=== PATIENT | male | born 1955 | race Caucasian/White ===

== ENCOUNTER 2020-07-04 05:57 | Outpatient (REF) | payer MEDICARE, OTHER, SELFPAY ==
[2020-07-04 08:30] LABS: Alanine Aminotransferase 28 U/L (0-40); Albumin Level 4.1 g/dL (3.5-5.0); Alkaline Phosphatase 60 U/L (39-117); Anion Gap 12 (12-20); Aspartate Amino Transferase 24 U/L (5-37); Bilirubin Total 0.6 mg/dL (0.0-1.0); Blood Urea Nitrogen 33 mg/dL (9-16); Calcium 8.8 mg/dL (8.4-10.2); Carbon Dioxide 28 mmol/L (22-29); Chloride 104 mmol/L (96-108); Estimated Glomerular Filt Rate 43; Glucose Fasting 128 mg/dL (60-99); Potassium 4.6 mmol/l (3.3-5.1); Sodium 139 mmol/L (135-145); Total Protein 6.6 g/dL (6.5-8.0)
[2020-07-09 00:27] LABS: Islet Cell Antibody Screen NEGATIVE (NEGATIVE)
[2020-07-09 16:42] LABS: Glutamic acid decarboxylase Ab <5 IU/mL (<5)
== END 2020-07-04 05:58 | disposition home or self-care (01) ==
LOC: HO.LAB 05:57
PROVIDERS: PCP Internal Medicine; Visit Provider Internal Medicine Endocrinology, Diabetes & Metabolism
DX: E11.9 Type 2 diabetes mellitus without complications (principal)
CPT/HCPCS: 80053; 84681; 86255; 86341

== ENCOUNTER → 2020-07-26 13:30 | Outpatient (BNVA) | payer MEDICARE, OTHER, SELFPAY | PROVIDERS: PCP Internal Medicine; Visit Provider Internal Medicine Endocrinology, Diabetes & Metabolism | DX: E11.42 Type 2 diabetes mellitus with diabetic polyneuropathy (principal); Z79.4 Long term (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; I15.2 Hypertension secondary to endocrine disorders; E78.00 Pure hypercholesterolemia, unspecified; E53.8 Deficiency of other specified B group vitamins; E66.3 Overweight | CPT/HCPCS: 82947; 99212 ==

== ENCOUNTER 2020-08-29 15:22 | Outpatient (REF) | payer MEDICARE, OTHER, SELFPAY ==
[2020-08-29 15:57] LABS: Basophils Percent Auto 0.3 % (0-2); Eosinophils Absolute Auto 0.1 X10*3/uL (0.0-0.4); Eosinophils Percent Auto 1.3 % (0-4); Hematocrit 38.9 % (42-52); Hemoglobin 12.7 g/dl (14.0-18.0); Imm Gran Abs Auto 0.01 X10*3/uL (0.00-0.03); Imm Gran Pct Auto 0.1 % (0.0-0.4); Lymphocytes Absolute Auto 1.2 X10*3/uL (1.2-4.9); Lymphocytes Percent Auto 17.4 % (20-40); MANUAL DIFF FLAG NO; Mean Corpuscular HGB Conc 32.6 g/dl (31.0-36.0); Mean Corpuscular Hemoglobin 30.9 pg (27.0-33.0); Mean Corpuscular Volume 94.6 fL (80-98); Mean Platelet Volume 11.6 fL (9.4-12.4); Monocytes Absolute Auto 0.6 X10*3/uL (0.1-1.2); Monocytes Percent Auto 8.7 % (2-11); Neutrophils Absolute Auto 5.1 X10*3/uL (2.0-8.3); Neutrophils Percent Auto 72.2 % (45-73); Platelet Count 179 X10*3/uL (160-400); Red Blood Count 4.11 X10*6/uL (4.60-5.80); Red Cell Distribution Width 13.3 % (11.0-16.0); White Blood Count 7.1 X10*3/uL (4.8-10.8)
[2020-08-29 16:16] LABS: Glucose Urine UA NEG (NEG); Leukocyte Esterase Urine NEG (NEG); Nitrite Urine NEG (NEG); PH 5.5 (5.0-8.0); Urine Blood NEG (NEG); Urine Ketones NEG (NEG); Urine Protein NEG (NEG-TRACE)
[2020-08-29 16:31] LABS: Albumin Level 4.3 g/dL (3.5-5.0); Anion Gap 11 (12-20); Blood Urea Nitrogen 43 mg/dL (9-16); Calcium 8.9 mg/dL (8.4-10.2); Carbon Dioxide 29 mmol/L (22-29); Chloride 101 mmol/L (96-108); Estimated Glomerular Filt Rate 32; Magnesium 2.3 mg/dL (1.6-2.6); Potassium 5.1 mmol/l (3.3-5.1); Sodium 136 mmol/L (135-145)
[2020-08-29 16:39] LABS: Appearance Urine CLEAR; Color Urine YELLOW
[2020-08-29 16:51] LABS: Creatinine Urine 77.33 mg/dL; Microalbumin Urine < 5.0 mg/L; Total Protein Urine Random < 7 mg/dL (<12)
[2020-08-29 16:52] LABS: Vitamin D 25-OH Total 65.7 ng/mL (>30)
[2020-08-29 20:47] LABS: Renal w Reflex Lab Use Only Order verified
[2020-08-30 18:47] LABS: Calcium (PTHI) 9.3 mg/dL (8.6-10.3); PTHI 52 pg/mL (14-64)
== END 2020-08-29 15:23 | disposition home or self-care (01) ==
LOC: HO.LAB 15:22
PROVIDERS: PCP Internal Medicine; Visit Provider Internal Medicine Nephrology
DX: E53.8 Deficiency of other specified B group vitamins (principal); I12.9 Hypertensive chronic kidney disease with stage 1 through stage 4 chronic kidney disease, or unspecified chronic kidney disease; N18.30 Chronic kidney disease, stage 3 unspecified; E66.3 Overweight
CPT/HCPCS: 36415; 80051; 81003; 82040; 82043; 82306; 82310; 82565; 83735; 83970; 84156; 84520; 85025

== ENCOUNTER 2020-09-24 15:33 | Outpatient (REF) | payer MEDICARE, OTHER, SELFPAY ==
[2020-09-24 16:18] LABS: Anion Gap 14 (12-20); Blood Urea Nitrogen 39 mg/dL (9-16); Calcium 9.1 mg/dL (8.4-10.2); Carbon Dioxide 27 mmol/L (22-29); Chloride 103 mmol/L (96-108); Estimated Glomerular Filt Rate 36; Phosphorus 4.6 mg/dL (2.7-4.5); Potassium 4.2 mmol/L (3.3-5.1); Sodium 140 mmol/L (135-145)
== END 2020-09-24 15:34 | disposition home or self-care (01) ==
LOC: HO.LAB 15:33
PROVIDERS: PCP Internal Medicine; Visit Provider Internal Medicine Nephrology
DX: E11.21 Type 2 diabetes mellitus with diabetic nephropathy (principal); I12.9 Hypertensive chronic kidney disease with stage 1 through stage 4 chronic kidney disease, or unspecified chronic kidney disease; N18.30 Chronic kidney disease, stage 3 unspecified
CPT/HCPCS: 36415; 80051; 82310; 82565; 84100; 84520

== ENCOUNTER → 2020-11-04 13:55 | Outpatient (BNVA) | payer MEDICARE, OTHER, SELFPAY | PROVIDERS: PCP Internal Medicine; Visit Provider Internal Medicine Endocrinology, Diabetes & Metabolism | DX: E11.42 Type 2 diabetes mellitus with diabetic polyneuropathy (principal); Z79.4 Long term (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; I15.2 Hypertension secondary to endocrine disorders; E78.00 Pure hypercholesterolemia, unspecified; E53.8 Deficiency of other specified B group vitamins; E66.3 Overweight | CPT/HCPCS: 82947; 99212 ==

== ENCOUNTER 2020-11-26 08:28 | Outpatient (REF) | payer MEDICARE, OTHER, SELFPAY ==
[2020-11-26 11:27] LABS: Hematocrit 42.5 % (42-52); Hemoglobin 13.9 g/dl (14.0-18.0); Mean Corpuscular HGB Conc 32.7 g/dl (31.0-36.0); Mean Corpuscular Hemoglobin 30.8 pg (27.0-33.0); Mean Corpuscular Volume 94.2 fL (80-98); Mean Platelet Volume 12.1 fL (9.4-12.4); Platelet Count 178 X10*3/uL (160-400); Red Blood Count 4.51 X10*6/uL (4.60-5.80); White Blood Count 6.2 X10*3/uL (4.8-10.8)
[2020-11-26 11:31] LABS: Estimated Average Glucose 131 mg/dL; Hemoglobin A1c % 6.2 %
[2020-11-26 11:47] LABS: Alanine Aminotransferase 31 U/L (0-40); Albumin Level 4.2 g/dL (3.5-5.0); Alkaline Phosphatase 64 U/L (39-117); Anion Gap 14 (12-20); Aspartate Amino Transferase 23 U/L (5-37); Bilirubin Total 0.9 mg/dL (0.0-1.0); Blood Urea Nitrogen 39 mg/dL (9-16); Calcium 8.7 mg/dL (8.4-10.2); Carbon Dioxide 27 mmol/L (22-29); Chloride 104 mmol/L (96-108); Cholesterol 129 mg/dL; Estimated Glomerular Filt Rate 38; Glucose Fasting 98 mg/dL (60-99); HDL Cholesterol 42 mg/dL; LDL Cholesterol Calculated 58 mg/dl; Potassium 4.7 mmol/L (3.3-5.1); Sodium 140 mmol/L (135-145); Total Protein 6.9 g/dL (6.5-8.0); Triglycerides 149 mg/dL
[2020-11-26 12:08] LABS: Creatinine Urine 137.71 mg/dL; Microalbumin Urine < 5.0 mg/L
== END 2020-11-26 08:29 | disposition home or self-care (01) ==
LOC: HO.HMGCLDS 08:28
PROVIDERS: PCP Internal Medicine; Visit Provider Internal Medicine
DX: E11.22 Type 2 diabetes mellitus with diabetic chronic kidney disease (principal); I12.9 Hypertensive chronic kidney disease with stage 1 through stage 4 chronic kidney disease, or unspecified chronic kidney disease; N18.30 Chronic kidney disease, stage 3 unspecified; E78.00 Pure hypercholesterolemia, unspecified
CPT/HCPCS: 36415; 80053; 80061; 82043; 83036; 85027

== ENCOUNTER 2020-12-19 15:39 | Outpatient (REF) | payer SELFPAY | END 2020-12-19 15:40 | disposition home or self-care (01) | LOC: HO.HAP 15:39 | PROVIDERS: Visit Provider Internal Medicine | DX: Z46.1 Encounter for fitting and adjustment of hearing aid (principal); H90.3 Sensorineural hearing loss, bilateral | CPT/HCPCS: V5014; V5299 ==

== ENCOUNTER 2021-01-22 12:20 | Outpatient (REF) | payer MEDICARE, OTHER, SELFPAY ==
[2021-01-22 14:00] LABS: Glucose Urine UA NEG (NEG); Leukocyte Esterase Urine NEG (NEG); Nitrite Urine NEG (NEG); Specific Gravity - Urine 1.015 (1.005-1.025); Urine Blood NEG (NEG); Urine Ketones NEG (NEG); Urine Protein NEG (NEG-TRACE)
[2021-01-22 14:01] LABS: Appearance Urine CLEAR; Color Urine YELLOW
[2021-01-22 14:02] LABS: MANUAL DIFF FLAG NO
[2021-01-22 14:08] LABS: Basophils Percent Auto 0.4 % (0-2); Eosinophils Absolute Auto 0.2 X10*3/uL (0.0-0.4); Eosinophils Percent Auto 2.6 % (0-4); Hematocrit 39.2 % (42-52); Hemoglobin 12.9 g/dl (14.0-18.0); Imm Gran Abs Auto 0.03 X10*3/uL (0.00-0.03); Imm Gran Pct Auto 0.4 % (0.0-0.4); Lymphocytes Absolute Auto 1.4 X10*3/uL (1.2-4.9); Lymphocytes Percent Auto 18.5 % (20-40); Mean Corpuscular HGB Conc 32.9 g/dl (31.0-36.0); Mean Corpuscular Hemoglobin 30.9 pg (27.0-33.0); Mean Platelet Volume 11.6 fL (9.4-12.4); Monocytes Absolute Auto 0.5 X10*3/uL (0.1-1.2); Monocytes Percent Auto 6.8 % (2-11); Neutrophils Absolute Auto 5.2 X10*3/uL (2.0-8.3); Neutrophils Percent Auto 71.3 % (45-73); Platelet Count 166 X10*3/uL (160-400); Red Blood Count 4.17 X10*6/uL (4.60-5.80); Red Cell Distribution Width 13.7 % (11.0-16.0); White Blood Count 7.4 X10*3/uL (4.8-10.8)
[2021-01-22 14:15] LABS: Mucus Urine TRACE /LPF; RBC Urine 0 /HPF (0); Squamous Epithelial Cell Urine TRACE /LPF; WBC Urine 0-2 /HPF (0-4)
[2021-01-22 14:38] LABS: Albumin Level 4.2 g/dL (3.5-5.0); Anion Gap 14 (12-20); Blood Urea Nitrogen 38 mg/dL (9-16); Calcium 9.1 mg/dL (8.4-10.2); Carbon Dioxide 25 mmol/L (22-29); Chloride 102 mmol/L (96-108); Estimated Glomerular Filt Rate 38; Magnesium 2.2 mg/dL (1.6-2.6); Phosphorus 3.8 mg/dL (2.7-4.5); Potassium 4.3 mmol/L (3.3-5.1); Sodium 137 mmol/L (135-145)
[2021-01-22 14:49] LABS: Microalbumin Urine < 5.0 mg/L; Total Protein Urine Random < 7 mg/dL (<12)
[2021-01-22 14:59] LABS: Renal w Reflex Lab Use Only Order verified
[2021-01-23 08:05] LABS: Creatinine Urine 63.86 mg/dL
[2021-01-23 13:27] LABS: Calcium (PTHI) 9.3 mg/dL (8.6-10.3); PTHI 58 pg/mL (14-64)
== END 2021-01-22 12:21 | disposition home or self-care (01) ==
LOC: HO.HMGCLDS 12:20
PROVIDERS: PCP Internal Medicine; Visit Provider Internal Medicine Nephrology
DX: I12.9 Hypertensive chronic kidney disease with stage 1 through stage 4 chronic kidney disease, or unspecified chronic kidney disease (principal); E11.22 Type 2 diabetes mellitus with diabetic chronic kidney disease; N18.30 Chronic kidney disease, stage 3 unspecified
CPT/HCPCS: 36415; 80051; 81001; 82040; 82043; 82306; 82310; 82565; 83735; 83970; 84100; 84156; 84520; 85025

== ENCOUNTER → 2021-02-10 10:25 | Outpatient (BNVA) | payer MEDICARE, OTHER, SELFPAY | PROVIDERS: PCP Internal Medicine; Visit Provider Internal Medicine Endocrinology, Diabetes & Metabolism | DX: E11.42 Type 2 diabetes mellitus with diabetic polyneuropathy (principal); I15.2 Hypertension secondary to endocrine disorders; E78.00 Pure hypercholesterolemia, unspecified; E53.8 Deficiency of other specified B group vitamins; E66.3 Overweight; Z79.4 Long term (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 | CPT/HCPCS: 82947; 99212 ==

== ENCOUNTER 2021-04-10 07:28 | Outpatient (REF) | payer MEDICARE, OTHER, SELFPAY ==
[2021-04-10 11:18] LABS: MANUAL DIFF FLAG NO
[2021-04-10 11:26] LABS: Basophils Percent Auto 0.6 % (0-2); Eosinophils Absolute Auto 0.2 X10*3/uL (0.0-0.4); Eosinophils Percent Auto 2.6 % (0-4); Hematocrit 38.5 % (42-52); Hemoglobin 12.4 g/dl (14.0-18.0); Imm Gran Abs Auto 0.02 X10*3/uL (0.00-0.03); Imm Gran Pct Auto 0.3 % (0.0-0.4); Mean Corpuscular HGB Conc 32.2 g/dl (31.0-36.0); Mean Corpuscular Hemoglobin 30.1 pg (27.0-33.0); Mean Corpuscular Volume 93.4 fL (80-98); Mean Platelet Volume 12.2 fL (9.4-12.4); Monocytes Absolute Auto 0.6 X10*3/uL (0.1-1.2); Monocytes Percent Auto 9.2 % (2-11); Neutrophils Absolute Auto 4.6 X10*3/uL (2.0-8.3); Neutrophils Percent Auto 71.3 % (45-73); Platelet Count 164 X10*3/uL (160-400); Red Blood Count 4.12 X10*6/uL (4.60-5.80); Red Cell Distribution Width 13.7 % (11.0-16.0); White Blood Count 6.4 X10*3/uL (4.8-10.8)
[2021-04-10 12:15] LABS: Folate 9.9 ng/mL (> or = 4.0); Vitamin B12 487 pg/mL (200-900)
[2021-04-10 12:17] LABS: Alanine Aminotransferase 26 U/L (0-40); Albumin Level 4.1 g/dL (3.5-5.0); Alkaline Phosphatase 61 U/L (39-117); Anion Gap 14 (12-20); Aspartate Amino Transferase 20 U/L (5-37); Bilirubin Total 0.5 mg/dL (0.0-1.0); Blood Urea Nitrogen 39 mg/dL (9-16); Calcium 9.1 mg/dL (8.4-10.2); Carbon Dioxide 25 mmol/L (22-29); Chloride 107 mmol/L (96-108); Estimated Glomerular Filt Rate 38; Glucose Fasting 82 mg/dL (60-99); Iron 50 mcg/dL (45-160); Percent Iron Saturation 20 % (15-50); Potassium 4.2 mmol/L (3.3-5.1); Sodium 142 mmol/L (135-145); Total Iron Binding Capacity 253 mcg/dL (228-428); Total Protein 6.6 g/dL (6.5-8.0); Unsaturated Iron Binding 203 ug/dL
== END 2021-04-10 07:29 | disposition home or self-care (01) ==
LOC: HO.HMGCLDS 07:28
PROVIDERS: PCP Internal Medicine; Visit Provider Internal Medicine
DX: E11.42 Type 2 diabetes mellitus with diabetic polyneuropathy (principal); E53.8 Deficiency of other specified B group vitamins; E78.00 Pure hypercholesterolemia, unspecified; N18.30 Chronic kidney disease, stage 3 unspecified
CPT/HCPCS: 36415; 80053; 82607; 82746; 83540; 85025

== ENCOUNTER → 2021-04-21 07:58 | Outpatient (BNVA) | payer MEDICARE, OTHER, SELFPAY | PROVIDERS: PCP Internal Medicine; Visit Provider Nurse Practitioner Gerontology | DX: E11.65 Type 2 diabetes mellitus with hyperglycemia (principal); E11.22 Type 2 diabetes mellitus with diabetic chronic kidney disease; E11.42 Type 2 diabetes mellitus with diabetic polyneuropathy; E11.610 Type 2 diabetes mellitus with diabetic neuropathic arthropathy; I12.9 Hypertensive chronic kidney disease with stage 1 through stage 4 chronic kidney disease, or unspecified chronic kidney disease; N18.30 Chronic kidney disease, stage 3 unspecified; E78.5 Hyperlipidemia, unspecified; E53.8 Deficiency of other specified B group vitamins; E66.3 Overweight; Z68.28 Body mass index [BMI] 28.0-28.9, adult; Z88.8 Allergy status to other drugs, medicaments and biological substances; Z79.4 Long term (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; Z96.41 Presence of insulin pump (external) (internal); Z79.899 Other long term (current) drug therapy; Z46.81 Encounter for fitting and adjustment of insulin pump | CPT/HCPCS: 82947; 99212 ==

== ENCOUNTER 2021-07-22 16:08 | Outpatient (REF) | payer MEDICARE, OTHER, SELFPAY ==
[2021-07-22 16:29] LABS: MANUAL DIFF FLAG NO
[2021-07-22 17:45] LABS: Basophils Percent Auto 0.4 % (0-2); Eosinophils Absolute Auto 0.2 X10*3/uL (0.0-0.4); Eosinophils Percent Auto 3.4 % (0-4); Hemoglobin 12.1 g/dl (14.0-18.0); Imm Gran Abs Auto 0.02 X10*3/uL (0.00-0.03); Imm Gran Pct Auto 0.3 % (0.0-0.4); Lymphocytes Absolute Auto 1.3 X10*3/uL (1.2-4.9); Lymphocytes Percent Auto 19.3 % (20-40); Mean Corpuscular HGB Conc 31.8 g/dl (31.0-36.0); Mean Corpuscular Hemoglobin 30.2 pg (27.0-33.0); Mean Corpuscular Volume 94.8 fL (80.0-98.0); Mean Platelet Volume 11.8 fL (9.4-12.4); Monocytes Absolute Auto 0.6 X10*3/uL (0.1-1.2); Monocytes Percent Auto 8.7 % (2-11); Neutrophils Absolute Auto 4.6 x10*3/uL (2.0-8.3); Neutrophils Percent Auto 67.9 % (45-73); Platelet Count 163 X10*3/uL (160-400); Red Blood Count 4.01 X10*6/uL (4.60-5.80); Red Cell Distribution Width 14.3 % (11.0-16.0); White Blood Count 6.8 X10*3/uL (4.8-10.8)
[2021-07-22 17:48] LABS: Appearance Urine CLEAR; Color Urine STRAW; Glucose Urine UA NEG (NEG); Leukocyte Esterase Urine NEG (NEG); Nitrite Urine NEG (NEG); Specific Gravity - Urine 1.015 (1.005-1.025); Urine Blood NEG (NEG); Urine Ketones NEG (NEG); Urine Protein NEG (NEG-TRACE)
[2021-07-22 18:07] LABS: Anion Gap 13 (12-20); Blood Urea Nitrogen 34 mg/dL (9-16); Calcium 9.5 mg/dL (8.4-10.2); Carbon Dioxide 25 mmol/L (22-29); Chloride 104 mmol/L (96-108); Estimated Glomerular Filt Rate 43; Phosphorus 4.2 mg/dL (2.7-4.5); Potassium 4.3 mmol/L (3.3-5.1); Sodium 138 mmol/L (135-145)
[2021-07-22 18:13] LABS: Creatinine Urine 39.79 mg/dL; Microalbumin Urine < 5.0 mg/L; Total Protein Urine Random < 7 mg/dL (<12)
[2021-07-22 18:31] LABS: Vitamin D 25-OH Total 51.1 ng/mL (>30)
== END 2021-07-22 16:09 | disposition home or self-care (01) ==
LOC: HO.LAB 16:08
PROVIDERS: PCP Internal Medicine; Visit Provider Internal Medicine Nephrology
DX: N18.31 Chronic kidney disease, stage 3a (principal)
CPT/HCPCS: 36415; 80051; 81003; 82040; 82043; 82306; 82310; 82565; 83735; 84100; 84156; 84520; 85025; 87086

== ENCOUNTER → 2021-08-01 10:33 | Outpatient (BNVA) | payer MEDICARE, OTHER, SELFPAY | PROVIDERS: PCP Internal Medicine; Visit Provider Nurse Practitioner Gerontology | DX: E11.42 Type 2 diabetes mellitus with diabetic polyneuropathy (principal); E78.00 Pure hypercholesterolemia, unspecified; E53.8 Deficiency of other specified B group vitamins; I15.2 Hypertension secondary to endocrine disorders; Z79.4 Long term (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; Z96.41 Presence of insulin pump (external) (internal) | CPT/HCPCS: 82947; 83036; 99212 ==

== ENCOUNTER → 2021-08-19 09:21 | Outpatient (BNVA) | payer MEDICARE, OTHER, SELFPAY | PROVIDERS: PCP Internal Medicine; Visit Provider Registered Nurse Diabetes Educator ==

== ENCOUNTER 2021-10-30 09:06 | Outpatient (REF) | payer MEDICARE, OTHER, SELFPAY ==
[2021-10-30 11:51] LABS: Hematocrit 43.2 % (42.0-52.0); Hemoglobin 13.9 g/dl (14.0-18.0); Mean Corpuscular HGB Conc 32.2 g/dl (31.0-36.0); Mean Corpuscular Hemoglobin 30.9 pg (27.0-33.0); Platelet Count 157 X10*3/uL (160-400); Red Cell Distribution Width 14.2 % (11.0-16.0); White Blood Count 5.6 X10*3/uL (4.8-10.8)
[2021-10-30 12:00] LABS: Estimated Average Glucose 123 mg/dL; Hemoglobin A1c % 5.9 %
[2021-10-30 12:04] LABS: Magnesium 2.2 mg/dL (1.6-2.6); Phosphorus 3.3 mg/dL (2.7-4.5); Total Protein 6.7 g/dL (6.5-8.0)
[2021-10-30 12:07] LABS: Appearance Urine CLEAR; Color Urine YELLOW; Glucose Urine UA >=1000 MG/DL (NEG); Leukocyte Esterase Urine NEG (NEG); Nitrite Urine NEG (NEG); PH 5.5 (5.0-8.0); Urine Blood NEG (NEG); Urine Ketones NEG (NEG); Urine Protein NEG (NEG-TRACE)
[2021-10-30 12:14] LABS: Alanine Aminotransferase 27 U/L (0-40); Albumin Level 3.9 g/dL (3.5-5.0); Alkaline Phosphatase 64 U/L (39-117); Anion Gap 15 (12-20); Aspartate Amino Transferase 23 U/L (5-37); Bilirubin Total 0.7 mg/dL (0.0-1.0); Blood Urea Nitrogen 40 mg/dL (9-16); Calcium 8.9 mg/dL (8.4-10.2); Carbon Dioxide 22 mmol/L (22-29); Chloride 104 mmol/L (96-108); Cholesterol 149 mg/dL; Estimated Glomerular Filt Rate 37; Glucose Fasting 131 mg/dL (60-99); HDL Cholesterol 51 mg/dL; LDL Cholesterol Calculated 73 mg/dl; Potassium 4.8 mmol/L (3.3-5.1); Sodium 136 mmol/L (135-145); Total Protein 6.6 g/dL (6.5-8.0); Triglycerides 125 mg/dL
[2021-10-30 12:23] LABS: Creatinine Urine 100.67 mg/dL; Microalbumin Urine < 5.0 mg/L
[2021-10-30 12:25] LABS: Prostate Specific Antigen Scr 0.81 ng/mL (<0.05-4.0); Vitamin D 25-OH Total 40.9 ng/mL (>30)
[2021-10-30 12:25] LABS: Creatinine Urine 102.26 mg/dL; Protein/Creatinine Ratio, Ur 0.09 (<0.2); Total Protein Urine Random 9 mg/dL (<12)
[2021-10-30 12:27] LABS: RBC Urine 0-2 /HPF (0); WBC Urine 0-2 /HPF (0-4)
[2021-10-30 12:28] LABS: Squamous Epithelial Cell Urine TRACE /LPF
[2021-10-30 13:02] LABS: Folate 6.7 ng/mL (> or = 4.0); Vitamin B12 416 pg/mL (200-900)
[2021-10-31 18:21] LABS: Calcium (PTHI) 8.9 mg/dL (8.6-10.3); PTHI 74 pg/mL (14-64)
== END 2021-10-30 09:07 | disposition home or self-care (01) ==
LOC: HO.HMGCLDS 09:06
PROVIDERS: Absent Provider Internal Medicine Nephrology; PCP Internal Medicine; Visit Provider Internal Medicine
DX: E11.42 Type 2 diabetes mellitus with diabetic polyneuropathy (principal); E11.21 Type 2 diabetes mellitus with diabetic nephropathy; N18.32 Chronic kidney disease, stage 3b; E78.00 Pure hypercholesterolemia, unspecified; E53.8 Deficiency of other specified B group vitamins; Z12.5 Encounter for screening for malignant neoplasm of prostate
CPT/HCPCS: 36415; 80053; 80061; 81001; 82043; 82306; 82607; 82746; 83036; 83735; 83970; 84100; 84153; 84155; 84156; 85027; 87086

== ENCOUNTER → 2021-11-04 07:23 | Outpatient (BNVA) | payer MEDICARE, OTHER, SELFPAY | PROVIDERS: PCP Internal Medicine; Visit Provider Nurse Practitioner Gerontology | DX: E11.42 Type 2 diabetes mellitus with diabetic polyneuropathy (principal); E53.8 Deficiency of other specified B group vitamins; E66.3 Overweight; E78.00 Pure hypercholesterolemia, unspecified; I15.2 Hypertension secondary to endocrine disorders; Z96.41 Presence of insulin pump (external) (internal); Z79.4 Long term (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 | CPT/HCPCS: 82947; 99212 ==

== ENCOUNTER 2021-11-17 13:14 | Outpatient (REF) | payer MEDICARE, OTHER, SELFPAY ==
[2021-11-17 14:16] LABS: Anion Gap 12 (12-20); Blood Urea Nitrogen 31 mg/dL (9-16); Calcium 9.2 mg/dL (8.4-10.2); Carbon Dioxide 26 mmol/L (22-29); Chloride 106 mmol/L (96-108); Estimated Glomerular Filt Rate 41; Glucose Random 115 mg/dL (60-115); Potassium 4.4 mmol/L (3.3-5.1); Sodium 140 mmol/L (135-145)
== END 2021-11-17 13:15 | disposition home or self-care (01) ==
LOC: HO.HMGCLDS 13:14
PROVIDERS: Visit Provider Internal Medicine
DX: E11.9 Type 2 diabetes mellitus without complications (principal); I15.2 Hypertension secondary to endocrine disorders; N18.30 Chronic kidney disease, stage 3 unspecified
CPT/HCPCS: 36415; 80048

== ENCOUNTER → 2021-11-18 07:52 | Outpatient (BNVA) | payer MEDICARE, OTHER, SELFPAY | PROVIDERS: PCP Internal Medicine; Visit Provider Registered Nurse Diabetes Educator | DX: E11.42 Type 2 diabetes mellitus with diabetic polyneuropathy (principal); Z79.4 Long term (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; Z96.41 Presence of insulin pump (external) (internal) | CPT/HCPCS: 99211 ==

== ENCOUNTER 2021-12-22 13:50 | Outpatient (REF) | payer MEDICARE, OTHER, SELFPAY ==
--- NOTE | 2021-12-22 16:16 | MHC.AU.AHA ---
Adult Audiological Evaluation Date of Visit: 12/22/21 Reason for Appointment: Audiological re-evaluation due to concern for decreased hearing. Mr. Herrera has a known bilateral sensorineural hearing loss and uses hearing aids binaurally. He notes that he has been trouble understanding his sons who he feels mumble and his grandkids. He notes that he retired in July 2021 and has been wearing the hearing aids more consistently now. He notes that since he has retired, his blood pressure has gone down and his blood pressure medication dosage has been reduced. He denies any other changes to his medical history. Previous Hearing Test [place] [facility] [place] Normal through 500 Hz sloping to a moderately-severe sensorineural hearing loss bilaterally. Medical History: Medical History: Anemia, B-complex deficiency, B12 deficiency, CKD (chronic kidney disease) stage III, Diabetes type 2 controlled, Diabetic polyneuropathy associated with type 2 diabetes mellitus, HTN (hypertension), Hypercholesterolemia, Peripheral neuropathy Allergies: Niacin, statins, atorvastatin Medication List: amlodipine, ascorbic acid, aspirin, calcium carbonate-vitamin D3, cholecalciferol (vitamin D3), dapagliflozin (Farxiga), ezetimibe, ferrous sulfate (FeroSul), fluticasone propionate, furosemide, glucosamine HCl, hydralazine, irbesartan, metformin, montelukast, nebivolol, Novolog U-100, rosuvastatin, spironolactone Hearing Instrument History- Right Ear: Oriental Medicine Practitioner: RotaryView Model: [employer] Q70-312 Serial Number: [id number] Battery Size: 312 Repair Warranty: Dispensed By: [employer] service Date of Fitting: ~2014 Hearing Instrument History- Left Ear: Oriental Medicine Practitioner: RotaryView Model: [employer] Q70-312 Serial Number: [id number] Battery Size: 312 Warranty: Dispensed By: [employer] service Date of Fitting: Otoscopy: Right Ear: Unremarkable Left Ear: Unremarkable Tympanometry: Tympanometry performed due to: To assess integrity of the middle ear system Right Ear: Hypercompliant Middle Ear System (Type Ad) Left Ear: Hypercompliant Middle Ear System (Type Ad) Hearing Evaluation: Transducer(s) Used: Insert Earphones, Bone Conduction Method: Conventional Audiometry Stimuli Used: Pure Tones Right Ear: Description of Hearing: Normal hearing at 250 Hz, sloping to a mild to moderate sensorineural hearing loss from 500-8000 Hz. Left Ear: Description of Hearing: Normal hearing at 250 Hz, sloping to a mild to moderate sensorineural hearing loss from 500-8000 Hz. Speech Recognition Threshold (SRT): Method Used: Monitored Live Voice Stimuli Used: Spondee Words Right Ear: 35 dBHL Left Ear: 35 dBHL Word Discrimination: Method: Recorded Lists Word Lists Used: NU-6 Right Ear: 92% at 75 dBHL Left Ear: 100% at 75 dBHL Comparison: Compared to most recent evaluation: Hearing has decreased by 10-20 dBHL from 250-3000 Hz bilaterally. Recommendations: Audiological re-evaluation in one year. Based on the age of his current hearing aids and the new technologies available, updated amplification is recommended. Mr. Herrera is interested in purchasing a new pair of Phonak Audeo P90-13T hearing aids. Order was placed today and hearing aid fitting will be scheduled when materials arrive. Diagnosis: Primary Diagnosis: H90.3 Bilateral Sensorineural Hearing Loss Services Performed: Comprehensive Audiological Evaluation (CPT 25080) Tympanometry (CPT 39556) Signature: Provider: Elijah Da Silva, MANDY-A
--- NOTE | 2021-12-24 13:37 | MHC.AU.MED ---
Medical Clearance for Hearing Instrumentation Date: 12/24/21 Patient Name: Mihai Herrera Date of : 1955 Referring Provider: Maria Isabel Munoz MD We have seen your patient on 12/24/21 and have determined that they are a candidate for amplification (See accompanying report). Specifically, they would benefit from: Hearing aid use in both ears There is a statute that addresses Medical Evaluation Requirements prior to fitting a patient with a hearing aid. According to [place] statute 265 CMR:6.03(1), (a) General. Except as provided in 265 CMR 6.03(1)(b), a shearing shed worker shall not sell a hearing aid unless the prospective user has presented to the shearing shed worker a written statement signed by a licensed physician that states that the patient's hearing loss has been medically evaluated and the patient may be considered a candidate for a hearing aid. The medical evaluation must have taken place within the preceding six months. Please note: Due to the [place] Statute referenced above, we cannot accept a signature other than that of a licensed physician. ENVIRONMENTAL PLANNER and PA signatures cannot be accepted. I am in agreement with the above recommendation. There is no medical contraindication for hearing instrumentation. Physician Signature Date Physician Name (Printed)
== END 2021-12-22 13:51 | disposition home or self-care (01) ==
LOC: HO.SH 13:50
PROVIDERS: Visit Provider Internal Medicine
DX: Z01.118 Encounter for examination of ears and hearing with other abnormal findings (principal); H90.3 Sensorineural hearing loss, bilateral
CPT/HCPCS: 92557; 92567

== ENCOUNTER 2021-12-22 15:06 | Outpatient (REF) | payer SELFPAY ==
--- NOTE | 2021-12-22 16:33 | MHC.AU.HAS ---
Hearing Aid Evaluation Date of Visit: 12/22/21 Historical Information: Description of Hearing: Mild to moderate sensorineural hearing loss bilaterally. Current personal amplification information, if applicable: Phonak Infusionsofteo Q70-312 Summary: Mr. Herrera is interested in pursuing new hearing aids, which are recommended due to the age of his current devices and updates in technology. Discussed hearing aid styles and technologies. He is interested in remaining with JULIO C style hearing aids with open domes. He is interested in Bluetooth connectivity. He would like to go with Nasseoium technology devices. Hearing Aid Prescription: Based on the individual?s shared listening needs, communication environments, dexterity, desire for connectivity, and personal preferences, the following prescription for amplification has been made: Right ear: Vice President Media Relations: Phonak Model: Audeo P90-13T Battery Size: 13 Color: P5 Geospatial Scientist: Size 1 M Type of Dome: Medium open Left ear: Left ear prescription to be same as Right Hearing Aid above: Vice President Media Relations: Phonak Model: Audeo P90-13T Battery Size: 312 Color: P5 Geospatial Scientist: Size 1 M Type of Dome: Medium open Plan of Care: Medical Clearance to be requested from PCP/ENT. Hearing Instrument Fitting to be scheduled when materials arrive. Hearing aids ordered. He paid the $350 down payment today. He notes that he has some hearing aid coverage from [facility] and will want an itemized receipt. Maintenance and adjustments were performed on his current hearing aids. Primary Diagnosis: H90.3 Bilateral Sensorineural Hearing Loss Signature: Provider: Elijah Da Silva, CCC-A
== END 2021-12-22 15:07 | disposition home or self-care (01) ==
LOC: HO.HAP 15:06
PROVIDERS: Visit Provider Internal Medicine
DX: Z46.1 Encounter for fitting and adjustment of hearing aid (principal); H90.3 Sensorineural hearing loss, bilateral
CPT/HCPCS: 92591

== ENCOUNTER 2022-01-08 13:49 | Outpatient (REF) | payer SELFPAY | END 2022-01-08 13:50 | disposition home or self-care (01) | LOC: HO.HAP 13:49 | PROVIDERS: Visit Provider Internal Medicine | DX: Z46.1 Encounter for fitting and adjustment of hearing aid (principal); H90.3 Sensorineural hearing loss, bilateral | CPT/HCPCS: V5261 ==

== ENCOUNTER 2022-01-22 13:48 | Outpatient (REF) | payer SELFPAY | END 2022-01-22 13:49 | disposition home or self-care (01) | LOC: HO.HAP 13:48 | PROVIDERS: Visit Provider Internal Medicine | DX: Z13.89 Encounter for screening for other disorder (principal) ==

== ENCOUNTER → 2022-03-25 14:27 | Outpatient (BNVA) | payer MEDICARE, OTHER, SELFPAY | PROVIDERS: PCP Internal Medicine; Visit Provider Internal Medicine Endocrinology, Diabetes & Metabolism | DX: E11.9 Type 2 diabetes mellitus without complications (principal); Z79.4 Long term (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 | CPT/HCPCS: 82947; 99212 ==

== ENCOUNTER 2022-06-05 07:54 | Outpatient (REF) | payer MEDICARE, OTHER, SELFPAY ==
[2022-06-05 11:38] LABS: Hematocrit 45.5 % (42.0-52.0); Mean Corpuscular Hemoglobin 30.9 pg (27.0-33.0); Mean Corpuscular Volume 93.8 fL (80.0-98.0); Mean Platelet Volume 11.6 fL (9.4-12.4); Platelet Count 179 X10*3/uL (160-400); Red Blood Count 4.85 X10*6/uL (4.60-5.80); Red Cell Distribution Width 15.8 % (11.0-16.0); White Blood Count 5.1 X10*3/uL (4.8-10.8)
[2022-06-05 11:50] LABS: Estimated Average Glucose 123 mg/dL; Hemoglobin A1c % 5.9 %
[2022-06-05 12:06] LABS: Alanine Aminotransferase 25 U/L (0-40); Albumin Level 3.9 g/dL (3.5-5.0); Alkaline Phosphatase 79 U/L (39-117); Anion Gap 13 (12-20); Aspartate Amino Transferase 23 U/L (5-37); Bilirubin Total 0.6 mg/dL (0.0-1.0); Blood Urea Nitrogen 21 mg/dL (9-16); Calcium 8.7 mg/dL (8.4-10.2); Carbon Dioxide 26 mmol/L (22-29); Chloride 107 mmol/L (96-108); Cholesterol 142 mg/dL; Estimated Glomerular Filt Rate 49; Glucose Fasting 80 mg/dL (60-99); HDL Cholesterol 52 mg/dL; Iron 71 mcg/dL (45-160); LDL Cholesterol Calculated 67 mg/dl; Percent Iron Saturation 29 % (15-50); Potassium 4.1 mmol/L (3.3-5.1); Sodium 142 mmol/L (135-145); Total Iron Binding Capacity 246 mcg/dL (228-428); Total Protein 6.5 g/dL (6.5-8.0); Triglycerides 116 mg/dL; Unsaturated Iron Binding 175 ug/dL
[2022-06-05 12:22] LABS: Creatinine Urine 148.57 mg/dL
== END 2022-06-05 07:55 | disposition home or self-care (01) ==
LOC: HO.HMGCLDS 07:54
PROVIDERS: PCP Internal Medicine; Visit Provider Internal Medicine
DX: E11.42 Type 2 diabetes mellitus with diabetic polyneuropathy (principal); I15.2 Hypertension secondary to endocrine disorders; N18.30 Chronic kidney disease, stage 3 unspecified
CPT/HCPCS: 36415; 80053; 80061; 82043; 83036; 83540; 85027

== ENCOUNTER 2022-07-15 08:30 | Outpatient (REF) | payer MEDICARE, OTHER, SELFPAY ==
--- NOTE | 2022-07-15 09:46 | MHC.AU.HFU ---
Hearing Instrument Follow-Up- Binaural Date of Visit: 07/15/22 Right Ear: Phonak Karinaeo P90-13T SN: [id number] Color: Champagne Repair Warranty: 03/25/2025 Loss and Damage Warranty: 03/25/2025 Battery Size: 13 Slurry Tank Operator: 1M Type of Mold: Small open dome Type of Wax Guard: Cerushield Dispensed By: [facility] Date of Fittin01/08/2022 Left Ear: Phonak Karinaeo P90-13T SN: [id number] Color: Champagne Repair Warranty: 03/25/2025 Loss and Damage Warranty: 03/25/2025 Battery Size: 13 Slurry Tank Operator: 1M Type of Mold: Small open dome Type of Wax Guard: Cerushield Dispensed By: [facility] Date of Fittin01/08/2022 Follow-Up Summary: Mihai returned for routine hearing aid maintenance. He reported overall he is doing well with the hearing aids and not experiencing any issues at this time. Cleaning the hearing aids. Vacuumed the microphones and replaced the domes and wax guards. The right battery door had a significant amount of rust - cleaned thoroughly. A listening check demonstrated that the hearing aids are in good working order. Mihai reported the rust is likely from sweat. Recommendations: Hearing instrument maintenance in 6 months, or sooner if needed. Please contact our clinic with any questions or concerns. Consider use of dehumidifier for moisture concerns. Diagnosis Code(s): Primary Diagnosis: H90.3 Bilateral Sensorineural Hearing Loss Signature: Provider: Liat Vincent, [facility]
== END 2022-07-15 08:31 | disposition home or self-care (01) ==
LOC: HO.HAP 08:30
PROVIDERS: Visit Provider Internal Medicine
DX: Z13.89 Encounter for screening for other disorder (principal)

== ENCOUNTER 2022-07-15 12:41 | Outpatient (REF) | payer MEDICARE, OTHER, SELFPAY ==
[2022-07-15 14:40] LABS: Glucose 2 Hour PP 217 mg/dL (60-115)
== END 2022-07-15 12:42 | disposition home or self-care (01) ==
LOC: HO.HMGCLDS 12:41
PROVIDERS: PCP Internal Medicine; Visit Provider Internal Medicine Endocrinology, Diabetes & Metabolism
DX: E11.9 Type 2 diabetes mellitus without complications (principal)
CPT/HCPCS: 36415; 82951; 84681

== ENCOUNTER → 2022-07-23 10:47 | Outpatient (BNVA) | payer MEDICARE, OTHER, SELFPAY | PROVIDERS: PCP Internal Medicine; Visit Provider Internal Medicine Endocrinology, Diabetes & Metabolism | DX: E11.9 Type 2 diabetes mellitus without complications (principal); Z79.84 Long term (current) use of oral hypoglycemic drugs; Z96.41 Presence of insulin pump (external) (internal) | CPT/HCPCS: 82947; 99212 ==

== ENCOUNTER → 2022-10-22 08:54 | Outpatient (BNVA) | payer MEDICARE, OTHER, SELFPAY | PROVIDERS: PCP Internal Medicine; Visit Provider Internal Medicine Endocrinology, Diabetes & Metabolism | DX: E11.9 Type 2 diabetes mellitus without complications (principal); Z79.4 Long term (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; Z79.84 Long term (current) use of oral hypoglycemic drugs; Z96.41 Presence of insulin pump (external) (internal) | CPT/HCPCS: 82947; 83036; 99212 ==

== ENCOUNTER 2022-12-03 07:31 | Outpatient (REF) | payer MEDICARE, OTHER, SELFPAY ==
[2022-12-03 11:27] LABS: MANUAL DIFF FLAG NO
[2022-12-03 12:03] LABS: Basophils Percent Auto 0.4 % (0-2); Eosinophils Absolute Auto 0.2 X10*3/uL (0.0-0.4); Eosinophils Percent Auto 2.8 % (0-4); Hematocrit 47.7 % (42.0-52.0); Hemoglobin 15.4 g/dl (14.0-18.0); Imm Gran Abs Auto 0.03 X10*3/uL (0.00-0.03); Imm Gran Pct Auto 0.5 % (0.0-0.4); Lymphocytes Absolute Auto 1.3 X10*3/uL (1.2-4.9); Lymphocytes Percent Auto 22.9 % (20-40); Mean Corpuscular HGB Conc 32.3 g/dl (31.0-36.0); Mean Corpuscular Hemoglobin 31.2 pg (27.0-33.0); Mean Corpuscular Volume 96.8 fL (80.0-98.0); Mean Platelet Volume 11.4 fL (9.4-12.4); Monocytes Absolute Auto 0.5 X10*3/uL (0.1-1.2); Monocytes Percent Auto 8.9 % (2-11); Neutrophils Absolute Auto 3.6 x10*3/uL (2.0-8.3); Neutrophils Percent Auto 64.5 % (45-73); Platelet Count 163 X10*3/uL (160-400); Red Blood Count 4.93 X10*6/uL (4.60-5.80); Red Cell Distribution Width 14.4 % (11.0-16.0); White Blood Count 5.6 X10*3/uL (4.8-10.8)
[2022-12-03 12:05] LABS: Creatinine Urine 127.33 mg/dL; Microalbum/Creatinine Ratio Ur 5.4 ug/mg cr
[2022-12-03 12:11] LABS: Estimated Average Glucose 123 mg/dL; Hemoglobin A1c % 5.9 %
[2022-12-03 12:23] LABS: Alanine Aminotransferase 35 U/L (0-40); Albumin Level 3.9 g/dL (3.5-5.0); Alkaline Phosphatase 81 U/L (39-117); Anion Gap 12 (12-20); Aspartate Amino Transferase 27 U/L (5-37); Bilirubin Total 0.7 mg/dL (0.0-1.0); Blood Urea Nitrogen 21 mg/dL (9-16); Calcium 8.9 mg/dL (8.4-10.2); Carbon Dioxide 27 mmol/L (22-29); Chloride 109 mmol/L (96-108); Cholesterol 155 mg/dL; Estimated Glomerular Filt Rate 49; Glucose Fasting 94 mg/dL (60-99); HDL Cholesterol 46 mg/dL; LDL Cholesterol Calculated 70 mg/dl; Potassium 4.5 mmol/L (3.3-5.1); Sodium 143 mmol/L (135-145); Total Protein 6.3 g/dL (6.5-8.0); Triglycerides 195 mg/dL
[2022-12-03 12:27] LABS: PSA,Total (Free>4and<10) 0.78 ng/mL (0.00-4.00)
== END 2022-12-03 07:32 | disposition home or self-care (01) ==
LOC: HO.HMGCLDS 07:31
PROVIDERS: PCP Internal Medicine; Visit Provider Internal Medicine
DX: E11.42 Type 2 diabetes mellitus with diabetic polyneuropathy (principal); E11.22 Type 2 diabetes mellitus with diabetic chronic kidney disease; I15.2 Hypertension secondary to endocrine disorders; N18.30 Chronic kidney disease, stage 3 unspecified; E78.00 Pure hypercholesterolemia, unspecified; Z12.5 Encounter for screening for malignant neoplasm of prostate
CPT/HCPCS: 36415; 80053; 80061; 82043; 83036; 84153; 85025

== ENCOUNTER → 2023-01-28 08:15 | Outpatient (BNVA) | payer MEDICARE, OTHER, SELFPAY | PROVIDERS: PCP Internal Medicine; Visit Provider Internal Medicine Endocrinology, Diabetes & Metabolism | DX: E11.22 Type 2 diabetes mellitus with diabetic chronic kidney disease (principal); N18.30 Chronic kidney disease, stage 3 unspecified; Z96.41 Presence of insulin pump (external) (internal); Z79.4 Long term (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; Z79.84 Long term (current) use of oral hypoglycemic drugs | CPT/HCPCS: 36415; 80051; 81001; 82040; 82043; 82306; 82310; 82565; 82947; 83735; 83970; 84100; 84156; 84520; 85027; 87086; 99212 ==

== ENCOUNTER 2023-01-28 15:50 | Outpatient (REF) | payer MEDICARE, OTHER, SELFPAY ==
[2023-01-28 17:40] LABS: Hematocrit 46.4 % (42.0-52.0); Hemoglobin 15.1 g/dl (14.0-18.0); Mean Corpuscular HGB Conc 32.5 g/dl (31.0-36.0); Mean Corpuscular Hemoglobin 32.1 pg (27.0-33.0); Mean Corpuscular Volume 98.7 fL (80.0-98.0); Mean Platelet Volume 11.6 fL (9.4-12.4); Platelet Count 158 X10*3/uL (160-400); Red Cell Distribution Width 13.9 % (11.0-16.0); White Blood Count 6.6 X10*3/uL (4.8-10.8)
[2023-01-28 18:00] LABS: Appearance Urine Clear; Color Urine Yellow; Glucose Urine UA >=1000 mg/dL (Negative); Leukocyte Esterase Urine Negative (Negative); Nitrite Urine Negative (Negative); PH 5.5 (5.0-9.0); Specific Gravity - Urine 1.025 (1.005-1.025); UMIC TRIGGER UA YES; Urine Blood Negative (Negative); Urine Ketones Negative (Negative); Urine Protein Negative (Neg-Trace)
[2023-01-28 18:10] LABS: Bacteria Urine None Seen (None Seen); Hyaline Casts Urine 0-2 /LPF (0-2); RBC Urine 0-2 /HPF (0-2); Squamous Epithelial Cell Urine 0-2 /HPF (0-2); WBC Urine 0-5 /HPF (0-5)
[2023-01-28 18:11] LABS: Creatinine Urine 78.68 mg/dL; Microalbum/Creatinine Ratio Ur 10.1 ug/mg cr; Total Protein Urine Random 8 mg/dL (<12)
[2023-01-28 18:23] LABS: Albumin Level 4.1 g/dL (3.5-5.0); Anion Gap 14 (12-20); Blood Urea Nitrogen 25 mg/dL (9-16); Carbon Dioxide 25 mmol/L (22-29); Chloride 106 mmol/L (96-108); Estimated Glomerular Filt Rate 44; Magnesium 2.3 mg/dL (1.6-2.6); Phosphorus 3.1 mg/dL (2.7-4.5); Potassium 4.8 mmol/L (3.3-5.1); Sodium 140 mmol/L (135-145)
[2023-01-28 18:39] LABS: Vitamin D 25-OH Total 37.3 ng/mL (>30)
[2023-02-02 12:39] LABS: Calcium (PTHI) 9.1 mg/dL (8.6-10.3); PTHI 127 pg/mL (16-77)
== END 2023-01-28 15:51 | disposition home or self-care (01) ==
LOC: HO.LAB 15:50
PROVIDERS: PCP Internal Medicine; Visit Provider Internal Medicine Nephrology
DX: Z13.89 Encounter for screening for other disorder (principal)
CPT/HCPCS: 36415; 80051; 81001; 82040; 82043; 82306; 82310; 82565; 83735; 83970; 84100; 84156; 84520; 85027; 87086

== ENCOUNTER 2023-03-24 08:50 | Outpatient (REF) | payer MEDICARE, OTHER, SELFPAY ==
--- NOTE | 2023-03-24 12:52 | MHC.AU.HA3 ---
Hearing Instrument Follow-Up- Binaural Date of Visit: 03/24/23 Right Ear: Christos, Model, Color, Serial Number: Meryl Dickerson [id number] SN: [id number] Color: Ericagne Compensation And Benefits Administrator Repair Warranty: 03/25/2025 Compensation And Benefits Administrator Loss and Damage Warranty: 03/25/2025 [facility] Service Plan: 03/25/2025 Battery Size: 13 Six Color Press Operator/Slim Tube: 1M Earmold/Dome/CShell/SlimTip:Small open dome Type of Wax Guard: Cerushield Dispensed By: [facility] Date of Fittin01/08/2022 Left Ear: Christos, Model, Color, Serial Number: Meryl Dickerson [id number] SN: [id number] Color: Ericagne Compensation And Benefits Administrator Repair Warranty: 03/25/2025 Compensation And Benefits Administrator Loss and Damage Warranty: 03/25/2025 [facility] Service Plan: 03/25/2025 Battery Size: 13 Six Color Press Operator/Slim Tube: 1M Earmold/Dome/CShell/SlimTip: Small open dome Type of Wax Guard: Cerushield Dispensed By: [facility] Date of Fittin01/08/2022 Follow-Up Summary: Mihai returned for routine hearing aid maintenance following an updated audio (see separate report). Cleaned the hearing aids. Replaced domes and wax guards. Vacuumed microphones and ran through dehumidifier. Significant rust was noted on battery doors and in battery compartment - cleaned thoroughly. Mihai reported he sweats a lot and often cleans out the rust himself. Discussed purchasing a hearing aid dehumidifier again, as recommended on 07/15/2022. Otherwise, no programming adjustments, as hearing is stable, Mihai is happy with the overall sound quality, and having no other issues at this time. Recommendations: Hearing instrument maintenance in 6 months, or sooner if needed. Please contact our clinic with any questions or concerns. Recommendations (Other): Use of dehumidifier for moisture/sweat concerns. Diagnosis Code(s): Primary Diagnosis: H90.3 Bilateral Sensorineural Hearing Loss Signature: Provider: Liat Vincent, [facility]
== END 2023-03-24 08:51 | disposition home or self-care (01) ==
LOC: HO.SH 08:50
PROVIDERS: Visit Provider Internal Medicine
DX: Z01.118 Encounter for examination of ears and hearing with other abnormal findings (principal); H90.3 Sensorineural hearing loss, bilateral
CPT/HCPCS: 92557

== ENCOUNTER 2023-05-06 07:52 | Outpatient (AMB) | payer MEDICARE, OTHER, SELFPAY ==
[2023-05-06 07:54] VITALS: BP 116/64; PULSE 57; BMI 30.6
--- NOTE | 2023-05-06 07:54 | A.OFFVIS_ITS ---
Intake Vital Signs 05/06/23 07:54 Height 6 ft 3 in Weight 244 lb 11.41 oz BMI 30.6 BP 116/64 Blood Pressure Location Lt brachial Position Sitting Pulse 57 Pulse Source Pulse Oximeter Intake Visit Reasons: DM/Confirmed Intake Note: Patient presents today to follow up on Type Diabetes Mellitus. Patient receives DME supplies through: [facility] Last Diabetic Eye exam: 05/04/23 Last Podiatry Visit: 01/2023 Random Glucose: 169mg/dl HgA1C: 6.7% Spice Grinder Required: No Accompanied by: Self / Same As Patient Allergies niacin [NIACIN] Allergy (Mild, Verified 05/06/23 08:00) ITCHING, itchy, itchy Cwxqnvw-URH-RpY Reductase Inhibitor [[id number] REDUCTASE INHIBITOR] Allergy (Unknown, Verified 05/06/23 08:00) HIGH CPK atorvastatin [Lipitor] Adverse Reaction (Unknown, Verified 05/06/23 08:00) high CPK Medication List - Last Reconciled 05/06/23 by Vern Mauro MD ascorbic acid (vitamin C) 500 mg PO BID aspirin 81 mg PO DAILY calcium carbonate-vitamin D3 600 mg-5 mcg (200 unit) (Calcium 600 + D(3)) 1 cap PO cholecalciferol (vitamin D3) 25 mcg PO DAILY dapagliflozin propanediol (Farxiga) 10 mg PO DAILY ezetimibe 10 mg PO DAILY ferrous sulfate (FeroSul) 325 mg PO Q OTHER DAY fluticasone propionate 50 mcg/actuation 1 spray intranasal DAILY glucosamine HCl 750 mg PO DAILY irbesartan 300 mg PO DAILY lidocaine 5% (Lidoderm) 1 patch topical DAILY metformin ER 500 mg PO BID montelukast 10 mg PO DAILY nebivolol 2.5 mg PO DAILY Novolog U-100 Insulin aspart (insulin aspart U-100) up to 120 units via insulin pump subcut daily; 90 days NS rosuvastatin 10 mg PO BEDTIME scopolamine base 1 patch transdermal Q3D PRN spironolactone 25 mg PO DAILY HPI HPI Comments History of Present Illness Details Patient is 67 year old male with DM type 2 diagnosed at 35 years of age, referred by who presents for management of diabetes. Past medical history: DM2, HTN, HLD, CKD3, Charcot arthopathy Micro and macrovascular complications: no retinopathy, + nephropathy, + neuropathy, no CVA, CAD, PVD. Diabetes medications: metformin 500 mg BID, intolerant of higher doses. Farxiga 10 mg. Novolog via TAndem pump with control IQ 107.39 units/day, 55% basal, 39% food bolus, 2% correction bolus, 3% Control IQ auto bolus Control IQ in use 97%. CGM inactive 3% Basal: 12:00 2.6 2A 2.8 4:30a 2.25 11:30a 2.00 1pm 1.5 2:30 1.25 4pm 1.1 6:30 2.0 10:00pm 2.6 Correction 1:19 Carb ration 12:00 1:4 1130 AM = 1:3.5 4 PM = !:4.5 11:30a 1:3.5 4L00pm 1:4.5 Continuous Glucose monitoring: In the last 2 weeks average blood glucose 157 with 0% from 55-69, 78% within target range of 70-180. 22% of blood glucose from 181 to 250. Sensor usage 97%. Coefficient variation 20%. Symptoms reported: No numbness, tingling, cramping in lower extremities Hypoglycemia: denies, once when changing in sensor . No hypoglycemia Hyperglycemia: + urinary frequency (takes diurectics), denies nocturia, polydypsia Exercise: walking 20 - 30 minutes on most days. Is retiring in July and plans to walk more Foot Miter Operator: every 3 month Ophthalmology evaluation: 2 days ago no retinopathy. Other specialists: Dr. Brunson, field staff. Stimulate C-peptide was> 2 and antibodies were negative confirming presence of type 2 diabetes and insulin reserve Laboratory Tests 08/01/21 10/30/21 10/30/21 11:00 09:21 09:21 Creatinine 1.82 H Estimated GFR 37 Hgb A1c (Clinic) 6.3 H Hemoglobin A1c % 5.9 Triglycerides 125 Cholesterol 149 LDL Cholesterol, C alc 73 HDL Cholesterol 51 D Vitamin B12 25-OH Vitamin D To elaine 40.9 Microalb/Creat Rat io 10/30/21 10/30/21 09:21 09:28 Creatinine Estimated GFR Hgb A1c (Clinic) Hemoglobin A1c % Triglycerides Cholesterol LDL Cholesterol, C alc HDL Cholesterol Vitamin B12 416 25-OH Vitamin D To elaine Microalb/Creat Rat io TNP [facility] Medical History Anemia Annual physical exam B-complex deficiency B12 deficiency CKD (chronic kidney disease), stage III Diabetes type 2, controlled Diabetic polyneuropathy associated with type 2 diabetes mellitus Hearing loss HTN (hypertension) Hypercholesterolemia Hypokalemia senior living (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 Obstructive sleep apnea Osteoarthritis Overweight (BMI 25.0-29.9) Peripheral neuropathy Umbilical hernia Varicose vein of leg Surgical History History of colonoscopy Family History Father Diabetes mellitus CAD (coronary artery disease) HTN (hypertension) Mother Stroke Pancreatic cancer HTN (hypertension) Maternal Grandfather Abdominal aortic aneurysm CVD (cardiovascular disease) Maternal Grandmother Abdominal aortic aneurysm Paternal Grandfather CVD (cardiovascular disease) Paternal Grandmother No problems noted. Brother Diabetes mellitus Brother No problems noted. Brother No problems noted. Son No problems noted. Son No problems noted. Daughter No problems noted. Sister Hodgkins disease Social History Household Members: Spouse Housing: House Alcohol intake: current Alcohol intake frequency: a few times a week Patient Tobacco Use Status: Never used Tobacco e-Cigarette/Vaping Use: Never Used Current occupational status: retired Cognitive needs: No Hearing needs: Yes Vision needs: Yes Physical Exam Vital Signs: Last Vital Signs Pulse 57 05/06/23 07:54 BP 116/64 05/06/23 07:54 BMI result Body Mass Index 30.6 Absence of Cushingoid features. Absence of acromegalic features. Neck exam reveals nl size thyroid about 15 gms. No thyroid nodules palpable. No carotid bruits present. Lungs CTA. Heart S1 S2, Reg R/R. No M/R/ G. Skin exam reveals absence of vitiligo or acanthosis nigricans. Abdominal exam reveals Soft NT/ND with NA BS. No organomegaly present. Neck Other: . Extrem Other: Visual exam of foot performed. No ulcerations or open lesions. No onchomycosis, no callouses.Pulses 2 + distally Sensation decreased to monofilament exam. Vibratory sensation sensed is decreased with 128 Hz tuning fork Results AMB Hemoglobin A1c AMB Hemoglobin A1c 6.7 % Last Edit by Andree Lees on 05/06/23 08:23 Results Reviewed Results Reviewed: 05/06/23 08:03 Glucose, Whole Blood Routine Laboratory Last Values Glucose (Clinic) 169 mg/dL (60-115) H 05/06/23 08:03 Hgb A1c (Clinic) 6.7 % (4.0-6.0) H 05/06/23 08:14 Assessment & Plan Assessment & Plan (1) Diabetes type 2, controlled: Comment: Grupo for renoprotection Dr. Bobo, on insulin pump Code(s): E11.9 - Type 2 diabetes mellitus without complications Qualifiers: Diabetes mellitus [facility] insulin use: with [facility] use Diabetes mellitus complication detail: with polyneuropathy Plan: This is a 68-year-old white male with a history of type 2 diabetes being managed with metformin, Farxiga and it T-slim insulin pump with excellent glycemic control and known microvascular complications namely CKD stage IIIB as well as neuropathy. The plan is to continue the current regimen. Orders: Orders AMB Hemoglobin A1c Today E11.9 - Type 2 diabetes mellitus without complications Coding Level of Care Code Est Pt Level 4 (55863) Diagnoses Diabetes type 2, controlled E11.9 Diabetes mellitus [facility] insulin use: with manager long term care use Diabetes mellitus complication detail: with polyneuropathy
[2023-05-06 08:07] LABS: Glucose, Whole Blood 169 mg/dL (60-115)
== END 2023-05-06 09:00 | disposition home or self-care (01) ==
PROVIDERS: PCP Internal Medicine; Visit Provider Internal Medicine Endocrinology, Diabetes & Metabolism
DX: E11.9 Type 2 diabetes mellitus without complications (principal)
CPT/HCPCS: 99214

== ENCOUNTER → 2023-05-06 07:52 | Outpatient (BNVA) | payer MEDICARE, OTHER, SELFPAY | PROVIDERS: PCP Internal Medicine; Visit Provider Internal Medicine Endocrinology, Diabetes & Metabolism | DX: E11.9 Type 2 diabetes mellitus without complications (principal) | CPT/HCPCS: 82947; 83036; 99212 ==

== ENCOUNTER 2023-06-02 08:03 | Outpatient (REF) | payer MEDICARE, OTHER, SELFPAY | END 2023-06-02 08:04 | disposition home or self-care (01) | LOC: HO.HMGCLDS 08:03 | PROVIDERS: PCP Internal Medicine; Visit Provider Internal Medicine | DX: I12.9 Hypertensive chronic kidney disease with stage 1 through stage 4 chronic kidney disease, or unspecified chronic kidney disease (principal); E11.22 Type 2 diabetes mellitus with diabetic chronic kidney disease; N18.30 Chronic kidney disease, stage 3 unspecified; E78.00 Pure hypercholesterolemia, unspecified | CPT/HCPCS: 36415; 80053; 80061; 82043; 82306; 82570; 83036 ==

== ENCOUNTER 2023-06-07 08:35 | Outpatient (AMB) | payer MEDICARE, OTHER, SELFPAY ==
[2023-06-07 08:45] VITALS: BP 120/78; PULSE 58; O2SAT 98; BMI 30.1
--- NOTE | 2023-06-07 08:45 | A.OFFPC_ITS ---
Vital Signs 06/07/23 08:45 Height 6 ft 3 in Weight 241 lb BMI 30.1 BP 120/78 Blood Pressure Location Rt brachial Position Sitting Pulse 58 Pulse Source Pulse Oximeter Pulse Oximetry (%) 98 Oxygen Delivery Method Room Air Intake Visit Reasons: 6m follow up Intake Note: Pt is here today for 6 months follow up visit. Allergies niacin [NIACIN] Allergy (Mild, Verified 06/07/23 08:48) ITCHING, itchy, itchy Xlioxdc-VAH-MaS Reductase Inhibitor [TNCNPRM-VLO-JEH REDUCTASE INHIBITOR] Allergy (Unknown, Verified 06/07/23 08:48) HIGH CPK atorvastatin [Lipitor] Adverse Reaction (Unknown, Verified 06/07/23 08:48) high CPK Medication List - Last Reconciled 06/07/23 by Maria Isabel Munoz MD ascorbic acid (vitamin C) 500 mg PO BID aspirin 81 mg PO DAILY calcium carbonate-vitamin D3 600 mg-5 mcg (200 unit) (Calcium 600 + D(3)) 1 cap PO cholecalciferol (vitamin D3) 25 mcg PO DAILY dapagliflozin propanediol (Farxiga) 10 mg PO DAILY ezetimibe 10 mg PO DAILY ferrous sulfate (FeroSul) 325 mg PO Q OTHER DAY fluticasone propionate 50 mcg/actuation 1 spray intranasal DAILY glucosamine HCl 750 mg PO DAILY irbesartan 300 mg PO DAILY lidocaine 5% (Lidoderm) 1 patch topical DAILY metformin ER 500 mg PO BID montelukast 10 mg PO DAILY nebivolol 2.5 mg PO DAILY Novolog U-100 Insulin aspart (insulin aspart U-100) up to 120 units via insulin pump subcut daily; 90 days NS rosuvastatin 10 mg PO BEDTIME scopolamine base 1 patch transdermal Q3D PRN spironolactone 25 mg PO DAILY Tobacco use date assessed: 06/07/23 Dental Screening Dental Screen Date: 06/07/23 Did you have a dental visit in the last 12 months?: Yes Did you have a dental problem in the last 6 months where you did not have access to dental care?: No Was dental information given to patient?: Patient has dentist HPI 6m follow up HPI Details Pt presents for IDDM, hyperlipid, HTN, controlled on medications. 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 Diabetes has been well controlled on insulin pump. [facility] Medical History Hearing loss Annual physical exam Overweight (BMI 25.0-29.9) B12 deficiency [facility] (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 Diabetic polyneuropathy associated with type 2 diabetes mellitus Varicose vein of leg Osteoarthritis CKD (chronic kidney disease), stage III Umbilical hernia Peripheral neuropathy Hypokalemia Obstructive sleep apnea Anemia B-complex deficiency Hypercholesterolemia HTN (hypertension) Diabetes type 2, controlled Surgical History History of colonoscopy Family History Father Diabetes mellitus CAD (coronary artery disease) HTN (hypertension) Mother Stroke Pancreatic cancer HTN (hypertension) Maternal Grandfather Abdominal aortic aneurysm CVD (cardiovascular disease) Maternal Grandmother Abdominal aortic aneurysm Paternal Grandfather CVD (cardiovascular disease) Paternal Grandmother No problems noted. Brother Diabetes mellitus Brother No problems noted. Brother No problems noted. Son No problems noted. Son No problems noted. Daughter No problems noted. Sister Hodgkins disease Social History Household Members: Spouse Housing: House Alcohol intake: current Alcohol intake frequency: a few times a week Patient Tobacco Use Status: Never used Tobacco e-Cigarette/Vaping Use: Never Used Current occupational status: retired Cognitive needs: No Hearing needs: Yes Vision needs: Yes Questionnaire Thrive Questionnaire Date Thrive assessed: 12/09/22 AUDIT C Alcohol Use Questionnaire (AUDIT-C) 1. How often do you have a drink containing alcohol?: 4 or more times a week 2. How many drinks containing alcohol do you have on a typical day when you are drinking?: 1 or 2 3. How often do you have six or more drinks on one occasion?: Never Total Score: 4 TEA-7 AMB Questionnaire TEA-7 Date TEA - 7 assessed: 12/09/22 Feeling nervous, anxious, or on edge: 0 = Not at all Not being able to stop or control worryin = Not at all Worrying too much about different things: 0 = Not at all Trouble relaxin = Not at all Being so restless that it is hard to sit still: 0 = Not at all Becoming easily annoyed or irritable: 0 = Not at all Feeling afraid as if something awful might happen: 0 = Not at all Total TEA-7 score (0-4 normal; 5-9 mild; 10-14 moderate; 15-21 severe): 0 Source: Developed by Drs. Vern Gilbert, Thea Vela, Kailash Caal and colleagues, with an educational roopa from [employer]. Review of Systems Const All systems reviewed & are unremarkable except as noted in HPI and below Reports no additional complaints Eyes Reports no additional complaints ENT Reports no additional complaints Card Reports no additional complaints Resp Reports no additional complaints GI Reports no additional complaints Reports no additional complaints Musc Reports no additional complaints Physical exam (Primary Care) Vital Signs: Last Vital Signs Pulse 58 06/07/23 08:45 BP 142/78 H 06/07/23 08:45 Pulse Ox 98 06/07/23 08:45 Oxygen Delivery Method Room Air 06/07/23 08:45 BMI result Body Mass Index 30.1 Tobacco/Smoking Status: Tobacco use Status Tobacco use date assessed 06/07/23 06/07/23 08:50 Patient Tobacco Use Status Never used Tobacco 06/07/23 08:50 e-Cigarette/Vaping Use Never Used 06/07/23 08:50 Thrive Assessment: Date of Thrive Assessment Date Thrive assessed 12/09/22 06/07/23 08:50 Const General: no acute distress HENMT Face and sinus: Yes normal facial exam Neck Neck: Yes no lymphadenopathy and Yes supple Resp Effort & Inspection: normal respiratory effort Auscultation: clear to auscultation bilaterally Cardio Rhythm: regular rhythm Heart sounds: S1 normal heart sound present and S2 normal heart sound present GI Palpation (GI): Soft to palpation Percussion: Yes normal to percussion Auscultation: normal bowel sounds Assessment and Plan Assessment & Plan (1) HTN (hypertension): Code(s): I10 - Essential (primary) hypertension Qualifiers: Hypertension type: secondary to endocrine disorders Qualified Code(s): I15.2 - Hypertension secondary to endocrine disorders Plan: Continue current medications (2) 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 Return in 6 months with a fasting labs before (4) Hypercholesterolemia: Code(s): E78.00 - Pure hypercholesterolemia, unspecified Plan: Continue statin (5) CKD (chronic kidney disease), stage III: Comment: Dr. Bobo Code(s): N18.30 - Chronic kidney disease, stage 3 unspecified Plan: Follow-up with hand inspector and continue Farxiga Orders: Orders Comprehensive Henry. 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 (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 IRON PROFILE 6 Months E11.42 - Type 2 diabetes mellitus with diabetic polyneuropathy, E78.00 - Pure hypercholesterolemia, unspecified, I10 - Essential (primary) hypertension, N18.30 - Chronic kidney disease, stage 3 unspecified, Z79.4 - 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 (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 Hemoglobin A1c 6 Months E11.42 - Type 2 diabetes mellitus with diabetic polyneuropathy, E78.00 - Pure hypercholesterolemia, unspecified, I10 - Essential (primary) hypertension, N18.30 - Chronic kidney disease, stage 3 unspecified, Z79.4 - [facility] (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 Lipid Panel 6 Months E11.42 - Type 2 diabetes mellitus with diabetic polyneuropathy, E78.00 - Pure hypercholesterolemia, unspecified, I10 - Essential (primary) hypertension, N18.30 - Chronic kidney disease, stage 3 unspecified, Z79.4 - [facility] (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 Complete Blood Count Auto Diff 6 Months E11.42 - Type 2 diabetes mellitus with diabetic polyneuropathy, E78.00 - Pure hypercholesterolemia, unspecified, I10 - Essential (primary) hypertension, N18.30 - Chronic kidney disease, stage 3 unspecified, Z79.4 - 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 (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 Microalbumin, Random (w Creat) 6 Months E11.42 - Type 2 diabetes mellitus with diabetic polyneuropathy, E78.00 - Pure hypercholesterolemia, unspecified, I10 - Essential (primary) hypertension, N18.30 - Chronic kidney disease, stage 3 unspecified, Z79.4 - 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
== END 2023-06-07 09:33 | disposition home or self-care (01) ==
PROVIDERS: Visit Provider Internal Medicine
DX: I15.2 Hypertension secondary to endocrine disorders (principal); Z79.4 Long term (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; E11.42 Type 2 diabetes mellitus with diabetic polyneuropathy; N18.30 Chronic kidney disease, stage 3 unspecified; E78.00 Pure hypercholesterolemia, unspecified
CPT/HCPCS: 99214

== ENCOUNTER 2023-08-17 09:18 | Outpatient (AMB) | payer MEDICARE, OTHER, SELFPAY ==
[2023-08-17 09:24] VITALS: BP 142/86; PULSE 47; BMI 30.2
--- NOTE | 2023-08-17 09:24 | MHC.OFFVIS ---
Intake Vital Signs 08/17/23 09:24 Height 6 ft 3 in Weight 241 lb 10.026 oz BMI 30.2 BP 142/86 H Blood Pressure Location Lt brachial Position Sitting Pulse 47 L Pulse Source Pulse Oximeter Intake Visit Reasons: DM/ pump dexcom-CONFIRMED Intake Note: Patient present today to follow up on Type 2 Diabetes Mellitus. 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: No Accompanied by: Self / Same As Patient Allergies niacin [NIACIN] Allergy (Mild, Verified 08/17/23 09:35) ITCHING, itchy, itchy Minqrfh-HKD-WcG Reductase Inhibitor [VBQKNNE-YWJ-HEU REDUCTASE INHIBITOR] Allergy (Unknown, Verified 08/17/23 09:35) HIGH CPK atorvastatin [Lipitor] Adverse Reaction (Unknown, Verified 08/17/23 09:35) high CPK Medication List - Last Reconciled 08/17/23 by Vern Mauro MD ascorbic acid (vitamin C) 500 mg PO BID aspirin 81 mg PO DAILY calcium carbonate-vitamin D3 600 mg-5 mcg (200 unit) (Calcium 600 + D(3)) 1 cap PO cholecalciferol (vitamin D3) 25 mcg PO DAILY dapagliflozin propanediol (Farxiga) 10 mg PO DAILY ezetimibe 10 mg PO DAILY ferrous sulfate (FeroSul) 325 mg PO Q OTHER DAY fluticasone propionate 50 mcg/actuation 1 spray intranasal DAILY glucosamine HCl 750 mg PO DAILY irbesartan 300 mg PO DAILY lidocaine 5% (Lidoderm) 1 patch topical DAILY metformin ER 500 mg PO BID montelukast 10 mg PO DAILY nebivolol 2.5 mg PO DAILY Novolog U-100 Insulin aspart (insulin aspart U-100) Inject up to 220 units subcutaneously daily be insulin pump subcutaneously daily; NS rosuvastatin 10 mg PO BEDTIME scopolamine base 1 patch transdermal Q3D PRN spironolactone 25 mg PO DAILY HPI HPI Comments History of Present Illness Details Patient is 68 year old male with DM type 2 diagnosed at 35 years of age, referred by who presents for management of diabetes. Past medical history: DM2, HTN, HLD, CKD3, Charcot arthopathy Micro and macrovascular complications: no retinopathy, + nephropathy, + neuropathy, no CVA, CAD, PVD. Diabetes medications: metformin 500 mg BID, intolerant of higher doses. Farxiga 10 mg. Novolog via TAndem pump with control IQ 97.88 units/day, 60% basal, 40% food bolus, Control IQ in use 98%. CGM inactive 2% Basal: 12:00 3.5 2A 3.6 4:30a 3.2 11:30a 3.00 1pm 2.5 2:30 2.2 4pm 2.1 6:30 3.0 10:00pm 3.6 Correction 1:19 Carb ration 12:00 1:4 1130 AM = 1:3.5 4 PM = !:4.5 11:30a 1:3.5 400pm 1:4.5 Continuous Glucose monitoring: In the last 2 weeks average blood glucose 154 with 0% from 55-69, 80% within target range of 70-180. 20% of blood glucose from 181 to 250. GMI of 7 Sensor usage 97%. Coefficient variation 20%. Symptoms reported: No numbness, tingling, cramping in lower extremities Hypoglycemia: denies, once when changing in sensor . No hypoglycemia Hyperglycemia: + urinary frequency (takes diurectics), denies nocturia, polydypsia Exercise: walking 20 - 30 minutes on most days. Is retiring in July and plans to walk more Shank Archer: every 3 month Ophthalmology evaluation: Apr 2023 no retinopathy. Other specialists: Dr. 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 Stimulate C-peptide was> 2 and antibodies were negative confirming presence of type 2 diabetes and insulin reserve Laboratory Tests 08/01/21 10/30/21 10/30/21 11:00 09:21 09:21 Creatinine 1.82 H Estimated GFR 37 Hgb A1c (Clinic) 6.3 H Hemoglobin A1c % 5.9 Triglycerides 125 Cholesterol 149 LDL Cholesterol, C alc 73 HDL Cholesterol 51 D Vitamin B12 25-OH Vitamin D To elaine 40.9 Microalb/Creat Rat io 10/30/21 10/30/21 09:21 09:28 Creatinine Estimated GFR Hgb A1c (Clinic) Hemoglobin A1c % Triglycerides Cholesterol LDL Cholesterol, C alc HDL Cholesterol Vitamin B12 416 25-OH Vitamin D To elaine Microalb/Creat Rat io [facility] Medical History Hearing loss Annual physical exam Overweight (BMI 25.0-29.9) B12 deficiency 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 Diabetic polyneuropathy associated with type 2 diabetes mellitus Varicose vein of leg Osteoarthritis CKD (chronic kidney disease), stage III Umbilical hernia Peripheral neuropathy Hypokalemia Obstructive sleep apnea Anemia B-complex deficiency Hypercholesterolemia HTN (hypertension) Diabetes type 2, controlled Surgical History History of colonoscopy Family History Father Diabetes mellitus CAD (coronary artery disease) HTN (hypertension) Mother Stroke Pancreatic cancer HTN (hypertension) Maternal Grandfather Abdominal aortic aneurysm CVD (cardiovascular disease) Maternal Grandmother Abdominal aortic aneurysm Paternal Grandfather CVD (cardiovascular disease) Paternal Grandmother No problems noted. Brother Diabetes mellitus Brother No problems noted. Brother No problems noted. Son No problems noted. Son No problems noted. Daughter No problems noted. Sister Hodgkins disease Social History Household Members: Spouse Housing: House Alcohol intake: current Alcohol intake frequency: a few times a week Patient Tobacco Use Status: Never used Tobacco e-Cigarette/Vaping Use: Never Used Current occupational status: retired Cognitive needs: No Hearing needs: Yes Vision needs: Yes Physical Exam Absence of Cushingoid features. Absence of acromegalic features. Neck exam reveals nl size thyroid about 15 gms. No thyroid nodules palpable. No carotid bruits present. Lungs CTA. Heart S1 S2, Reg R/R. No M/R/ G. Skin exam reveals absence of vitiligo or acanthosis nigricans. Abdominal exam reveals Soft NT/ND with NA BS. No organomegaly present. Neck Other: . Extrem Other: Visual exam of foot performed. No ulcerations or open lesions. No onchomycosis, no callouses.Pulses 2 + distally Sensation decreased to monofilament exam. Vibratory sensation sensed is decreased with 128 Hz tuning fork Assessment & Plan Assessment & Plan (1) Diabetes type 2, controlled: Comment: Grupo for renoprotection Dr. Bobo, on insulin pump Code(s): E11.9 - Type 2 diabetes mellitus without complications Qualifiers: Diabetes mellitus complication detail: with polyneuropathy Diabetes mellitus retirement insulin use: with buttermaker continuous churn use Plan: This is a 68-year-old white male with a history of type 2 diabetes being managed with metformin, Farxiga and it T-slim insulin pump with excellent glycemic control and known microvascular complications namely CKD stage IIIB as well as neuropathy. The plan is to continue the current regimen. We did talk about potential use of a G LP 1/GI P like Nael but the patient is not interested in taking this right now Medications: New insulin aspart (niacinamide) 100 unit/mL (Fiasp U-100 Insulin) inject up to 220 units via insulin pump subcutaneously; 100 mL 5RF Discontinued Novolog U-100 Insulin aspart (insulin aspart U-100) Discontinued Reason: Doctor's Order Inject up to 220 units subcutaneously daily be insulin pump subcutaneously daily; 110 mL 2RF NS E11.9 - Type 2 diabetes mellitus without complications Coding Level of Care Code Est Pt Level 4 (75740) Diagnoses Diabetes type 2, controlled E11.9 Diabetes mellitus complication detail: with polyneuropathy Diabetes mellitus buttermaker continuous churn insulin use: with buttermaker continuous churn use
[2023-08-17 09:36] LABS: Glucose, Whole Blood 111 mg/dL (60-115)
== END 2023-08-17 09:51 | disposition home or self-care (01) ==
PROVIDERS: PCP Internal Medicine; Visit Provider Internal Medicine Endocrinology, Diabetes & Metabolism
DX: E11.9 Type 2 diabetes mellitus without complications (principal)
CPT/HCPCS: 99214

== ENCOUNTER → 2023-08-17 09:18 | Outpatient (BNVA) | payer MEDICARE, OTHER, SELFPAY | PROVIDERS: PCP Internal Medicine; Visit Provider Internal Medicine Endocrinology, Diabetes & Metabolism | DX: E11.9 Type 2 diabetes mellitus without complications (principal); Z96.41 Presence of insulin pump (external) (internal); Z79.4 Long term (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 | CPT/HCPCS: 82947; 99212 ==

== ENCOUNTER 2023-11-23 07:50 | Outpatient (AMB) | payer MEDICARE, OTHER, SELFPAY ==
[2023-11-23 07:56] VITALS: BP 120/72; PULSE 54; BMI 29.9
--- NOTE | 2023-11-23 07:56 | A.OFFVIS_ITS ---
Intake Vital Signs 11/23/23 07:56 Height 6 ft 3 in Weight 239 lb 10.279 oz BMI 29.9 BP 120/72 Blood Pressure Location Lt brachial Position Sitting Pulse 54 Pulse Source Pulse Oximeter Intake Visit Reasons: DM-confirmed Intake Note: Patient present today to follow up on Type 2 Diabetes Mellitus. Last Diabetic Eye exam: 04/2023 Last Podiatry Visit: 08/2023 Random Glucose: 99 mg/dl HgA1C: 6.5% Network Admin Required: No Accompanied by: Self / Same As Patient Allergies niacin [NIACIN] Allergy (Mild, Verified 11/23/23 08:01) ITCHING, itchy, itchy Terpgln-KOY-DkP Reductase Inhibitor [PUFQYHD-TRB-ZOD REDUCTASE INHIBITOR] Allergy (Unknown, Verified 11/23/23 08:01) HIGH CPK atorvastatin [Lipitor] Adverse Reaction (Unknown, Verified 11/23/23 08:01) high CPK HPI HPI Comments History of Present Illness Details Patient is 68 year old male with DM type 2 diagnosed at 35 years of age, referred by who presents for management of diabetes. Past medical history: DM2, HTN, HLD, CKD3, Charcot arthopathy Micro and macrovascular complications: no retinopathy, + nephropathy, + neuropathy, no CVA, CAD, PVD. Diabetes medications: metformin 500 mg BID, intolerant of higher doses. Farxiga 10 mg. Novolog via TAndem pump with control IQ 84.24 units/day, 62% basal, 33% food b olus, Control IQ in use 98%. CGM inactive 2% Basal: 12:00 2.6 2A 2.8 4:30a 2.25 11:30a 2.00 1pm 1.5 2:30 1.25 4pm 1.1 6:30 2.0 10:00pm 2.6 Correction 1:19 Carb ration 12:00 1:4 1130 AM = 1:3.5 4 PM = !:4.5 11:30a 1:3.5 400pm 1:4.5 Continuous Glucose monitoring: In the last 2 weeks average blood glucose 140 with 0% from 55-69, 92% within target range of 70-180. 8% of blood glucose from 181 to 250. Sensor usage 97%. Coefficient variation 20%. Symptoms reported: No numbness, tingling, cramping in lower extremities Hypoglycemia: denies, once when changing in sensor . No hypoglycemia Hyperglycemia: + urinary frequency (takes diurectics), denies nocturia, p olydypsia Exercise: walking 20 - 30 minutes on most days. 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 Other specialists: Dr. 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 Stimulate C-peptide was> 2 and antibodies were negative confirming presence of type 2 diabetes and insulin reserve Laboratory Tests 08/01/21 10/30/21 10/30/21 11:00 09:21 09:21 Creatinine 1.82 H Estimated GFR 37 Hgb A1c (Clinic) 6.3 H Hemoglobin A1c % 5.9 Triglycerides 125 Cholesterol 149 LDL Cholesterol, C alc 73 HDL Cholesterol 51 D Vitamin B12 25-OH Vitamin D To elaine 40.9 Microalb/Creat Rat io 10/30/21 10/30/21 09:21 09:28 Creatinine Estimated GFR Hgb A1c (Clinic) Hemoglobin A1c % Triglycerides Cholesterol LDL Cholesterol, C alc HDL Cholesterol Vitamin B12 416 25-OH Vitamin D To elaine Microalb/Creat Rat io [facility] Medical History Hearing loss Annual physical exam Overweight (BMI 25.0-29.9) B12 deficiency 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 Diabetic polyneuropathy associated with type 2 diabetes mellitus Varicose vein of leg Osteoarthritis CKD (chronic kidney disease), stage III Umbilical hernia Peripheral neuropathy Hypokalemia Obstructive sleep apnea Anemia B-complex deficiency Hypercholesterolemia HTN (hypertension) Diabetes type 2, controlled Surgical History History of colonoscopy Family History Father Diabetes mellitus CAD (coronary artery disease) HTN (hypertension) Mother Stroke Pancreatic cancer HTN (hypertension) Maternal Grandfather Abdominal aortic aneurysm CVD (cardiovascular disease) Maternal Grandmother Abdominal aortic aneurysm Paternal Grandfather CVD (cardiovascular disease) Paternal Grandmother No problems noted. Brother Diabetes mellitus Brother No problems noted. Brother No problems noted. Son No problems noted. Son No problems noted. Daughter No problems noted. Sister Hodgkins disease Social History Household Members: Spouse Housing: House Alcohol intake: current Alcohol intake frequency: a few times a week Patient Tobacco Use Status: Never used Tobacco e-Cigarette/Vaping Use: Never Used Current occupational status: retired Cognitive needs: No Hearing needs: Yes Vision needs: Yes Physical Exam Vital Signs: Last Vital Signs Pulse 54 11/23/23 07:56 BP 120/72 11/23/23 07:56 BMI result Body Mass Index 29.9 Absence of Cushingoid features. Absence of acromegalic features. Neck exam reveals nl size thyroid about 15 gms. No thyroid nodules palpable. No carotid bruits present. Lungs CTA. Heart S1 S2, Reg R/R. No M/R/ G. Skin exam reveals absence of vitiligo or acanthosis nigricans. Abdominal exam reveals Soft NT/ND with NA BS. No organomegaly present. Neck Other: . Extrem Other: Visual exam of foot performed. No ulcerations or open lesions. No onchomycosis, no callouses.Pulses 2 + distally Sensation decreased to monofilament exam. Vibratory sensation sensed is decreased with 128 Hz tuning fork Results AMB Hemoglobin A1c AMB Hemoglobin A1c 6.5 % Last Edit by MAURO Leon on 11/23/23 08:24 Results Reviewed Results Reviewed: Laboratory Last Values Glucose (Clinic) 99 mg/dL (60-115) 11/23/23 08:05 Assessment & Plan Assessment & Plan (1) Diabetes type 2, controlled: Comment: Grupo for renoprotection Dr. Bobo, on insulin pump Code(s): E11.9 - Type 2 diabetes mellitus without complications Qualifiers: Diabetes mellitus long term care social worker insulin use: with halfway use Diabetes mellitus complication detail: with polyneuropathy Plan: This is a 68-year-old white male with a history of type 2 diabetes being managed with metformin, Farxiga and it T-slim insulin pump with excellent glycemic control and known microvascular complications namely CKD stage IIIB as well as neuropathy. The plan is to continue the current regimen. Orders: Orders AMB Hemoglobin A1c Today E11.9 - Type 2 diabetes mellitus without complications, Z13.9 - Encounter for screening, unspecified Coding Level of Care Code Est Pt Level 4 (65533) Diagnoses Diabetes type 2, controlled E11.9 Diabetes mellitus long term care social worker insulin use: with halfway use Diabetes mellitus complication detail: with polyneuropathy
[2023-11-23 08:08] LABS: Glucose, Whole Blood 99 mg/dL (60-115)
== END 2023-11-23 08:12 | disposition home or self-care (01) ==
PROVIDERS: PCP Internal Medicine; Visit Provider Internal Medicine Endocrinology, Diabetes & Metabolism
DX: Z13.9 Encounter for screening, unspecified (principal); E11.9 Type 2 diabetes mellitus without complications
CPT/HCPCS: 99214

== ENCOUNTER → 2023-11-23 07:50 | Outpatient (BNVA) | payer MEDICARE, OTHER, SELFPAY | PROVIDERS: PCP Internal Medicine; Visit Provider Internal Medicine Endocrinology, Diabetes & Metabolism | DX: E11.42 Type 2 diabetes mellitus with diabetic polyneuropathy (principal); Z79.84 Long term (current) use of oral hypoglycemic drugs; Z96.41 Presence of insulin pump (external) (internal); Z79.4 Long term (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 | CPT/HCPCS: 82947; 83036; 99212 ==

== ENCOUNTER 2023-11-30 08:44 | Outpatient (REF) | payer MEDICARE, OTHER, SELFPAY ==
[2023-11-30 10:29] LABS: MANUAL DIFF FLAG NO
[2023-11-30 10:34] LABS: Basophils Percent Auto 0.6 % (0-2); Eosinophils Absolute Auto 0.1 X10*3/uL (0.0-0.4); Eosinophils Percent Auto 2.5 % (0-4); Hematocrit 46.2 % (42.0-52.0); Hemoglobin 15.7 g/dl (14.0-18.0); Imm Gran Abs Auto 0.03 X10*3/uL (0.00-0.03); Imm Gran Pct Auto 0.6 % (0.0-0.4); Lymphocytes Absolute Auto 1.4 X10*3/uL (1.2-4.9); Lymphocytes Percent Auto 29.5 % (20-40); Mean Corpuscular Hemoglobin 33.3 pg (27.0-33.0); Mean Corpuscular Volume 98.1 fL (80.0-98.0); Mean Platelet Volume 11.6 fL (9.4-12.4); Monocytes Absolute Auto 0.5 X10*3/uL (0.1-1.2); Monocytes Percent Auto 9.5 % (2-11); Neutrophils Absolute Auto 2.8 x10*3/uL (2.0-8.3); Neutrophils Percent Auto 57.3 % (45-73); Platelet Count 146 X10*3/uL (160-400); Red Blood Count 4.71 X10*6/uL (4.60-5.80); White Blood Count 4.8 X10*3/uL (4.8-10.8)
[2023-11-30 11:43] LABS: Alanine Aminotransferase 34 U/L (0-40); Alkaline Phosphatase 68 U/L (39-117); Anion Gap 13 (12-20); Aspartate Amino Transferase 22 U/L (5-37); Bilirubin Total 0.6 mg/dL (0.0-1.0); Blood Urea Nitrogen 25 mg/dL (9-16); Calcium 8.9 mg/dL (8.4-10.2); Carbon Dioxide 27 mmol/L (22-29); Chloride 107 mmol/L (96-108); Cholesterol 145 mg/dL (<200); Estimated Glomerular Filt Rate 47; Glucose Fasting 113 mg/dL (60-99); HDL Cholesterol 50 mg/dL (>40); Iron 81 mcg/dL (45-160); LDL Cholesterol Calculated 73 mg/dL (<100); Percent Iron Saturation 36 % (15-50); Sodium 142 mmol/L (135-145); Total Iron Binding Capacity 224 mcg/dL (228-428); Total Protein 6.9 g/dL (6.5-8.0); Triglycerides 110 mg/dL (<150); Unsaturated Iron Binding 143 ug/dL
[2023-11-30 11:45] LABS: Estimated Average Glucose 137 mg/dL; Hemoglobin A1c % 6.4 % (<6.0)
[2023-11-30 11:46] LABS: Creatinine Urine 143.55 mg/dL; Microalbum/Creatinine Ratio Ur 4.8 ug/mg cr (<30)
== END 2023-11-30 08:45 | disposition home or self-care (01) ==
LOC: HO.HMGCLDS 08:44
PROVIDERS: PCP Internal Medicine; Visit Provider Internal Medicine
DX: I12.9 Hypertensive chronic kidney disease with stage 1 through stage 4 chronic kidney disease, or unspecified chronic kidney disease (principal); E11.22 Type 2 diabetes mellitus with diabetic chronic kidney disease; N18.30 Chronic kidney disease, stage 3 unspecified; E78.00 Pure hypercholesterolemia, unspecified; E11.42 Type 2 diabetes mellitus with diabetic polyneuropathy; Z79.4 Long term (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
CPT/HCPCS: 36415; 80053; 80061; 82043; 82570; 83036; 83540; 85025

== ENCOUNTER 2023-12-06 08:20 | Outpatient (AMB) | payer MEDICARE, OTHER, SELFPAY ==
[2023-12-06 08:20] VITALS: BP 118/74; PULSE 63; O2SAT 97; BMI 29.5
--- NOTE | 2023-12-06 08:20 | MHC.PC.OV ---
Vital Signs 12/06/23 08:20 Height 6 ft 3 in Weight 236 lb BMI 29.5 BP 118/74 Blood Pressure Location Lt brachial Position Sitting Pulse 63 Pulse Source Pulse Oximeter Pulse Oximetry (%) 97 Oxygen Delivery Method Room Air Intake Visit Reasons: Annual PE Intake Note: Pt is here today for PE. Allergies niacin [NIACIN] Allergy (Mild, Verified 12/06/23 08:21) ITCHING, itchy, itchy Hwbmgqw-XTV-FgW Reductase Inhibitor [OGGHMUQ-ZSR-BGV REDUCTASE INHIBITOR] Allergy (Unknown, Verified 12/06/23 08:21) HIGH CPK atorvastatin [Lipitor] Adverse Reaction (Unknown, Verified 12/06/23 08:21) high CPK Tobacco use date assessed: 12/06/23 Fall risk assessment: No Falls in past year Last assessed Fall Risk: 12/06/23 Dental Screening Dental Screen Date: 12/06/23 Did you have a dental visit in the last 12 months?: Yes Did you have a dental problem in the last 6 months where you did not have access to dental care?: No Was dental information given to patient?: Patient has dentist HPI Annual PE HPI Details Pt presents for PE. Patient is going on a trip to [place] in January [facility] Medical History Hearing loss Annual physical exam Overweight (BMI 25.0-29.9) B12 deficiency nursing home (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 Diabetic polyneuropathy associated with type 2 diabetes mellitus Varicose vein of leg Osteoarthritis CKD (chronic kidney disease), stage III Umbilical hernia Peripheral neuropathy Hypokalemia Obstructive sleep apnea Anemia B-complex deficiency Hypercholesterolemia HTN (hypertension) Diabetes type 2, controlled Surgical History History of colonoscopy Family History Father Diabetes mellitus CAD (coronary artery disease) HTN (hypertension) Mother Stroke Pancreatic cancer HTN (hypertension) Maternal Grandfather Abdominal aortic aneurysm CVD (cardiovascular disease) Maternal Grandmother Abdominal aortic aneurysm Paternal Grandfather CVD (cardiovascular disease) Paternal Grandmother No problems noted. Brother Diabetes mellitus Brother No problems noted. Brother No problems noted. Son No problems noted. Son No problems noted. Daughter No problems noted. Sister Hodgkins disease Social History Household Members: Spouse Housing: House Alcohol intake: current Alcohol intake frequency: a few times a week Patient Tobacco Use Status: Never used Tobacco e-Cigarette/Vaping Use: Never Used service: No Current occupational status: retired Cognitive needs: No Hearing needs: Yes Vision needs: Yes Questionnaire PHQ-9 Over the last 2 weeks, how often have you been bothered by any of the following problems? 1. Little interest or pleasure in doing things: not at all 2. Feeling down, depressed, or hopeless: not at all 3. Trouble falling or staying asleep, or sleeping too much: not at all 4. Feeling tired or having little energy: not at all 5. Poor appetite or overeating: not at all 6. Feeling bad about yourself - or that you are a failure or have let yourself or your family down: not at all 7. Trouble concentrating on things, such as reading the newspaper or watching television: not at all 8. Moving or speaking so slowly that other people could have noticed. Or the opposite - being so fidgety or restless that you have been moving around a lot more than usual: not at all 9. Thoughts that you would be better off or of hurting yourself in some way: not at all Total score: 0 Depression Screening Interpretation: Negative Depression Screening Done: Yes Source: Developed by Drs. Vern Gilbert, Thea Vela, Kailash Caal and colleagues, with an educational roopa from [employer]. Thrive Questionnaire Date Thrive assessed: 12/06/23 I am a: Patient What is your living situation today?: I have a steady place to live Within the past 12 months, did the food you bought not last and you didn't have the money to get more?: Never true Within the past 12 months, did you worry whether your food would run out before you got money to buy more?: Never true Do you have trouble paying for medicines?: No Do you have trouble getting transportation to medical appointments?: No Do you have trouble paying your heating and electricity bill?: No Do you have trouble taking care of your child, family member or friend?: No Do you have trouble with day-to-day activities such as bathing, preparing meals, shopping, managing finances, etc.?: No Are you currently unemployed and looking for a job?: No Are you interested in more education?: No Please select the resources that you would like help with: None THRIVE Score: 0 AUDIT C Alcohol Use Questionnaire (AUDIT-C) 1. How often do you have a drink containing alcohol?: 4 or more times a week 2. How many drinks containing alcohol do you have on a typical day when you are drinking?: 1 or 2 3. How often do you have six or more drinks on one occasion?: Never Total Score: 4 TEA-7 AMB Questionnaire TEA-7 Date TEA - 7 assessed: 12/06/23 Feeling nervous, anxious, or on edge: 0 = Not at all Not being able to stop or control worryin = Not at all Worrying too much about different things: 0 = Not at all Trouble relaxin = Not at all Being so restless that it is hard to sit still: 0 = Not at all Becoming easily annoyed or irritable: 0 = Not at all Feeling afraid as if something awful might happen: 0 = Not at all Total TEA-7 score (0-4 normal; 5-9 mild; 10-14 moderate; 15-21 severe): 0 Source: Developed by Drs. Vern Gilbert, Thea Vela, Kailash Caal and colleagues, with an educational roopa from [employer]. Review of Systems Const All systems reviewed & are unremarkable except as noted in HPI and below Reports no additional complaints Eyes Reports no additional complaints ENT Reports no additional complaints Card Reports no additional complaints Resp Reports no additional complaints GI Reports no additional complaints Reports no additional complaints Physical exam (Primary Care) Vital Signs: Last Vital Signs Pulse 63 12/06/23 08:20 BP 118/74 12/06/23 08:20 Pulse Ox 97 12/06/23 08:20 Oxygen Delivery Method Room Air 12/06/23 08:20 BMI result Body Mass Index 29.5 Tobacco/Smoking Status: Tobacco use Status Tobacco use date assessed 12/06/23 12/06/23 08:34 Patient Tobacco Use Status Never used Tobacco 12/06/23 08:34 e-Cigarette/Vaping Use Never Used 12/06/23 08:34 PHQ-9: PHQ-9 Score PHQ-9: Total score 0 12/06/23 08:46 Depression Screening Interpretation: Negative Thrive Assessment: Date of Thrive Assessment Date Thrive assessed 12/06/23 12/06/23 08:46 Const General: no acute distress HENMT Head: Yes normal to inspection Ears: hearing grossly normal bilaterally Face and sinus: Yes normal facial exam Mouth: Normal oral and palatal mucosa present Throat: Yes posterior oropharynx normal Neck Neck: Yes no lymphadenopathy and Yes supple Resp Effort & Inspection: normal respiratory effort Auscultation: clear to auscultation bilaterally Cardio Rhythm: regular rhythm Heart sounds: S1 normal heart sound present and S2 normal heart sound present GI Inspection: Yes normal to inspection Palpation (GI): Soft to palpation Percussion: Yes normal to percussion Auscultation: normal bowel sounds Extrem Other: 2+ pitting edema bilaterally Assessment and Plan Assessment & Plan (1) Annual physical exam: Code(s): Z00.00 - Encounter for general adult medical examination without abnormal findings Plan: Well-balanced diet regular physical activity discussed with the patient. He is up-to-date with colonoscopy in 2019 (2) nursing home (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: Comment: On insulin pump Code(s): Z79.4 - nursing home (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 Plan: Continue insulin lb follow-up with home health attendant every 6 months (3) Diabetic polyneuropathy associated with type 2 diabetes mellitus: Code(s): E11.42 - Type 2 diabetes mellitus with diabetic polyneuropathy Plan: Follow-up with mule operator for diabetic foot care (4) HTN (hypertension): Code(s): I10 - Essential (primary) hypertension Qualifiers: Hypertension type: secondary to endocrine disorders Qualified Code(s): I15.2 - Hypertension secondary to endocrine disorders Plan: Continue current medications (5) CKD (chronic kidney disease), stage III: Comment: Dr. Bobo Code(s): N18.30 - Chronic kidney disease, stage 3 unspecified Plan: Avoid nephrotoxin and monitor renal function (6) Diabetes type 2, controlled: Comment: Janethxiga for renoprotection Dr. Bobo, on insulin pump Code(s): E11.9 - Type 2 diabetes mellitus without complications Qualifiers: Diabetes mellitus intermodal customer service insulin use: with intermodal customer service use Diabetes mellitus complication detail: with polyneuropathy Plan: A1c is 6.3, continue ADA diet regular physical activity current medications. Coding Level of Care Code Est Pt Prev Care >65y(93964) Diagnoses Annual physical exam Z00.00 nursing home (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 Z79.4 Diabetic polyneuropathy associated with type 2 diabetes mellitus E11.42 Hypertension due to endocrine disorder I15.2 Hypertension type: secondary to endocrine disorders CKD (chronic kidney disease), stage III N18.30 Diabetes type 2, controlled E11.9 Diabetes mellitus shelter insulin use: with intermodal customer service use Diabetes mellitus complication detail: with polyneuropathy
== END 2023-12-06 09:23 | disposition home or self-care (01) ==
PROVIDERS: PCP Internal Medicine; Visit Provider Internal Medicine
DX: Z00.00 Encounter for general adult medical examination without abnormal findings (principal); Z79.4 Long term (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; E11.22 Type 2 diabetes mellitus with diabetic chronic kidney disease; N18.30 Chronic kidney disease, stage 3 unspecified; E11.42 Type 2 diabetes mellitus with diabetic polyneuropathy; I15.2 Hypertension secondary to endocrine disorders
CPT/HCPCS: 99397

== ENCOUNTER 2023-12-27 10:30 | Outpatient (AMB) | payer MEDICARE, OTHER, SELFPAY ==
[2023-12-27 11:44] VITALS: BP 140/80; PULSE 68; TEMP 36.6; O2SAT 96
--- NOTE | 2023-12-27 11:44 | AM.OFFWIN_ITS ---
Intake Vital Signs 12/27/23 11:44 Height 6 ft 3 in Weight 240 lb BMI 30.0 BP 140/80 H Blood Pressure Location Lt brachial Position Sitting Pulse 68 Pulse Source Pulse Oximeter Temp 97.8 F Temp Source Temporal Artery Scan Pulse Oximetry (%) 96 Oxygen Delivery Method Room Air Intake Visit Reasons: EP cough/ post nasal drip Intake Note: pt is here today for cough post nasal drip started wednesday Patient Tobacco Use Status: Never used Tobacco Allergies niacin [NIACIN] Allergy (Mild, Verified 12/27/23 11:52) ITCHING, itchy, itchy Xveaiwf-KFR-MjE Reductase Inhibitor [DOTJQLQ-ZMJ-PVF REDUCTASE INHIBITOR] Allergy (Unknown, Verified 12/27/23 11:52) HIGH CPK atorvastatin [Lipitor] Adverse Reaction (Unknown, Verified 12/27/23 11:52) high CPK Do you need a note to return to daycare/school/sports/work: No HPI HPI Comments History of Present Illness Details Patient presents to the walk in sick visit reports for 4 days of cough, sinus congestion Denies fever, chest pain, shortness of breath, palpitations, syncope, weakness Denies headache, ear pain, sore throat. cough non-productive. 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 Diabetic polyneuropathy associated with type 2 diabetes mellitus Varicose vein of leg Osteoarthritis CKD (chronic kidney disease), stage III Umbilical hernia Peripheral neuropathy Hypokalemia Obstructive sleep apnea Anemia B-complex deficiency Hypercholesterolemia HTN (hypertension) Diabetes type 2, controlled Surgical History History of colonoscopy Family History Father Diabetes mellitus CAD (coronary artery disease) HTN (hypertension) Mother Stroke Pancreatic cancer HTN (hypertension) Maternal Grandfather Abdominal aortic aneurysm CVD (cardiovascular disease) Maternal Grandmother Abdominal aortic aneurysm Paternal Grandfather CVD (cardiovascular disease) Paternal Grandmother No problems noted. Brother Diabetes mellitus Brother No problems noted. Brother No problems noted. Son No problems noted. Son No problems noted. Daughter No problems noted. Sister Hodgkins disease Social History Household Members: Spouse Housing: House Alcohol intake: current Alcohol intake frequency: a few times a week Patient Tobacco Use Status: Never used Tobacco e-Cigarette/Vaping Use: Never Used service: No Current occupational status: retired Cognitive needs: No Hearing needs: Yes Vision needs: Yes Review of Systems Const All systems reviewed & are unremarkable except as noted in HPI and below Physical Exam Vital Signs: Last Vital Signs Temp 97.8 F 12/27/23 11:44 Pulse 68 12/27/23 11:44 BP 140/80 H 12/27/23 11:44 Pulse Ox 96 12/27/23 11:44 Oxygen Delivery Method Room Air 12/27/23 11:44 BMI result Body Mass Index 30.0 General: awake, alert, oriented. Answers questions appropriately. Fully engaged in examination. Skin: warm, dry, intact HEENT: TMs intact bilaterally, no redness. Posterior pharynx without erythema or exudate. Sclera without icterus or injection. Cardiac: External chest normal in appearance. Respiratory: +cough. LSCTAB. Abdomen: without gross distension. Neurological: Oriented to person, place, time and situation. Thought process intact. Psychiatric: Appropriate mood and affect. Good judgment and insight. Assessment & Plan Assessment & Plan (1) URI (upper respiratory infection): Code(s): J06.9 - Acute upper respiratory infection, unspecified Plan URI, no abx warranted. Benzonatate 100mg po bid as needed Rest, drink plenty of fluids, tylenol or motrin as needed. Recommend taking OTC nasal decongestants Follow up with pcp or in clinic for any new or worsening symptoms. Go to ER for shortness of breath, chest pain, palpitations, weakness, dizziness. Medications: New benzonatate 100 mg PO BID PRN 20 caps 0RF cough benzonatate 100 mg PO BID PRN 20 caps 0RF cough Coding Level of Care Code Est Pt Level 3 (50180) Diagnoses URI (upper respiratory infection) J06.9
== END 2023-12-27 12:59 | disposition home or self-care (01) ==
PROVIDERS: PCP Internal Medicine; Visit Provider Registered Nurse Emergency
DX: J06.9 Acute upper respiratory infection, unspecified (principal)
CPT/HCPCS: 99213

== ENCOUNTER 2024-02-22 07:48 | Outpatient (AMB) | payer MEDICARE, OTHER, SELFPAY ==
[2024-02-22 07:52] VITALS: BP 144/88; PULSE 55; BMI 29.4
--- NOTE | 2024-02-22 07:52 | MHC.OFFVIS ---
Vital Signs 02/22/24 07:52 Height 6 ft 3 in Weight 235 lb 7.259 oz BMI 29.4 BP 144/88 H Blood Pressure Location Lt brachial Position Sitting Pulse 55 Pulse Source Pulse Oximeter Intake Visit Reasons: [id number] Intake Note: Patient present today to follow up on Type 2 Diabetes Mellitus. Last Diabetic Eye exam: 04/2023 Last Podiatry Visit: 12/2023 Random Glucose:102 mg/dl HgA1C: 6.4% Supervisor Garage Required: No Accompanied by: Self / Same As Patient Allergies niacin [NIACIN] Allergy (Mild, Verified 02/22/24 07:56) ITCHING, itchy, itchy Msqofbg-ZJL-HfX Reductase Inhibitor [SBMMPKI-FWF-DJW REDUCTASE INHIBITOR] Allergy (Unknown, Verified 02/22/24 07:56) HIGH CPK atorvastatin [Lipitor] Adverse Reaction (Unknown, Verified 02/22/24 07:56) high CPK HPI Comments Details: Patient is 68 year old male with DM type 2 diagnosed at 35 years of age, referred by who presents for management of diabetes. Past medical history: DM2, HTN, HLD, CKD3, Charcot arthopathy Micro and macrovascular complications: no retinopathy, + nephropathy, + neuropathy, no CVA, CAD, PVD. Diabetes medications: metformin 500 mg BID, intolerant of higher doses. Farxiga 10 mg. Novolog via TAndem pump with control IQ 105.43 units/day, 53% basal, 40% food bolus, Control IQ in use 100%. CGM inactive 2% Basal: 12:00 2.6 2A 2.8 4:30a 2.25 11:30a 2.00 1pm 1.5 2:30 1.25 4pm 1.1 6:30 2.0 10:00pm 2.6 Correction 1:19 Carb ration 12:00 1:4 1130 AM = 1:3.5 4 PM = !:4.5 11:30a 1:3.5 400pm 1:4.5 Continuous Glucose monitoring: In the last 2 weeks average blood glucose 154 with 0% from 55-69, 78% within target range of 70-180. 22 of blood glucose from 181 to 250. Sensor usage 97%. Coefficient variation 20%. Symptoms reported: No numbness, tingling, cramping in lower extremities Hypoglycemia: denies, once when changing in sensor . No hypoglycemia Hyperglycemia: + urinary frequency (takes diurectics), denies nocturia, polydypsia Exercise: walking 20 - 30 minutes on most days. Is retiring in July and plans to walk more Chicken Picker: every 3 month Ophthalmology evaluation: 04/2023 no retinopathy. Other specialists: Dr. Brunson, contact center assistant. Stimulate C-peptide was> 2 and antibodies were negative confirming presence of type 2 diabetes and insulin reserve Laboratory Tests 08/01/21 10/30/21 10/30/21 11:00 09:21 09:21 Creatinine 1.82 H Estimated GFR 37 Hgb A1c (Clinic) 6.3 H Hemoglobin A1c % 5.9 Triglycerides 125 Cholesterol 149 LDL Cholesterol, Calc 73 HDL Cholesterol 51 D Vitamin B12 25-OH Vitamin D Total 40.9 Microalb/Creat Ratio 10/30/21 10/30/21 09:21 09:28 Creatinine Estimated GFR Hgb A1c (Clinic) Hemoglobin A1c % Triglycerides Cholesterol LDL Cholesterol, Calc HDL Cholesterol Vitamin B12 416 25-OH Vitamin D Total Microalb/Creat Ratio [facility] Medical History Hearing loss Annual physical exam Overweight (BMI 25.0-29.9) B12 deficiency half-way (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 Diabetic polyneuropathy associated with type 2 diabetes mellitus Varicose vein of leg Osteoarthritis CKD (chronic kidney disease), stage III Umbilical hernia Peripheral neuropathy Hypokalemia Obstructive sleep apnea Anemia B-complex deficiency Hypercholesterolemia HTN (hypertension) Diabetes type 2, controlled Surgical History History of colonoscopy Family History Father Diabetes mellitus CAD (coronary artery disease) HTN (hypertension) Mother Stroke Pancreatic cancer HTN (hypertension) Maternal Grandfather Abdominal aortic aneurysm CVD (cardiovascular disease) Maternal Grandmother Abdominal aortic aneurysm Paternal Grandfather CVD (cardiovascular disease) Paternal Grandmother No problems noted. Brother Diabetes mellitus Brother No problems noted. Brother No problems noted. Son No problems noted. Son No problems noted. Daughter No problems noted. Sister Hodgkins disease Social History Household Members: Spouse Housing: House Alcohol intake: current Alcohol intake frequency: a few times a week Patient Tobacco Use Status: Never used Tobacco e-Cigarette/Vaping Use: Never Used service: No Current occupational status: retired Cognitive needs: No Hearing needs: Yes Vision needs: Yes Physical Exam Vital Signs: Last Vital Signs Pulse 55 02/22/24 07:52 BP 144/88 H 02/22/24 07:52 BMI result Body Mass Index 29.4 Absence of Cushingoid features. Absence of acromegalic features. Neck exam reveals nl size thyroid about 15 gms. No thyroid nodules palpable. No carotid bruits present. Lungs CTA. Heart S1 S2, Reg R/R. No M/R/ G. Skin exam reveals absence of vitiligo or acanthosis nigricans. Abdominal exam reveals Soft NT/ND with NA BS. No organomegaly present. Neck Other: . Extrem Other: Visual exam of foot performed. No ulcerations or open lesions. No onchomycosis, no callouses.Pulses 2 + distally Sensation decreased to monofilament exam. Vibratory sensation sensed is decreased with 128 Hz tuning fork Results AMB Hemoglobin A1c AMB Hemoglobin A1c 6.4 % Last Edit by MAURO Leon on 02/22/24 08:20 Results Reviewed Results Reviewed: Laboratory Last Values Glucose (Clinic) 102 mg/dL (60-115) 02/22/24 07:59 Assessment & Plan Assessment & Plan (1) Diabetes type 2, controlled: Comment: Grupo for renoprotection Dr. Bobo, on insulin pump Code(s): E11.9 - Type 2 diabetes mellitus without complications Category: Medical Qualifiers: Diabetes mellitus residential insulin use: with scaffold setter use Diabetes mellitus complication detail: with polyneuropathy Plan: This is a 68-year-old white male with a history of type 2 diabetes being managed with metformin, Farxiga and it T-slim insulin pump with excellent glycemic control and known microvascular complications namely CKD stage IIIB as well as neuropathy. The plan is to continue the current regimen. Patient will follow-up in 3 mos with Snehal Maldonado NP Orders: Orders AMB Hemoglobin A1c Today E11.9 - Type 2 diabetes mellitus without complications, Z13.9 - Encounter for screening, unspecified Coding Level of Care Code Est Pt Level 4 (48085) Complex EM visit Add On G2211 Diagnoses Diabetes type 2, controlled E11.9 Diabetes mellitus scaffold setter insulin use: with scaffold setter use Diabetes mellitus complication detail: with polyneuropathy
[2024-02-22 08:04] LABS: Glucose, Whole Blood 102 mg/dL (60-115)
== END 2024-02-22 08:11 | disposition home or self-care (01) ==
PROVIDERS: PCP Internal Medicine; Visit Provider Internal Medicine Endocrinology, Diabetes & Metabolism
DX: Z13.9 Encounter for screening, unspecified (principal); E11.9 Type 2 diabetes mellitus without complications
CPT/HCPCS: 99214; G2211

== ENCOUNTER → 2024-02-22 07:48 | Outpatient (BNVA) | payer MEDICARE, OTHER, SELFPAY | PROVIDERS: PCP Internal Medicine; Visit Provider Internal Medicine Endocrinology, Diabetes & Metabolism | DX: E11.22 Type 2 diabetes mellitus with diabetic chronic kidney disease (principal); E11.42 Type 2 diabetes mellitus with diabetic polyneuropathy; N18.32 Chronic kidney disease, stage 3b; Z96.41 Presence of insulin pump (external) (internal); Z79.84 Long term (current) use of oral hypoglycemic drugs; Z79.4 Long term (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 | CPT/HCPCS: 82947; 83036; 99212 ==

== ENCOUNTER 2024-04-06 12:57 | Outpatient (REF) | payer SELFPAY | END 2024-04-06 12:58 | disposition home or self-care (01) | LOC: HO.HAP 12:57 | PROVIDERS: Visit Provider Internal Medicine | DX: Z13.89 Encounter for screening for other disorder (principal) ==

== ENCOUNTER 2024-04-07 09:28 | Outpatient (REF) | payer SELFPAY | END 2024-04-07 09:29 | disposition home or self-care (01) | LOC: HO.HAP 09:28 | PROVIDERS: Visit Provider Internal Medicine | DX: Z13.89 Encounter for screening for other disorder (principal) ==

== ENCOUNTER 2024-05-16 14:21 | Outpatient (REF) | payer SELFPAY | END 2024-05-16 14:22 | disposition home or self-care (01) | LOC: HO.HAP 14:21 | PROVIDERS: Visit Provider Internal Medicine | DX: Z13.89 Encounter for screening for other disorder (principal) ==

== ENCOUNTER 2024-05-24 07:53 | Outpatient (AMB) | payer MEDICARE, OTHER, SELFPAY ==
--- NOTE | 2024-05-24 07:49 | A.OFFVIS_ITS ---
Vital Signs 05/24/24 08:01 Height 6 ft 3 in Weight 233 lb 11.04 oz BMI 29.2 BP 142/84 H Blood Pressure Location Rt brachial Position Sitting Pulse 65 Pulse Source Pulse Oximeter Intake Visit Reasons: T2DM Intake Note: Patient present today to follow up on Type 2 Diabetes Mellitus. Last Diabetic Eye exam: 04/2023 Last Podiatry Visit: 12/2023 Most recent HgA1C: 6.4%, 05/24/2024 Random Glucose: 134mg/dL Standpipe Tender Required: No Accompanied by: Self / Same As Patient Allergies niacin [NIACIN] Allergy (Mild, Verified 05/24/24 08:08) ITCHING, itchy, itchy Tndyzfx-FAV-NsX Reductase Inhibitor [ZOYBLNX-EXE-EXA REDUCTASE INHIBITOR] Allergy (Unknown, Verified 05/24/24 08:08) HIGH CPK atorvastatin [Lipitor] Adverse Reaction (Unknown, Verified 05/24/24 08:08) high CPK Medication List - Last Reconciled 05/24/24 by Snehal Ryan NP acetone (urine) test (Ketone Urine Test strips) prn glucose over 250, nausea, vomiting or illness. discard after open 6 months ascorbic acid (vitamin C) 500 mg PO BID aspirin 81 mg PO DAILY benzonatate 100 mg PO BID PRN calcium carbonate-vitamin D3 600 mg-5 mcg (200 unit) (Calcium 600 + D(3)) 1 cap PO cholecalciferol (vitamin D3) 25 mcg PO DAILY clotrimazole 1% 1 appl topical BID dapagliflozin propanediol (Farxiga) 10 mg PO DAILY ezetimibe 10 mg PO DAILY ferrous sulfate (FeroSul) 325 mg PO Q OTHER DAY fluticasone propionate 50 mcg/actuation 1 spray intranasal DAILY glucagon 3 mg/actuation (Baqsimi) 3 mg intranasal ONCE PRN 30 days MDD 6 mg glucosamine HCl 750 mg PO DAILY insulin glargine (Lantus U-100 Insulin) 46 units subcut DAILY PRN insulin lispro (Admelog U-100 Insulin lispro) Infuse up to 220 units via insulin pump subcutaneously daily; irbesartan 300 mg PO DAILY lidocaine 5% (Lidoderm) 1 patch topical DAILY metformin ER 500 mg PO BID montelukast 10 mg PO DAILY nebivolol 2.5 mg PO DAILY nystatin 1 appl topical DAILY rosuvastatin 10 mg PO BEDTIME scopolamine base 1 patch transdermal Q3D PRN spironolactone 25 mg PO DAILY HPI Comments Details: Patient is 69 year old male with DM type 2 diagnosed at 35 years of age, who presents for management of diabetes. Was last seen by Dr. Mauro in February. Past medical history: DM2, HTN, HLD, CKD3, Charcot arthopathy Micro and macrovascular complications: no retinopathy, + nephropathy, + neuropathy, no CVA, CAD, PVD. Diabetes medications: metformin 500 mg BID, intolerant of higher doses. Farxiga 10 mg. Novolog via TAndem pump with control IQ Dexcom average glucose: 134 14 day continuous glucose monitor report reviewed Glucose Managment indicator 6.5 % Days with CGM data 94.2 % TIme in ranges: 0 % very high (above 250) 9 % high ?(181-250) 91 % in range ?(70-180] 0 % low (69-55) 0 % ?very low (below 54) Interpretation [excellent control throughout the 24 hours with no hypoglycemia ] 59% basal 46.5 units 41% basal 31.9 units Carb g entered per day 129 In control IQ 98% of the time Control IQ in use 100%. CGM inactive 2% Basal: 12:00 2.6 2A 2.8 4:30a 2.25 11:30a 2.00 1pm 1.5 2:30 1.25 4pm 1.1 6:30 2.0 10:00pm 2.6 Correction 1:19 Carb ration 12:00 1:4 1130 AM = 1:3.5 4 PM = !:4.5 Symptoms reported: + numbness, tingling, nocramping in lower extremities Hypoglycemia: None recent . No hypoglycemia Hyperglycemia: + urinary frequency (takes diurectics), denies nocturia, polydypsia Exercise: walking 20 - 30 minutes on most days. 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 Manzanares Ophthalmology evaluation: 04/2024 no retinopathy. For his [facility] Other specialists: Dr. Brusnon, hydrometeorological technician. Sees regularly Stimulate C-peptide was> 2 and antibodies were negative confirming presence of type 2 diabetes and insulin reserve [facility] screen Fibrosis-4 (Fib-4) Index for liver fibrosis (calculated on lab work done: ) [1.81 ] points Advanced fibrosis [excluded ] Approximate Fibrosis stage Memo [2-3 ] *Use with caution in patients <35 or >65 years old, as the score has been shown to be less reliable in these patients. 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 Diabetic polyneuropathy associated with type 2 diabetes mellitus Varicose vein of leg Osteoarthritis CKD (chronic kidney disease), stage III Umbilical hernia Peripheral neuropathy Hypokalemia Obstructive sleep apnea Anemia B-complex deficiency Hypercholesterolemia HTN (hypertension) Diabetes type 2, controlled Surgical History History of colonoscopy Family History Father Diabetes mellitus CAD (coronary artery disease) HTN (hypertension) Mother Stroke Pancreatic cancer HTN (hypertension) Maternal Grandfather Abdominal aortic aneurysm CVD (cardiovascular disease) Maternal Grandmother Abdominal aortic aneurysm Paternal Grandfather CVD (cardiovascular disease) Paternal Grandmother No problems noted. Brother Diabetes mellitus Brother No problems noted. Brother No problems noted. Son No problems noted. Son No problems noted. Daughter No problems noted. Sister Hodgkins disease Social History Household Members: Spouse Housing: House Alcohol intake: current Alcohol intake frequency: a few times a week Patient Tobacco Use Status: Never used Tobacco e-Cigarette/Vaping Use: Never Used service: No Current occupational status: retired Cognitive needs: No Hearing needs: Yes Vision needs: Yes Physical Exam Vital Signs: Last Vital Signs Pulse 65 05/24/24 08:01 BP 142/84 H 05/24/24 08:01 BMI result Body Mass Index 29.2 Const Other: Absence of Cushingoid features. Absence of acromegalic features. Neck exam reveals nl size thyroid about 15 gms. No thyroid nodules palpable. No carotid bruits present. Lungs CTA. Heart S1 S2, Reg R/R. No M/R G. Skin exam reveals absence of vitiligo or acanthosis nigricans. No edema Visual exam of foot performed. charcot foot bilaterallyNo ulcerations or open lesions. No inter digit maceration or fissuring. No onychomycosis, no callouses. Sensation absent to monofilament exam. Vibratory sensation absent with 128 Hz tuning fork. Office Procedures Glucose Monitoring Details Details: see hpi [id number] - Glucose monitoring, continuous-physician I&R Procedure code (CPT) selection complete Results AMB Hemoglobin A1c AMB Hemoglobin A1c 6.4 % Last Edit by MAURO Mccarthy on 05/24/24 08:15 Results Reviewed Results Reviewed: Laboratory Last Values Glucose (Clinic) 134 mg/dL (60-115) H 05/24/24 08:05 Hgb A1c (Clinic) 6.4 % (4.0-6.0) H 05/24/24 08:09 Laboratory Tests 11/23/23 11/30/23 11/30/23 08:07 08:50 08:55 Plt Count 146 L Potassium 5.0 Creatinine 1.49 H Estimated GFR 47 Hgb A1c (Clinic) 6.5 H AST 22 ALT 34 Triglycerides 110 Cholesterol 145 LDL Cholesterol, Calc 73 HDL Cholesterol 50 Urine Creatinine 143.55 Urine Microalbumin 7.0 02/22/24 08:02 Plt Count Potassium Creatinine Estimated GFR Hgb A1c (Clinic) 6.4 H AST ALT Triglycerides Cholesterol LDL Cholesterol, Calc HDL Cholesterol Urine Creatinine Urine Microalbumin Assessment & Plan Assessment & Plan (1) Diabetes type 2, controlled: Comment: Grupo for renoprotection Dr. Bobo, on insulin pump Code(s): E11.9 - Type 2 diabetes mellitus without complications Category: Medical Qualifiers: Diabetes mellitus complication detail: with polyneuropathy Diabetes mellitus intermediate insulin use: with supervisor long goods use Plan: This is a 68-year-old white male with a history of type 2 diabetes being managed with metformin, Farxiga and it T-slim insulin pump with excellent glycemic control and known microvascular complications namely CKD stage IIIB as well as neuropathy. The plan is to continue the current regimen. Patient will follow-up in 3 mos Will order liver ultrasound with elastography next. BNP to rule CHF and RY ordered per [place] [employer] guidelines. Patient is up to date with opth, renal and podiatry. Prescription sent for nasal glucagon and ketone test strips, instructions reviewed today. Patient has Lantus and syringes at home and for pump failure we will administer 46 units along with usual doses of Humalog. (2) Peripheral Vascular Disease: Code(s): I73.9 - Peripheral vascular disease, unspecified Plan: r/o order ry Orders: Orders AMB Hemoglobin A1c Today E11.42 - Type 2 diabetes mellitus with diabetic polyneuropathy B Type Natriuretic Peptide Today E11.9 - Type 2 diabetes mellitus without complications, I73.9 - Peripheral vascular disease, unspecified US RY complete Today I73.9 - Peripheral vascular disease, unspecified AMB Glucose Monitoring Today E11.9 - Type 2 diabetes mellitus without complications Medications: New glucagon 3 mg/actuation (Baqsimi) 3 mg intranasal ONCE 30 days PRN 2 ea 1RF Unresponsive hypoglycemia may repeat in 15 minutes MDD 6 mg acetone (urine) test (Ketone Urine Test strips) prn glucose over 250, nausea, vomiting or illness. discard after open 6 months 25 ea 1RF Patient Instructions: Troubleshooting after starting new pod or inserting new insulin set: Occlusion, adhesive tape sensitivity, redness Check BG 2 hours after site change Safety information: Importance of a backup plan, for manual injections, proper prescriptions and emergency supplies ketone strips, and rules for testing for ketones The patient was counseled to achieve a target A1C of 7% (154 avg). Fasting blood sugars should be 90-130 in the morning and less than 180 two hours after meals. Reviewed the relationship between poor diabetic control and the developement of complications The patient was counseled to wear closed toe shoes, never walk barefooted and to inspect the feet daily. For any signs of infection or open wound patient should notify PCP or go to urgent care. Symptoms of DKA were reviewed: early: frequent urination, dry mouth, fatigue, feeling ill, severe symptoms: ketones in the urine, abdominal pain, nausea, vomiting and weakness. It is important to hydrate with sugar free liquids every 30 minutes and bring the sugars down to normal levels. Coding Level of Care Code Est Pt Level 5 (46730) Diagnoses Diabetes type 2, controlled E11.9 Diabetes mellitus complication detail: with polyneuropathy Diabetes mellitus intermediate insulin use: with supervisor long goods use Peripheral Vascular Disease I73.9 CPT Codes Details - CPT: 69907 - Glucose monitoring, continuous-physician I&R ([id number]) Time Spent (min) 55 Comment Reviewing labs/provider notes, glucose sensor/pump reports, face to face, chart doc
[2024-05-24 08:01] VITALS: BP 142/84; PULSE 65; BMI 29.2
[2024-05-24 08:09] LABS: Glucose, Whole Blood 134 mg/dL (60-115)
== END 2024-05-24 08:29 | disposition home or self-care (01) ==
PROVIDERS: PCP Internal Medicine; Visit Provider Nurse Practitioner Adult Health
DX: I73.9 Peripheral vascular disease, unspecified (principal); E11.42 Type 2 diabetes mellitus with diabetic polyneuropathy
CPT/HCPCS: 95251; 99215

== ENCOUNTER → 2024-05-24 07:53 | Outpatient (BNVA) | payer MEDICARE, OTHER, SELFPAY | PROVIDERS: PCP Internal Medicine; Visit Provider Nurse Practitioner Adult Health | DX: E11.9 Type 2 diabetes mellitus without complications (principal); I73.9 Peripheral vascular disease, unspecified | CPT/HCPCS: 82947; 83036; 99212 ==

== ENCOUNTER 2024-06-01 08:54 | Outpatient (REF) | payer MEDICARE, OTHER, SELFPAY ==
--- NOTE | ~2024-06-01 | US_ITS ---
EXAMINATION: Noninvasive assessment of the arteries of both lower extremities to include a single level PVR exam and ANKLE BRACHIAL INDICES (ABIs). CLINICAL INFORMATION: Peripheral vascular disease TECHNIQUE: The ankle/brachial indices of the distal posterior tibial and the dorsalis pedis arteries were obtained of the lower extremity arterial system bilaterally; along with pressures and pulse volume recordings at the ankle level. The study was performed at rest. COMPARISON: None FINDINGS: 1. ANKLE-BRACHIAL INDICES: RIGHT: 1.06 in the dorsalis pedis artery. Noncompressible posterior tibial artery LEFT: 1.08 and the dorsalis pedis artery. Noncompressible in the posterior tibial artery 2. ANKLE PVR WAVEFORMS: RIGHT: Normal LEFT: Normal US/US CORBY complete IMPRESSION: Noncompressible bilateral posterior tibial arteries. Normal ankle brachial indices in the bilateral dorsalis pedis arteries. PVR waveforms are unremarkable. Electronically signed by: Deandre Fall MD 06/06/2024 08:45 AM EDT
[2024-06-01 10:00] LABS: MANUAL DIFF FLAG NO
[2024-06-01 10:37] LABS: Basophils Percent Auto 0.4 % (0-2); Eosinophils Absolute Auto 0.2 X10*3/uL (0.0-0.4); Eosinophils Percent Auto 3.1 % (0-4); Hematocrit 46.9 % (42.0-52.0); Hemoglobin 15.5 g/dl (14.0-18.0); Imm Gran Abs Auto 0.02 X10*3/uL (0.00-0.03); Imm Gran Pct Auto 0.4 % (0.0-0.4); Lymphocytes Absolute Auto 1.2 X10*3/uL (1.2-4.9); Lymphocytes Percent Auto 20.9 % (20-40); Mean Corpuscular Hemoglobin 32.2 pg (27.0-33.0); Mean Corpuscular Volume 97.3 fL (80.0-98.0); Mean Platelet Volume 11.2 fL (9.4-12.4); Monocytes Absolute Auto 0.5 X10*3/uL (0.1-1.2); Monocytes Percent Auto 8.3 % (2-11); Neutrophils Absolute Auto 3.7 x10*3/uL (2.0-8.3); Neutrophils Percent Auto 66.9 % (45-73); Platelet Count 161 X10*3/uL (160-400); Red Blood Count 4.82 X10*6/uL (4.60-5.80); Red Cell Distribution Width 14.1 % (11.0-16.0); White Blood Count 5.6 X10*3/uL (4.8-10.8)
[2024-06-01 10:46] LABS: Estimated Average Glucose 131 mg/dL; Hemoglobin A1C 175.3234 umol/L; Hemoglobin A1c % 6.2 % (<6.0); Total Hemoglobin (HGBA1C) 3956.4577 umol/L
[2024-06-01 11:29] LABS: PSA,Total (Free>4and<10) 0.84 ng/mL (0.00-4.00)
[2024-06-01 11:31] LABS: Alanine Aminotransferase 32 U/L (0-40); Albumin Level 4.1 g/dL (3.5-5.0); Alkaline Phosphatase 73 U/L (39-117); Anion Gap 12 (12-20); Aspartate Amino Transferase 29 U/L (5-37); Bilirubin Total 0.4 mg/dL (0.0-1.0); Blood Urea Nitrogen 24 mg/dL (9-16); Calcium 8.9 mg/dL (8.4-10.2); Carbon Dioxide 27 mmol/L (22-29); Chloride 107 mmol/L (96-108); Cholesterol 147 mg/dL (<200); Estimated Glomerular Filt Rate 41; Glucose Random 130 mg/dL (60-115); HDL Cholesterol 46 mg/dL (>40); Iron 50 mcg/dL (45-160); LDL Cholesterol Calculated 70 mg/dL (<100); Percent Iron Saturation 24 % (15-50); Potassium 4.5 mmol/L (3.3-5.1); Sodium 141 mmol/L (135-145); Total Iron Binding Capacity 211 mcg/dL (228-428); Total Protein 6.9 g/dL (6.5-8.0); Triglycerides 157 mg/dL (<150); Unsaturated Iron Binding 161 ug/dL
[2024-06-01 11:33] LABS: Creatinine Urine 110.51 mg/dL; Microalbum/Creatinine Ratio Ur 8.1 ug/mg cr (<30)
[2024-06-01 11:44] LABS: Vitamin B12 495 pg/mL (200-900)
== END 2024-06-01 08:55 | disposition home or self-care (01) ==
LOC: HO.US 08:54
PROVIDERS: Absent Provider Internal Medicine; PCP Internal Medicine; Visit Provider Nurse Practitioner Adult Health
DX: I73.9 Peripheral vascular disease, unspecified (principal); I15.2 Hypertension secondary to endocrine disorders; E78.00 Pure hypercholesterolemia, unspecified; E11.9 Type 2 diabetes mellitus without complications; N18.30 Chronic kidney disease, stage 3 unspecified; N40.0 Benign prostatic hyperplasia without lower urinary tract symptoms; Z12.5 Encounter for screening for malignant neoplasm of prostate
CPT/HCPCS: 36415; 80053; 80061; 82043; 82570; 82607; 82746; 83036; 83540; 84153; 85025; 93923

== ENCOUNTER 2024-06-08 09:38 | Outpatient (AMB) | payer MEDICARE, OTHER, SELFPAY ==
--- NOTE | 2024-06-08 09:45 | MHC.PC.OV ---
Vital Signs 06/08/24 09:46 Height 6 ft 3 in Weight 232 lb BMI 29.0 BP 132/76 Blood Pressure Location Lt brachial Position Sitting Pulse 60 Pulse Source Pulse Oximeter Pulse Oximetry (%) 97 Oxygen Delivery Method Room Air Intake Visit Reasons: 6 month f/u Intake Note: Pt is here today for 6 months follow up visit on labs. Allergies niacin [NIACIN] Allergy (Mild, Verified 06/08/24 09:48) ITCHING, itchy, itchy Ydsnosq-IRZ-AcX Reductase Inhibitor [NBOSAFL-MKI-BKX REDUCTASE INHIBITOR] Allergy (Unknown, Verified 06/08/24 09:48) HIGH CPK atorvastatin [Lipitor] Adverse Reaction (Unknown, Verified 06/08/24 09:48) high CPK Medication List - Last Reconciled 06/08/24 by Maria Isabel Munoz MD acetone (urine) test (Ketone Urine Test strips) prn glucose over 250, nausea, vomiting or illness. discard after open 6 months ascorbic acid (vitamin C) 500 mg PO BID aspirin 81 mg PO DAILY calcium carbonate-vitamin D3 600 mg-5 mcg (200 unit) (Calcium 600 + D(3)) 1 cap PO cholecalciferol (vitamin D3) 25 mcg PO DAILY clotrimazole 1% 1 appl topical BID dapagliflozin propanediol (Farxiga) 10 mg PO DAILY ezetimibe 10 mg PO DAILY ferrous sulfate (FeroSul) 325 mg PO Q OTHER DAY fluticasone propionate 50 mcg/actuation 1 spray intranasal DAILY glucagon 3 mg/actuation (Baqsimi) 3 mg intranasal ONCE PRN 30 days MDD 6 mg glucosamine HCl 750 mg PO DAILY insulin glargine (Lantus U-100 Insulin) 46 units subcut DAILY PRN insulin lispro (Admelog U-100 Insulin lispro) Infuse up to 110 units via insulin pump subcutaneously daily; 90 days irbesartan 300 mg PO DAILY lidocaine 5% (Lidoderm) 1 patch topical DAILY metformin ER 500 mg PO BID nebivolol 2.5 mg PO DAILY nystatin 1 appl topical DAILY rosuvastatin 10 mg PO BEDTIME scopolamine base 1 patch transdermal Q3D PRN spironolactone 25 mg PO DAILY Tobacco use date assessed: 06/08/24 Fall risk assessment: No Falls in past year Last assessed Fall Risk: 06/08/24 Dental Screening Dental Screen Date: 12/06/23 HPI 6 month f/u HPI Details Patient presents for the follow-up on hypertension hyperlipidemia chronic kidney disease stage 3 insulin-dependent diabetes controlled on current medications. Patient's was diagnosed with breast cancer and will have a surgery. 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 Diabetic polyneuropathy associated with type 2 diabetes mellitus Varicose vein of leg Osteoarthritis CKD (chronic kidney disease), stage III Umbilical hernia Peripheral neuropathy Hypokalemia Obstructive sleep apnea Anemia B-complex deficiency Hypercholesterolemia HTN (hypertension) Diabetes type 2, controlled Surgical History History of colonoscopy Family History Father Diabetes mellitus CAD (coronary artery disease) HTN (hypertension) Mother Stroke Pancreatic cancer HTN (hypertension) Maternal Grandfather Abdominal aortic aneurysm CVD (cardiovascular disease) Maternal Grandmother Abdominal aortic aneurysm Paternal Grandfather CVD (cardiovascular disease) Paternal Grandmother No problems noted. Brother Diabetes mellitus Brother No problems noted. Brother No problems noted. Son No problems noted. Son No problems noted. Daughter No problems noted. Sister Hodgkins disease Social History Household Members: Spouse Housing: House Alcohol intake: current Alcohol intake frequency: a few times a week Patient Tobacco Use Status: Never used Tobacco e-Cigarette/Vaping Use: Never Used service: No Current occupational status: retired Cognitive needs: No Hearing needs: Yes Vision needs: Yes Questionnaire PHQ-9 Over the last 2 weeks, how often have you been bothered by any of the following problems? 1. Little interest or pleasure in doing things: not at all 2. Feeling down, depressed, or hopeless: not at all 3. Trouble falling or staying asleep, or sleeping too much: not at all 4. Feeling tired or having little energy: not at all 5. Poor appetite or overeating: not at all 6. Feeling bad about yourself - or that you are a failure or have let yourself or your family down: not at all 7. Trouble concentrating on things, such as reading the newspaper or watching television: not at all 8. Moving or speaking so slowly that other people could have noticed. Or the opposite - being so fidgety or restless that you have been moving around a lot more than usual: not at all 9. Thoughts that you would be better off or of hurting yourself in some way: not at all Total score: 0 Depression Screening Interpretation: Negative Depression Screening Done: Yes 12928 - PHQ-9 Billing: Yes Source: Developed by Drs. Vern Gilbert, Thea Vela, Kailash Caal and colleagues, with an educational roopa from [employer]. Thrive Questionnaire Date Thrive assessed: 06/08/24 I am a: Patient What is your living situation today?: I have a steady place to live Within the past 12 months, did the food you bought not last and you didn't have the money to get more?: Never true Within the past 12 months, did you worry whether your food would run out before you got money to buy more?: Never true Do you have trouble paying for medicines?: No Do you have trouble getting transportation to medical appointments?: No Do you have trouble paying your heating and electricity bill?: No Do you have trouble taking care of your child, family member or friend?: No Do you have trouble with day-to-day activities such as bathing, preparing meals, shopping, managing finances, etc.?: No Are you currently unemployed and looking for a job?: No Are you interested in more education?: No Please select the resources that you would like help with: None Currently or been in a relationship where the following occur: No concerns reported THRIVE Score: 0 AUDIT C Alcohol Use Questionnaire (AUDIT-C) 1. How often do you have a drink containing alcohol?: 4 or more times a week 2. How many drinks containing alcohol do you have on a typical day when you are drinking?: 1 or 2 3. How often do you have six or more drinks on one occasion?: Never Total Score: 4 TEA-7 AMB Questionnaire TEA-7 Date TEA - 7 assessed: 06/08/24 Feeling nervous, anxious, or on edge: 0 = Not at all Not being able to stop or control worryin = Not at all Worrying too much about different things: 0 = Not at all Trouble relaxin = Not at all Being so restless that it is hard to sit still: 0 = Not at all Becoming easily annoyed or irritable: 0 = Not at all Feeling afraid as if something awful might happen: 0 = Not at all Total TEA-7 score (0-4 normal; 5-9 mild; 10-14 moderate; 15-21 severe): 0 Source: Developed by Drs. Vern Gilbert, Thea Vela, Kailash Caal and colleagues, with an educational roopa from [employer]. TEA-7 Assessment Billing TEA-7 Assessment Tool: TEA-7 Assessment 49503 Review of Systems Const All systems reviewed & are unremarkable except as noted in HPI and below ENT Reports no additional complaints Card Reports no additional complaints Resp Reports no additional complaints GI Reports no additional complaints Reports no additional complaints Physical exam (Primary Care) Vital Signs: Last Vital Signs Pulse 60 06/08/24 09:46 BP 132/76 06/08/24 09:46 Pulse Ox 97 06/08/24 09:46 Oxygen Delivery Method Room Air 06/08/24 09:46 BMI result Body Mass Index 29.0 Tobacco/Smoking Status: Tobacco use Status Tobacco use date assessed 06/08/24 06/08/24 09:52 Patient Tobacco Use Status Never used Tobacco 06/08/24 09:52 e-Cigarette/Vaping Use Never Used 06/08/24 09:52 PHQ-9: PHQ-9 Score PHQ-9: Total score 0 06/08/24 09:52 Depression Screening Interpretation: Negative Thrive Assessment: Date of Thrive Assessment Date Thrive assessed 06/08/24 06/08/24 09:52 Currently or been in a relationship where the following occur: No concerns reported Const General: no acute distress HENMT Head: Yes normal to inspection Neck Neck: Yes supple Resp Effort & Inspection: normal respiratory effort Auscultation: clear to auscultation bilaterally Cardio Rhythm: regular rhythm Heart sounds: S1 normal heart sound present and S2 normal heart sound present GI Inspection: Yes normal to inspection Palpation (GI): Soft to palpation and Hernia present umbilical (Reducible) Extrem Other: Diabetic foot exam: skin is intact monofilament vibration sensation intact bilaterally General: Yes no clubbing, cyanosis or edema Coding Level of Care Code Est Pt Level 4 (29345) Complex EM visit Add On G2211 Diagnoses Umbilical hernia K42.9 CKD (chronic kidney disease), stage III N18.30 Diabetic polyneuropathy associated with type 2 diabetes mellitus E11.42 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: Comment: On insulin pump, follows up with gas meter reader every 3 months Code(s): Z79.4 - skilled nursing (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 Category: Medical Plan: A1c is 6.2, continue current medications follow-up with gas meter reader every 3 months (5) HTN (hypertension): Code(s): I10 - Essential (primary) hypertension Category: Medical Qualifiers: Hypertension type: secondary to endocrine disorders Qualified Code(s): I15.2 - Hypertension secondary to endocrine disorders Plan: Continue current medications (6) Hypercholesterolemia: Code(s): E78.00 - Pure hypercholesterolemia, unspecified Category: Medical Plan: Continue statin Orders: Orders Comprehensive [place]. 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 Hemoglobin A1c 6 Months E11.9 - Type 2 diabetes mellitus without complications, I15.2 - Hypertension secondary to endocrine disorders, N18.30 - Chronic kidney disease, stage 3 unspecified, Z79.4 - skilled nursing (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 Complete Blood Count Auto Diff 6 Months E11.9 - Type 2 diabetes mellitus without complications, I15.2 - Hypertension secondary to endocrine disorders, N18.30 - Chronic kidney disease, stage 3 unspecified, Z79.4 - 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
[2024-06-08 09:46] VITALS: BP 132/76; PULSE 60; O2SAT 97; BMI 29.0
== END 2024-06-08 10:26 | disposition home or self-care (01) ==
PROVIDERS: PCP Internal Medicine; Visit Provider Internal Medicine
DX: K42.9 Umbilical hernia without obstruction or gangrene (principal); N18.30 Chronic kidney disease, stage 3 unspecified; E11.42 Type 2 diabetes mellitus with diabetic polyneuropathy; Z79.4 Long term (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; I15.2 Hypertension secondary to endocrine disorders; E78.00 Pure hypercholesterolemia, unspecified

== ENCOUNTER → 2024-06-08 09:38 | Outpatient (BNVA) | payer SELFPAY | PROVIDERS: PCP Internal Medicine; Visit Provider Internal Medicine | DX: K42.9 Umbilical hernia without obstruction or gangrene (principal); E11.22 Type 2 diabetes mellitus with diabetic chronic kidney disease; N18.30 Chronic kidney disease, stage 3 unspecified; E11.42 Type 2 diabetes mellitus with diabetic polyneuropathy; I15.2 Hypertension secondary to endocrine disorders; E78.00 Pure hypercholesterolemia, unspecified; Z79.4 Long term (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; Z79.899 Other long term (current) drug therapy | CPT/HCPCS: 96127; 99212 ==

== ENCOUNTER 2024-06-27 10:02 | Outpatient (AMB) | payer MEDICARE, OTHER, SELFPAY ==
[2024-06-27 10:05] VITALS: BMI 29.2
--- NOTE | 2024-06-27 10:05 | A.OFFVIS_ITS ---
Vital Signs 06/27/24 10:05 Height 6 ft 3 in Weight 234 lb BMI 29.2 Intake Visit Reasons: Umbilical hernia Intake Note: Patient referred by pcp Dr. Munoz for Umbilical hernia. Patient c/o: reports bulge, umbilical region, reports no pain or discomfort. Road Crossing Guard Required: No Accompanied by: Self / Same As Patient Allergies niacin [NIACIN] Allergy (Mild, Verified 06/27/24 10:11) ITCHING, itchy, itchy Ulzzoet-PEB-ZrU Reductase Inhibitor [DEWJAMN-PJK-MOR REDUCTASE INHIBITOR] Woody rgy (Unknown, Verified 06/27/24 10:11) HIGH CPK atorvastatin [Lipitor] Adverse Reaction (Unknown, Verified 06/27/24 10:11) high CPK HPI Comments Details: Patient presents for evaluation of an umbilical hernia. He has had this several years time. It has markedly increased in size, become more symptomatic. He would like to have repaired. He otherwise tolerating a diet. Has regular bowel habits. His relatively active. No other GI issues or complaints. 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 Diabetic polyneuropathy associated with type 2 diabetes mellitus Varicose vein of leg Osteoarthritis CKD (chronic kidney disease), stage III Umbilical hernia Peripheral neuropathy Hypokalemia Obstructive sleep apnea Anemia B-complex deficiency Hypercholesterolemia HTN (hypertension) Diabetes type 2, controlled Surgical History History of colonoscopy Family History Father Diabetes mellitus CAD (coronary artery disease) HTN (hypertension) Mother Stroke Pancreatic cancer HTN (hypertension) Maternal Grandfather Abdominal aortic aneurysm CVD (cardiovascular disease) Maternal Grandmother Abdominal aortic aneurysm Paternal Grandfather CVD (cardiovascular disease) Paternal Grandmother No problems noted. Brother Diabetes mellitus Brother No problems noted. Brother No problems noted. Son No problems noted. Son No problems noted. Daughter No problems noted. Sister Hodgkins disease Social History Household Members: Spouse Housing: House Alcohol intake: current Alcohol intake frequency: a few times a week Patient Tobacco Use Status: Never used Tobacco e-Cigarette/Vaping Use: Never Used service: No Current occupational status: retired Cognitive needs: No Hearing needs: Yes Vision needs: Yes Physical Exam Vital Signs: BMI result Body Mass Index 29.2 Chest Other: Chest breath sounds bilaterally, HS 1 in 2 GI Other: Patient was examined both supine and standing with Valsalva. Moderately corpulent abdomen. Roughly 4 cm reducible umbilical hernia. Bilateral groin exam negative. Genitalia within normal limits. Assessment & Plan Assessment & Plan (1) Umbilical hernia: Code(s): K42.9 - Umbilical hernia without obstruction or gangrene Category: Surgical Plan Risks, benefits, alternatives of open umbilical hernia repair with mesh were reviewed with the patient and included but not limited to bleeding, infection, recurrence, numbness, pain, scarring, bowel injury and the patient wished to proceed. All questions answered. Arrangements were made on a day which is convenient for him. Patient's is having surgery and mid July and he would like to proceed with this before then. Coding Level of Care Code New Pt Level 5 (52847) Diagnoses Umbilical hernia K42.9
== END 2024-06-27 10:16 | disposition home or self-care (01) ==
LOC: HO.HGS 10:03
PROVIDERS: PCP Internal Medicine; Referring Provider Internal Medicine; Visit Provider Surgery
DX: K42.9 Umbilical hernia without obstruction or gangrene (principal)
CPT/HCPCS: 99204

== ENCOUNTER → 2024-06-27 10:02 | Outpatient (BNVA) | payer MEDICARE, OTHER, SELFPAY | PROVIDERS: PCP Internal Medicine; Referring Provider Internal Medicine; Visit Provider Surgery | DX: K42.9 Umbilical hernia without obstruction or gangrene (principal) | CPT/HCPCS: 99202 ==

== ENCOUNTER 2024-07-07 10:54 | Day surgery (SDC) | payer MEDICARE, OTHER, SELFPAY ==
--- NOTE | 2024-07-05 12:50 | P.CONAN_ITS ---
Documented by User: Binta Bernard NP 07/05/24 12:51 HPI - Anesthesia Eval Consult details Narrative: 69yo M for OPEN Repair Large Hernia Umbilical Reducible with mesh Anesthesia Pre-Procedure Meds Is the patient on any of the following meds?: SGLT2 Inhib PMFSH Active Problems Active Problems: All Active Problems Umbilical hernia (Acute) Umbilical hernia (Acute) URI (upper respiratory infection) (Acute) BPH (benign prostatic hyperplasia) (Acute) Hearing aid consultation (Acute) Left shoulder pain (Acute) Muscle strain of left shoulder (Acute) Low back pain (Acute) Hearing loss (Acute) Annual physical exam (Acute) Overweight (BMI 25.0-29.9) (Acute) B12 deficiency (Acute) intermediate (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 (Acute) Diabetic polyneuropathy associated with type 2 diabetes mellitus (Acute) HTN (hypertension) (Acute) Hypercholesterolemia (Acute) CKD (chronic kidney disease), stage III (Acute) Diabetes type 2, controlled (Acute) Past Medical History Medical History Hearing loss Annual physical exam Overweight (BMI 25.0-29.9) B12 deficiency intermediate (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 Diabetic polyneuropathy associated with type 2 diabetes mellitus Varicose vein of leg Osteoarthritis CKD (chronic kidney disease), stage III Umbilical hernia Peripheral neuropathy Hypokalemia Obstructive sleep apnea Anemia B-complex deficiency Hypercholesterolemia HTN (hypertension) Diabetes type 2, controlled Family History Family History Father Diabetes mellitus CAD (coronary artery disease) HTN (hypertension) Mother Stroke Pancreatic cancer HTN (hypertension) Maternal Grandfather Abdominal aortic aneurysm CVD (cardiovascular disease) Maternal Grandmother Abdominal aortic aneurysm Paternal Grandfather CVD (cardiovascular disease) Paternal Grandmother No problems noted. Brother Diabetes mellitus Brother No problems noted. Brother No problems noted. Son No problems noted. Son No problems noted. Daughter No problems noted. Sister Hodgkins disease Surgical History Surgical History History of colonoscopy Social History Social History Household Members: Spouse Housing: House Alcohol intake: current Alcohol intake frequency: a few times a week Patient Tobacco Use Status: Never used Tobacco e-Cigarette/Vaping Use: Never Used Use of substances other than those prescribed or required for medical reasons: No Are you DNR?: No Advance Directives: No Advance Directives Information Provided: Yes service: No Current occupational status: retired Cognitive needs: No Hearing needs: Yes Vision needs: Yes Meds Allergies Allergy/AdvReac Type Severity Reaction Status Date / Time niacin [NIACIN] Allergy Mild ITCHING, Verified 07/07/24 13:15 itchy, itchy Kxcamhm-XUY-EzN Reductase Allergy Unknown HIGH CPK Verified 07/07/24 13:15 Inhibitor [HFXIANJ-OJN-ACJ REDUCTASE INHIBITOR] atorvastatin [Lipitor] AdvReac Unknown high CPK Verified 07/07/24 13:15 Home Medications ?Medication ?Instructions ?Recorded ?Confirmed ?Last Taken ?Type aspirin 81 mg tablet,delayed 81 mg PO DAILY 07/22/20 07/07/24 07/05/24 History release fluticasone propionate 50 1 spray intranasal DAILY 07/22/20 07/07/24 Unknown History mcg/actuation nasal spray,suspension ascorbic acid (vitamin C) 1,000 mg 500 mg PO BID 07/26/20 07/07/24 Unknown History tablet glucosamine HCl 750 mg tablet 750 mg PO DAILY 11/04/20 06/27/24 Unknown History ferrous sulfate 325 mg (65 mg 325 mg PO Q OTHER DAY 02/10/21 07/07/24 07/05/24 History iron) tablet (FeroSul) calcium carbonate 600 mg-vitamin 1 cap PO 10/22/22 06/27/24 Unknown History D3 5 mcg (200 unit) capsule (Calcium 600 + D(3)) dapagliflozin propanediol 10 mg 10 mg PO DAILY 10/22/22 07/07/24 07/03/24 History tablet (Farxiga) insulin glargine 100 unit/mL 46 unit subcut DAILY PRN 05/24/24 06/27/24 Unknown History subcutaneous solution (Lantus Hyperglycemia U-100 Insulin) Exam Pertinent Lab Results Pertinent Lab Results: Laboratory Tests 06/01/24 09:58 WBC 5.6 Hgb 15.5 Hct 46.9 Plt Count 161 Sodium 141 Potassium 4.5 Chloride 107 Carbon Dioxide 27 BUN 24 H Creatinine 1.66 H Assessment and Plan Assessment Anesthesia Assessment: Chart Reviewed Documented by User: Samantha Pena MD 07/07/24 14:43 PMFSH Past Medical History Medical History Hearing loss Annual physical exam Overweight (BMI 25.0-29.9) B12 deficiency 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 Diabetic polyneuropathy associated with type 2 diabetes mellitus Varicose vein of leg Osteoarthritis CKD (chronic kidney disease), stage III Umbilical hernia Peripheral neuropathy Hypokalemia Obstructive sleep apnea Anemia B-complex deficiency Hypercholesterolemia HTN (hypertension) Diabetes type 2, controlled Family History Family History Father Diabetes mellitus CAD (coronary artery disease) HTN (hypertension) Mother Stroke Pancreatic cancer HTN (hypertension) Maternal Grandfather Abdominal aortic aneurysm CVD (cardiovascular disease) Maternal Grandmother Abdominal aortic aneurysm Paternal Grandfather CVD (cardiovascular disease) Paternal Grandmother No problems noted. Brother Diabetes mellitus Brother No problems noted. Brother No problems noted. Son No problems noted. Son No problems noted. Daughter No problems noted. Sister Hodgkins disease Family history of problems with anesthesia: No Surgical History Surgical History History of colonoscopy History of Problems with Anesthesia: No Social History Social History Household Members: Spouse Housing: House Alcohol intake: current Alcohol intake frequency: a few times a week Patient Tobacco Use Status: Never used Tobacco e-Cigarette/Vaping Use: Never Used Use of substances other than those prescribed or required for medical reasons: No Are you DNR?: No Advance Directives: No Advance Directives Information Provided: Yes service: No Current occupational status: retired Cognitive needs: No Hearing needs: Yes Vision needs: Yes Meds Allergies Allergy/AdvReac Type Severity Reaction Status Date / Time niacin [NIACIN] Allergy Mild ITCHING, Verified 07/07/24 13:15 itchy, itchy Snyazql-LVI-RmC Reductase Allergy Unknown HIGH CPK Verified 07/07/24 13:15 Inhibitor [JJASKXD-QWU-BVD REDUCTASE INHIBITOR] atorvastatin [Lipitor] AdvReac Unknown high CPK Verified 07/07/24 13:15 Home Medications ?Medication ?Instructions ?Recorded ?Confirmed ?Last Taken ?Type aspirin 81 mg tablet,delayed 81 mg PO DAILY 07/22/20 07/07/24 07/05/24 History release fluticasone propionate 50 1 spray intranasal DAILY 07/22/20 07/07/24 Unknown History mcg/actuation nasal spray,suspension ascorbic acid (vitamin C) 1,000 mg 500 mg PO BID 07/26/20 07/07/24 Unknown History tablet glucosamine HCl 750 mg tablet 750 mg PO DAILY 11/04/20 06/27/24 Unknown History ferrous sulfate 325 mg (65 mg 325 mg PO Q OTHER DAY 02/10/21 07/07/24 07/05/24 History iron) tablet (FeroSul) calcium carbonate 600 mg-vitamin 1 cap PO 10/22/22 06/27/24 Unknown History D3 5 mcg (200 unit) capsule (Calcium 600 + D(3)) dapagliflozin propanediol 10 mg 10 mg PO DAILY 10/22/22 07/07/24 07/03/24 History tablet (Farxiga) insulin glargine 100 unit/mL 46 unit subcut DAILY PRN 05/24/24 06/27/24 Unknown History subcutaneous solution (Lantus Hyperglycemia U-100 Insulin) Exam Airway Mallampati Class: II (caps laterally) TM Dist: >3cm Neck ROM: Full Heart: rrr Lungs: cta Assessment and Plan Assessment Anesthesia Assessment: Anesthesia Plan Discussed Final Anesthetic Review Family History of Problems with Anesthesia: No History of Problems with Anesthesia: No NPO: Yes ASA Class: III Final Preanesthetic Review: No Changes in Pt Med Stat, Meds/Allgs Chart Reviewed and Consent Obtained/Reviewed Patient Risk: Intermediate Procedure Risk: Low Anesthetic Plan Anesthetic Plan: GA Disposition: Standard PACU
--- NOTE | 2024-07-06 16:00 | P.HPSUR_ITS ---
Pre-Procedural Eval Section A - 24 Hr Update-Section A only Date of Service: 07/07/24 The patient is an INPATIENT: No Changes since office visit: No Cold of Flu in the past 2 weeks, No New Medical Problems, No Changes in Medication and No Patient answered all questions Section B - Complete if H&P > 30 days Chief Complaint: Umbilical hernia without obstruction or gangrene Allergies: Allergies Allergy/AdvReac Type Severity Reaction Status Date / Time niacin [NIACIN] Allergy Mild ITCHING, Verified 06/27/24 10:11 itchy, itchy Dqduyxf-CJD-FvR Reductase Allergy Unknown HIGH CPK Verified 06/27/24 10:11 Inhibitor [YWSQWSB-HHU-CSC REDUCTASE INHIBITOR] atorvastatin [Lipitor] AdvReac Unknown high CPK Verified 06/27/24 10:11 Review of Systems Sugical H&P ROS: Negative: Constitution, Cardiovascular, Respiratory, Neurological, Psychiatric, Hem-Onc, Allergic/Immunologic, Gastrointestinal, Genitourinary, Musculoskeletal, Integumentary, Endocrine and Eyes/Ears/Nose/Throat Exam Surgical H&P Exam: Normal: HEENT, Normal: Heart, Normal: Lungs, Normal: Ext remities, Normal: Abdomen, Normal: Skin and Normal: Neurological Plan I have reviewed the history and physical and performed a pertinent physical examination on my patient. No changes have occurred unless specified. Time Spent With Patient Time: Total time managing care of this patient today ____ minutes.
--- NOTE | 2024-07-07 13:03 | ECG_ITS ---
Test Reason : LAURA, HTN, PREOP Blood Pressure : / mmHG Vent. Rate : 049 BPM Atrial Rate : 049 BPM P-R Int : 308 ms QRS Dur : 144 ms QT Int : 458 ms P-R-T Axes : 003 -03 -09 degrees QTc Int : 413 ms Sinus bradycardia with 1st degree A-V block Right bundle branch block Abnormal ECG When compared with ECG of 01-MAR-2017 18:30, Right bundle branch block is now Present Referred By: Binta Bernard Electronically Signed By:Von Summers
[2024-07-07 13:05] VITALS: BMI 29.5
[2024-07-07 13:11] VITALS: BP 171/84; PULSE 48; RESP 16; TEMP 36.2; O2SAT 100
[2024-07-07] MEDS: Lactated Ringers 1,000 ML 100 ML IVCONT (13:30)
--- NOTE | 2024-07-07 14:54 | PC.NURSE ---
Per Dr. Pena, patient okay to go into OR with insulin pump running. MD at bedside to discuss pump with patient. Patients personal glucose meter reading 127. Jaycee OR nurse aware.
[2024-07-07 15:42] VITALS: BP 137/74; PULSE 54; RESP 16; TEMP 36.4; O2SAT 94
[2024-07-07 15:47] VITALS: BP 146/68; PULSE 51; RESP 18; O2SAT 100
[2024-07-07 15:52] VITALS: BP 146/63; PULSE 52; RESP 18; O2SAT 98
[2024-07-07 15:57] VITALS: BP 140/68; PULSE 51; RESP 18; O2SAT 98
--- NOTE | 2024-07-07 16:06 | P.OP_ITS ---
Operative Note Operative Note Date of Service: 07/07/24 Narrative: Preoperative diagnosis: [] Large symptomatic umbilical hernia Postop diagnosis: [] The same Procedure [] open umbilical herniorrhaphy with Bard mesh Surgeon: [] Marino General Passenger Agent: [] Chivo Type of Anesthesia: [] General Indication for surgery: [] Roughly 4 cm umbilical hernia Findings: [] Patient brought to the operating room, placed on operative table supine position, after an adequate level of general anesthesia was induced, the patient's abdomen was prepped draped in usual sterile fashion. Using an infraumbilical curvilinear incision, this carried down through skin, subcutaneous tissue, were very large hernia sac was identified, dissected off the posterior aspect of the umbilicus and the surrounding soft tissue down to the fascia. Sac was opened. Omental contents were reduced. Sac was amputated using Bovie. Fascia margins were circumferentially cleared. An appropriately sized Bard mesh was placed in this defect, and the superficial layer of the mesh was circumferentially sutured to the surrounding fascia using interrupted 0 Ethibond suture. At completion of the procedure, mesh was in good position with no gaps or tension. Wound was irrigated, and secured hemostasis. Was closed in the following manner; posterior aspect of the umbilicus was tacked to the wound floor using interrupted 3-0 Vicryl suture. Skin was closed using interrupted inverted dermal 3-0 Vicryl sutures followed by Steri-Strips and sterile dressings. Wound was infiltrated at the beginning and at the end of the case with 0.5% Marcaine. Sponge, needle, and instrument counts were reported correct. Patient tolerated the procedure well and emerged from anesthesia stable condition. EBL minimal
[2024-07-07 16:10] VITALS: BP 153/84; PULSE 51; RESP 16; TEMP 36.2; O2SAT 97
[2024-07-07] MEDS: oxyCODONE HCl Immed Release 5 MG TABLET PO (16:36)
== END 2024-07-07 16:32 | disposition home or self-care (01) ==
PROVIDERS: PCP Internal Medicine; Visit Provider Surgery
PROC: (CPT 49593; principal; 2024-07-07 15:50)
DX: K42.9 Umbilical hernia without obstruction or gangrene (principal); Z88.8 Allergy status to other drugs, medicaments and biological substances; I12.9 Hypertensive chronic kidney disease with stage 1 through stage 4 chronic kidney disease, or unspecified chronic kidney disease; E11.22 Type 2 diabetes mellitus with diabetic chronic kidney disease; N18.30 Chronic kidney disease, stage 3 unspecified; G62.9 Polyneuropathy, unspecified; D64.9 Anemia, unspecified; E78.00 Pure hypercholesterolemia, unspecified; G47.33 Obstructive sleep apnea (adult) (pediatric); Z79.4 Long term (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; Z79.84 Long term (current) use of oral hypoglycemic drugs; Z79.82 Long term (current) use of aspirin; Z79.51 Long term (current) use of inhaled steroids
CPT/HCPCS: 49593; 93005; C1781; J0690; J1100; J2250; J2405; J2795; J3010

== ENCOUNTER → 2024-07-07 10:54 | Outpatient (BNV) | payer MEDICARE, OTHER, SELFPAY | PROVIDERS: PCP Internal Medicine; Visit Provider Surgery | DX: K42.9 Umbilical hernia without obstruction or gangrene (principal) | CPT/HCPCS: 49593 ==

== ENCOUNTER → 2024-07-07 13:03 | Outpatient (BNV) | payer MEDICARE, OTHER, SELFPAY | PROVIDERS: PCP Internal Medicine; Visit Provider Internal Medicine Cardiovascular Disease | DX: R00.1 Bradycardia, unspecified (principal); R94.31 Abnormal electrocardiogram [ECG] [EKG]; I10 Essential (primary) hypertension | CPT/HCPCS: 93010 ==

== ENCOUNTER 2024-07-09 20:30 | Inpatient (IN) | payer MEDICARE, OTHER, SELFPAY ==
--- NOTE | ~2024-07-09 | CT_ITS ---
EXAMINATION: CT ABDOMEN AND PELVIS WITHOUT CONTRAST CLINICAL INFORMATION: Abdominal pain with nausea and vomiting COMPARISON: MRI abdomen from 07/31/2013 TECHNIQUE: Multidetector volumetric imaging was performed from the superior aspect of the liver through the pubic symphysis. Sagittal and coronal reformatted images were obtained on the technologist's workstation. This CT examination was performed using dose optimization techniques as appropriate, variously including the following: *Automated exposure control *Adjustment of mA and/or kV according to patient size (this includes techniques or standardized protocols for targeted exams where dose is matched to indication/reason for exam; i.e. extremities or head) *Use of iterative reconstruction technique DLP: 793 mGy-cm FINDINGS: LUNG BASES: Atelectasis seen in the bilateral lung bases. There is partially visualized 6 mm nodule within the right lower lobe. LIVER, GALLBLADDER, AND BILIARY TREE: The liver is normal in size, shape, and attenuation. No focal hepatic lesion or biliary ductal dilatation is present. The gallbladder is unremarkable with no evidence of radiopaque gallstones, gallbladder wall thickening, or obvious pericholecystic inflammatory changes. PANCREAS: Unremarkable. SPLEEN: Unremarkable. ADRENAL GLANDS: Unremarkable. KIDNEYS AND URETERS: The kidneys are normal in size, shape, and attenuation. No hydronephrosis, hydroureter, or calculi seen. No perinephric stranding. BLADDER: Partially decompressed GASTROINTESTINAL TRACT: The small bowel are unremarkable. Colon is air-filled and moderately distended, especially the cecum. There is some adjacent inflammatory stranding along the cecum and right colon without focal wall thickening. There is no evidence of colonic obstruction. ABDOMINAL WALL: In the midline of the abdomen at the level of the umbilicus, there is multiloculated fluid collection with foci of air consistent with a subcutaneous abscess which extends to the level of the peritoneum but does not appear to extend into the peritoneal cavity. This abscess measures 3.6 x 1.8 cm LYMPH NODES: Normal. VASCULAR: Aorta is normal in caliber. Scattered atherosclerotic wall calcifications PELVIC VISCERA: Prostate gland is mildly enlarged. OSSEOUS STRUCTURES: Degenerative disc disease and posterior facet joint arthropathy is seen in the lumbar spine. CT/CT abdomen pelvis wo IV con IMPRESSION: 1. Subcutaneous abscess in the midline of the abdomen at the level of the umbilicus. 2. Moderately distended air-filled colon with mild adjacent inflammatory stranding. No evidence of obstruction. 3. Partially visualized 6 mm nodule in the right lower lobe. According to the UPDATED 2017 Fleischner Society recommendations, the advised follow-up imaging for a single 6-8 mm solid nodule is follow-up CT at 6 to 12 months. In high-risk patients, subsequent CT follow-up at 18 to 24 months is recommended. In low-risk patients, subsequent CT follow-up at 18 to 24 months is optional. Electronically signed by: Deandre Fall MD 07/09/2024 10:46 PM EST [facility]
[2024-07-09 20:33] VITALS: BP 168/84; PULSE 69; RESP 16; TEMP 36.3; O2SAT 99; BMI 29.5
[2024-07-09 20:52] LABS: MANUAL DIFF FLAG NO
[2024-07-09 20:53] LABS: Basophils Percent Auto 0.1 % (0-2); Eosinophils Percent Auto 0.4 % (0-4); Hematocrit 47.8 % (42.0-52.0); Hemoglobin 16.2 g/dl (14.0-18.0); Imm Gran Abs Auto 0.03 X10*3/uL (0.00-0.03); Imm Gran Pct Auto 0.3 % (0.0-0.4); Lymphocytes Absolute Auto 1.2 X10*3/uL (1.2-4.9); Lymphocytes Percent Auto 12.3 % (20-40); Mean Corpuscular HGB Conc 33.9 g/dl (31.0-36.0); Mean Corpuscular Hemoglobin 32.1 pg (27.0-33.0); Mean Corpuscular Volume 94.8 fL (80.0-98.0); Monocytes Absolute Auto 0.6 X10*3/uL (0.1-1.2); Neutrophils Percent Auto 80.9 % (45-73); Platelet Count 168 X10*3/uL (160-400); Red Blood Count 5.04 X10*6/uL (4.60-5.80); Red Cell Distribution Width 13.8 % (11.0-16.0); White Blood Count 9.9 X10*3/uL (4.8-10.8)
[2024-07-09 21:08] LABS: Alanine Aminotransferase 27 U/L (0-40); Alkaline Phosphatase 76 U/L (39-117); Anion Gap 16 (12-20); Aspartate Amino Transferase 22 U/L (5-37); Blood Urea Nitrogen 15 mg/dL (9-16); Calcium 9.1 mg/dL (8.4-10.2); Carbon Dioxide 22 mmol/L (22-29); Chloride 105 mmol/L (96-108); Estimated Glomerular Filt Rate > 60; Glucose Random 137 mg/dL (60-115); Potassium 3.6 mmol/L (3.3-5.1); Sodium 139 mmol/L (135-145); Total Protein 6.8 g/dL (6.5-8.0)
--- NOTE | 2024-07-09 21:26 | PC.NURSE ---
pt resting in bed, pt vomited today and had one episode of passing gas, started on stool softener today, belly distend and firm, lower left quadrant pain, hypo active bowels in all quadrants. pt resting in stretcher awaiting ct results
[2024-07-09 21:30] LABS: Influenza A PCR NEGATIVE (Negative); Influenza B PCR NEGATIVE (Negative); Resp Syncy Virus RNA Qual PCR NEGATIVE (Negative); SARS COV2 PCR INHOUSE NEGATIVE (Negative)
--- NOTE | 2024-07-09 21:54 | ED_ITS ---
HPI - Nausea/Vomiting/Diarrhea General Chief complaint: Nausea/Vomiting/Diarrhea Stated complaint: bloated, vomiting, cold after hernia surgery Time Seen by Provider: 07/09/24 21:39 History of Present Illness HPI Narrative: Patient is 69 years old presented today after having umbilical surgery 2 days ago now is having abdominal bloating. Patient has been having some nausea. Vomited then had some gas past at that time. No bowel movement. Patient from home. No fever no chills. Patient called the surgeon and was sent to the emergency department for further evaluation at some distention in the abdomen has lower abdominal pain. Related Data Home Medications ?Medication ?Instructions ?Recorded ?Confirmed aspirin 81 mg tablet,delayed 81 mg PO DAILY 07/22/20 07/07/24 release fluticasone propionate 50 1 spray intranasal DAILY 07/22/20 07/07/24 mcg/actuation nasal spray,suspension ascorbic acid (vitamin C) 1,000 mg 500 mg PO BID 07/26/20 07/07/24 tablet glucosamine HCl 750 mg tablet 750 mg PO DAILY 11/04/20 06/27/24 ferrous sulfate 325 mg (65 mg 325 mg PO Q OTHER DAY 02/10/21 07/07/24 iron) tablet (FeroSul) calcium carbonate 600 mg-vitamin 1 cap PO 10/22/22 06/27/24 D3 5 mcg (200 unit) capsule (Calcium 600 + D(3)) dapagliflozin propanediol 10 mg 10 mg PO DAILY 10/22/22 07/07/24 tablet (Farxiga) insulin glargine 100 unit/mL 46 unit subcut DAILY PRN 05/24/24 06/27/24 subcutaneous solution (Lantus Hyperglycemia U-100 Insulin) Previous Rx's ?Medication ?Instructions ?Recorded cholecalciferol (vitamin D3) 25 25 mcg PO DAILY #30 caps 04/21/21 mcg (1,000 unit) capsule nebivolol 2.5 mg tablet 2.5 mg PO DAILY #90 tabs 10/20/23 spironolactone 25 mg tablet 25 mg PO DAILY #90 tabs 10/20/23 metformin 500 mg tablet,extended 500 mg PO BID #180 tabs 01/09/24 release 24 hr irbesartan 300 mg tablet 300 mg PO DAILY #90 tabs 04/14/24 ezetimibe 10 mg tablet 10 mg PO DAILY #90 tabs 04/19/24 acetone (urine) test (Ketone Urine #25 ea 05/24/24 Test strips) insulin lispro 100 unit/mL See Rx Instructions subcut DAILY 06/01/24 subcutaneous solution (Admelog insulin pump 90 days #110 mL U-100 Insulin lispro) rosuvastatin 10 mg tablet 10 mg PO BEDTIME #90 tabs 06/29/24 hydrocodone 5 mg-acetaminophen 325 1 tab PO Q4-6H PRN pain #30 tabs 07/07/24 mg tablet hydrocodone 5 mg-acetaminophen 325 1 tab PO Q4-6H PRN pain #30 tabs 07/07/24 mg tablet oxycodone 5 mg tablet 5 mg PO Q4H PRN pain #12 tabs 07/07/24 docusate sodium 100 mg capsule 100 mg PO BID #60 caps 07/09/24 (Colace) Allergies Allergy/AdvReac Type Severity Reaction Status Date / Time niacin [NIACIN] Allergy Mild ITCHING, Verified 07/09/24 20:34 itchy, itchy Lauxhpq-[id number]-TqQ Reductase Allergy Unknown HIGH CPK Verified 07/09/24 20:34 Inhibitor [NHFZMIX-[id number]-MIS REDUCTASE INHIBITOR] atorvastatin [Lipitor] AdvReac Unknown high CPK Verified 07/09/24 20:34 Review of Systems 2 Review of Systems: Positive abdominal pain Yes all other systems are reviewed and are negative PMFSH Past Medical History Attestation statement: The following information was validated with the patient. Medical History (Updated 07/09/24 @ 22:31 by Jaci Morris MD) Abdominal distension Hearing loss Annual physical exam Overweight (BMI 25.0-29.9) B12 deficiency assisted (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 Diabetic polyneuropathy associated with type 2 diabetes mellitus Varicose vein of leg Osteoarthritis CKD (chronic kidney disease), stage III Umbilical hernia Peripheral neuropathy Hypokalemia Obstructive sleep apnea Anemia B-complex deficiency Hypercholesterolemia HTN (hypertension) Diabetes type 2, controlled Surgical History History of colonoscopy Family History Family History Father Diabetes mellitus CAD (coronary artery disease) HTN (hypertension) Mother Stroke Pancreatic cancer HTN (hypertension) Maternal Grandfather Abdominal aortic aneurysm CVD (cardiovascular disease) Maternal Grandmother Abdominal aortic aneurysm Paternal Grandfather CVD (cardiovascular disease) Paternal Grandmother No problems noted. Brother Diabetes mellitus Brother No problems noted. Brother No problems noted. Son No problems noted. Son No problems noted. Daughter No problems noted. Sister Hodgkins disease Social History Social History Household Members: Spouse Housing: House Alcohol intake: current Alcohol intake frequency: 0-2 drinks per day Patient Tobacco Use Status: Never used Tobacco e-Cigarette/Vaping Use: Never Used Use of substances other than those prescribed or required for medical reasons: No Advance Directives: No Advance Directives Information Provided: Yes Do you have a plan to hurt others: No Plan service: No Current occupational status: retired Cognitive needs: No Hearing needs: Yes Vision needs: Yes Physical Exam 2 Vital Signs: Vital Signs: Last Vital Signs Temp 97.3 F 07/09/24 20:33 Pulse 69 07/09/24 20:33 Resp 16 07/09/24 20:33 BP 168/84 H 07/09/24 20:33 Pulse Ox 99 07/09/24 20:33 O2 Del Method Room Air 07/09/24 20:33 BMI result Body Mass Index 29.5 Appearance: Alert. Oriented X3. No acute distress. Eyes: Pupils equal, round and reactive to light. ENT: Pharynx normal. Neck: Normal inspection. Neck supple. No lymph nodes noted. No crepitus CVS: Normal heart rate and rhythm. Pulses normal. Normal S1 and S2 Respiratory: No respiratory distress. Breath sounds normal. No Wheezing. No rales Abdomen: Soft and nontender. No rigidity. No distention. good BS x4 Skin: Skin warm and dry. Normal skin color. Normal skin turgor. Extremities: No lower extremity edema. Neurovascular intact to all extremities. No Lacerations. No Rash Neuro: Oriented X 3. No motor deficit. No sensory deficit. Moving all extermities. No slurred speech Medications Administered Generic Name Dose Route Start Last Admin Trade Name Freq PRN Reason Stop Dose Admin Sodium Chloride 1,000 mls @ 999 mls/hr 07/09/24 22:00 07/09/24 21:57 Ns IV 07/09/24 23:00 999 mls/hr .Q1H1M PEMA Administration Medical Decision Making Medical Decision Making MDM Narrative: Patient not making good bowel movements. Has some nausea has distended abdomen question ileus. Case was consulted by the surgical team. Wanted patient to be placed in observation overnight. Currently in stable condition. Differential Diagnosis Obstruction perforation ileus Admission/Observation Consideration of admission/observation: Escalation of care including admission/observation considered Consult Healthcare Provider Management of the patient was discussed with: Mental Health Consultant (Surgical team) Lab Data MDM Lab Attestation statement: I reviewed the patient's lab results. 07/09/24 20:47 07/09/24 20:47 Labs: Lab Results 07/09/24 Range/Units 20:47 WBC 9.9 (4.8-10.8) X10*3/uL RBC 5.04 (4.60-5.80) X10*6/uL Hgb 16.2 (14.0-18.0) g/dl Hct 47.8 (42.0-52.0) % MCV 94.8 (80.0-98.0) fL MCH 32.1 (27.0-33.0) pg MCHC 33.9 (31.0-36.0) g/dl RDW 13.8 (11.0-16.0) % Plt Count 168 (160-400) X10*3/uL MPV 11.0 (9.4-12.4) fL Immature Gran % (Auto) 0.3 (0.0-0.4) % Neut % (Auto) 80.9 H (45-73) % Lymph % (Auto) 12.3 L (20-40) % [place] % (Auto) 6.0 (2-11) % Eos % (Auto) 0.4 (0-4) % Baso % (Auto) 0.1 (0-2) % Lymph # (Auto) 1.2 (1.2-4.9) X10*3/uL [place] # (Auto) 0.6 (0.1-1.2) X10*3/uL Eos # (Auto) 0.0 (0.0-0.4) X10*3/uL Baso # (Auto) 0.0 (0.0-0.2) X10*3/uL Abs Immat Gran (auto) 0.03 (0.00-0.03) X10*3/uL Absolute Neuts (auto) 8.0 (2.0-8.3) x10*3/uL Absolute Nucleated RBC 0.000 (0.0-0.012) X10*3/uL Nucleated RBC % (auto) 0.0 (0.0-0.2) /100WBC Sodium 139 (135-145) mmol/L Potassium 3.6 (3.3-5.1) mmol/L Chloride 105 (96-108) mmol/L Carbon Dioxide 22 (22-29) mmol/L Anion Gap 16 (12-20) BUN 15 (9-16) mg/dL Creatinine 1.12 (0.5-1.4) mg/dL Estim Creat Clear Calc 79.0 Estimated GFR > 60 Random Glucose 137 H (60-115) mg/dL Calcium 9.1 (8.4-10.2) mg/dL Total Bilirubin 1.0 (0.0-1.0) mg/dL AST 22 (5-37) U/L ALT 27 (0-40) U/L Alkaline Phosphatase 76 (39-117) U/L Total Protein 6.8 (6.5-8.0) g/dL Albumin 4.0 (3.5-5.0) g/dL Influenza Type A (PCR) NEGATIVE (Negative) Influenza Type B (PCR) NEGATIVE (Negative) RSV RNA Qual (PCR) NEGATIVE (Negative) SARS-CoV-2 RNA (RT-PCR) NEGATIVE (Negative) Radiology Impression Discussion of test interpretation with radiology: I have reviewed the radiologist's reading. External Record Review External record reviewed: Inpatient record Discharge Plan Discharge Clinical Impression: Abdominal distension Patient Disposition: Admitted As Inpatient Prescriptions: No Action spironolactone 25 mg tablet 25 mg PO DAILY Qty: 90 3RF nebivolol 2.5 mg tablet 2.5 mg PO DAILY Qty: 90 3RF metformin 500 mg tablet extended release 24 hr 500 mg PO BID Qty: 180 3RF irbesartan 300 mg tablet 300 mg PO DAILY Qty: 90 3RF ezetimibe 10 mg tablet 10 mg PO DAILY Qty: 90 3RF insulin lispro [Admelog U-100 Insulin lispro] 100 unit/mL solution See Rx Instructions subcut DAILY 90 Days Qty: 110 5RF Rx Instructions: Infuse up to 110 units via insulin pump subcutaneously daily; rosuvastatin 10 mg tablet 10 mg PO BEDTIME Qty: 90 3RF docusate sodium [Colace] 100 mg capsule 100 mg PO BID Qty: 60 0RF hydrocodone-acetaminophen 5-325 mg tablet 1 tab PO Q4-6H PRN (Reason: pain) Qty: 30 0RF Rx Instructions: Partial Fill upon patient request. hydrocodone-acetaminophen 5-325 mg tablet 1 tab PO Q4-6H PRN (Reason: pain) Qty: 30 0RF Rx Instructions: Partial Fill upon patient request. oxycodone 5 mg tablet 5 mg PO Q4H PRN (Reason: pain) Qty: 12 0RF Rx Instructions: Partial Fill upon patient request. fluticasone propionate 50 mcg/actuation spray,suspension 1 spray intranasal DAILY Rx Instructions: administer into each nostril aspirin 81 mg tablet,delayed release (DR/EC) 81 mg PO DAILY cholecalciferol (vitamin D3) 25 mcg (1,000 unit) capsule 25 mcg PO DAILY Qty: 30 0RF ascorbic acid (vitamin C) 1,000 mg tablet 500 mg PO BID ferrous sulfate [FeroSul] 325 mg (65 mg iron) tablet 325 mg PO Q OTHER DAY Calcium 600 + D(3) 600 mg-5 mcg (200 unit) capsule 1 cap PO glucosamine HCl 750 mg tablet 750 mg PO DAILY Rx Instructions: administer with a meal Farxiga 10 mg tablet 10 mg PO DAILY (DME) Ketone Urine Test Strip See Rx Instructions .ROUTE .MEDSUPPLY Qty: 25 1RF Rx Instructions: prn glucose over 250, nausea, vomiting or illness. discard after open 6 months insulin glargine [Lantus U-100 Insulin] 100 unit/mL solution 46 unit subcut DAILY PRN (Reason: Hyperglycemia) Print Language: Tajik
[2024-07-09] MEDS: 0.9 % Sodium Chloride 1,000 ML 999 ML IV (21:57)
--- NOTE | 2024-07-09 21:57 | P.HPGS_ITS ---
History of Present Illness History of Present Illness Date of Service: 07/10/24 Chief complaint: Abdominal distension s/p hernia repair Narrative: Mihai Herrera is a 69 year old male here in the ED for vomitting, abdominal pain and distension. He had undergone repair of an umbilical hernia with mesh with Dr. Pichardo last 2 days ago (). Since then, he had been feeling bloated with some abdominal pain. This had been worsening today. He had been unable to have a bowel movement since that time. He says he was unable to pass flatus until around 3:30 p.m. this afternoon. He says this was a small amount of flatus only and he remained bloated. He had an episode of emesis tonight so he was trent to the ED for all these problems. He says he did feel better after throwing up tonignt. He has multiple medical problems including DM, HTN, obesity, chronic kidney disease and chronic back pain. His last colonoscopy was in [address] Steward and this was unremarkable. He had been recommended to undergo another colonoscopy next year as he did have polyps in the past. Skye is a diabetic but his blood sugars as well as other labs are ok. I have ordered for POC blood glucose. 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 Diabetic polyneuropathy associated with type 2 diabetes mellitus Varicose vein of leg Osteoarthritis CKD (chronic kidney disease), stage III Umbilical hernia Peripheral neuropathy Hypokalemia Obstructive sleep apnea Anemia B-complex deficiency Hypercholesterolemia HTN (hypertension) Diabetes type 2, controlled Family History Family History Father Diabetes mellitus CAD (coronary artery disease) HTN (hypertension) Mother Stroke Pancreatic cancer HTN (hypertension) Maternal Grandfather Abdominal aortic aneurysm CVD (cardiovascular disease) Maternal Grandmother Abdominal aortic aneurysm Paternal Grandfather CVD (cardiovascular disease) Paternal Grandmother No problems noted. Brother Diabetes mellitus Brother No problems noted. Brother No problems noted. Son No problems noted. Son No problems noted. Daughter No problems noted. Sister Hodgkins disease Surgical History Surgical History History of colonoscopy Social History Social History Household Members: Spouse Housing: House Alcohol intake: current Alcohol intake frequency: 0-2 drinks per day Patient Tobacco Use Status: Never used Tobacco e-Cigarette/Vaping Use: Never Used service: No Current occupational status: retired Cognitive needs: No Hearing needs: Yes Vision needs: Yes Meds Allergies Allergy/AdvReac Type Severity Reaction Status Date / Time niacin [NIACIN] Allergy Mild ITCHING, Verified 07/09/24 20:34 itchy, itchy [id number] Reductase Allergy Unknown HIGH CPK Verified 07/09/24 20:34 Inhibitor [MKECIUD-KHO-GTE REDUCTASE INHIBITOR] atorvastatin [Lipitor] AdvReac Unknown high CPK Verified 07/09/24 20:34 Active Medications: Current Medications Sodium Chloride (Ns) 1,000 mls @ 999 mls/hr IV .Q1H1M PEMA Stop: 07/09/24 23:00 Last Admin: 07/09/24 21:57 Dose: 999 mls/hr Home Medications ?Medication ?Instructions ?Recorded ?Confirmed ?Last Taken ?Type aspirin 81 mg tablet,delayed 81 mg PO DAILY 07/22/20 07/10/24 07/09/24 History release fluticasone propionate 50 1 spray intranasal DAILY 07/22/20 07/10/24 07/09/24 History mcg/actuation nasal spray,suspension ascorbic acid (vitamin C) 1,000 mg 500 mg PO BID 07/26/20 07/10/24 07/09/24 History tablet glucosamine HCl 750 mg tablet 750 mg PO DAILY 11/04/20 07/10/24 07/09/24 History ferrous sulfate 325 mg (65 mg 325 mg PO Q OTHER DAY 02/10/21 07/10/24 07/09/24 History iron) tablet (FeroSul) calcium carbonate 600 mg-vitamin 1 cap PO DAILY 10/22/22 07/10/24 07/09/24 History D3 5 mcg (200 unit) capsule (Calcium 600 + D(3)) dapagliflozin propanediol 10 mg 10 mg PO DAILY 10/22/22 07/10/24 07/09/24 History tablet (Farxiga) insulin glargine 100 unit/mL 46 unit subcut DAILY PRN 05/24/24 07/10/24 Unknown History subcutaneous solution (Lantus Hyperglycemia U-100 Insulin) cholecalciferol (vitamin D3) 25 25 mcg PO Q OTHER DAY 07/10/24 07/10/24 07/09/24 History mcg (1,000 unit) capsule Physical Exam Vital Signs: Vital Signs: Last Vital Signs Temp 97.3 F 07/09/24 20:33 Pulse 69 07/09/24 20:33 Resp 16 07/09/24 20:33 BP 168/84 H 07/09/24 20:33 Pulse Ox 99 07/09/24 20:33 O2 Del Method Room Air 07/09/24 20:33 BMI result Body Mass Index 29.5 Const: Other: appears a little uncomfortable General: no acute distress Resp: Effort & Inspection: normal respiratory effort Cardio: Rate: regular rate GI: Other: distended but soft, umbilical hernia repair site dry, with surrouding ecchymoses, repair intact Results Results Labs: Short CBC 07/09/24 Range/Units 20:47 WBC 9.9 (4.8-10.8) X10*3/uL Hgb 16.2 (14.0-18.0) g/dl Hct 47.8 (42.0-52.0) % Plt Count 168 (160-400) X10*3/uL BMP 07/09/24 20:47 Sodium 139 Potassium 3.6 Chloride 105 Carbon Dioxide 22 BUN 15 Creatinine 1.12 Calcium 9.1 Liver Function 07/09/24 Range/Units 20:47 Total Bilirubin 1.0 (0.0-1.0) mg/dL AST 22 (5-37) U/L ALT 27 (0-40) U/L Alkaline Phosphatase 76 (39-117) U/L Albumin 4.0 (3.5-5.0) g/dL Assessment and Plan (1) Abdominal distension: Status: Acute He has had worsening abdominal distension since having umbilical hernia repair last 2023. He had one large emesis at 8:00 pm tonight. I have reviewed his CT scan and there is note of gaseous dilatation of the colon. He has good amount of air seen in the rectal vault as well. Clinical picture is suggestive of colonic ileus likely from anesthesia and narcotic use. He had a colonoscopy which was unremarkable in 2019. Rectal exam does not reveal any distal rectal mass and he does have good amounts of air in the rectal vault. I will keep him for observation in view of his signficant discomfort. He states he does not feel he can be at home. He can have clear liquids. I will hold off on narcotics and put him on Ofirmev. His abdominal exam. I will inform Dr. Pichardo of this admission tomorrow. His was with him during the discussion. He has multiple medications so these need to be reconciled. Quality Stroke Does the patient have a stroke diagnosis?: No VTE Prior VTE?: No VTE Risk Level:: Medical - moderate - high VTE Device Contraindication: N/A - Device Ordered VTE Drug Contraindication: N/A - Med Ordered Procedures Date of Service Date of Service: 07/10/24
--- NOTE | 2024-07-09 22:10 | PC.NURSE ---
Dr. Baron into assess pt, completed a rectal examination, Iv start and Iv fluid hung, pt awaiting bed assignment. surgical sight, red with bruising, Dr. Baron did assess abd.
[2024-07-09 22:13] VITALS: BP 151/69; PULSE 56; RESP 16; TEMP 37.3; O2SAT 93
[2024-07-09] MEDS: Acetaminophen 1,000 MG/100 ML PIGGYBACK 400 MG IV (22:30)
[2024-07-09] MEDS: Lactated Ringers 1,000 ML 60 ML IVCONT (22:34)
--- NOTE | 2024-07-09 22:41 | PC.NURSE ---
medicated per mar.
[2024-07-09 23:46] LABS: Glucose, Whole Blood 122 mg/dL (60-115)
[2024-07-10 05:03] VITALS: BP 161/75; PULSE 57; RESP 16; TEMP 36.9; O2SAT 97
[2024-07-10] MEDS: Acetaminophen 1,000 MG/100 ML PIGGYBACK 400 MG IV ×2 (05:03→10:49)
--- NOTE | 2024-07-10 05:14 | PC.NURSE ---
Per provider request, PT removed insulin pump
[2024-07-10 07:34] LABS: Glucose, Whole Blood 84 mg/dL (60-115)
--- NOTE | 2024-07-10 07:59 | PC.NURSE ---
ambulated to bathroom independently with steady gait. IV fluids continue to infuse, resting quietly in room w/ even and unlabored respirations.
--- NOTE | 2024-07-10 08:00 | MHC.EDTECH ---
Patient belongings list was done by the tech last night but I add more things as the patient told me he has it ( Hearing aide,Jacket, T-shirt, Socks and Shoes)
[2024-07-10 08:48] LABS: Glucose, Whole Blood 161 mg/dL (60-115)
--- NOTE | 2024-07-10 08:54 | PHA.MEDREC ---
Pharmacy Consult ? Medication Reconciliation Pharmacy has completed the medication reconciliation Spoke with patient to confirm medications.
--- NOTE | 2024-07-10 09:04 | PM.PNGS ---
Subjective Subjective Date of Service: 07/10/24 Interval history: Patient feeling a little bit better this morning. Passing flatus. Incisional discomfort. No other significant abdominal pain or issues. Physical Exam Vital Signs: Vital Signs: Last Vital Signs Temp 98.5 F 07/10/24 05:03 Pulse 57 07/10/24 05:03 Resp 16 07/10/24 05:03 BP 161/75 H 07/10/24 05:03 Pulse Ox 97 07/10/24 05:03 O2 Del Method Room Air 07/10/24 05:03 BMI result Body Mass Index 29.5 GI: Other: Incision clean dry and intact. The surrounding ecchymosis but no evidence of any infection. Abdomen is otherwise soft, benign. No evidence of any guarding, rebound, or rigidity. Objective Data Active Medications Glucose (Glucose Gel 15 Gm Gel..Gram.) 15 gm PO Q15M PRN; Protocol PRN Reason: per Hypoglycemia Standing Ord. Heparin Sodium (Porcine) (Heparin Sodium,Porcine 5,000 Unit/Ml Vial) 5,000 unit SUBCUT Q8H [facility] Lactated Ringer's (Lr) 1,000 mls @ 60 mls/hr IVCONT .[id number] [facility] Last Admin: 07/09/24 22:34 Dose: 60 mls/hr Documented By: YOANNA Acetaminophen (Ofirmev) 1,000 mg in 100 mls @ 400 mls/hr IV Q6H [facility] Stop: 07/10/24 17:14 Last Infusion: 07/10/24 07:17 Dose: Infused Documented By: HILARIO Dextrose (D10) 250 mls @ 750 mls/hr IV Q15M PRN; Protocol PRN Reason: per Hypoglycemia Standing Ord. Insulin Human Lispro (Insulin Lispro 100 Unit/Ml 3 Ml Vial) 0 unit SUBCUT QIDACHS [facility]; Protocol Last Admin: 07/10/24 07:20 Dose: Not Given Documented By: HILARIO Non-Admin Reason: No Insulin Coverage Melatonin (Melatonin 3 Mg Tablet) 6 mg PO BEDTIME PRN PRN Reason: Insomnia Metformin HCl (Metformin Hcl 500 Mg Tablet) 500 mg PO BIDWM [facility] Metoprolol Succinate (Metoprolol Succinate Er 50 Mg Tab.Er.24h) 50 mg PO DAILY [facility] Non-Formulary Medication (Dapagliflozin) 10 mg PO DAILY [facility] Ondansetron HCl (Ondansetron Hcl 4 Mg/2 Ml Vial) 4 mg IVPUSH Q8H PRN PRN Reason: Nausea and Vomiting Sodium Chloride (0.9 % Sodium Chloride Flush 3 Ml Syringe) 3 ml IVFLUSH QSHIFT [facility] Last Admin: 07/10/24 07:20 Dose: Not Given Documented By: HILARIO Non-Admin Reason: IV Running Valsartan (Valsartan 160 Mg Tablet) 160 mg PO DAILY [facility] Labs 07/09/24 20:47 07/09/24 20:47 Labs: Laboratory Results - last 24 hr 07/09/24 07/09/24 07/10/24 20:47 23:40 07:18 MCV 94.8 MCH 32.1 MCHC 33.9 RDW 13.8 Plt Count 168 MPV 11.0 Immature Gran % (Auto) 0.3 Neut % (Auto) 80.9 H Lymph % (Auto) 12.3 L [place] % (Auto) 6.0 Eos % (Auto) 0.4 Baso % (Auto) 0.1 Lymph # (Auto) 1.2 [place] # (Auto) 0.6 Eos # (Auto) 0.0 Baso # (Auto) 0.0 Abs Immat Gran (auto) 0.03 Absolute Neuts (auto) 8.0 Absolute Nucleated RBC 0.000 Nucleated RBC % (auto) 0.0 Anion Gap 16 Estim Creat Clear Calc 79.0 Estimated GFR > 60 POC Glucose 122 H 84 Random Glucose 137 H Calcium 9.1 Total Bilirubin 1.0 AST 22 ALT 27 Alkaline Phosphatase 76 Total Protein 6.8 Albumin 4.0 Influenza Type A (PCR) NEGATIVE Influenza Type B (PCR) NEGATIVE RSV RNA Qual (PCR) NEGATIVE SARS-CoV-2 RNA (RT-PCR) NEGATIVE 07/10/24 08:44 MCV MCH MCHC RDW Plt Count MPV Immature Gran % (Auto) Neut % (Auto) Lymph % (Auto) [place] % (Auto) Eos % (Auto) Baso % (Auto) Lymph # (Auto) [place] # (Auto) Eos # (Auto) Baso # (Auto) Abs Immat Gran (auto) Absolute Neuts (auto) Absolute Nucleated RBC Nucleated RBC % (auto) Anion Gap Estim Creat Clear Calc Estimated GFR POC Glucose 161 H Random Glucose Calcium Total Bilirubin AST ALT Alkaline Phosphatase Total Protein Albumin Influenza Type A (PCR) Influenza Type B (PCR) RSV RNA Qual (PCR) SARS-CoV-2 RNA (RT-PCR) Procedures Date of Service Date of Service: 07/10/24 Progress Note: A&P Assessment and plan (1) Abdominal distension: Status: Acute Plan Ileus secondary to analgesics and anesthesia. Patient was clinically stable. Diet as tolerated, out of bed, incentive spirometry, purgatives as needed. Time Spent With Patient Time: Total time managing care of this patient today ____ minutes. Quality Stroke Does the patient have a stroke diagnosis?: No VTE Prior VTE?: No VTE Risk Level:: Medical - moderate - high VTE Device Contraindication: N/A - Device Ordered VTE Drug Contraindication: N/A - Med Ordered
[2024-07-10] MEDS: Metoprolol Succinate ER 50 MG TAB.ER.24H PO (10:49)
[2024-07-10] MEDS: Valsartan 160 MG TABLET PO (10:49)
[2024-07-10] MEDS: metFORMIN HCl 500 MG TABLET PO (10:49)
[2024-07-10] MEDS: Heparin Sodium,Porcine 5,000 UNIT/ML VIAL 5000 UNIT SUBCUT (10:50)
[2024-07-10 10:51] VITALS: BP 156/80; PULSE 56; RESP 14; O2SAT 97
--- NOTE | 2024-07-10 12:13 | PM.DS ---
DS: Providers Provider Date of Service: 07/10/24 Date of admission: 07/09/24 22:15 Date of discharge: 07/10/24 Primary care physician: Maria Isabel Munoz MD Attending physician on admission: Leo Baron Attending physician on discharge: Michael Pichardo DS: Diagnosis Discharge Diagnosis (1) Abdominal distension: Status: Acute DS: Summary Hospital Course Hospital Course: HPI AT ADMISSION: Mihai Herrera is a 69 year old male here in the ED for vomitting, abdominal pain and distension. He had undergone repair of an umbilical hernia with mesh with Dr. Pichardo last 2 days ago (). Since then, he had been feeling bloated with some abdominal pain. This had been worsening today. He had been unable to have a bowel movement since that time. He says he was unable to pass flatus until around 3:30 p.m. this afternoon. He says this was a small amount of flatus only and he remained bloated. He had an episode of emesis tonight so he was trent to the ED for all these problems. He says he did feel better after throwing up tonignt. He has multiple medical problems including DM, HTN, obesity, chronic kidney disease and chronic back pain. His last colonoscopy was in [address] Steward and this was unremarkable. He had been recommended to undergo another colonoscopy next year as he did have polyps in the past. CT scan shows gaseous dilatation of the colon. He has good amount of air seen in the rectal vault as well.His is a diabetic but his blood sugars as well as other labs are ok. HOSPITAL COURSE: He was admitted to the surgical service for observation and pain control. Clinical picture is suggestive of colonic ileus likely from anesthesia and narcotic use. He had a colonoscopy which was unremarkable in 2019. Rectal exam does not reveal any distal rectal mass and he does have good amounts of air in the rectal vault. He was started on clear liquids and nonnarcotics for pain control. He improved quickly. He began to pass flatus and his pain improved and his diet was advanced. He was ambulated. He felt well and ready for discharge. He was discharged to home on 07/10/24 in stable condition. He is to follow up in the office in 1 week. He is to continue his stool softeners. Status at Discharge Functional status at discharge: independent ambulation Overall status at discharge: patient is progressing back to baseline Time Attestation Discharge Coordination Time (in mins): 30 Quality: Safe Use of Opioids Does Pt have an Active Cancer Diagnosis on the Problem List?: No Quality: Stroke Does the patient have a stroke diagnosis?: No Physical Exam Vital Signs: Vital Signs: Last Vital Signs Temp 98.6 F 07/10/24 14:07 Pulse 54 07/10/24 14:07 Resp 16 07/10/24 14:07 BP 151/81 H 07/10/24 14:07 Pulse Ox 96 07/10/24 14:07 O2 Del Method Room Air 07/10/24 14:07 BMI result Body Mass Index 29.5 Const: General: comfortable, no acute distress and alert Orientation/consciousness: patient oriented x3 Resp: Effort & Inspection: normal respiratory effort GI: Inspection: Yes distended (mild, softly) and Yes incision (clean) Palpation (GI): Soft to palpation and no guarding Skin: General skin exam: no rashes or lesions noted Neuro: General: patient oriented x3 and moves all extremities Discharge Plan Discharge Anticipated Discharge Date/Time: 07/10/24 12:24 Patient Disposition: Home, Self-Care Discharge Diagnosis: Abdominal distention, constipation Referrals: Maria Isabel Munoz MD [Primary Care Provider] - 1 Week Michael Pichardo MD [Physician] - 1 Week Discharge Medications: Continued spironolactone 25 mg tablet 25 mg PO DAILY Qty: 90 3RF nebivolol 2.5 mg tablet 2.5 mg PO DAILY Qty: 90 3RF metformin 500 mg tablet extended release 24 hr 500 mg PO BID Qty: 180 3RF irbesartan 300 mg tablet 300 mg PO DAILY Qty: 90 3RF ezetimibe 10 mg tablet 10 mg PO DAILY Qty: 90 3RF insulin lispro [Admelog U-100 Insulin lispro] 100 unit/mL solution See Rx Instructions subcut DAILY 90 Days Qty: 110 5RF Rx Instructions: Infuse up to 110 units via insulin pump subcutaneously daily; rosuvastatin 10 mg tablet 10 mg PO BEDTIME Qty: 90 3RF docusate sodium [Colace] 100 mg capsule 100 mg PO BID Qty: 60 0RF cholecalciferol (vitamin D3) 25 mcg (1,000 unit) capsule 25 mcg PO Q OTHER DAY fluticasone propionate 50 mcg/actuation spray,suspension 1 spray intranasal DAILY Rx Instructions: administer into each nostril aspirin 81 mg tablet,delayed release (DR/EC) 81 mg PO DAILY ascorbic acid (vitamin C) 1,000 mg tablet 500 mg PO BID ferrous sulfate [FeroSul] 325 mg (65 mg iron) tablet 325 mg PO Q OTHER DAY Calcium 600 + D(3) 600 mg-5 mcg (200 unit) capsule 1 cap PO DAILY glucosamine HCl 750 mg tablet 750 mg PO DAILY Rx Instructions: administer with a meal Farxiga 10 mg tablet 10 mg PO DAILY Rx Instructions: STOPPED 07/03/24 DUE TO SURGERY HAS NOT RESUMED YET. (DME) Ketone Urine Test Strip See Rx Instructions .ROUTE .MEDSUPPLY Qty: 25 1RF Rx Instructions: prn glucose over 250, nausea, vomiting or illness. discard after open 6 months insulin glargine [Lantus U-100 Insulin] 100 unit/mL solution 46 unit subcut DAILY PRN (Reason: Hyperglycemia) Rx Instructions: for pump failure Discharge Orders: Discharge Order (Routine); Ordered 07/10/24 Ordered By: Michael Pichardo Diet: Advance to usual diet Activity on Discharge: No heavy lifting Stand Alone Forms: Patient Portal Discharge page Print Language: Beninese Care Plan Goals: Returned to baseline Health Concerns: Continued convalescence from hernia surgery Plan of Treatment: No strenuous activities Assessment: Stable Discharge Date/Time: 07/10/24 14:34
[2024-07-10 13:05] LABS: Glucose, Whole Blood 163 mg/dL (60-115)
--- NOTE | 2024-07-10 13:12 | MHC.CM.PN ---
PT LIVES WITH HAD NO PREVIOUS SERVICES HAS OWN RIDE HOME DC PLAN HOME NO SERVIES
--- NOTE | 2024-07-10 13:34 | MHC.CM.PN ---
PT DCD HOME SELF [facility]
--- NOTE | 2024-07-10 13:48 | PC.NURSE ---
patient tolerated PO intake.
[2024-07-10 14:07] VITALS: BP 151/81; PULSE 54; RESP 16; TEMP 37; O2SAT 96
--- OUTSIDE RECORDS SUMMARY | 2024-07-14 13:03 | XMS_ITS ---
Author Organization [facility] Address [address] [place] [address] Care Team Providers Care Flight Communications Officer Name Role Phone Maria Isabel Munoz MD Primary Care Provider Unavaila Nallely Mena Unavailable [phone] Nayan Luther Unavailable [phone] Allergies Allergen (clinical drug ingredient) Drug/Non Drug Allergy documented on EMR Reaction Allergy Type Onset Date Status atorvastatin Lipitor high cpk Drug Allergy Acti ve Niacin Unknown Drug Allergy Active Substance with sulfonamide structure and antibacterial mechanism of action (substance) Sulfa Antibiotics Unknown Drug Allergy Active REASON FOR VISIT Painful nail(s) aggrevated by shoes and causing difficulty standing/walking. Medications Medication SIG (Take, Route, Frequency, Duration) Notes Start Date End Date Status Insulin Lispro (Human) Not-Taking Clotrimazole Not-Corbin ing Bystolic Not-Taking All Day Allergy-D No t-Taking HumaLOG Not-Taking Loratadine Not-Takin g Zetia 10 mg Not-Taki ng Furosemide Not-Takin g hydrALAZINE HCl 50 MG Orally Twice a day Not-Taking Extra Depth Orthopedic Shoes (1 Pair) with Customized Heat Molded Multidensity Innersoles (3 Pair) as directed Dx: IDDM/Polyneuropathy (E10.42), Hammertoe Foot Deformity (M20.41,M20.42), Preulcerative Skin Lesion(s) (L85.1) 08/06/2020 Not-Taking Vitamin C Active Compression Stockings 20-30mm Hg as directed 02/11/2016 Not-Taking Extra-Depth Diabetic Shoes with 3 Pair Custom heat-molded multi-density innersoles . 1pair shoes/3sets inserts . . for 1 year Not-Takin g Extra Depth Diabetic Shoes with 3 Pair Custom heat-molded multi-density innersoles for 1 year Dx: 04/16/2017 Not-Taking Extra Depth Orthopedic Shoes (1 Pair) with Customized Heat Molded Multidensity Innersoles (3 Pair) as directed Dx: IDDM/Polyneuropathy (E10.42), Hammertoe Foot Deformity (M20.41,M20.42), Preulcerative Skin Lesion(s) (L85.1) 11/01/2018 Not-Taking Extra Depth Diabetic Shoes with 3 Pair Custom heat-molded multi-density innersoles for 1 year Dx: Active Vitamin D Active Rosuvastatin Calcium Active Spironolactone Activ e Vitamin B12 500 mg 1 tablet Orally Once a day Active metFORMIN HCl 500 MG Orally Twice a day Active Nebivolol HCl Active Nystatin Active Montelukast Sodium A ctive NovoLOG Active flonase Active Glucosamine 750 MG Orally A ctive Farxiga Active Irbesartan 300 MG 1 tablet Orally Once a day Active iron 1 tab Oral Active Ezetimibe Active Clotrimazole-Betamethason e Active CoQ-10 200 MG 1 capsule with a nicolas l Orally Once a day Active Calcium 600 MG 1 tablet with meals Orally Twice a day Active Claritin Active Betamethasone Dipropionate Active amLODIPine Besylate 5 MG Orally Active Aspirin 81 Active Social History Tobacco Use: Social History Observation Description Date Details (start date - stop date) Never Smoker NA - NA Tobacco Use/Smoking Question Answer Notes Are you a: nonsmoker Additional Findings: Tobacco Non-User Current no n-smoker Alcohol Screen Question Answer Notes Did you have a drink contain ing alcohol in the past year? Yes How often did you have a dri nk containing alcohol in the past year? Monthly or less (1 point) Points 1 Interpretation Negative Tobacco use other than smoking: Question Answer Notes Are you an other tobacco user? No Vital Signs Height 6ft 3in in 06/06/2024 Weight 235 lbs 06/06/2024 BMI 29.37 kg/m2 06/06/2024 Encounters Encounter Location Date Provider Diagnosis [facility] [address] [address] 06/06/2024 Nayan Luther Type 1 diabetes mellitus with diabetic polyneuropathy E10.42 ; Tinea unguium B35.1 ; Ingrowing nail L60.0 ; Pain in right toe(s) M79.674 ; Pain in left toe(s) M79.675 ; Venous insufficiency of both lower extremities I87.2 ; Other hammer toe(s) (acquired), left foot M20.42 ; Other hammer toe(s) (acquired), right foot M20.41 and Metatarsalgia, left foot M77.42 Assessments Encounter Date Diagnosis (ICD Code) Assessment Notes Treat ment Notes Treatment Clinical Notes 06/06/2024 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 - E10.42) 06/06/2024 Tinea unguium (ICD-1 0 - B35.1) 06/06/2024 Ingrowing nail (ICD-10 - L60.0) 06/06/2024 Pain in right toe(s) (ICD-10 - M79.674) 06/06/2024 Pain in left toe(s) (ICD-10 - M79.675) 06/06/2024 Venous insufficiency of both lower extremities (ICD-10 - I87.2) 06/06/2024 Other hammer toe(s) (acquired), left foot (ICD-10 - M20.42) 06/06/2024 Other hammer toe(s) (acquired), right foot (ICD-10 - M20.41) 06/06/2024 Metatarsalgia, left foot (ICD-10 - M77.42) Plan Of Treatment Next Appt Details Follow Up: 3 Months, Reason: Provider Name:Nallely james, 09/05/2024 08:45:00 AM, [address] [facility], [address], [place], [address], Procedure Notes * Category Sub-Category Detail Notes Debride Nail 6-10 Nail debridement Nail debridem ent performed extensively to reduce/remove overall nail length and girth, subungual debris, and necrotic tissue, by manual and electrical means with use of a nail nipper and/or dremel, to more viable healthy nail plate or bed tissue 6-10. Silver nitrate used for any petechial bleeding as necessary. Patient chooses, no pharmaceutical tx (63993) Keratoma Treatment Parring or Cutting o f Benign Hyperkeratotic Lesion(s) (-56) 2-4 Lesions - The Benign hyperkeratotic lesions, as described above were pared, and/or cut utilizing a sterile 15 blade, tissue nippers, and/or dremel - 37196 Progress Notes * Mihai MONTGOMERY PDOB: (69 yo M)Acc No.[id number]:06/06/2024 Progress Note Patient:?Diallo Montgomery P Provider:?Nayan Luther DPM :1955???Age:69 Y???Sex:Male Loy e:06/06/2024 Address:[address] [place] [address] [id number] Pcp:Maria Isabel Munoz MD Subjective: * Chief Complaints: * ??? Painful nail(s) aggrevat ed by shoes and causing difficulty standing/walking. * HPI: ???Painful Nails:?Pt States Last PCP Visit:?Date:?12/06/2023 ???Ingrown toenail:?Nature:?aching, tenderness.?Location:?Both feet, Great toe, Second toe.?Foot Pain:?Nature:?aching.?Location:?Bottom, Forefoot, LEFT.?Onset:?unknown.?Course:?improved.?Aggravated:?any pressure, standing, walking.? * ROS:?General/Constitutional:?Nausea?denies.?Vomiting?denies.?Hunger Thirst?denies.?Loss appetite?denies.?Chills?denies.?Fatigue?denies.?Fever?denies.?Night Sweats?denies.?Unexplained weight loss?denies.?Unexplained weight gain?denies.?HEENTM:?Dentures?denies.?Dizziness?denies.?Glasses/contacts?admits.?Retinopathy?de nies.?Blurred/double vision?denies.?TMJ?denies.?Discharge/drainage?denies.?Implants?denies.?Sore throat?denies.?Dental implants?denies.?Hard of hearing ?denies.?Difficulty chewing/swallowing/speaking?denies.?Nose bleeds?denies.?Sore mouth?denies.?Respiratory:?On Oxygen?denies.?Pneumonia/pleurisy?denies.?Bronchitis?denies.?Emphysema?denies.?C oughing?denies.?Cough blood?denies.?Shortness of breath?denies.?Wheezing?denies.?Cardiovascular:?Pacemaker?denies.?MVP?denies.?WPW?denies.?CHF?denies.?Heart attack?denies.?Septal defect?denies.?Rapid beat?denies.?Chest pain ?denies.?Atrial Fib.?denies.?Murmur/Palpitations?denies.?Gastrointestinal:?Hemorrhoids?denies.?Stomach/Abdominal pain?denies.?Dark blood stool?denies.?Irritable bowel ?denies.?Constipation?denies.?Diarrhea?denies.?Hematology:?Swelling?denies.?Clots?denies.?Varicose Veins?denies.?Bruising?denies.?Bleeding problem?denies.?Genitourinary:?Blood urine?denies.?Frequent/Painfu/urination/bladder control?denies.?Kidney stones?denies.?Infection (UTI)?denies.?Nephropathy?denies.?sex trans dis (STD)?denies.?Prostate?denies.?Musculoskeletal:?Hammertoes?admits.?Bunions?denies.?Back Pain?denies.?Muscle Cramps/ Resting?denies.?Muscle cramps / walking?denies.?Generalized aches and pains?denies.?Weakness?denies.?Integ.:?Morrow?denies.?Scars?denies.?Corns/calluses?denies.?Ingrown nails?admits.?Painful nails?denies.?Open Sores?denies.?Rashes?denies.?Neurologic:?Difficulty sleeping?denies.?Brain disorder?denies.?Numbness?denies.?Balance trouble?denies.?Confusion?denies.?Fainting/blackouts?denies.?Tingling?denies.?Tr emors?denies.? * Medical History:? * Surgical History:?arm 1987ha nd/wrist 1988tonsillectomy 1958 * Hospitalization/Major Diagno stic Procedure:?No Hospitalization History. * Family History:?Mother: dece ased, diagnosed with Family history of arthritis, Unspecified essential hypertension, Unspecified cerebral artery occlusion with cerebral infarction, Other malignant neoplasm of unspecified site.?Father: , heart attack, diagnosed with Family history of arthritis, Diabetic - NIDDM, Unspecified essential hypertension, Unspecified heart disease.?Daughter(s): alive.?Son(s): alive.?Siblings: cancer.?Spouse: alive.?2 son(s) , 1 daughter(s) . .? * Social History:?Tobacco Use:?Tobacco Use/Smoking?Are you a:?nonsmoker ?Additional Findings: Tobacco Non-User?Current non-smoker ?Tobacco use other than smoking?Are you an other tobacco user??No ???Drugs/Alcohol:?Drugs?Have you used drugs other than those for medical reasons in the past 12 months??No ?Alcohol Screen?Did you have a drink containing alcohol in the past year??Yes ?How often did you have a drink containing alcohol in the past year??Monthly or less (1 point) ?Points?1 ?Interpretation?Negative ???Miscellaneous:?Caffeine: yes, a pot a day. ?Children: yes, three. ?Exercise: yes. ?Marital status: . 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 * Medications:?TakingamLODIPin e Besylate 5 MG Tablet Orally Aspirin 81 Betamethasone Dipropionate Calcium 600 MG Tablet 1 tablet with meals Orally Twice a dayClaritin Clotrimazole-Betamethasone CoQ-10 200 MG Capsule 1 capsule with a meal Orally Once a dayEzetimibe Farxiga flonase Glucosamine 750 MG Tablet Orally Irbesartan 300 MG Tablet 1 tablet Orally Once a dayiron 1 tab Oral metFORMIN HCl 500 MG Tablet Orally Twice a dayMontelukast Sodium NovoLOG Nebivolol HCl Nystatin Rosuvastatin Calcium Spironolactone Extra Depth Diabetic Shoes with 3 Pair Custom heat-molded multi-density innersoles for 1 year Dx:Vitamin D Vitamin B12 500 mg Tablet 1 tablet Orally Once a dayVitamin C Taking amLODIPine Besylate 5 MG Tablet Orally Taking Aspirin 81 Taking Betamethasone Dipropionate Taking Calcium 600 MG Tablet 1 tablet with meals Orally Twice a dayTaking Claritin Taking Clotrimazole-Betamethasone Taking CoQ-10 200 MG Capsule 1 capsule with a meal Orally Once a dayTaking Ezetimibe Taking Farxiga Taking flonase Taking Glucosamine 750 MG Tablet Orally Taking Irbesartan 300 MG Tablet 1 tablet Orally Once a dayTaking iron 1 tab Oral Taking metFORMIN HCl 500 MG Tablet Orally Twice a dayTaking Montelukast Sodium Taking NovoLOG Taking Nebivolol HCl Taking Nystatin Taking Rosuvastatin Calcium Taking Spironolactone Taking Extra Depth Diabetic Shoes with 3 Pair Custom heat-molded multi-density innersoles for 1 year Dx:Taking Vitamin D Taking Vitamin B12 500 mg Tablet 1 tablet Orally Once a dayTaking Vitamin C Not-Taking/PRNCompression Stockings 20-30mm Hg closed toe- knee high as directed Extra Depth Diabetic Shoes with 3 Pair Custom heat-molded multi-density innersoles for 1 year Dx:Extra Depth Orthopedic Shoes (1 Pair) with Customized Heat Molded Multidensity Innersoles (3 Pair) as directed Dx: IDDM/Polyneuropathy (E10.42), Hammertoe Foot Deformity (M20.41,M20.42), Preulcerative Skin Lesion(s) (L85.1)Extra-Depth Diabetic Shoes with 3 Pair Custom heat-molded multi-density innersoles . . 1pair shoes/3sets inserts . .Extra Depth Orthopedic Shoes (1 Pair) with Customized Heat Molded Multidensity Innersoles (3 Pair) as directed Dx: IDDM/Polyneuropathy (E10.42), Hammertoe Foot Deformity (M20.41,M20.42), Preulcerative Skin Lesion(s) (L85.1)Furosemide hydrALAZINE HCl 50 MG Tablet Orally Twice a dayLoratadine Zetia 10 mg Bystolic Insulin Lispro (Human) Clotrimazole All Day Allergy-D HumaLOG Medication List reviewed and reconciled with the patientNot-Taking/PRN Compression Stockings 20-30mm Hg closed toe- knee high as directed Not-Taking/PRN Extra Depth Diabetic Shoes with 3 Pair Custom heat- molded multi-density innersoles for 1 year Dx:Not-Taking/PRN Extra Depth Orthopedic Shoes (1 Pair) with Customized Heat Molded Multidensity Innersoles (3 Pair) as directed Dx: IDDM/Polyneuropathy (E10.42), Hammertoe Foot Deformity (M20.41,M20.42), Preulcerative Skin Lesion(s) (L85.1)Not-Taking/PRN Extra-Depth Diabetic Shoes with 3 Pair Custom heat-molded multi-density innersoles . . 1pair shoes/3sets inserts . .Not- Taking/PRN Extra Depth Orthopedic Shoes (1 Pair) with Customized Heat Molded Multidensity Innersoles (3 Pair) as directed Dx: IDDM/Polyneuropathy (E10.42), Hammertoe Foot Deformity (M20.41,M20.42), Preulcerative Skin Lesion(s) (L85.1)Not-Taking/PRN Furosemide Not-Taking/PRN hydrALAZINE HCl 50 MG Tablet Orally Twice a dayNot-Taking/PRN Loratadine Not-Taking/PRN Zetia 10 mg Not-Taking/PRN Bystolic Not-Taking/PRN Insulin Lispro (Human) Not-Taking/PRN Clotrimazole Not-Taking/PRN All Day Allergy-D Not-Taking/PRN HumaLOG Medication List reviewed and reconciled with the patient * Allergies:?Lipitor: high cpk NiacinSulfa Antibioticsyes[Allergies Verified] Objective: * Vitals:?Ht: 6ft 3in, Wt:235, BMI:29.37, Shoe size: 12, BS: 116, Ht-cm: 190.5 cm, Wt-k.59 kg. * ???Past Orders: ???Lab:HEMOGLOBIN A1C (GLYCO HEMOGLOBIN) (Order Date - 06/06/2024) (Collection Date - 06/06/2024) ? Value Reference Range ?TOTAL HEMOGLOBIN (HGBA1C) 6.2 * Examination: ???General Examination: ?GENERAL APPEARANCE:?pleasant, alert, well nourished, well developed, well hydrated, with good attention to hygene/body habitus, and in no acute distress.?ORIENTED:?person,place, and time.?FOOT EXAM:?Neurological: ?SENSORY:?Neurological exam demonstrates, reduced vibration sensation, B/L, at Forefoot, at Midfoot, 5.07 monofilament test performed at plantar aspects of 5 varied sites per foot shows sensation, absent, B/L.?TINEL'S COMPRESSION:?Negative tarsal tunnel, kate pedis, and medial calcaneal nerves B/L .?BABINSKI REFLEX:?absent .?Neuroma Pain: ?PALPATION:?No interspace pain noted on palpation.?Vascular: ?DP PULSES(B):? 1/4, B/L.?PT PULSES(B):?2/4, B/L.?CAPILLARY FILL TIME:?3 secs. per digit, B/L.?TROPHIC CONDITION-TEXTURE/ELASTICITY/TURGOR/HAIR GROWTH(B):?normal, B/L.?TEMPERTURE GRADIENT(C):?warm to cool, proximal to distal, B/L.?PIGMENTATION:?normal, B/L.?EDEMA(C):?no edema.?TELANGECTASIA:?absent.?VARICOSITIES:?absent.?Dermatologic: ?SKIN FINDINGS:?Skin exam reveals Keratotic lesion(s) located at, Plantar, Heel(s), B/L , SUB MTH (s), 1, Right.?Orthopedic: ?MUSCLE STRENGTH:?5/5 all groups in a symmetrical fashion , B/L.?FOOT MORPHOLOGY:? Pes Cavus structure, B/L.?DIGITAL DEFORMITIES:? Digital contracture, PIPJ, 2-5 B/L, incompl- reducible with WB, or to push-up test, no over, nor underlapping.?Nails: ?NAILS are:?Elongated, overgrown, dystrophic, lytic, greater than 3mm thick, discolored and friable with crumbly malodorous subungual debris, with dull to no pain on palpation due to neuropathy, 1-5 B/L.?Ophthalmology Referral: ?DIABETES EYE EXAM? Assessment: * Assessment: 1.?Type 1 diabetes mellitus with diabetic polyneuropathy - E10.42 (Primary)?2.?Tinea unguium - B35.1?3.?Ingrowing nail - L60.0?4.?Pain in right toe(s) - M79.674?5.?Pain in left toe(s) - M79.675?6.?Venous insufficiency of both lower extremities - I87.2?7.?Other hammer toe(s) (acquired), left foot - M20.42?8.?Other hammer toe(s) (acquired), right foot - M20.41?9.?Metatarsalgia, left foot - M77.42? Plan: * Treatment: * Procedures:?Debride Nail 6-10:?Nail debridement?Nail debridement performed extensively to reduce/remove overall nail length and girth, subungual debris, and necrotic tissue, by manual and electrical means with use of a nail nipper and/or dremel, to more viable healthy nail plate or bed tissue 6-10. Silver nitrate used for any petechial bleeding as necessary. Patient chooses, no pharmaceutical tx (46915).?Keratoma Treatment:?Parring or Cutting of Benign Hyperkeratotic Lesion(s)?(-56) 2-4 Lesions - The Benign hyperkeratotic lesions, as described above were pared, and/or cut utilizing a sterile 15 blade, tissue nippers, and/or dremel - 57919.? * Procedure Codes:?77710 DEBRI DE NAIL, 6 OR MORE, Modifiers: XS 47465 TRIM SKIN LESIONS, 2 TO 4, Modifiers: XS * Follow Up:?3 Months * Images: * Sign off status: Completed true * Provider:?Nayan Luther DPM Date:? Generated for Ritchie hernandez/Cate/eTransmitting on:?07/14/2024 01:03 PM EST History and Physical Notes * HPI (History of Present Illness) Category Sub-Category Detail Notes Ingrown toenail Nature: aching, tenderne ss Location: Both feet, Great toe , Second toe Painful Nails Pt States Last PCP Visit: Date:: Foot Pain Nature: aching Location: Bottom, Forefoot, LE FT Onset: unknown Course: improved Aggravated: any pressure, standi ng, walking Examination Category Sub-Category Detail Notes Neuroma Pain PALPATION: No interspace pa in noted on palpation Neurological SENSORY: Neurological exa m demonstrates, reduced vibration sensation, B/L, at Forefoot, at Midfoot, 5.07 monofilament test performed at plantar aspects of 5 varied sites per foot shows sensation, absent, B/L BABINSKI REFLEX: absent TINEL'S COMPRESSION: Negative tarsal jessica nam, kate pedis, and medial calcaneal nerves B/L Dermatologic SKIN FINDINGS: Skin exam reveal s Keratotic lesion(s) located at, Plantar, Heel(s), B/L , SUB MTH (s), 1, Right Orthopedic FOOT MORPHOLOGY: Pes Cavus struc ture, B/L DIGITAL DEFORMITIES: Digital contracture , PIPJ, 2-5 B/L, incompl-reducible with WB, or to push-up test, no over, nor underlapping MUSCLE STRENGTH: 5/5 all groups in a symmetrical fashion , B/L General Examination GENERAL APPEARANCE: pleasant , alert, well nourished, well developed, well hydrated, with good attention to hygene/body habitus, and in no acute distress FOOT EXAM: Lower Extremity Neurological Exa m performed:: Yes Visual exam of foot performed:: Yes Date: 12/07/2023 Sensory testing performed:: sensations d iminished Pedal pulse taking performed:: 1+ ORIENTED: person,place, and ti me Ophthalmology Referral DIABETES EYE EXAM Diabetic Reti nopathy Screening:: No 04/2023 Findings of Diabetic Eye Exam:: no retin opathy Vascular DP PULSES(B): 1/4, B/L PT PULSES(B): 2/4, B/L CAPILLARY FILL TIME: 3 secs. per digit, B/L TEMPERTURE GRADIENT(C): warm to cool, pr oximal to distal, B/L TROPHIC CONDITION-TEXTURE/ELASTICITY/TURGOR/HAIR GROWTH(B): normal, B/L EDEMA(C): no edema TELANGECTASIA: absent VARICOSITIES: absent PIGMENTATION: normal, B/L Nails NAILS are: Elongated, overg rown, dystrophic, lytic, greater than 3mm thick, discolored and friable with crumbly malodorous subungual debris, with dull to no pain on palpation due to neuropathy, 1-5 B/L
--- OUTSIDE RECORDS SUMMARY | 2024-07-14 13:03 | XMS_ITS ---
Author Organization [facility] Address [address] [address] Care Team Providers Care Optician Name Role Phone Maria Isabel Munoz MD Primary Care Provider Unavaila Nallely Mena Unavailable [phone] Nayan Luther Unavailable [phone] Allergies Allergen (clinical drug ingredient) Drug/Non Drug [...] Duration) Notes Start Date End Date Status All Day Allergy-D No t-Taking HumaLOG Not-Taking Insulin Lispro (Human) Not-Taking Clotrimazole Not-Corbin ing Bystolic Not-Taking hydrALAZINE HCl 50 MG Orally Twice a day Not-Taking Loratadine Not-Takin g Extra Depth Orthopedic Shoes (1 Pair) with Customized Heat Molded Multidensity Innersoles (3 Pair) as directed Dx: IDDM/Polyneuropathy (E10.42), Hammertoe Foot Deformity (M20.41,M20.42), Preulcerative Skin Lesion(s) (L85.1) 08/06/2020 Not-Taking Furosemide Not-Takin g Zetia 10 mg Not-Taki ng Extra Depth Orthopedic Shoes (1 Pair) with Customized Heat Molded Multidensity Innersoles (3 Pair) as directed Dx: IDDM/Polyneuropathy (E10.42), Hammertoe Foot Deformity (M20.41,M20.42), Preulcerative Skin Lesion(s) (L85.1) 11/01/2018 Not-Taking Extra-Depth Diabetic Shoes with 3 Pair Custom heat-molded multi-density innersoles . 1pair shoes/3sets inserts . . for 1 year Not-Takin g Extra Depth Diabetic Shoes with 3 Pair Custom heat-molded multi-density innersoles for 1 year Dx: 04/16/2017 Not-Taking Vitamin C Active Compression Stockings 20-30mm Hg as directed 02/11/2016 Not-Taking Spironolactone Activ e Extra Depth Diabetic Shoes with 3 Pair Custom heat-molded multi-density innersoles for 1 year Dx: Active Rosuvastatin Calcium Active Vitamin D Active Vitamin B12 500 mg 1 tablet Orally Once a day Active Montelukast Sodium A ctive NovoLOG Active Nebivolol HCl Active Nystatin Active metFORMIN HCl 500 MG Orally Twice a day Active Farxiga Active flonase Active iron 1 tab Oral Active Glucosamine 750 MG Orally A ctive Irbesartan 300 MG 1 tablet Orally Once a day Active Calcium 600 MG 1 tablet with meals Orally Twice a day Active Claritin Active Clotrimazole-Betamethason e Active CoQ-10 200 MG 1 capsule with a nicolas l Orally Once a day Active Ezetimibe Active Aspirin 81 Active Betamethasone Dipropionate Active amLODIPine Besylate 5 MG Orally Active Social History Tobacco Use: Social History [...] an other tobacco user? No Vital Signs Weight 235 lbs 03/07/2024 BMI 29.37 kg/m2 03/07/2024 Encounters Encounter Location Date Provider Diagnosis [facility] [address] [address] 03/07/2024 Nayan Luther Type 1 diabetes mellitus with [...] Notes Treat ment Notes Treatment Clinical Notes 03/07/2024 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 - E10.42) 03/07/2024 Tinea unguium (ICD-1 0 - B35.1) 03/07/2024 Ingrowing nail (ICD-10 - L60.0) 03/07/2024 Pain in right toe(s) (ICD-10 - M79.674) 03/07/2024 Pain in left toe(s) (ICD-10 - M79.675) 03/07/2024 Venous insufficiency of both lower extremities (ICD-10 - I87.2) 03/07/2024 Other hammer toe(s) (acquired), left foot (ICD-10 - M20.42) 03/07/2024 Other hammer toe(s) (acquired), right foot (ICD-10 - M20.41) 03/07/2024 Metatarsalgia, left foot (ICD-10 - M77.42) Plan Of Treatment Next Appt Details Follow Up: 3 Months, Reason: Provider Name:Nallely james, 09/05/2024 08:45:00 AM, [address] [facility], [address], [place], [address], Procedure Notes * Category Sub-Category Detail Notes [...] as necessary. Patient chooses, no pharmaceutical tx (69781) Keratoma Treatment Parring or Cutting o f Benign Hyperkeratotic Lesion(s) 62911 ( >4 Lesions) - The Benign hyperkeratotic lesions, as described above were pared, and/or cut utilizing a sterile #15 blade, tissue nippers, and/or dremel Progress Notes * Mihai MONTGOMERY PDOB: (68 yo M)Acc No.[id number]:03/07/2024 Progress Note Patient:?Diallo Montgomery Provider:?Nayan Luther DPM :1955???Age:68 Y???Sex:Male Loy e:03/07/2024 Address:[address] [place] [address], [id number] Pcp:Maria Isabel Munoz MD Subjective: * Chief Complaints: * ??? Painful nail(s) aggrevat ed by shoes and causing difficulty standing/walking. * HPI: ???Painful Nails:?Pt States Last PCP Visit:?Date:?12/06/2023 ???Ingrown toenail:?Nature:?aching, tenderness.?Location:?Both feet, Great toe, Second toe.?Foot Pain:?Nature:?aching.?Location:?Bottom, Forefoot, LEFT.?Duration:?several months.?Onset:?unknown.?Course:?worse.?Aggrevated:?any pressure, standing, walking.?Treatments:?old custom orthoses that are worn adn don't have a met pad.? * ROS:?General/Constitutional:?Nausea?denies.?Vomiting?denies.?Hunger Thirst?denies.?Loss appetite?denies.?Chills?denies.?Fatigue?denies.?Fever?denies.?Night Sweats?denies.?Unexplained weight loss?denies.?Unexplained [...] three. ?Exercise: yes. ?Marital status: . 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 * Medications:?TakingamLODIPin e Besylate 5 MG Tablet [...] high cpk NiacinSulfa Antibioticsyes[Allergies Verified] Objective: * Vitals:?Wt:235, BMI:29.37, S hoe size:12, BS:116, Ht-cm: 190.5 cm, Wt-k.59 kg. * ???Past Orders: ???Lab:HEMOGLOBIN A1C (GLYCO HEMOGLOBIN) (Order Date - 02/22/2024) (Collection Date - 02/22/2024) ? Value Reference Range ?HEMOGLOBIN A1C % (HH) 6.5 * Examination: ???General Examination: ?GENERAL APPEARANCE:?pleasant, alert, [...] ?PALPATION:?No interspace pain noted on palpation.?Vascular: ?DP PULSES:? 1/4, B/L.?PT PULSES:?2/4, B/L.?CAPILLARY FILL TIME:?3 secs. per digit, B/L.?SKIN TEMPERTURE GRADIENT OF THE LOWER EXTERMITIES:?warm to cool, proximal to distal, B/L.?HAIR GROWTH/TEXTURE/ELASTICITY/TURGOR:?normal, B/L.?PIGMENTATION:?normal, B/L.?EDEMA:?no edema.?TELANGECTASIA:?absent.?VARICOSITIES:?absent.?Dermatologic: ?SKIN FINDINGS:?Skin exam reveals Keratotic lesion(s) [...] Referral: ?DIABETES EYE EXAM? Assessment: * Assessment: 1.?Tinea unguium - B35.1?2.? Type 1 diabetes mellitus with diabetic polyneuropathy - E10.42 (Primary)?3.?Ingrowing nail - L60.0?4.?Pain in right toe(s) - [...] as necessary. Patient chooses, no pharmaceutical tx (40860).?Keratoma Treatment:?Parring or Cutting of Benign Hyperkeratotic Lesion(s)?08080 ( >4 Lesions) - The Benign hyperkeratotic lesions, as described above were pared, and/or cut utilizing a sterile #15 blade, tissue nippers, and/or dremel.? * Procedure Codes:?66941 DEBRI DE NAIL, 6 OR MORE, Modifiers: XS 87354 TRIM SKIN LESIONS, 2 TO 4, Modifiers: XS * Follow Up:?3 Months * Images: * Sign off status: Completed true * Provider:?Nayan Luther DPM Date:? 024 Generated for Ritchie hernandez/Cate/eTransmitting on:?07/14/2024 01:03 PM EST History and Physical Notes * HPI (History of Present Illness) Category Sub-Category Detail Notes Ingrown toenail Nature: aching, tenderne ss Location: Both feet, Great toe , Second toe Painful Nails Pt States Last PCP Visit: Date:: 024 Foot Pain Nature: aching Location: Bottom, Forefoot, LE FT Duration: several months Onset: unknown Course: worse Aggravated: any pressure, standi ng, walking Treatments: old custom orthoses that are worn adn don't have a met pad Examination Category Sub-Category Detail Notes Neuroma Pain [...]
--- OUTSIDE RECORDS SUMMARY | 2024-07-14 13:03 | XMS_ITS ---
[facility] Address [address] [place] [address] Care Team Providers Care Benefits Assistant Name Role Phone Maria Isabel Munoz MD Primary Care Provider Nallely Leonardo Unavailable [phone] Nayan Luther [phone] Tello Encounters Encounter Location Date [facility] [address] 03/10/2024 Nayan Luther Plan Of Treatment Next Appt Details Provider Name:Nallely james, 09/05/2024 08:45:00 AM, [address] [place] [address], [address], Progress Notes * Mihai MONTGOMERY PDOB: (69 yo M)Acc No.[id number]:03/10/2024 Progress Note Patient:?Diallo MONTGOMERY Provider:?Nayan Luther DPM :1955???Age:68 Y???Sex:Male Loy e:03/10/2024 Address:[address] [place] [address] [id number] Pcp:Maria Isabel Munoz MD Subjective: * Chief Complaints: * ???1. Dr. Tello. * Medical History:? Objective: * Vitals:? Assessment: Plan: * Treatment: * Images: * The named appointment provid er may or may not be the originator of this progress note, and it is not deemed complete until electronically signed by the appointment provider. Sign off status: Pending * Provider:Yury Luther DPM Date:? 024 Generated for Ritchie hernandez/Cate/Linda on:?07/14/2024 01:03 PM EST
--- OUTSIDE RECORDS SUMMARY | 2024-07-14 13:03 | XMS_ITS | Patient Health Record ---
[facility] Organization [facility] Address [address] [facility] [place] [address] Care Team Providers Care Service Center Specialist Name Role Phone Maria Isabel Munoz MD Primary Care Provider Nallely Leonardo Unavailable [phone] Nayan Luther Unavailable [phone] Allergies Allergen (clinical drug ingredient) Drug/Non Drug Allergy documented on EMR Reaction Allergy Type Onset Date Status atorvastatin Lipitor high cpk Drug Allergy Acti ve Niacin Unknown Drug Allergy Active Substance with sulfonamide structure and antibacterial mechanism of action (substance) Sulfa Antibiotics Unknown Drug Allergy Active Results Component Value Reference Range Notes HEMOGLOBIN A1C (GLYCOHEMOGLO BIN) Reviewed date:12/07/2023 08:30:10 AM Interpretation: Performing Lab: Notes/Report: HEMOGLOBIN A1C % (HH) 6.5 HEMOGLOBIN A1C (GLYCOHEMOGLO BIN) Reviewed date:03/07/2024 08:51:55 AM Interpretation: Performing Lab: Notes/Report: HEMOGLOBIN A1C % (HH) 6.5 HEMOGLOBIN A1C (GLYCOHEMOGLO BIN) Reviewed date:06/06/2024 08:43:24 AM Interpretation: Performing Lab: Notes/Report: TOTAL HEMOGLOBIN (HGBA1C) 6.2 Reason For Referral No Information Medications Medication SIG (Take, Route, Frequency, Duration) Notes Start Date End Date Status flonase Active Loratadine Not-Takin g Glucosamine 750 MG Orally A ctive Zetia 10 mg Not-Taki ng Ezetimibe Active Furosemide Not-Takin g Farxiga Active hydrALAZINE HCl 50 MG Orally Twice a day Not-Taking Irbesartan 300 MG 1 tablet Orally Once a day Active iron 1 tab Oral Active Insulin Lispro (Human) Not-Taking metFORMIN HCl 500 MG Orally Twice a day Active Clotrimazole Not-Corbin ing Bystolic Not-Taking Nebivolol HCl Active Nystatin Active Montelukast Sodium A ctive All Day Allergy-D No t-Taking NovoLOG Active HumaLOG Not-Taking Extra Depth Diabetic Shoes with 3 Pair Custom heat-molded multi-density innersoles for 1 year Dx: Active Vitamin D Active Rosuvastatin Calcium Active Spironolactone Activ e Betamethasone Dipropionate Active amLODIPine Besylate 5 MG Orally Active Vitamin B12 500 mg 1 tablet Orally Once a day Active Aspirin 81 Active Vitamin C Active Compression Stockings 20-30mm Hg as directed 02/11/2016 Not-Taking Clotrimazole-Betamethason e Active Extra-Depth Diabetic Shoes with 3 Pair Custom heat-molded multi-density innersoles . 1pair shoes/3sets inserts . . for 1 year Not-Takin g CoQ-10 200 MG 1 capsule with a nicolas l Orally Once a day Active Extra Depth Orthopedic Shoes (1 Pair) with Customized Heat Molded Multidensity Innersoles (3 Pair) as directed Dx: IDDM/Polyneuropathy (E10.42), Hammertoe Foot Deformity (M20.41,M20.42), Preulcerative Skin Lesion(s) (L85.1) 08/06/2020 Not-Taking Calcium 600 MG 1 tablet with meals Orally Twice a day Active Extra Depth Diabetic Shoes with 3 Pair Custom heat-molded multi-density innersoles for 1 year Dx: 04/16/2017 Not-Taking Claritin Active Extra Depth Orthopedic Shoes (1 Pair) with Customized Heat Molded Multidensity Innersoles (3 Pair) as directed Dx: IDDM/Polyneuropathy (E10.42), Hammertoe Foot Deformity (M20.41,M20.42), Preulcerative Skin Lesion(s) (L85.1) 11/01/2018 Not-Taking Immunizations Vaccine Route Administration Date Status Comme nts COVID-19 Moderna Vaccine Unknown 11/13/2020 Administere d 1st 10/16/20 Influenza Unknown 05/11/2016 Administered Influenza Unknown 05/06/2017 Administered Influenza Unknown 05/18/2018 Administered Influenza Unknown 05/04/2019 Administered Influenza Unknown 04/23/2020 Administered Pneumococcal Unknown 10/22/2014 Administered Social History Tobacco Use: Social History Observation [...] Are you an other tobacco user? No Problems Problem Type SNOMED Code ICD Code Onset Dates Problem Status W/U Status Risk Notes Problem Polyneuropathy due to diabetes mellitus type I (865688527) Type 1 diabetes mellitus with diabetic polyneuropathy (E10.42) Active confirmed Problem Acquired hammer toe of right foot (2990908027833187 ) Other hammer toe(s) (acquired), right foot (M20.41) Active confirmed Problem Acquired hammer toe of left foot (2919310008704148 ) Other hammer toe(s) (acquired), left foot (M20.42) Active confirmed Problem Peripheral venous insufficiency (44310220) Venous insufficiency of both lower extremities (I87.2) Active confirmed Vital Signs Height 6ft 3in in 06/06/2024 Weight 235 lbs 06/06/2024 BMI 29.37 kg/m2 06/06/2024 Procedures Procedure Date Ordered Date Performed Result Body Sit e 42515-ACKB SKIN LESIONS, 2 TO 4 12/07/2023 N/A 36053-Dvdd. Subungual Hematoma 12/07/2023 N/A Encounters Encounter Location Date Provider Diagnosis [facility] [address] 09/07/2023 Nayan Luther Type 1 diabetes mellitus with diabetic polyneuropathy E10.42 ; Tinea unguium B35.1 ; Ingrowing nail L60.0 ; Pain in right toe(s) M79.674 ; Pain in left toe(s) M79.675 ; Venous insufficiency of both lower extremities I87.2 ; Other hammer toe(s) (acquired), left foot M20.42 and Other hammer toe(s) (acquired), right foot M20.41 [facility] [address] [address] 12/07/2023 Nayan Luther Type 1 diabetes mellitus with diabetic polyneuropathy E10.42 ; Tinea unguium B35.1 ; Ingrowing nail L60.0 ; Pain in right toe(s) M79.674 ; Pain in left toe(s) M79.675 ; Venous insufficiency of both lower extremities I87.2 ; Other hammer toe(s) (acquired), left foot M20.42 ; Other hammer toe(s) (acquired), right foot M20.41 ; Subungual hemorrhage of toenail, right, sequela S90.221S and Metatarsalgia, left foot M77.[address] [address] 03/07/2024 Nayan Luther Type 1 diabetes mellitus with diabetic polyneuropathy E10.42 ; Tinea unguium B35.1 ; Ingrowing nail L60.0 ; Pain in right toe(s) M79.674 ; Pain in left toe(s) M79.675 ; Venous insufficiency of both lower extremities I87.2 ; Other hammer toe(s) (acquired), left foot M20.42 ; Other hammer toe(s) (acquired), right foot M20.41 and Metatarsalgia, left foot M77.[address] [address] 06/06/2024 Nayan Luther Type 1 diabetes mellitus with diabetic polyneuropathy E10.42 ; Tinea unguium B35.1 ; Ingrowing nail L60.0 ; Pain in right toe(s) M79.674 ; Pain in left toe(s) M79.675 ; Venous insufficiency of both lower extremities I87.2 ; Other hammer toe(s) (acquired), left foot M20.42 ; Other hammer toe(s) (acquired), right foot M20.41 and Metatarsalgia, left foot M77.[address] [address] 09/07/2023 Nayan Ashkan [address] [address] 12/07/2023 Nayan Luther Assessments Encounter Date Diagnosis (ICD Code) Assessment Notes Treat ment Notes Treatment Clinical Notes 09/07/2023 Tinea unguium (ICD-1 0 - B35.1) 09/07/2023 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 - E10.42) 12/07/2023 Tinea unguium (ICD-1 0 - B35.1) 12/07/2023 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 - E10.42) 03/07/2024 Tinea unguium (ICD-1 0 - B35.1) 03/07/2024 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 - E10.42) 06/06/2024 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 - E10.42) 06/06/2024 Tinea unguium (ICD-1 0 - B35.1) 03/07/2024 Ingrowing nail (ICD-10 - L60.0) 12/07/2023 Ingrowing nail (ICD-10 - L60.0) 09/07/2023 Ingrowing nail (ICD-10 - L60.0) 09/07/2023 Pain in right toe(s) (ICD-10 - M79.674) 12/07/2023 Pain in right toe(s) (ICD-10 - M79.674) 03/07/2024 Pain in right toe(s) (ICD-10 - M79.674) 06/06/2024 Ingrowing nail (ICD-10 - L60.0) 06/06/2024 Pain in right toe(s) (ICD-10 - M79.674) 03/07/2024 Pain in left toe(s) (ICD-10 - M79.675) 12/07/2023 Pain in left toe(s) (ICD-10 - M79.675) 09/07/2023 Pain in left toe(s) (ICD-10 - M79.675) 09/07/2023 Venous insufficiency of both lower extremities (ICD-10 - I87.2) 12/07/2023 Venous insufficiency of both lower extremities (ICD-10 - I87.2) 06/06/2024 Pain in left toe(s) (ICD-10 - M79.675) 03/07/2024 Venous insufficiency of both lower extremities (ICD-10 - I87.2) 03/07/2024 Other hammer toe(s) (acquired), left foot (ICD-10 - M20.42) 12/07/2023 Other hammer toe(s) (acquired), left foot (ICD-10 - M20.42) 09/07/2023 Other hammer toe(s) (acquired), left foot (ICD-10 - M20.42) 06/06/2024 Venous insufficiency of both lower extremities (ICD-10 - I87.2) 06/06/2024 Other hammer toe(s) (acquired), left foot (ICD-10 - M20.42) 09/07/2023 Other hammer toe(s) (acquired), right foot (ICD-10 - M20.41) 12/07/2023 Other hammer toe(s) (acquired), right foot (ICD-10 - M20.41) 03/07/2024 Other hammer toe(s) (acquired), right foot (ICD-10 - M20.41) 12/07/2023 Subungual hemorrhage of toenail, right, sequela (ICD-10 - S90.221S) 03/07/2024 Metatarsalgia, left foot (ICD-10 - M77.42) 06/06/2024 Other hammer toe(s) (acquired), right foot (ICD-10 - M20.41) 06/06/2024 Metatarsalgia, left foot (ICD-10 - M77.42) 12/07/2023 Metatarsalgia, left foot (ICD-10 - M77.42) Plan Of Treatment Pending Test Test Name Order Date X ray : Foot, left 2V 12/25/2016 X ray : Foot, right 2V 12/25/2016 93785-HISKKVL NAIL, 6 OR MORE 04/16/2017 25149-JUCVDXV NAIL, 6 OR MORE 07/09/2017 35247-UGXYGRV NAIL, 6 OR MORE 10/01/2017 96016-FHJLBZF NAIL, 6 OR MORE 02/05/2017 86359-YXVJPNG NAIL, 6 OR MORE 11/24/2016 18594-FPMXJNU NAIL, 6 OR MORE 12/18/2014 00561-TMQRZZX NAIL, 6 OR MORE 03/12/2015 55472-QZEFXOJ NAIL, 6 OR MORE 06/04/2015 47254-MLDKAEB NAIL, 6 OR MORE 11/12/2015 72414-XXJGYNT NAIL, 6 OR MORE 02/11/2016 31033-GFGMFPA NAIL, 6 OR MORE 05/19/2016 49327-WQTXXNI NAIL, 6 OR MORE 08/25/2016 91867-NDMMDSQ NAIL, 6 OR MORE 06/09/2011 72004-ZIAQTEI NAIL, 6 OR MORE 09/11/2011 86205-ALRWZRD NAIL, 6 OR MORE 09/25/2011 23094-RTHPITN NAIL, 6 OR MORE 12/01/2011 12895-FHMEROU NAIL, 6 OR MORE 03/01/2012 35937-YYXYISR NAIL, 6 OR MORE 05/31/2012 65336-SNWFAKY NAIL, 6 OR MORE 09/06/2012 52198-FKODVFG NAIL, 6 OR MORE 12/06/2012 44808-TWYABHL NAIL, 6 OR MORE 04/18/2013 43206-XLLQNGL NAIL, 6 OR MORE 07/11/2013 34078-HBGPQZH NAIL, 6 OR MORE 10/17/2013 92348-ATKGKHJ NAIL, 6 OR MORE 01/09/2014 98960-HNGNUIO NAIL, 6 OR MORE 04/03/2014 48884-UWJNUPE NAIL, 6 OR MORE 06/26/2014 21032-TJUGDPV NAIL, 6 OR MORE 09/21/2014 44469-GCWJUCK NAIL, 6 OR MORE 12/24/2017 26847-VMHUNUK NAIL, 6 OR MORE 03/04/2018 51237-WRKELYF NAIL, 6 OR MORE 05/27/2018 44767-RBREHRP NAIL, 6 OR MORE 08/02/2018 43159-Jxehaadr Plate 02/06/2020 93685-Dvycjrcb Plate 12/24/2017 26674-Sabktnkv Plate 05/27/2018 13284-Utffyztp Plate 11/05/2020 34007-Fimetvht Plate 02/04/2021 02812-Tozorcee Plate 05/06/2021 18504-Hvodbebi Plate 06/26/2014 16371-Tduzkwud Plate 07/11/2013 38328-Urodqhrx Plate 12/06/2012 59427-Zoavcaol Plate 06/09/2011 68129-Sjlvqbzm Plate 04/03/2014 98338-Bbqrbbos Plate 04/12/2015 65364-Guiwsjix Plate 08/25/2016 21932-Ucjzyscr Plate 04/16/2017 69840- Debride <25 sq cm 09/25/2011 69169 I&D ABSCESS- SIMPLE,SINGLE 013 21472 I&D ABSCESS- SIMPLE,SINGLE 012 52875 I&D ABSCESS- SIMPLE,SINGLE 012 20805 I&D ABSCESS- SIMPLE,SINGLE 015 34727 I&D ABSCESS- SIMPLE,SINGLE 018 26596-QBZQ SKIN LESIONS, OVER 4 05/07/20 44984-WSNZ SKIN LESIONS, OVER 4 11/12/19 22 04747-EQPO SKIN LESIONS, 2 TO 4 08/01/20 21 01949-MTHA SKIN LESIONS, 2 TO 4 05/06/20 21 86787-CCHN SKIN LESIONS, 2 TO 4 02/05/20 21 19915-ZIGN SKIN LESIONS, 2 TO 4 12/07/19 24 82272-LFFI SKIN LESIONS, 2 TO 4 08/06/20 20 75320-IMKR SKIN LESIONS, 2 TO 4 11/06/19 74402-HJZL SKIN LESIONS, 2 TO 4 11/02/19 19 28444-QFVW SKIN LESIONS, 2 TO 4 02/01/20 19 00805-KGUA SKIN LESIONS, 2 TO 4 05/02/20 19 68715-IYVY SKIN LESIONS, 2 TO 4 08/08/20 19 82794-LGWL SKIN LESIONS, 2 TO 4 11/07/19 20 05473-IGGL SKIN LESIONS, 2 TO 4 02/06/20 20 67719-JPQY SKIN LESIONS, 2 TO 4 05/27/20 18 57278-MDBX SKIN LESIONS, 2 TO 4 03/04/20 18 22208-CDGO SKIN LESIONS, 2 TO 4 08/02/20 18 74165-KUVE SKIN LESIONS, 2 TO 4 06/04/20 15 41747-EIRY SKIN LESIONS, 2 TO 4 03/12/20 15 05184-SNCS SKIN LESIONS, 2 TO 4 12/19/19 15 51455-DYUE SKIN LESIONS, 2 TO 4 08/25/19 17 63667-PXOI SKIN LESIONS, 2 TO 4 05/19/20 16 54539-YQGH SKIN LESIONS, 2 TO 4 02/11/20 16 34809-XNFL SKIN LESIONS, 2 TO 4 11/12/19 16 30409-KROK SKIN LESIONS, 2 TO 4 07/09/20 17 59649-REFE SKIN LESIONS, 2 TO 4 12/25/19 18 22648-VDRW SKIN LESIONS, 2 TO 4 10/01/19 18 51282-RSIA SKIN LESIONS, 2 TO 4 11/25/19 17 75554-XOYK SKIN LESIONS, 2 TO 4 04/16/20 17 39438-BHAS SKIN LESIONS, 2 TO 4 02/06/20 17 58964-PYET SKIN LESIONS, 2 TO 4 09/25/19 12 81009-GYDA SKIN LESIONS, 2 TO 4 12/01/19 12 62780-QEAE SKIN LESIONS, 2 TO 4 09/11/19 12 79029-ELQP SKIN LESIONS, 2 TO 4 12/07/19 13 10696-SSHO SKIN LESIONS, 2 TO 4 09/06/19 13 88000-VSVO SKIN LESIONS, 2 TO 4 05/31/20 12 98077-CTXQ SKIN LESIONS, 2 TO 4 03/01/20 12 01404-FIYW SKIN LESIONS, 2 TO 4 04/18/20 13 32881-GROW SKIN LESIONS, 2 TO 4 07/11/20 13 15819-QQOP SKIN LESIONS, 2 TO 4 10/17/19 14 36037-XJZE SKIN LESIONS, 2 TO 4 09/21/19 15 71465-YSOX SKIN LESIONS, 2 TO 4 04/03/20 14 24054-QORI SKIN LESIONS, 2 TO 4 01/10/20 14 36631-Wwca. Subungual Hematoma 4 82195,W8826-BAC TENDON SHEATH/LIGAMENT 0 12/25/2016 Next Appt Details Provider Name:Nallely Avitia erika, 09/05/2024 08:45:00 AM, [address] [facility], [address], [place], [address], Insurance Providers Payer Name Payer Address Payer Phone Subscriber Number Group Number Insured Name Patient Relationship to Insured Coverage Start Date Coverage End Date Medicare [employer] [facility] [address] [place] [phone] [id number] Mihai Herrera Self - patient is the insured [facility] [address] [facility], [place] [address] [phone] [id number] Mihai Herrera Self - patient is the insured Medical (General) History Medical History History ICD Code chicken pox diabetic hypertension mumps measles Surgical History Surgery Date(Month/Year) arm 1987 hand/wrist 1987 tonsillectomy 1958
== END 2024-07-10 14:34 | disposition home or self-care (01) | DRG 390 ==
LOC: HO.ED 22:31 → HO.EDOVER 22:47
PROVIDERS: Admitting Provider Surgery; Emergency Provider Emergency Medicine Emergency Medical Services; PCP Internal Medicine; Visit Provider Surgery
DX: K56.7 Ileus, unspecified (principal); Z20.822 Contact with and (suspected) exposure to COVID-19; Z79.4 Long term (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; Z79.51 Long term (current) use of inhaled steroids; Z79.82 Long term (current) use of aspirin; Z79.899 Other long term (current) drug therapy
CPT/HCPCS: 0241U; 74176; 80053; 82947; 85025; 93005; 99221; 99285; C1781; J0131; J0690; J1100; J1644; J2405; J2795; J3010; J7120

== ENCOUNTER → 2024-07-09 22:15 | Outpatient (BNV) | payer MEDICARE, OTHER, SELFPAY | PROVIDERS: Admitting Provider Surgery; Emergency Provider Emergency Medicine Emergency Medical Services; PCP Internal Medicine; Visit Provider Surgery | DX: R14.0 Abdominal distension (gaseous) (principal) | CPT/HCPCS: 99024; 99222; 99238 ==

== ENCOUNTER 2024-07-17 11:36 | Outpatient (AMB) | payer MEDICARE, OTHER, SELFPAY ==
[2024-07-17 11:40] VITALS: BP 120/78; PULSE 59; O2SAT 97; BMI 29.5
--- NOTE | 2024-07-17 11:40 | MHC.PC.OV ---
Vital Signs 07/17/24 11:40 Height 6 ft 2 in Weight 230 lb BMI 29.5 BP 120/78 Blood Pressure Location Lt brachial Position Sitting Pulse 59 Pulse Source Pulse Oximeter Pulse Oximetry (%) 97 Oxygen Delivery Method Room Air Intake Visit Reasons: TCM Intake Note: Pt is here today for TCM. Allergies niacin [NIACIN] Allergy (Mild, Verified 07/17/24 11:44) ITCHING, itchy, itchy Zoynvge-SXK-YaJ Reductase Inhibitor [XYUIRYS-TBE-LWN REDUCTASE INHIBITOR] Allergy (Unknown, Verified 07/17/24 11:44) HIGH CPK atorvastatin [Lipitor] Adverse Reaction (Unknown, Verified 07/17/24 11:44) high CPK Medication List - Last Reconciled 07/17/24 by Maria Isabel Munoz MD acetone (urine) test (Ketone Urine Test strips) prn glucose over 250, nausea, vomiting or illness. discard after open 6 months ascorbic acid (vitamin C) 500 mg PO BID aspirin 81 mg PO DAILY calcium carbonate-vitamin D3 600 mg-5 mcg (200 unit) (Calcium 600 + D(3)) 1 cap PO DAILY cholecalciferol (vitamin D3) 25 mcg PO Q OTHER DAY dapagliflozin propanediol (Farxiga) 10 mg PO DAILY docusate sodium (Colace) 100 mg PO BID ezetimibe 10 mg PO DAILY ferrous sulfate (FeroSul) 325 mg PO Q OTHER DAY fluticasone propionate 50 mcg/actuation 1 spray intranasal DAILY glucosamine HCl 750 mg PO DAILY insulin glargine (Lantus U-100 Insulin) 46 units subcut DAILY PRN insulin lispro (Admelog U-100 Insulin lispro) Infuse up to 110 units via insulin pump subcutaneously daily; 90 days irbesartan 300 mg PO DAILY metformin ER 500 mg PO BID nebivolol 2.5 mg PO DAILY rosuvastatin 10 mg PO BEDTIME spironolactone 25 mg PO DAILY Tobacco use date assessed: 07/17/24 Dental Screening Dental Screen Date: 12/06/23 HPI TCM HPI Details Patient presents for the follow-up of hospitalization at [place] for small bowel obstruction constipation after umbilical hernia repair. Patient is feeling better having regular soft bowel movements. EKG before the surgery showed new right bundle branch block and bradycardia to 40s. Patient denies palpitation chest pain shortness of breath syncope. He was also found to have 6 mm right lower lobe lung nodule on CT of the abdomen and pelvis and follow-up was recommended. Insulin-dependent diabetes stable on current medications TCM TCM Information Date of Discharge 07/10/24 Discharged From [facility] Interactive Contact Date (Reference documentation from this date) 07/11/24 [facility] Medical History (Updated 07/17/24 @ 12:22 by Maria Isabel Munoz MD) Abdominal distension Hearing loss Annual physical exam Overweight (BMI 25.0-29.9) B12 deficiency nursing home (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 Diabetic polyneuropathy associated with type 2 diabetes mellitus Varicose vein of leg Osteoarthritis CKD (chronic kidney disease), stage III Umbilical hernia Peripheral neuropathy Hypokalemia Obstructive sleep apnea Anemia B-complex deficiency Hypercholesterolemia HTN (hypertension) Diabetes type 2, controlled Surgical History (Updated 07/15/24 @ 00:03 by Jerrica Coy) Umbilical hernia (07/07/24) History of colonoscopy Family History Father Diabetes mellitus CAD (coronary artery disease) HTN (hypertension) Mother Stroke Pancreatic cancer HTN (hypertension) Maternal Grandfather Abdominal aortic aneurysm CVD (cardiovascular disease) Maternal Grandmother Abdominal aortic aneurysm Paternal Grandfather CVD (cardiovascular disease) Paternal Grandmother No problems noted. Brother Diabetes mellitus Brother No problems noted. Brother No problems noted. Son No problems noted. Son No problems noted. Daughter No problems noted. Sister Hodgkins disease Social History Household Members: Spouse Housing: House Alcohol intake: current Alcohol intake frequency: 0-2 drinks per day Patient Tobacco Use Status: Never used Tobacco e-Cigarette/Vaping Use: Never Used service: No Current occupational status: retired Cognitive needs: No Hearing needs: Yes Vision needs: Yes Questionnaire Thrive Questionnaire Date Thrive assessed: 06/05/24 I am a: Patient What is your living situation today?: I have a steady place to live Within the past 12 months, did the food you bought not last and you didn't have the money to get more?: Never true Within the past 12 months, did you worry whether your food would run out before you got money to buy more?: Never true Do you have trouble paying for medicines?: No Do you have trouble getting transportation to medical appointments?: No Do you have trouble paying your heating and electricity bill?: No Do you have trouble taking care of your child, family member or friend?: No Do you have trouble with day-to-day activities such as bathing, preparing meals, shopping, managing finances, etc.?: No Are you currently unemployed and looking for a job?: No Are you interested in more education?: No Please select the resources that you would like help with: None Currently or been in a relationship where the following occur: No concerns reported THRIVE Score: 0 TEA-7 AMB Questionnaire TEA-7 Date TEA - 7 assessed: 06/08/24 Source: Developed by Drs. Vern Gilbert, Thea Vela, Kailash Caal and colleagues, with an educational roopa from [employer]. Review of Systems Const All systems reviewed & are unremarkable except as noted in HPI and below Card Reports no additional complaints Resp Reports no additional complaints GI Reports no additional complaints Reports no additional complaints Physical exam (Primary Care) Vital Signs: Last Vital Signs Pulse 59 07/17/24 11:40 BP 120/78 07/17/24 11:40 Pulse Ox 97 07/17/24 11:40 Oxygen Delivery Method Room Air 07/17/24 11:40 BMI result Body Mass Index 29.5 Tobacco/Smoking Status: Tobacco use Status Tobacco use date assessed 07/17/24 07/17/24 11:46 Patient Tobacco Use Status Never used Tobacco 07/17/24 11:40 e-Cigarette/Vaping Use Never Used 07/17/24 11:40 Thrive Assessment: Date of Thrive Assessment Date Thrive assessed 06/05/24 07/17/24 11:40 Currently or been in a relationship where the following occur: No concerns reported Const General: no acute distress HENMT Head: Yes normal to inspection Resp Effort & Inspection: normal respiratory effort Auscultation: clear to auscultation bilaterally Cardio Rhythm: regular rhythm Heart sounds: S1 normal heart sound present and S2 normal heart sound present GI Other: Periumbilical bruising and healed incision, slight tenderness no warmth Palpation (GI): Soft to palpation Percussion: Yes normal to percussion Auscultation: normal bowel sounds Coding Level of Care Code Est Pt Level 4 (52790) Diagnoses Bradycardia R00.1 RBBB I45.10 Diabetes type 2, controlled E11.9 Diabetes mellitus technician terminal and repeater insulin use: with jail use Diabetes mellitus complication detail: with polyneuropathy CKD (chronic kidney disease), stage III N18.30 Lung nodule seen on imaging study R91.1 Assessment & Plan Assessment & Plan (1) Bradycardia: Code(s): R00.1 - Bradycardia, unspecified Category: Medical Plan: Obtain 48 hour Holter (2) RBBB: Code(s): I45.10 - Unspecified right bundle-branch block Category: Medical Plan: Obtain echocardiogram to evaluate for segmental wall motion abnormalities (3) Diabetes type 2, controlled: Comment: [facility] for renoprotection Dr. Bobo, on insulin pump Code(s): E11.9 - Type 2 diabetes mellitus without complications Category: Medical Qualifiers: Diabetes mellitus technician terminal and repeater insulin use: with jail use Diabetes mellitus complication detail: with polyneuropathy Plan: Continue current medications (4) CKD (chronic kidney disease), stage III: Comment: Dr. Bobo Code(s): N18.30 - Chronic kidney disease, stage 3 unspecified Category: Medical Plan: Avoid nephrotoxins monitor renal function (5) Lung nodule seen on imaging study: Comment: [address] abd/pelvis 06/2024, check Lung CT Code(s): R91.1 - Solitary pulmonary nodule Category: Medical Plan: Obtain chest CT to evaluate Orders: Orders CT chest wo IV con Today R91.1 - Solitary pulmonary nodule CA echo transthoracic complete Today I45.10 - Unspecified right bundle-branch block, R00.1 - Bradycardia, unspecified ECG holter monitor 48 hour Today I45.10 - Unspecified right bundle-branch block, R00.1 - Bradycardia, unspecified
== END 2024-07-17 12:23 | disposition home or self-care (01) ==
PROVIDERS: PCP Internal Medicine; Visit Provider Internal Medicine
DX: R00.1 Bradycardia, unspecified (principal); I45.10 Unspecified right bundle-branch block; E11.9 Type 2 diabetes mellitus without complications; N18.30 Chronic kidney disease, stage 3 unspecified; R91.1 Solitary pulmonary nodule

== ENCOUNTER → 2024-07-17 11:36 | Outpatient (BNVA) | payer MEDICARE, OTHER, SELFPAY | PROVIDERS: PCP Internal Medicine; Visit Provider Internal Medicine | DX: R00.1 Bradycardia, unspecified (principal); I45.10 Unspecified right bundle-branch block; E11.9 Type 2 diabetes mellitus without complications; N18.30 Chronic kidney disease, stage 3 unspecified; R91.1 Solitary pulmonary nodule | CPT/HCPCS: 99212 ==

== ENCOUNTER 2024-07-18 10:58 | Outpatient (AMB) | payer MEDICARE, OTHER, SELFPAY ==
--- NOTE | 2024-07-18 11:07 | A.OFFVIS_ITS ---
Intake Visit Reasons: S/P Lg. umbilical hernia w/mesh Intake Note: Patient here s/p large umbilical hernia w/mesh. Reports incisions healing well. Patient c/o: steri strips fell off. No longer taking rx pain meds. 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 He is doing well. He is tolerating a diet patient is having regular bowel habits. He has minimal incisional discomfort. He has slowly but steadily increasing his activity level. [facility] Medical History (Updated 07/17/24 @ 12:22 by Maria Isabel Munoz MD) Abdominal distension Hearing loss Annual physical exam Overweight (BMI 25.0-29.9) B12 deficiency long-term (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 Diabetic polyneuropathy associated with type 2 diabetes mellitus Varicose vein of leg Osteoarthritis CKD (chronic kidney disease), stage III Umbilical hernia Peripheral neuropathy Hypokalemia Obstructive sleep apnea Anemia B-complex deficiency Hypercholesterolemia HTN (hypertension) Diabetes type 2, controlled Surgical History (Updated 07/18/24 @ 11:17 by Michael Pichardo MD) Umbilical hernia (07/07/24) History of colonoscopy Family History Father Diabetes mellitus CAD (coronary artery disease) HTN (hypertension) Mother Stroke Pancreatic cancer HTN (hypertension) Maternal Grandfather Abdominal aortic aneurysm CVD (cardiovascular disease) Maternal Grandmother Abdominal aortic aneurysm Paternal Grandfather CVD (cardiovascular disease) Paternal Grandmother No problems noted. Brother Diabetes mellitus Brother No problems noted. Brother No problems noted. Son No problems noted. Son No problems noted. Daughter No problems noted. Sister Hodgkins disease Social History Household Members: Spouse Housing: House Alcohol intake: current Alcohol intake frequency: 0-2 drinks per day Patient Tobacco Use Status: Never used Tobacco e-Cigarette/Vaping Use: Never Used service: No Current occupational status: retired Cognitive needs: No Hearing needs: Yes Vision needs: Yes Physical Exam GI Other: Abdomen is soft. Incision clean dry and intact healing well Assessment & Plan Assessment & Plan (1) Postop check: Code(s): Z09 - Encounter for follow-up examination after completed treatment for conditions other than malignant neoplasm Category: Surgical Plan Patient was been given local instructions including avoiding strenuous activities next few weeks time and will otherwise follow-up p.r.n.. All questions answered. Coding Level of Care Code Global (22361) Diagnoses Postop check Z09
== END 2024-07-18 11:16 | disposition home or self-care (01) ==
PROVIDERS: PCP Internal Medicine; Visit Provider Surgery
DX: Z09 Encounter for follow-up examination after completed treatment for conditions other than malignant neoplasm (principal)
CPT/HCPCS: 99212

== ENCOUNTER → 2024-07-18 10:58 | Outpatient (BNVA) | payer MEDICARE, OTHER, SELFPAY | PROVIDERS: PCP Internal Medicine; Visit Provider Surgery | DX: Z09 Encounter for follow-up examination after completed treatment for conditions other than malignant neoplasm (principal); Z87.19 Personal history of other diseases of the digestive system; Z98.890 Other specified postprocedural states | CPT/HCPCS: 99212 ==

== ENCOUNTER → 2024-08-14 09:52 | Outpatient (REF) | payer MEDICARE, OTHER, SELFPAY ==
--- NOTE | 2024-08-14 09:55 | CA_ITS ---
Transthoracic Echocardiogram Patient (Last, First, Middle): Mihai Herrera, Gender: Male Date of : 1955 Age: 69 Procedure Date: 08/14/2024 Procedure Type: Transthoracic Echocardiogram Location: OP Height: 187. cm Weight: 104.33 kg BSA: 2.30 m2 Heart Rate: 58 bpm BP: 172 / 95 mmHg Director Of Kids: CARMELO Referring MD: Maria Isabel Munoz MD Symptoms: R00.1 - Bradycardia, unspecified Study Quality: Adequate ECG Rhythm: Sinus Conclusions: - The left ventricular systolic function is normal. The calculated ejection fraction is 60% by biplane method. - No obvious valvular pathology seen on this study. - Small plaque is seen in the sino tubular ridge. Findings Left Ventricle Normal left ventricular cavity size. There is normal left ventricular wall thickness. The left ventricular systolic function is normal. The calculated ejection fraction is 60% by biplane method. There is no evidence of regional wall motion abnormalities. Diastolic function is normal for age. Right Ventricle Moderately increased right ventricular cavity size. There is normal right ventricular systolic function. Atria Both atria are normal in size. Aortic Valve There is a normal trileaflet aortic valve. There is mild calcification of the aortic valve. There is no aortic valve stenosis. Mitral Valve The mitral valve appears normal. There is no mitral valve regurgitation. There is no mitral valve stenosis. Pulmonic Valve The pulmonic valve is likely normal. Tricuspid Valve Normal tricuspid valve structure. There is trace tricuspid valve regurgitation. There is no evidence of pulmonary hypertension. Great Vessels The asc aorta is normal in size. Small plaque is seen in the sino tubular ridge. Venous The inferior vena cava is normal in size and collapses greater than 50% with inspiration. Pericardium/Pleural There is no evidence of pericardial effusion. Prior Study Comparison No significant change compared to prior study dated: 03/25/2017. Recommendations, Care & Conclusions No obvious valvular pathology seen on this study. Measurements 2D Linear Measurements IVSd: 1.00 0.6-0.9/0.6-1.0 cm LVIDd: 4.52 3.9-5.3/4.2-5.9 cm LVIDd Index: 1.97 2.4-3.2/2.2-3.1 cm/m2 LVIDs: 2.61 2.0-3.6 cm LVPWd: 1.09 0.7-1.1 cm LA Diam: 3.60 2.7-3.8/3.0-4.0 cm LAIDs Index: 1.57 1.5-2.3 cm/m2 LV Mass: 204.05 67-162/88-224 g LV Mass Index: 88.72 43-95/49-115 g/m2 LVOT Diam: 1.90 3.0+(-)1.3 cm 2D Systolic Function EF 4C: 63.00 >55% EF 2C: 58.00 >55% EF BiP: 59.80 >55% Mitral Valve MV Pk E: 0.67 MV PK A: 0.73 MV Decel Time: 232.00 E/A: 0.90 E'Lateral: 12.20 E'Medial: 8.27 E/E' Med: 8.10 E/E' Lat: 5.50 PHT: 68.00 MVA PHT: 3.24 Decel [place]: 2.88 Aortic Valve AoV Pk Arron: 1.45 AoV Mn Arron: 0.95 AoV VTI: 0.30 AoV Pk Grad: 8.00 Aov Mn Grad: 4.00 [place] Cont.VTI: 2.22 LVOT LVOT Pk Arron: 1.10 LVOT Mn Arron: 0.70 LVOT VTI: 0.23 LVOT Pk Grad: 5.00 LVOT Mn Grad: 2.00 LVOT Diam: 1.90 LVOT Area: 2.84 Diastolic Function MV Pk E: 0.67 MV Pk A: 0.73 E/A: 0.90 E'Medial: 8.27 E/E' Med: 8.10 E' Laterial: 12.20 E/E' Lat: 5.50 Right Ventricle TAPSE (mm): 24.90 TVS' Arron: 10.90 Tricuspid Valve TR Pk Arron: 1.85 TR Pk Grad: 14.00 RA Press: 3.00 RVSP: 17.00 Great Vessels Aorta Sinus of Valsalva: 3.20 2.0-3.5 cm Ao Asc: 3.30 2.1-3.4 cm Pulmonary Valve PV Pk Arron: 1.14 Peak PV Grad: 5.00 Updated in Other Vendor System with Status of Final Alfred Jara MD electronically signed on 08/14/2024 12:09:57 PM with status of Final
== END ==
LOC: HO.CARD 09:52
PROVIDERS: PCP Internal Medicine; Visit Provider Internal Medicine
DX: R00.1 Bradycardia, unspecified (principal); I45.10 Unspecified right bundle-branch block
CPT/HCPCS: 93225; 93306

== ENCOUNTER → 2024-08-14 09:55 | Outpatient (BNV) | payer MEDICARE, OTHER, SELFPAY | PROVIDERS: PCP Internal Medicine; Visit Provider Internal Medicine | DX: I35.8 Other nonrheumatic aortic valve disorders (principal) | CPT/HCPCS: 93306 ==

== ENCOUNTER 2024-08-25 08:28 | Outpatient (AMB) | payer MEDICARE, OTHER, SELFPAY ==
[2024-08-25 08:29] VITALS: BP 150/90; PULSE 51; BMI 30.2
--- NOTE | 2024-08-25 08:29 | MHC.OFFVIS ---
Vital Signs 08/25/24 08:29 Height 6 ft 2 in Weight 235 lb 7.259 oz BMI 30.2 BP 150/90 H Blood Pressure Location Lt brachial Position Sitting Pulse 51 Pulse Source Pulse Oximeter Intake Visit Reasons: T2DM Intake Note: Patient present today for Type 2 Diabetes Mellitus. Last Diabetic eye exam: 04/2024 Last Podiatry Visit: 05/2024 Random Glucose: 103 mg/dl HgA1C: 6.9% Health Social Work Professor Required: No Accompanied by: Self / Same As Patient Allergies niacin [NIACIN] Allergy (Mild, Verified 08/25/24 08:35) ITCHING, itchy, itchy Qhdkwtt-RSE-UxB Reductase Inhibitor [[id number] REDUCTASE INHIBITOR] Allergy (Unknown, Verified 08/25/24 08:35) HIGH CPK atorvastatin [Lipitor] Adverse Reaction (Unknown, Verified 08/25/24 08:35) high CPK Medication List - Last Reconciled 08/25/24 by Scarlet Carrizales MD acetone (urine) test (Ketone Urine Test strips) prn glucose over 250, nausea, vomiting or illness. discard after open 6 months ascorbic acid (vitamin C) 500 mg PO BID aspirin 81 mg PO DAILY calcium carbonate-vitamin D3 600 mg-5 mcg (200 unit) (Calcium 600 + D(3)) 1 cap PO DAILY cholecalciferol (vitamin D3) 25 mcg PO Q OTHER DAY dapagliflozin propanediol (Farxiga) 10 mg PO DAILY docusate sodium (Colace) 100 mg PO BID ezetimibe 10 mg PO DAILY ferrous sulfate (FeroSul) 325 mg PO Q OTHER DAY fluticasone propionate 50 mcg/actuation 1 spray intranasal DAILY glucosamine HCl 750 mg PO DAILY insulin glargine (Lantus U-100 Insulin) 46 units subcut DAILY PRN insulin lispro (Admelog U-100 Insulin lispro) Infuse up to 110 units via insulin pump subcutaneously daily; 90 days irbesartan 300 mg PO DAILY metformin ER 500 mg PO BID nebivolol 2.5 mg PO DAILY rosuvastatin 10 mg PO BEDTIME spironolactone 25 mg PO DAILY HPI Comments Details: Patient is 69 year old male with DM type 2 diagnosed at 35 years of age, who presents for management of diabetes. Was last seen by Snehal Maldonado in May 2024. Past medical history: DM2, HTN, HLD, CKD3, Charcot arthopathy Micro and macrovascular complications: no retinopathy, + nephropathy, + neuropathy, no CVA, CAD, PVD. Diabetes medications: metformin 500 mg BID, intolerant of higher doses. Farxiga 10 mg. Novolog via TAndem pump with control IQ Dexcom average glucose: 154 14 day continuous glucose monitor report reviewed Glucose Managment indicator 7 % Days with CGM data 100% TIme in ranges: 1% % very high (above 250) 21% % high ?(181-250) 78% % in range ?(70-180] 0 % low (69-55) 0 % ?very low (below 54) Interpretation [excellent control most of the day with no hypoglycemia, though does have some hyperglycemia overnight between 02:00 to 6 a.m. ] Sixty-two % basal 61.53 units Thirty-eight % bolus 38.47 units Carb g entered per day 127 In control IQ 9 7 % of the time Control IQ in use 97% %. CGM inactive 1% % Basal: 12:00 2.6 2A 2.8 4:30a 2.25 11:30a 2.00 1pm 1.5 2:30 1.25 4pm 1.1 6:30 2.0 10:00pm 2.6 Correction 1:19 Carb ration 12:00 1:4 1130 AM = 1:3.5 4 PM = !:4.5 Target 120 Symptoms reported: + numbness, tingling, nocramping in lower extremities Hypoglycemia: None recent . No hypoglycemia Hyperglycemia: + urinary frequency (takes diurectics), denies nocturia, polydypsia Exercise: walking 20 - 30 minutes on most days. 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 Manzanares Ophthalmology evaluation: 04/2024 no retinopathy. 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 Stimulate C-peptide was> 2 and antibodies were negative confirming presence of type 2 diabetes and insulin reserve [facility] screen labs 07/10/24 Fibrosis-4 (Fib-4) Index for liver fibrosis (calculated on lab work done: ) [1.81 ] points Advanced fibrosis [excluded ] Approximate Fibrosis stage Memo [2-3 ] *Use with caution in patients <35 or >65 years old, as the score has been shown to be less reliable in these patients. Prior Imaging [none] Action Plan: [] rescreen two years from date of screening labs[ ] Physical exam General: sitting comfortably in no acute distress HEENT: normocephalic/atraumatic, Neck: supple, symmetrical, no thyromegaly , no dorsocervical or supraclavicular fat pads Cardiac: normal heart sounds Pulm: normal breath sounds B/L, no added breath sounds Abd: not distended, no tenderness Extremities: no edema, no signs of myxedema Neuro: AAO x3, Speech: normal, no facial droop, moving all 4 extremities Skin: no rash Laboratory Tests 11/30/23 06/01/24 06/01/24 08:50 09:57 09:58 Plt Count Creatinine Estim Creat Clear Calc Estimated GFR Hemoglobin A1c % 6.4 H 6.2 H AST ALT Cholesterol 147 LDL Cholesterol, Calc 70 HDL Cholesterol 46 Vitamin B12 495 Urine Creatinine 110.51 Urine Microalbumin 9.0 Microalb/Creat Ratio 8.1 07/09/24 20:47 Plt Count 168 Creatinine 1.12 Estim Creat Clear Calc 79.0 Estimated GFR > 60 Hemoglobin A1c % AST 22 ALT 27 Cholesterol LDL Cholesterol, Calc HDL Cholesterol Vitamin B12 Urine Creatinine Urine Microalbumin Microalb/Creat Ratio EXAMINATION: 06/01/24 Noninvasive assessment of the arteries of both lower extremities to include a single level PVR exam and ANKLE BRACHIAL INDICES (ABIs). CLINICAL INFORMATION: Peripheral vascular disease TECHNIQUE: The ankle/brachial indices of the distal posterior tibial and the dorsalis pedis arteries were obtained of the lower extremity arterial system bilaterally; along with pressures and pulse volume recordings at the ankle level. The study was performed at rest. COMPARISON: None FINDINGS: 1. ANKLE-BRACHIAL INDICES: RIGHT: 1.06 in the dorsalis pedis artery. Noncompressible posterior tibial artery LEFT: 1.08 and the dorsalis pedis artery. Noncompressible in the posterior tibial artery 2. ANKLE PVR WAVEFORMS: RIGHT: Normal LEFT: Normal US/US CORBY complete IMPRESSION: Noncompressible bilateral posterior tibial arteries. Normal ankle brachial indices in the bilateral dorsalis pedis arteries. PVR waveforms are unremarkable. Electronically signed by: eDandre Fall MD 06/06/2024 08:45 AM EDT [facility] Medical History (Updated 07/17/24 @ 12:22 by Maria Isabel Munoz MD) Abdominal distension Hearing loss Annual physical exam Overweight (BMI 25.0-29.9) B12 deficiency alf (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 Diabetic polyneuropathy associated with type 2 diabetes mellitus Varicose vein of leg Osteoarthritis CKD (chronic kidney disease), stage III Umbilical hernia Peripheral neuropathy Hypokalemia Obstructive sleep apnea Anemia B-complex deficiency Hypercholesterolemia HTN (hypertension) Diabetes type 2, controlled Surgical History Umbilical hernia (07/07/24) History of colonoscopy Family History Father Diabetes mellitus CAD (coronary artery disease) HTN (hypertension) Mother Stroke Pancreatic cancer HTN (hypertension) Maternal Grandfather Abdominal aortic aneurysm CVD (cardiovascular disease) Maternal Grandmother Abdominal aortic aneurysm Paternal Grandfather CVD (cardiovascular disease) Paternal Grandmother No problems noted. Brother Diabetes mellitus Brother No problems noted. Brother No problems noted. Son No problems noted. Son No problems noted. Daughter No problems noted. Sister Hodgkins disease Social History Household Members: Spouse Housing: House Alcohol intake: current Alcohol intake frequency: 0-2 drinks per day Patient Tobacco Use Status: Never used Tobacco e-Cigarette/Vaping Use: Never Used service: No Current occupational status: retired Cognitive needs: No Hearing needs: Yes Vision needs: Yes Physical Exam Vital Signs: Last Vital Signs Pulse 51 08/25/24 08:29 BP 150/90 H 08/25/24 08:29 BMI result Body Mass Index 30.2 Office Procedures Glucose Monitoring Details Details: see HPI 55286 - Glucose monitoring, continuous-physician I&R Procedure code (CPT) selection complete Results AMB Hemoglobin A1c AMB Hemoglobin A1c 6.9 % Last Edit by MAURO Leon on 08/25/24 08:48 Results Reviewed Results Reviewed: Laboratory Last Values Glucose (Clinic) 103 mg/dL (60-115) 08/25/24 08:38 Hgb A1c (Clinic) 6.9 % (4.0-6.0) H 08/25/24 08:40 Assessment & Plan Assessment & Plan (1) Diabetes type 2, controlled: Comment: Grupo for renoprotection Dr. Bobo, on insulin pump Code(s): E11.9 - Type 2 diabetes mellitus without complications Category: Medical Qualifiers: Diabetes mellitus complication detail: with polyneuropathy Diabetes mellitus snf insulin use: with snf use Plan: This is a 68-year-old white male with a history of type 2 diabetes being managed with metformin, Farxiga and it T-slim insulin pump with excellent glycemic control and known microvascular complications namely CKD stage IIIB as well as neuropathy. A1c today 08/25/2024 at 6.9%. Pump data downloaded which also shows overall excellent control with being in target range 78% of the time. He is noted to have some hyperglycemia overnight between 02:26 and today we increased his basal rate in that segment by 10%. Patient will follow-up in 3 mos . Patient is up to date with opth, renal and podiatry. Pump seeting chnaged in bold Basal: 12:00 2.6 2A 2.8 to 3 4:30a 2.25 11:30a 2.00 1pm 1.5 2:30 1.25 4pm 1.1 6:30 2.0 10:00pm 2.6 Correction 1:19 Carb ration 12:00 1:4 1130 AM = 1:3.5 4 PM = 1:4.5 Target 120 (2) CKD (chronic kidney disease), stage III: Comment: Dr. Bobo Code(s): N18.30 - Chronic kidney disease, stage 3 unspecified Category: Medical Plan: Most recently GFR from May 2024 greater than 60. Follows with Nephrology. Continue Farxiga 10 mg daily and spironolactone 25 mg daily, irbesartan 300 mg daily (3) Hypercholesterolemia: Code(s): E78.00 - Pure hypercholesterolemia, unspecified Category: Medical Plan: LDL at 70 from May 2024. Goal LDL less than 70. Continue rosuvastatin (4) HTN (hypertension): Code(s): I10 - Essential (primary) hypertension Category: Medical Qualifiers: Hypertension type: secondary to endocrine disorders Qualified Code(s): I15.2 - Hypertension secondary to endocrine disorders Plan: Blood pressure above goal today at 150/90. However was having better numbers in June 2024. We will keep an eye on his blood pressure, might need up titration of medication in the upcoming visits. He is on nebivolol 2.5 mg daily, spironolactone 25 mg daily in a irbesartan 300 mg daily. We will consider adding amlodipine if blood pressure remains elevated. (5) alf (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: Comment: On insulin pump, follows up with shank threader every 3 months Code(s): Z79.4 - intermediate card tender (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 Category: Medical Plan: On tandem T slim insulin pump. Has backup Lantus insulin changes In case of pump failure to inject 50 units daily Has ketone strips Hypoglycemia education done Has nasal Baqsimi Plan I spent 30 minutes in reviewing the record, seeing the patient and documenting in the medical record. Orders: Orders AMB Glucose Monitoring Today E11.9 - Type 2 diabetes mellitus without complications AMB Hemoglobin A1c Today E11.9 - Type 2 diabetes mellitus without complications, Z13.9 - Encounter for screening, unspecified Patient Instructions: In case of pump failure, lantus dose : 50 units Rule of 15 Treatment for Hypoglycemia (Low blood sugar) If your blood glucose is low (70 and below)*, follow the steps below to treat: Eat or drink something from the list below equal to 15 grams of carbohydrate (carb). Rest for 15 minutes Re-check your blood glucose. If it is still low, (below 70), repeat step 1 above. ? If your next meal is more than an hour away, you will need to eat one carbohydrate choice as a snack to keep your blood glucose from going low again. ?If you can't figure out why you have low blood glucose, call your healthcare provider, as your medicine may need to be adjusted. ?Always carry something with you to treat an insulin reaction. Use food from the list below. ? Foods equal to One Carbohydrate Choice (15 grams of carbohydrate): 3 Glucose ?tablets or 4 Dextrose tablets 4 ounces of fruit juice 5-6 ounces (about 1/2 can) of regular soda such as Coke or Pepsi ? 7-8 gummy or regular Life Savers ? 1 Tbsp. of sugar or jelly NOTE: If your blood sugar is less than 50, double the portion above for a total of 30 gm. ?Carbohydrate. ? Follow meal plan of 45-60 g of consistent carbohydrates at 3 meals each day and 15 g of carbohydrate at 1-2 snacks each day. 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
[2024-08-25 08:41] LABS: Glucose, Whole Blood 103 mg/dL (60-115)
== END 2024-08-25 08:51 | disposition home or self-care (01) ==
PROVIDERS: PCP Internal Medicine; Visit Provider Student in an Organized Health Care Education/Training Program
DX: E11.9 Type 2 diabetes mellitus without complications (principal); N18.30 Chronic kidney disease, stage 3 unspecified; E78.00 Pure hypercholesterolemia, unspecified; I15.2 Hypertension secondary to endocrine disorders; Z79.4 Long term (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; Z13.9 Encounter for screening, unspecified
CPT/HCPCS: 95251; 99214

== ENCOUNTER 2024-08-25 08:28 | Outpatient (REF) | payer MEDICARE, OTHER, SELFPAY ==
[2024-08-25 10:04] LABS: Blood Urea Nitrogen 23 mg/dL (9-16); Estimated Glomerular Filt Rate 41
== END 2024-08-25 08:29 | disposition home or self-care (01) ==
LOC: HO.LAB 08:28
PROVIDERS: Absent Provider Internal Medicine; PCP Internal Medicine; Visit Provider Student in an Organized Health Care Education/Training Program
DX: E11.9 Type 2 diabetes mellitus without complications (principal); R91.1 Solitary pulmonary nodule; N18.30 Chronic kidney disease, stage 3 unspecified; E78.00 Pure hypercholesterolemia, unspecified; I15.2 Hypertension secondary to endocrine disorders; Z79.4 Long term (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
CPT/HCPCS: 36415; 82565; 82947; 83036; 84520; 99212

== ENCOUNTER 2024-09-12 08:15 | Outpatient (REF) | payer MEDICARE, OTHER, SELFPAY ==
--- NOTE | ~2024-09-12 | CT_ITS ---
CLINICAL HISTORY: R91.1 - Solitary pulmonary nodule CT chest without contrast Comparison: CT abdomen pelvis 07/09/2024, Portable chest 03/01/2017 Findings: Average size 7 mm right lower lobe pulmonary nodule current image 73 series 4 appears stable to priors CT although incompletely imaged on that exam. Stability of 12 months is reassuring although further follow-up is required. Per Fleischner society guidelines follow-up CT at 6-12 months from initial scan then consider CT at 18-24 months. No other nodules evident. Mild fibrotic/ atelectatic appearing changes in the lower lobes. No consolidation or pleural effusion. Thoracic inlet intact. No thyroid nodules. No enlarged mediastinal or hilar lymph nodes. Normal heart size. No pericardial effusion. Mild coronary artery calcification. Normal caliber thoracic aorta. Mildly patulous esophagus although otherwise within normal limits with equivocal small hiatal hernia. No acute process evident upper abdomen. No acute or aggressive appearing bone lesion. Soft tissues intact. Impression: Stable average size 7 mm right lower lobe pulmonary nodule. Additional follow-up per Fleischner society guidelines suggested as detailed above and on prior. No additional nodules. Mild fibrotic/atelectatic appearing basilar lung changes without acute consolidation or acute appearing cardiopulmonary process This document has been electronically signed by: Jacobo Neff MD on 09/12/2024 10:14:23
== END 2024-09-12 08:16 | disposition home or self-care (01) ==
LOC: HO.CT 08:15
PROVIDERS: PCP Internal Medicine; Visit Provider Internal Medicine
DX: R91.1 Solitary pulmonary nodule (principal)
CPT/HCPCS: 71250

== ENCOUNTER → 2024-09-12 08:16 | Outpatient (BNV) | payer MEDICARE, OTHER, SELFPAY | PROVIDERS: PCP Internal Medicine; Visit Provider Radiology Diagnostic Radiology | DX: R91.1 Solitary pulmonary nodule (principal) | CPT/HCPCS: 71250 ==

== ENCOUNTER 2024-10-13 10:23 | Outpatient (REF) | payer SELFPAY ==
--- OUTSIDE RECORDS SUMMARY | 2024-10-13 11:15 | XMS_ITS | Clinical Summary ---
Author Organization [facility] Address [address] [place] [address] Phone Care Team Providers Care Order Tracer Name Role Phone Maria Isabel Munoz MD Primary Care Provider [phone] Allergies Active Allergy Reactions Criticality Noted Date Comments Atorvastatin Other (see comments) 01/29/2021 Niacin Other (see comments) 01/29/2021 Sulfa Antibiotics Other (see comments) 11/12/19 22 Medications rosuvastatin (CRESTOR) 10 MG tablet Take 1 tablet by mouth 1 (one) time each day Active nebivolol (BYSTOLIC) 2.5 MG tablet Take 1 tablet by mouth 1 (one) time each day 04/03/2018 Active montelukast (SINGULAIR) 10 MG tablet Take 1 tablet by mouth 1 (one) time each day Active metFORMIN (GLUCOPHAGE) 500 MG tablet Take 1 tablet by mouth 2 (two) times a day Active loratadine (CLARITIN) 10 MG tablet Take 1 tablet by mouth 1 (one) time each day Active irbesartan (AVAPRO) 300 MG tablet Take 1 tablet by mouth 1 (one) time each day 04/03/2018 Active Glucosamine 750 MG tablet Take 1 tablet by mouth 1 (one) time each day Active fluticasone (FLONASE) 50 MCG/ACT nasal spray as needed Active ferrous sulfate 325 (65 Fe) MG EC tablet Take 1 tablet by mouth 1 (one) time each day Active ezetimibe (ZETIA) 10 MG tablet Take 1 tablet by mouth 1 (one) time each day Active Coenzyme Q10 300 MG capsule Take 1 capsule by mouth 1 (one) time each day Active clotrimazole-bet amethasone (LOTRISONE) cream as needed Active aspirin (ST FERNANDO) 81 MG EC tablet Take 1 tablet by mouth 1 (one) time each day Active Ascorbic Acid (Vitamin C ER) 1000 MG tablet controlled-relea se Take 1 tablet by mouth 1 (one) time each day Active Calcium 600-200 MG-UNIT per tablet Take 1 tablet by mouth 1 (one) time each day Active insulin aspart (NovoLOG) 100 UNIT/ML injection Inject under the skin 3 (three) times a day before meals Active Insulin Aspart (NOVOLOG SC) 100 Units novolog 100 units per day on pump Active Dapagliflozin Propanediol (Farxiga) 10 MG tabletIndication s:Type 2 diabetes mellitus with diabetic chronic kidney disease (HCC),Stage 3b chronic kidney disease (HCC) TAKE 1 TABLET BY MOUTH 1 TIME EACH DAY 90 tablet 3 11/17/2023 Active Active Problems Problem Noted Date Diagnosed Date Polyneuropathy due to type 1 diabetes mellitus 0 12/17/2021 Peripheral venous insufficiency 12/17/2021 Acquired hammer toe of left foot 12/17/2021 Stage 3b chronic kidney disease 07/30/2021 Type 2 diabetes mellitus wit h diabetic chronic kidney disease 07/30/2021 Renal osteodystrophy 07/30/2021 Benign hypertensive renal disease 01/29/2021 Chronic kidney disease stage 3 01/29/2021 Renal disorder due to type 2 diabetes mellitus 0 01/29/2021 Stage 3a chronic kidney disease 01/29/2021 Immunizations Name Administration Dates Next Due Influenza (IM) Preservative Free 020,05/04/2019,05/18/2018,05/06/2017 ,05/11/2016 Moderna SARS-COV-2 11/13/2020 Pneumococcal Conjugate 10/22/2014 Family History Medical History Relation Comments Diabetes Father Heart disease Father Heart disease Mother Stroke Mother Diabetes Sibling 1 Cancer Sibling 2 Relation Status Comments Father Mother Sibling 1 Sibling 2 Social History Tobacco Use Types Packs/Day Years Used Date Smoking Tobacco: Never Tobacco Cessation:Counseling Given: No Alcohol Use Standard Drinks/Week Comments No 0 (1 standard drink = 0.6 oz pur e alcohol) Sex and Gender Information Value Date Recorded Sex Assigned at Not on file Legal Sex Male 5:13 PM EST Gender Identity Not on file Sexual Orientation Not on file Last Filed Vital Signs Vital Sign Reading Time Taken Comments Blood Pressure 119/62 11/17/2023 4:33 PM EDT Pulse 88 11/17/2023 4:33 PM EDT Temperature - - Respiratory Rate - - Oxygen Saturation 96% 11/17/2023 4:33 PM EDT Inhaled Oxygen Concentration - - Weight 105 kg (231 lb 3.2 oz) 11/17/2023 4:33 PM EDT Height 190.5 cm (6' 3 ) 09/04/2019 12:00 PM EST Body Mass Index 28.9 09/04/2019 12:00 PM EST Plan of Treatment Upcoming Encounters Date Type Department Care Team (Late st Contact Info) Description 11/15/2024 4:15 PM EDT [facility] [address] [phone] Jaydon Brunson MD [address] [phone] Health Maintenance Due Date Last Done Comments Pneumococcal Vaccine: 65+ Years (1 of 2 - PCV) 1961 10/22/2014 Colorectal Cancer Screening: Annual FOBT 2003 Colorectal Cancer Screening: Colonoscopy 2003 Colorectal Cancer Screening: Sigmoidoscopy 2003 Diabetes: Hemoglobin A1C 09/22/2020 09/15/2019 Diabetes: Ophthalmology Exam 09/22/2020 Diabetes: Pedal Pulse Checked 09/22/2020 Diabetes: Sensory Foot Exam 09/22/2020 Diabetes: Visual Foot Exam 09/22/2020 Influenza Vaccine (#1) 2024 0, 05/04/2019, 05/18/2018, Additional history exists Hepatitis B Vaccine Aged Out No longe r eligible based on patient's age to complete this topic Procedures Procedure Name Priority Date/Time Associated Diagnosis Comments HEMOGLOBIN A1C Routine 09/15/2019 5:40 PM EST from Last 3 Months or Most Recently Relevant to Health Maintenance Results * Hemoglobin A1c (09/15/2019 5:40 PM EST) Hemoglobin A1C 6.9 % [facility] Comment: ?Hemoglobin A1C Reference Range ? Adults: ??4.8 - 6.0 % ? Non diabetic: ??< 6.0 % ? Goal: ??< 7.0 % Additional Action Suggested: ??> 8.0 % Note: ??Hemoglobin A1c results are invalid for patients ? with abnormal amounts of HbF. ??Blood transfusions ? may impact the HbA1c concentration in the patient ? sample. Estimated Average Glucose 151 MG/DL [facility] Comment: eAG = Estimated average glucose which is %A1C expressed as average glucose, using the formula of the [id number] Average Glucose study (ADAG), Diabetes Care, Vol.31,#8, Mar. 2008 09/15/2019 5:40 PM EST us Maria Isabel Munoz MD LAB BLOOD ORDERABLES Final Resu lt Performing Organization Address City/State/[facility] Co de Phone Number [facility] from Last 3 Months or Most Recently Relevant to Health Maintenance Insurance [facility] [place] [address] [place] [address] MEDICARE Care Teams Order Tracer Relationship Specialty Start Date End Date Maria Isabel Munoz MD [address] [place] [address] PCP - General Internal Medicine 01/29/21
--- OUTSIDE RECORDS SUMMARY | 2024-10-13 11:15 | XMS_ITS ---
Author Organization [facility] Address [address] [place] [address] Care Team Providers Care Collection Officer Name Role Phone Maria Isabel Munoz MD Primary Care Provider Nallely Leonardo Unavailable [phone] Allergies Allergen (clinical drug ingredient) Drug/Non Drug Allergy documented on EMR Reaction Allergy Type Onset Date Status atorvastatin Lipitor high cpk Drug Allergy Acti ve Niacin Unknown Drug Allergy Active Substance with sulfonamide structure and antibacterial mechanism of action (substance) Sulfa Antibiotics Unknown Drug Allergy Active REASON FOR VISIT Toe Irritation, At Risk Footcare Medications Medication SIG (Take, Route, Frequency, Duration) Notes Start Date End Date Status Extra Depth Orthopedic Shoes (1 Pair) with Customized Heat Molded Multidensity Innersoles (3 Pair) as directed Dx: NIDDM/Polyneuropathy (E11.42), Hammertoe Foot Deformity (M20.41,M20.42), Preulcerative Skin Lesion(s) (L85.1 09/05/2024 Active Insulin Lispro (Human) Not-Taking Clotrimazole Not-Corbin ing HumaLOG Not-Taking All Day Allergy-D No t-Taking Zetia 10 mg Not-Taki ng Loratadine Not-Takin g Bystolic Not-Taking hydrALAZINE HCl 50 MG Orally Twice a day Not-Taking Furosemide Not-Takin g Extra Depth Orthopedic Shoes (1 Pair) with Customized Heat Molded Multidensity Innersoles (3 Pair) as directed Dx: IDDM/Polyneuropathy (E10.42), Hammertoe Foot Deformity (M20.41,M20.42), Preulcerative Skin Lesion(s) (L85.1) 08/06/2020 Not-Taking Extra-Depth Diabetic Shoes with 3 Pair Custom heat-molded multi-density innersoles . 1pair shoes/3sets inserts . . for 1 year Not-Takin g Extra Depth Orthopedic Shoes (1 Pair) with Customized Heat Molded Multidensity Innersoles (3 Pair) as directed Dx: IDDM/Polyneuropathy (E10.42), Hammertoe Foot Deformity (M20.41,M20.42), Preulcerative Skin Lesion(s) (L85.1) 11/01/2018 Not-Taking Extra Depth Diabetic Shoes with 3 Pair Custom heat-molded multi-density innersoles for 1 year Dx: 04/16/2017 Not-Taking Compression Stockings 20-30mm Hg as directed 02/11/2016 Not-Taking Vitamin D Active Extra Depth Diabetic Shoes with 3 Pair Custom heat-molded multi-density innersoles for 1 year Dx: Not-Taking Vitamin C Active Vitamin B12 500 mg 1 tablet Orally Once a day Active Spironolactone Activ e Nystatin Active Nebivolol HCl Active Rosuvastatin Calcium Active NovoLOG Active Montelukast Sodium A ctive Glucosamine 750 MG Orally A ctive flonase Active iron 1 tab Oral Active Irbesartan 300 MG 1 tablet Orally Once a day Active metFORMIN HCl 500 MG Orally Twice a day Active CoQ-10 200 MG 1 capsule with a nicolas l Orally Once a day Active Clotrimazole-Betamethason e Active Farxiga Active Ezetimibe Active Claritin Active Aspirin 81 Active amLODIPine Besylate 5 MG Orally Active Calcium 600 MG 1 tablet with meals Orally Twice a day Active Betamethasone Dipropionate Active Social History Tobacco Use: Social History Observation Description Date Details (start date - stop date) Never Smoker NA - NA Alcohol Screen Question Answer Notes Did you have a drink contain ing alcohol in the past year? Yes How often did you have a dri nk containing alcohol in the past year? Monthly or less (1 point) Points 1 Interpretation Negative Tobacco use other than smoking: Question Answer Notes Are you an other tobacco user? No Tobacco Control (Standard) Question Answer Notes Tobacco use: Nonsmoker Additional Findings: Tobacco non-user Current no nsmoker Problems Problem Type SNOMED Code ICD Code Onset Dates Problem Status W/U Status Risk Notes Problem Polyneuropathy due to type 2 diabetes mellitus (212484834) Type 2 diabetes mellitus with diabetic polyneuropathy (E11.42) Active confirmed Vital Signs Height 6ft 3in in 09/05/2024 Weight 230 lbs 09/05/2024 BMI 28.74 kg/m2 09/05/2024 Blood pressure systolic 130 mm Hg 09/05/19 25 Blood pressure diastolic 63 mm Hg 025 Procedures Procedure Date Ordered Date Performed Result Body Sit e 69605-DFQORTI NAIL, 6 OR MORE 09/05/2024 N/A 62634-HJIW SKIN LESIONS, 2 TO 4 09/05/2024 N/A Encounters Encounter Location Date Provider Diagnosis [facility] [address] [address] 09/05/2024 Nallely Bowen Other hammer toe(s) (acquired), right foot M20.41 ; Other hammer toe(s) (acquired), left foot M20.42 ; Type 2 diabetes mellitus with diabetic polyneuropathy E11.42 and Tinea unguium B35.1 Assessments Encounter Date Diagnosis (ICD Code) Assessment Notes Treatment Notes Treatment Clinical Notes Section Notes 09/05/2024 Other hammer toe(s) (acquired), right foot (ICD-10 - M20.41) Patient Educated with: DIABETIC FOOT CARE INSTRUCTIONS. pdf (DIABETIC FOOT CARE INSTRUCTIONS. pdf) 09/05/2024 Other hammer toe(s) (acquired), left foot (ICD-10 - M20.42) 09/05/2024 Type 2 diabetes mellitus with diabetic polyneuropathy (ICD-10 - E11.42) 09/05/2024 Tinea unguium (ICD-10 - B35.1) Plan Of Treatment Medication Medication Name Sig Start Date Stop Date Notes Extra Depth Orthopedic Shoes (1 Pair) with Customized Heat Molded Multidensity Innersoles (3 Pair) as directed Dx: NIDDM/Polyneuropathy (E11.42), Hammertoe Foot Deformity (M20.41,M20.42), Preulcerative Skin Lesion(s) (L85.1 09/05/2024 Treatment Notes Assessment Notes Other hammer toe(s) (acquired), right fo ot Patient Educated with: DIABETIC FOOT CARE INSTRUCTIONS.pdf (DIABETIC FOOT CARE INSTRUCTIONS.pdf) Pending Test Test Name Order Date 88386-VLDGEZN NAIL, 6 OR MORE 09/05/2024 41261-FXRY SKIN LESIONS, 2 TO 4 09/05/19 Next Appt Details Follow Up: 3 Months, Reason: Provider Name:Nallely james, 12/15/2024 08:30:00 AM, [address], [address], [place], [address], Procedure Notes * Category Sub-Category Detail Notes Debride Nail 6-10 Nail debridement Due to the cl inical pathology outlined in the exam findings, performance of this nail treatment is medically necessary as its management by an unskilled/untrained nonprofessional would put this patients foot and overall health at risk. Therefore, debridement to affected nail(s), as described in exam ( TA, T1, T2, T3, T4, T5, T6, T7, T8, T9, ), was performed exclusively by the physician of record to reduce/remove overall nail length, girth, thickness, subungual debris, and necrotic tissue, by manual and/or electrical means through the use of a nail nipper and/or dremel-type head wood grinder, to a more viable healthy nail plate or bed tissue 6-10 nails in total. Silver nitrate was used for any petechial bleeding as necessary. Definitive antifungal treatment options, both pharmaceutical and surgical, have been reviewed and discussed with the patient. The patient solely prefers the use of intermittent/as needed professional debridement services for their nail condition and understands the need for additional periodic treatments to maintain effectiveness in symptomatic relief - 06825 Keratoma Treatment Parring or Cutting o f Benign Hyperkeratotic Lesion(s) (-56) 2-4 Lesions - Due to the at risk nature of the patients medical condition as documented in the exam findings, performance of this keratoderma treatment is medically necessary as its management by an unskilled/untrained nonprofessional would put this patients foot and overall health at risk. Therefore, the benign hyperkeratotic lesions, ( 3 ) in total, locations as stated and described in the exam (Plantar, Heel(s), B/L , SUB MTH (s), 1, Right), were pared, and/or cut utilizing a sterile 15 blade, tissue nippers, and/or power dremel instrumentation by the physician of record - 14365 Progress Notes * Mihai MONTGOMERY PDOB: (69 yo M)Acc No.[id number]:09/05/2024 Progress Note Patient:?Diallo MONTGOMERY Provider:?Nallely Bowen DPM :1955???Age:69 Y???Sex:Male Loy e:09/05/2024 Address:[address] [place] [address], [id number] Pcp:Maria Isabel Munoz MD Subjective: * Chief Complaints: * ???Toe IrritationAt Risk Sathya tcare * HPI: ???Toe pain:?Location:?B/L feet.?Duration:?several years.?Course:?worse.?Aggravated by:?shoes, any pressure.?Treatments:?change in shoes.?At Risk footcare:?Pt States Last PCP Visit:?Date?07/17/2024 * ROS:?General/Constitutional:?Nausea?denies.?Vomiting?denies.?Hunger Thirst?denies.?Loss appetite?denies.?Chills?denies.?Fatigue?denies.?Fever?denies.?Night Sweats?denies.?Unexplained weight loss?denies.?Unexplained weight gain?denies.?HEENTM:?Dentures?denies.?Dizziness?denies.?Glasses/contacts?admits.?Retinopathy?den ies.?Blurred/double vision?denies.?TMJ?denies.?Discharge/drainage?denies.?Implants?denies.?Sore throat?denies.?Dental implants?denies.?Hard of hearing ?denies.?Difficulty chewing/swallowing/speaking?denies.?Nose bleeds?denies.?Sore mouth?denies.?Respiratory:?On O xygen?denies.?Pneumonia/pleurisy?denies.?Bronchitis?denies.?Emphysema?denies.?Co ughing?denies.?Cough blood?denies.?Shortness of breath?denies.?Wheezing?denies.?Cardiovascular:?Pacemaker?denies.?MVP?denies.?WPW?denies.?CHF?denies.?Heart attack?denies.?Septal defect?denies.?Rapid beat?denies.?Chest pain ?denies.?Atrial Fib.?denies.?Murmur/Palpitations?denies.?Gastrointestinal:?Hemorrhoids?denies.?Stomach/Abdominal pain?denies.?Dark blood stool?denies.?Irritable bowel ?denies.?Constipation?denies.?Diarrhea?denies.?Hematology:?Swelling?denies.?Clots?denies.?Varicose Veins?denies.?Bruising?denies.?Bleeding problem?denies.?Genitourinary:?Blood urine?denies.?Frequent/Painfu/urination/bladder control?denies.?Kidney stones?denies.?Infection (UTI)?denies.?Nephropathy?denies.?sex trans dis (STD)?denies.?Prostate?denies.?Musculoskeletal:?Hammertoes?admits.?Bunions?denies.?Back Pain?denies.?Muscle Cramps/ Resting?denies.?Muscle cramps / walking?denies.?Generalized aches and pains?denies.?Weakness?denies.?Integ.:?Morrow?denies.?Scars?denies.?Corns/calluses?denies.?Ingrown nails?admits.?Painful nails?denies.?Open Sores?denies.?Rashes?denies.?Neurologic:?Difficulty sleeping?denies.?Brain disorder?denies.?Numbness?denies.?Balance t rouble?denies.?Confusion?denies.?Fainting/blackouts?denies.?Tingling?denies.?Mark Anthony mors?denies.? * Medical History:? * Surgical History:?arm 1988ha nd/wrist 1988tonsillectomy 1958umbilical hernia 06/2024 * Hospitalization/Major Diagno stic Procedure:?No Hospitalization History. * Family History:?Mother: dece ased, diagnosed with Other malignant neoplasm of unspecified site, Unspecified essential hypertension, Unspecified cerebral artery occlusion with cerebral infarction, Family history of arthritis.?Father: , heart attack, diagnosed with Diabetic - NIDDM, Unspecified essential hypertension, Unspecified heart disease, Family history of arthritis.?Daughter(s): alive.?Son(s): alive.?Siblings: cancer.?Spouse: alive.?2 son(s) , 1 daughter(s) . .? * Social History:?Tobacco Use:?Tobacco use other than smoking?Are you an other tobacco user??No ?Tobacco Control (Standard)?Tobacco use:?Nonsmoker ?Additional Findings: Tobacco non-user?Current nonsmoker ???Drugs/Alcohol:?Drugs?Have you used drugs other than those for medical reasons in the past 12 months??No ?Alcohol Screen?Did you have a drink containing alcohol in the past year??Yes ?How often did you have a drink containing alcohol in the past year??Monthly or less (1 point) ?Points?1 ?Interpretation?Negative ???Miscellaneous:?Caffeine: yes, a pot a day. ?Children: yes, three. ?Exercise: yes. ?Marital status: . 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 * Medications:?TakingamLODIPin e Besylate 5 MG Tablet Orally Aspirin 81 Betamethasone Dipropionate Calcium 600 MG Tablet 1 tablet with meals Orally Twice a day Claritin Clotrimazole-Betamethasone CoQ-10 200 MG Capsule 1 capsule with a meal Orally Once a day Ezetimibe Farxiga flonase Glucosamine 750 MG Tablet Orally Irbesartan 300 MG Tablet 1 tablet Orally Once a day iron 1 tab Oral metFORMIN HCl 500 MG Tablet Orally Twice a day Montelukast Sodium NovoLOG Nebivolol HCl Nystatin Rosuvastatin Calcium Spironolactone Vitamin D Vitamin B12 500 mg Tablet 1 tablet Orally Once a day Vitamin C Taking amLODIPine Besylate 5 MG Tablet Orally Taking Aspirin 81 Taking Betamethasone Dipropionate Taking Calcium 600 MG Tablet 1 tablet with meals Orally Twice a day Taking Claritin Taking Clotrimazole-Betamethasone Taking CoQ-10 200 MG Capsule 1 capsule with a meal Orally Once a day Taking Ezetimibe Taking Farxiga Taking flonase Taking Glucosamine 750 MG Tablet Orally Taking Irbesartan 300 MG Tablet 1 tablet Orally Once a day Taking iron 1 tab Oral Taking metFORMIN HCl 500 MG Tablet Orally Twice a day Taking Montelukast Sodium Taking NovoLOG Taking Nebivolol HCl Taking Nystatin Taking Rosuvastatin Calcium Taking Spironolactone Taking Vitamin D Taking Vitamin B12 500 mg Tablet 1 tablet Orally Once a day Taking Vitamin C Not-Taking/PRNExtra Depth Diabetic Shoes with 3 Pair Custom heat-molded multi- density innersoles for 1 year Dx: Compression Stockings 20-30mm Hg closed toe- knee high as directed Extra Depth Diabetic Shoes with 3 Pair Custom heat-molded multi-density innersoles for 1 year Dx: Extra Depth Orthopedic Shoes (1 Pair) with Customized Heat Molded Multidensity Innersoles (3 Pair) as directed Dx: IDDM/Polyneuropathy (E10.42), Hammertoe Foot Deformity (M20.41,M20.42), Preulcerative Skin Lesion(s) (L85.1) Extra-Depth Diabetic Shoes with 3 Pair Custom heat-molded multi-density innersoles . . 1pair shoes/3sets inserts . . Extra Depth Orthopedic Shoes (1 Pair) with Customized Heat Molded Multidensity Innersoles (3 Pair) as directed Dx: IDDM/Polyneuropathy (E10.42), Hammertoe Foot Deformity (M20.41,M20.42), Preulcerative Skin Lesion(s) (L85.1) Furosemide hydrALAZINE HCl 50 MG Tablet Orally Twice a day Loratadine Zetia 10 mg Bystolic Insulin Lispro (Human) Clotrimazole All Day Allergy-D HumaLOG Medication List reviewed and reconciled with the patientNot-Taking/PRN Extra Depth Diabetic Shoes with 3 Pair Custom heat-molded multi-density innersoles for 1 year Dx: Not-Taking/PRN Compression Stockings 20-30mm Hg closed toe- knee high as directed Not-Taking/PRN Extra Depth Diabetic Shoes with 3 Pair Custom heat-molded multi-density innersoles for 1 year Dx: Not-Taking/PRN Extra Depth Orthopedic Shoes (1 Pair) with Customized Heat Molded Multidensity Innersoles (3 Pair) as directed Dx: IDDM/Polyneuropathy (E10.42), Hammertoe Foot Deformity (M20.41,M20.42), Preulcerative Skin Lesion(s) (L85.1) Not-Taking/PRN Extra-Depth Diabetic Shoes with 3 Pair Custom heat-molded multi-density innersoles . . 1pair shoes/3sets inserts . . Not- Taking/PRN Extra Depth Orthopedic Shoes (1 Pair) with Customized Heat Molded Multidensity Innersoles (3 Pair) as directed Dx: IDDM/Polyneuropathy (E10.42), Hammertoe Foot Deformity (M20.41,M20.42), Preulcerative Skin Lesion(s) (L85.1) Not-Taking/PRN Furosemide Not-Taking/PRN hydrALAZINE HCl 50 MG Tablet Orally Twice a day Not-Taking/PRN Loratadine Not-Taking/PRN Zetia 10 mg Not-Taking/PRN Bystolic Not-Taking/PRN Insulin Lispro (Human) Not-Taking/PRN Clotrimazole Not-Taking/PRN All Day Allergy-D Not-Taking/PRN HumaLOG Medication List reviewed and reconciled with the patient * Allergies:?Lipitor: high cpk NiacinSulfa Antibioticsyes[Allergies Verified] Objective: * Vitals:?Ht: 6ft 3in, Wt:230, BMI:28.74, Shoe size: 12, BP:130/63mm Hg, BS: 115, Ht-cm: 190.5 cm, Wt-k.33 kg. * ???Past Orders: ???Lab:HEMOGLOBIN A1C (GLYCO HEMOGLOBIN) (Order Date - 09/05/2024) (Collection Date & Time - 09/05/2024 08:42 AM) ? Value Reference Range ?HEMOGLOBIN A1C % (HH) 6.9 * Examination: ???Ophthalmology Referral: ?DIABETES EYE EXAM?Orthopedic: ?MUSCLE STRENGTH:?5/5 all groups in a symmetrical fashion, B/L.?DIGITAL DEFORMITIES:?Digital contracture, PIPJ, 2-5 B/L, incompl-reducible to push-up test, no over, nor underlapping,?there is?evidence of shoe producing skin irritation.?FOOTWEAR:?worn, non-supportive, shoe gear properties exacerbate patient's foot/toe deformity.?General Examination: ?GENERAL APPEARANCE:?Reveals a pleasant, alert, well nourished, well- developed, well hydrated individual, who demonstrates proper attention to hygiene/body habitus, and is in no acute distress, Pt serves as own historian for office visit today.?ORIENTED:?person, place, and time.?FOOT EXAM:?Footwear Evaluation?Neurological: ?SENSORY:? Neurological exam demonstrates, reduced light touch sensation, reduced sharp/dull pin prick discrimination , B/L, 5.07 monofilament test performed at plantar aspects of 5 varied sites per foot shows sensation, reduced , B/L.?Nails: ?NAILS are:?Elongated, overgrown, dystrophic, lytic, greater than 3mm thick, discolored and friable with crumbly malodorous subungual debris.?Dermatologic: ?SKIN FINDINGS:?Skin exam reveals Keratotic lesion(s) located at, Plantar, Heel(s), B/L , SUB MTH (s), 1, Right.?Vascular: ?DP PULSES (B):?1/4, B/L.?PT PULSES (B):?2/4, B/L.?CAPILLARY FILL TIME:?3 secs. per digit, B/L.?TROPHIC CONDITION-TEXTURE/ELASTICITY/TURGOR/HAIR GROWTH (B):?normal, B/L.?TEMPERTURE GRADIENT (C):?warm to cool, proximal to distal, B/L.?PIGMENTATION:?normal, B/L.?EDEMA (C):?no edema.?TELANGECTASIA:?absent.?VARICOSITIES:?absent.? Assessment: * Assessment: 1.?Other hammer toe(s) (acqu ired), right foot - M20.41 (Primary)???Specify :Chronic problem, Worse (4),Rx Management (4)???2.?Other hammer toe(s) (acquired), left foot - M20.42???Specify :Chronic problem, Worse (4),Rx Management (4)???3.?Type 2 diabetes mellitus with diabetic polyneuropathy - E11.42???4.?Tinea unguium - B35.1??? Plan: * Treatment: 2.?Type 2 diabetes mellitus with diabetic polyneuropathy?Procedure: [id number] NAIL, 6 OR MORE ?Procedure: [id number]-URXW SKIN LESIONS, 2 TO 4 * Procedures:?Debride Nail 6-10:?Nail debridement?Due to the clinical pathology outlined in the exam findings, performance of this nail treatment is medically necessary as its management by an unskilled/untrained nonprofessional would put this patients foot and overall health at risk. Therefore, debridement to affected nail(s), as described in exam ( TA, T1, T2, T3, T4, T5, T6, T7, T8, T9, ), was performed exclusively by the physician of record to reduce/remove overall nail length, girth, thickness, subungual debris, and necrotic tissue, by manual and/or electrical means through the use of a nail nipper and/or dremel-type head wood grinder, to a more viable healthy nail plate or bed tissue 6- 10 nails in total. Silver nitrate was used for any petechial bleeding as necessary. Definitive antifungal treatment options, both pharmaceutical and surgical, have been reviewed and discussed with the patient. The patient solely prefers the use of intermittent/as needed professional debridement services for their nail condition and understands the need for additional periodic treatments to maintain effectiveness in symptomatic relief - 06204.?Keratoma Treatment:?Parring or Cutting of Benign Hyperkeratotic Lesion(s)?(-56) 2-4 Lesions - Due to the at risk nature of the patients medical condition as documented in the exam findings, performance of this keratoderma treatment is medically necessary as its management by an unskilled/untrained nonprofessional would put this patients foot and overall health at risk. Therefore, the benign hyperkeratotic lesions, ( 3 ) in total, locations as stated and described in the exam (Plantar, Heel(s), B/L , SUB MTH (s), 1, Right), were pared, and/or cut utilizing a sterile 15 blade, tissue nippers, and/or power dremel instrumentation by the physician of record - 28738.? * Procedure Codes:?52702 DEBRI DE NAIL, 6 OR MORE, Modifiers: XS 86619 TRIM SKIN LESIONS, 2 TO 4, Modifiers: XS 3044F HG A1C LEVEL LT 7.0% * Preventive Medicine:? ??Counseling:?Discussion:?-14: Office or other outpatient visit for the evaluation and management of an established patient, which required a medically appropriate history and/or examination and MODERATE level of DECISION MAKING for: 1 OR MORE CHRONIC PROBLEM(S) THATS WORSENING, 2 STABLE CHRONIC PROBLEMS, A NEWLY DIAGNOSED PROBLEM WITH UNCERTAIN PROGNOSIS, AN ACUTE COMPLICATED INJURY WITH MULTIPLE TREATMENT OPTIONS, OR AN ACUTE PROBLEM WITH ACCOMPANYING SYSTEMIC SYMPTOMS, THAT POSE(S) A MODERATE RISK OF MORBIDITY. THIS CONDITION MAY ALSO INCLUDE RX DRUG MANAGEMENT, OR A DECISON FOR MINOR SURGERY. The visit on the day of the encounter encompassed interpreting the data and educating the patient as to the nature of their condition, treatment options available according to their individual PMH, meds, allergies, and overall health/living conditions, as well as any potential risks or complications that may occur from a failure to adhere to, and participate in, the recommended course of therapy. The discussion included a complete verbal, and/or written explanation of the examination results, any x-rays taken, the proposed diagnosis, and outline of the treatment plan. A schedule for future care needs was also explained. The patient verbalized an understanding of the instructions at this time and agreed to be an active participant in their treatment. If the patient should think of any questions or concerns after the visit, I have encouraged the patient to call the office.?Digital Surgery:?Digital surgery was discussed with the patient, We elected to try conservative treatment at the present time, due to the patients medical history and increased asssociated post-operative risks.?Digital Treatment:?HT- I explained to the patient the possible etiologies of Hammertoes, including genetics/foot type/shoegear/activity level/exercise routine and the risks/benefits of all the different treatment options for their pain including: No treatment at all, Rest, Ice, New/supportive/wider/deeper Shoegear, Digital Padding/Strapping/Taping/Bracing/Gel protective sleeves, Foot/Ankle AFO Bracing, Stretching exercises, Deep Tissue Massage, Arch support/shoe inserts with splay metatarsal padding, and Custom orthoses. I insisted that any digital devices be removed daily and not worn overnight for safety. The patient is to carefully examine the toes daily for any skin irritation while using any splinting or padding device. The advantages and disadvantages of each option were discussed and the patients questions re: shoegear, padding, custom vs prefabricated inserts, activity level, and consistency in home treatment regimens for optimal success were answered to their verbally confirmed satisfaction.?Shoe Gear Counseling:?SHOE Rx - The patient was counseled in great detail on their muscoloskeletal foot and toe deformities which coincided with the dermatological presentations visualized on exam. We discussed how their deformities put the integrity of their feet at risk for potential pedal complications which makes the accomidative diabetic shoes and cutomizable inserts medically necessary. We discussed the different shoe and insert treatment types and options, as well as the important advantages for adhering to regularly wearing these accomidative devices daily. The patient was made aware of the fact that a failure to abide by these recommedations may be deleterious to their foot health as they are able to prevent many pedal complications such as skin irritation, skin ulceration, infection, and even loss of toe/foot/leg/or life. Time was also spent with the patient dispensing and discussing proper diabetic footcare techniques including daily skin moisturization, daily foot inspection for any interruption in skin integrity including open lesions, or sign of infection such as redness/malodor/drainage/swelling. Also discussed and recommended were procedures regarding daily shoe inspection for the presence of internal foreign bodies as well as any visualized irregular shoe or insert wear. Patient questions re: shoes, inserts, and self foot inspections were answered to their satisfaction as the patient verbally confirmed a full understanding of the above information. A Rx for Extra Depth Orthopedic Shoes with 3 pair of custom heat-molded inserts was dispensed.?Ulcer:?.? ??Screening/Special Tests:?Fall Risk?Screening:?No falls in the past year ?FALLS: Screening for Future Fall Risk?Have you had any falls with injury in the past year??No * Follow Up:?3 Months * Images: * Sign off status: Completed true * Provider:?Nallely Bowen DPM Date:?0 09/05/2024 Generated for Ritchie hernandez/Cate/Linda on:?10/13/2024 11:14 AM EST History and Physical Notes * HPI (History of Present Illness) Category Sub-Category Detail Notes Category Not es Toe pain Location: B/L feet Duration: several years Course: worse Aggravated by: shoes, any pressure Treatments: change in shoes At Risk footcare Pt States Last PCP Visit: Date: 4 Examination Category Sub-Category Detail Notes Category Not es Neurological SENSORY: Neurological exa m demonstrates, reduced light touch sensation, reduced sharp/dull pin prick discrimination , B/L, 5.07 monofilament test performed at plantar aspects of 5 varied sites per foot shows sensation, reduced , B/L Dermatologic SKIN FINDINGS: Skin exam reveal s Keratotic lesion(s) located at, Plantar, Heel(s), B/L , SUB MTH (s), 1, Right Orthopedic FOOTWEAR: worn, non-suppor tive, shoe gear properties exacerbate patient's foot/toe deformity DIGITAL DEFORMITIES: Digital contracture , PIPJ, 2-5 B/L, incompl-reducible to push-up test, no over, nor underlapping, there is evidence of shoe producing skin irritation MUSCLE STRENGTH: 5/5 all groups in a symmetrical fashion, B/L General Examination GENERAL APPEARANCE: Reveals a pleasant, alert, well nourished, well-developed, well hydrated individual, who demonstrates proper attention to hygiene/body habitus, and is in no acute distress, Pt serves as own historian for office visit today FOOT EXAM: Lower Extremity Neurological Exa m performed:: Yes Date Visual exam of foot performed:: Yes ORIENTED: person, place, and t rudy Footwear Evaluation Footwear Evaluation performe d:: Yes Ophthalmology Referral DIABETES EYE EXAM Procedure Perform ed:: Yes ?Date of Exam Performed: 04/24/2024 Vascular DP PULSES (B): 1/4, B/L PT PULSES (B): 2/4, B/L CAPILLARY FILL TIME: 3 secs. per digit, B/L TEMPERTURE GRADIENT (C): warm to cool, p roximal to distal, B/L TROPHIC CONDITION-TEXTURE/ELASTICITY/TURGOR/HAIR GROWTH (B): normal, B/L EDEMA (C): no edema TELANGECTASIA: absent VARICOSITIES: absent PIGMENTATION: normal, B/L Nails NAILS are: Elongated, overg rown, dystrophic, lytic, greater than 3mm thick, discolored and friable with crumbly malodorous subungual debris
--- OUTSIDE RECORDS SUMMARY | 2024-10-13 11:15 | XMS_ITS ---
Author Organization [facility] Address [address] [place] [address] Care Team Providers Care Manufacturing Accountant Name Role Phone Maria Isabel Munoz MD Primary Care Provider Nallely Leonardo Unavailable [phone] Nayan Luther [phone] Tello Encounters Encounter Location Date Provider Diagnosis [facility] [address] 03/10/2024 Nayan Luther Plan Of Treatment Next Appt Details Provider Name:Nallely james, 12/15/2024 08:30:00 AM, [address] [place] [address], [phone], Progress Notes * Mihai MONTGOMERY PDOB: (69 yo M)Acc No.[id number]:03/10/2024 Progress Note Patient:?Diallo MONTGOMERY Provider:?Nayan Luther DPM :1955???Age:68 Y???Sex:Male Loy e:03/10/2024 Address:[address] [place] [address] Ashley Snow [id number] Pcp:Maria Isabel Munoz MD Subjective: * Chief [...] DPM Date:? 024 Generated for Ritchie hernandez/Cate/Linda on:?10/13/2024 11:15 AM EST
--- OUTSIDE RECORDS SUMMARY | 2024-10-13 11:15 | XMS_ITS ---
Author Organization [facility] Address [address] [facility] [place] [address] Care Team Providers Care Population Health Manager Name Role Phone Maria Isabel Munzo MD Primary Care Provider Unavaila Nallely Mena Unavailable [phone] Nayan Luther Unavailable [phone] Allergies Allergen (clinical drug ingredient) Drug/Non Drug [...] 06/06/2024 Encounters Encounter Location Date Provider Diagnosis [facility] [address] [address] 06/06/2024 Nayan Luther Type 1 diabetes mellitus [...] Treatment Notes Treatment Clinical Notes Section Notes 06/06/2024 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 - E10.42) 06/06/2024 Tinea unguium (ICD-10 - B35.1) 06/06/2024 Ingrowing nail (ICD-10 - [...] Provider Name:Nallely james, 12/15/2024 08:30:00 AM, [address] [facility], [address], [place], [address], Procedure Notes * Category Sub-Category Detail Notes [...] as necessary. Patient chooses, no pharmaceutical tx (34270) Keratoma Treatment Parring or Cutting o f Benign Hyperkeratotic Lesion(s) (-56) 2-4 Lesions - The Benign hyperkeratotic lesions, as described above were pared, and/or cut utilizing a sterile 15 blade, tissue nippers, and/or dremel - 70535 Progress Notes * Mihai MONTGOMERY PDOB: (69 yo M)Acc No.[id number]:06/06/2024 Progress Note Patient:?Diallo Montgomery P Provider:?Nayan Luther DPM :1955???Age:69 Y???Sex:Male Loy e:06/06/2024 Address:[address] [place] [address] [id number] Pcp:Maria Isabel Munoz MD Subjective: * Chief [...] three. ?Exercise: yes. ?Marital status: . 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 * Medications:?TakingamLODIPin e Besylate 5 MG [...] as necessary. Patient chooses, no pharmaceutical tx (25190).?Keratoma Treatment:?Parring or Cutting of Benign Hyperkeratotic Lesion(s)?(-56) 2-4 Lesions - The Benign hyperkeratotic lesions, as described above were pared, and/or cut utilizing a sterile 15 blade, tissue nippers, and/or dremel - 32951.? * Procedure Codes:?08872 DEBRI DE NAIL, 6 OR MORE, Modifiers: XS 49614 TRIM SKIN LESIONS, 2 TO 4, Modifiers: XS * Follow Up:?3 Months * Images: * Sign off status: Completed true * Provider:?Nayan Luther DPM Date:? 024 Generated for Ritchie hernandez/Cate/eTransmitting on:?10/13/2024 11:15 AM EST History and Physical Notes * HPI (History of Present Illness) Category Sub-Category Detail Notes Category Not es Ingrown toenail Nature: aching, tenderness Location: Both feet, Great toe , Second toe Painful Nails Pt States Last PCP Visit: Date:: 12/06/2023 Foot Pain Nature: aching Location: Bottom, Forefoot, LE FT Onset: unknown Course: improved Aggravated: any pressure, standi ng, walking Examination Category Sub-Category Detail Notes Category Not es Neuroma Pain PALPATION: No interspace pain noted on palpation Neurological SENSORY: Neurological exa [...] 1, Right Orthopedic FOOT MORPHOLOGY: Pes Cavus structure, B/L DIGITAL DEFORMITIES: Digital contracture , PIPJ, [...] Eye Exam:: no retin opathy Vascular DP PULSES (B): 1/4, B/L PT [...]
--- NOTE | 2024-10-13 11:46 | MHC.AU.HA3 ---
Hearing Instrument Follow-Up- Binaural Date of Visit: 10/13/24 Right Ear: Christos, Model, Color, Serial Number: Meryl Dickerson [id number] SN: [id number] Color: Ericagne Drop Wire Hanger Repair Warranty: 03/25/2025 Drop Wire Hanger Loss and Damage Warranty: 03/25/2025 [facility] Service Plan: 03/25/2025 Battery Size: 13 Product Communications Manager/Slim Tube: 1M Earmold/Dome/CShell/SlimTip:Small open dome (no retention tail) Type of Wax Guard: Cerushield Dispensed By: [facility] Date of Fittin01/08/2022 Left Ear: Christos, Model, Color, Serial Number: Meryl Dickerson [id number] SN: [id number] Color: Champagne Drop Wire Hanger Repair Warranty: 03/25/2025 Drop Wire Hanger Loss and Damage Warranty: 03/25/2025 [facility] Service Plan: 03/25/2025 Battery Size: 13 Product Communications Manager/Slim Tube: 1M Earmold/Dome/CShell/SlimTip: Small open dome (no retention tail) Type of Wax Guard: Cerushield Dispensed By: [facility] Date of Fittin01/08/2022 Follow-Up Summary: Reports intermittent static right. Cleaned and checked aids, cleaned battery contacts, ran through dehumidifier. Still heard brief static in office. Sending for repair. Also sending left as Christopher requests check before end of warranty. Set up loaners. Recommendations: Recommendations: Patient will be contacted when materials have arrived. Recommendations (Other): Needs appt to unpair loaners and re-pair is aids with phone. Diagnosis Code(s): Primary Diagnosis: H90.3 Bilateral Sensorineural Hearing Loss Signature: Provider: Liat Bradley, CCC-A
== END 2024-10-13 10:24 | disposition home or self-care (01) ==
LOC: HO.HAP 10:23
PROVIDERS: Visit Provider Internal Medicine
DX: Z13.89 Encounter for screening for other disorder (principal)

== ENCOUNTER 2024-11-06 14:24 | Outpatient (REF) | payer SELFPAY ==
--- NOTE | 2024-11-06 15:08 | MHC.AU.HA3 ---
Hearing Instrument Follow-Up- Binaural Date of Visit: 11/06/24 Right Ear: Christos, Model, Color, Serial Number: Meryl Dickerson [id number] SN: [id number] Color: Mikalae Road Patcher Repair Warranty: 03/25/2025 Road Patcher Loss and Damage Warranty: 03/25/2025 [facility] Service Plan: 03/25/2025 Battery Size: 13 Campus Safety Officer/Slim Tube: 1M Earmold/Dome/CShell/SlimTip:Small open dome (no retention tail) Type of Wax Guard: Cerushield Dispensed By: [facility] Date of Fittin01/08/2022 Left Ear: Christos, Model, Color, Serial Number: Meryl Dickerson [id number] SN: [id number] Color: Ericagne Road Patcher Repair Warranty: 03/25/2025 Road Patcher Loss and Damage Warranty: 03/25/2025 [facility] Service Plan: 03/25/2025 Battery Size: 13 Campus Safety Officer/Slim Tube: 1M Earmold/Dome/CShell/SlimTip: Small open dome (no retention tail) Type of Wax Guard: Cerushield Dispensed By: [facility] Date of Fittin01/08/2022 Follow-Up Summary: Returned loaners, picked up aids from repair. Disconnected loaners from phone and paired his aids with phone. All set. Recommendations: Recommendations: Hearing instrument follow-up or maintenance as needed. Diagnosis Code(s): Primary Diagnosis: H90.3 Bilateral Sensorineural Hearing Loss Signature: Provider: Liat Bradley, [facility]
== END 2024-11-06 14:25 | disposition home or self-care (01) ==
LOC: HO.HAP 14:24
PROVIDERS: Visit Provider Internal Medicine
DX: Z13.89 Encounter for screening for other disorder (principal)

== ENCOUNTER 2024-11-24 08:27 | Outpatient (AMB) | payer MEDICARE, OTHER, SELFPAY ==
--- NOTE | 2024-11-24 08:29 | A.OFFVIS_ITS ---
Vital Signs 3 11/24/24 08:35 Height 6 ft 2 in Weight 235 lb 14.314 oz BMI 30.3 BP 136/82 Blood Pressure Location Rt brachial Position Sitting Pulse 56 Pulse Source Pulse Oximeter Pulse Oximetry (%) 96 Oxygen Delivery Method Room Air Intake Visit Reasons: T2DM Intake Note: Patient present today for Type 2 Diabetes Mellitus Last Diabetic eye exam:04/2024 Last Podiatry Visit: 08/2024 Random Glucose:135 mg/dl HgA1C: 6.5% Accompanied by: Self / Same As Patient Allergies niacin [NIACIN] Allergy (Mild, Verified 11/24/24 08:35) ITCHING, itchy, itchy Naqmbid-TQW-QaK Reductase Inhibitor [GQOWJAI-SNH-ESK REDUCTASE INHIBITOR] Allergy (Unknown, Verified 11/24/24 08:35) HIGH CPK atorvastatin [Lipitor] Adverse Reaction (Unknown, Verified 11/24/24 08:35) high CPK HPI Comments Details: Patient is 69 year old male with DM type 2 diagnosed at 35 years of age, who presents for management of diabetes. Past medical history: DM2, HTN, HLD, CKD3, Charcot arthopathy Micro and macrovascular complications: no retinopathy, + nephropathy, + neuropathy, no CVA, CAD, PVD. Diabetes medications: metformin 500 mg BID, intolerant of higher doses. Farxiga 10 mg. Novolog via TAndem pump with control IQ Insulin pump and CGM data downloaded from November 11 to 11/24/2024 Have his reading 150 mg/dL Time in range 86% Time high 14% Time very high 0.3% Time low 0% Time CGM and use 100% Standard deviation 28 mg/dL Coefficient of variation 18% G mi 6.9% Interpretation [excellent control most of the day with no hypoglycemia, though does have some hyperglycemia overnight between 00:00 and 02:00, his pump basal leaves H is also a little bit more than the settings entered, we can go up on the basal rate by 10% during that segment. Some days I do notice he is bolusing himself a little bit later than he eats but otherwise doing okay. ] Basal: 12:00 2.6 2A 3 4:30a 2.25 11:30a 2.00 1pm 1.5 2:30 1.25 4pm 1.1 6:30 2.0 10:00pm 2.6 Correction 1:19 Carb ration 12:00 1:4 1130 AM = 1:3.5 4 PM = 1:4.5 Target 120 Symptoms reported: + numbness, tingling, nocramping in lower extremities Hypoglycemia: None recent . No hypoglycemia Hyperglycemia: + urinary frequency (takes diurectics), denies nocturia, polydypsia Exercise: walking 20 - 30 minutes on most days. Site Monitor: every [address] Manzanares Ophthalmology evaluation: 04/2024 no retinopathy. For [facility] Other specialists: Dr. Brunson, soccer referee. Stimulate C-peptide was> 2 and antibodies were negative confirming presence of type 2 diabetes and insulin reserve [facility] screen labs 07/10/24 Fibrosis-4 (Fib-4) Index for liver fibrosis (calculated on lab work done: ) [1.81 ] points Advanced fibrosis [excluded ] Approximate Fibrosis stage Memo [2-3 ] *Use with caution in patients <35 or >65 years old, as the score has been shown to be less reliable in these patients. Prior Imaging [none] Action Plan: [] rescreen two years from date of screening labs[ ] Physical exam General: sitting comfortably in no acute distress HEENT: normocephalic/atraumatic, Neck: supple, symmetrical, no thyromegaly , no dorsocervical or supraclavicular fat pads Cardiac: normal heart sounds Pulm: normal breath sounds B/L, no added breath sounds Abd: not distended, no tenderness Extremities: no edema, no signs of myxedema Neuro: AAO x3, Speech: normal, no facial droop, moving all 4 extremities Skin: no rash Laboratory Tests 11/30/23 06/01/24 06/01/24 08:50 09:57 09:58 Plt Count Creatinine Estim Creat Clear Calc Estimated GFR Hemoglobin A1c % 6.4 H 6.2 H AST ALT Cholesterol 147 LDL Cholesterol, Calc 70 HDL Cholesterol 46 Vitamin B12 495 Urine Creatinine 110.51 Urine Microalbumin 9.0 Microalb/Creat Ratio 8.1 07/09/24 20:47 Plt Count 168 Creatinine 1.12 Estim Creat Clear Calc 79.0 Estimated GFR > 60 Hemoglobin A1c % AST 22 ALT 27 Cholesterol LDL Cholesterol, Calc HDL Cholesterol Vitamin B12 Urine Creatinine Urine Microalbumin Microalb/Creat Ratio labs done at [facility] 10/24/24 showed me on phone albumin /cr ratio 10 Plt 160 cr 1.5 gfr 50 EXAMINATION: 06/01/24 Noninvasive assessment of the arteries of both lower extremities to include a single level PVR exam and ANKLE BRACHIAL INDICES (ABIs). CLINICAL INFORMATION: Peripheral vascular disease TECHNIQUE: The ankle/brachial indices of the distal posterior tibial and the dorsalis pedis arteries were obtained of the lower extremity arterial system bilaterally; along with pressures and pulse volume recordings at the ankle level. The study was performed at rest. COMPARISON: None FINDINGS: 1. ANKLE-BRACHIAL INDICES: RIGHT: 1.06 in the dorsalis pedis artery. Noncompressible posterior tibial artery LEFT: 1.08 and the dorsalis pedis artery. Noncompressible in the posterior tibial artery 2. ANKLE PVR WAVEFORMS: RIGHT: Normal LEFT: Normal US/US CORBY complete IMPRESSION: Noncompressible bilateral posterior tibial arteries. Normal ankle brachial indices in the bilateral dorsalis pedis arteries. PVR waveforms are unremarkable. Electronically signed by: Deandre Fall MD 06/06/2024 08:45 AM EDT [facility] Medical History Abdominal distension Hearing loss Annual physical exam Overweight (BMI 25.0-29.9) B12 deficiency [facility]CI (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 Diabetic polyneuropathy associated with type 2 diabetes mellitus Varicose vein of leg Osteoarthritis CKD (chronic kidney disease), stage III Umbilical hernia Peripheral neuropathy Hypokalemia Obstructive sleep apnea Anemia B-complex deficiency Hypercholesterolemia HTN (hypertension) Diabetes type 2, controlled Surgical History Umbilical hernia (07/07/24) History of colonoscopy Family History Father Diabetes mellitus CAD (coronary artery disease) HTN (hypertension) Mother Stroke Pancreatic cancer HTN (hypertension) Maternal Grandfather Abdominal aortic aneurysm CVD (cardiovascular disease) Maternal Grandmother Abdominal aortic aneurysm Paternal Grandfather CVD (cardiovascular disease) Paternal Grandmother No problems noted. Brother Diabetes mellitus Brother No problems noted. Brother No problems noted. Son No problems noted. Son No problems noted. Daughter No problems noted. Sister Hodgkins disease Social History Household Members: Spouse Housing: House Alcohol intake: current Alcohol intake frequency: 0-2 drinks per day Patient Tobacco Use Status: Never used Tobacco e-Cigarette/Vaping Use: Never Used service: No Current occupational status: retired Cognitive needs: No Hearing needs: Yes Vision needs: Yes Physical Exam Vital Signs: Last Vital Signs Pulse 56 11/24/24 08:35 BP 136/82 11/24/24 08:35 Pulse Ox 96 11/24/24 08:35 Oxygen Delivery Method Room Air 11/24/24 08:35 BMI result Body Mass Index 30.3 Office Procedures Glucose Monitoring Details Details: see [facility] [address] - Glucose monitoring, continuous-physician I&R Procedure code (CPT) selection complete Results AMB Hemoglobin A1c 2 AMB Hemoglobin A1c 6.5 % Last Edit by MAURO Ochoa on 11/24/24 09:05 Results Reviewed Results Reviewed: Laboratory Last Values Glucose (Clinic) 135 mg/dL (60-115) H 11/24/24 08:40 Assessment & Plan Assessment & Plan (1) Diabetes type 2, controlled: Comment: Grupo for renoprotection Dr. Bobo, on insulin pump Code(s): E11.9 - Type 2 diabetes mellitus without complications Category: Medical Qualifiers: Diabetes mellitus intermediate insulin use: with brush sander use Diabetes mellitus complication detail: with polyneuropathy Diabetes mellitus complication status: with neurologic complications Qualified Code(s): E11.42 - Type 2 diabetes mellitus with diabetic polyneuropathy; Z79.4 - litigation claim representative (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 Plan: This is a 68-year-old white male with a history of type 2 diabetes being managed with metformin, Farxiga and it T-slim insulin pump with excellent glycemic control and known microvascular complications namely CKD stage IIIB as well as neuropathy. A1c today 6.5% down from 08/25/2024 at 6.9%. Pump data downloaded which also shows overall excellent control with being in target range 86 % of the time. He is noted to have some hyperglycemia overnight between midnight to 02:00 and today we increased his basal rate in that segment by 10%. Patient will follow-up in 3 mos . Patient is up to date with opth, renal and podiatry. Pump seeting chnaged in bold Basal: 12:00 2.6 to 2.8 2A 3 4:30a 2.25 11:30a 2.00 1pm 1.5 2:30 1.25 4pm 1.1 6:30 2.0 10:00pm 2.6 Correction 1:19 Carb ration 12:00 1:4 1130 AM = 1:3.5 4 PM = 1:4.5 Target 120 (2) CKD (chronic kidney disease), stage III: Comment: Dr. Bobo Code(s): N18.30 - Chronic kidney disease, stage 3 unspecified Category: Medical Qualifiers: Chronic kidney disease stage 3 subtype: stage 3a (GFR 45-59) Qualified Code(s): N18.31 - Chronic kidney disease, stage 3a Plan: Most recently GFR from May 2024 greater than 60. Follows with Nephrology. Continue Farxiga 10 mg daily and spironolactone 25 mg daily, irbesartan 300 mg daily (3) Hypercholesterolemia: Code(s): E78.00 - Pure hypercholesterolemia, unspecified Category: Medical Plan: LDL at 70 from May 2024. Goal LDL less than 70. Continue rosuvastatin Next labs would be due May 2025 (4) HTN (hypertension): Code(s): I10 - Essential (primary) hypertension Category: Medical Qualifiers: Hypertension type: secondary to endocrine disorders Qualified Code(s): I15.2 - Hypertension secondary to endocrine disorders Plan: Blood pressure much improved today. Continue current regimen He is on nebivolol 2.5 mg daily, spironolactone 25 mg daily in a irbesartan 300 mg daily. (5) litigation claim representative (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: Comment: On insulin pump, follows up with project coordinator every 3 months Code(s): Z79.4 - litigation claim representative (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 Category: Medical Plan: On tandem T slim insulin pump. Has backup Lantus insulin changes In case of pump failure to inject 50 units daily Has ketone strips Hypoglycemia education done Has nasal Baqsimi Plan I spent 30 minutes in reviewing the record, seeing the patient and documenting in the medical record. Orders: Orders 2 AMB Glucose Monitoring Today E11.9 - Type 2 diabetes mellitus without complications, Z79.4 - FCI (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 AMB Hemoglobin A1c Today E11.42 - Type 2 diabetes mellitus with diabetic polyneuropathy Coding Level of Care Code Est Pt Level 4 (43010) Diagnoses Controlled type 2 diabetes mellitus with diabetic polyneuropathy, with long-term current use of insulin E11.42; Z79.4 Diabetes mellitus intermediate insulin use: with brush sander use Diabetes mellitus complication detail: with polyneuropathy Diabetes mellitus complication status: with neurologic complications Stage 3a chronic kidney disease N18.31 Chronic kidney disease stage 3 subtype: stage 3a (GFR 45-59) Hypercholesterolemia E78.00 Hypertension due to endocrine disorder I15.2 Hypertension type: secondary to endocrine disorders litigation claim representative (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 Z79.4 CPT Codes Details - CPT: 30461 - Glucose monitoring, continuous-physician I&R ([id number]) Time Spent (min) 30
[2024-11-24 08:35] VITALS: BP 136/82; PULSE 56; O2SAT 96; BMI 30.3
[2024-11-24 08:45] LABS: Glucose, Whole Blood 135 mg/dL (60-115)
--- OUTSIDE RECORDS SUMMARY | 2024-11-24 08:52 | XMS_ITS ---
Author Organization [facility] Address [address] [facility] [address] Care Team Providers Care Ruby Rails Developer Name Role Phone Maria Isabel Munoz MD Primary Care Provider Unavaila Nallely Mena Unavailable [phone] Nayan Luther Unavailable [phone] Allergies Allergen (clinical drug ingredient) Drug/Non Drug Allergy documented on EMR Reaction Allergy Type Onset Date Status atorvastatin Lipitor high cpk Drug Allergy Acti ve niacin Niacin Unknown Drug Allergy Active Substance with [...] 06/06/2024 Encounters Encounter Location Date Provider Diagnosis [facility] [address] [address] 06/06/2024 Nayan Luther Type 1 diabetes mellitus [...] Provider Name:Nallely james, 12/15/2024 08:30:00 AM, [address] [facility], [address], [place], [address], Procedure Notes * Category Sub-Category Detail Notes [...] as necessary. Patient chooses, no pharmaceutical tx (90040) Keratoma Treatment Parring or Cutting o f Benign Hyperkeratotic Lesion(s) (-56) 2-4 Lesions - The Benign hyperkeratotic lesions, as described above were pared, and/or cut utilizing a sterile 15 blade, tissue nippers, and/or dremel - 51638 Progress Notes * Mihai MONTGOMERY PDOB: (69 yo M)Acc No.[id number]:06/06/2024 Progress Note Patient:?Diallo Montgomery P Provider:?Nayan Luther DPM :1955???Age:69 Y???Sex:Male Loy e:06/06/2024 Address:[address] [place] [address] [id number] Pcp:Maria Isabel Munoz MD Subjective: * Chief [...] emors?denies.? * Medical History:? * Surgical History:?arm 1988ha nd/wrist 1988tonsillectomy 1958 * Hospitalization/Major Diagno stic [...] three. ?Exercise: yes. ?Marital status: . 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 * Medications:?TakingamLODIPin e Besylate 5 MG Tablet [...] and in no acute distress.?ORIENTED:?person,place, and time.?FOOT EXAM:?Lower Extremity Neurological Exam performed:?Yes ?Visual exam of foot performed:?Yes ?Date?12/07/2023 ?Sensory testing performed:?sensations diminished ?Pedal pulse taking performed:?1+?Neurological: ?SENSORY:?Neurological exam demonstrates, reduced vibration sensation, B/L, [...] to neuropathy, 1-5 B/L.?Ophthalmology Referral: ?DIABETES EYE EXAM?Diabetic Retinopathy Screening:?No 04/2023 ?Findings of Diabetic Eye Exam:?no retinopathy??? Assessment: * Assessment: 1.?Type 1 diabetes mellitus [...] as necessary. Patient chooses, no pharmaceutical tx (93755).?Keratoma Treatment:?Parring or Cutting of Benign Hyperkeratotic Lesion(s)?(-56) 2-4 Lesions - The Benign hyperkeratotic lesions, as described above were pared, and/or cut utilizing a sterile 15 blade, tissue nippers, and/or dremel - 13096.? * Procedure Codes:?18067 DEBRI DE NAIL, 6 OR MORE, Modifiers: XS 43762 TRIM SKIN LESIONS, 2 TO 4, Modifiers: XS * Follow Up:?3 Months * Images: * Sign off status: Completed true * Provider:?Nayan Luther DPM Date:? 024 Generated for Ritchie hernandez/Cate/Linda on:?11/24/2024 08:52 AM EDT History and Physical Notes * HPI (History [...] taking performed:: 1+ ORIENTED: person,place, and ti al Ophthalmology Referral DIABETES EYE EXAM Diabetic Reti [...]
--- OUTSIDE RECORDS SUMMARY | 2024-11-24 08:52 | XMS_ITS ---
Author Organization [facility] Address [address] [place] [address] Care Team Providers Care Retail Field Supervisor Name Role Phone Maria Isabel Munoz MD Primary Care Provider Nallely Leonardo Unavailable [phone] Allergies Allergen (clinical drug ingredient) Drug/Non Drug [...] Polyneuropathy due to type 2 diabetes mellitus (524138733) Type 2 diabetes mellitus with diabetic polyneuropathy (E11.42) Active confirmed Vital Signs Height 6ft 3in in 09/05/2024 Weight 230 lbs 09/05/2024 BMI 28.74 kg/m2 09/05/2024 Blood pressure systolic 130 mm Hg 09/05/19 25 Blood pressure diastolic 63 mm Hg 025 Procedures Procedure Date Ordered Date Performed Result Body Sit e 91210-DDECITD NAIL, 6 OR MORE 09/05/2024 N/A 47233-MRUM SKIN LESIONS, 2 TO 4 09/05/2024 N/A Encounters Encounter Location Date Provider Diagnosis [facility] [address] [address] 09/05/2024 Nallely Bowen Other hammer toe(s) (acquired), [...] INSTRUCTIONS.pdf) Pending Test Test Name Order Date 67391-ZLRNPRJ NAIL, 6 OR MORE 09/05/2024 83469-FORR SKIN LESIONS, 2 TO 4 09/05/19 Next Appt Details Follow Up: 3 Months, Reason: Provider Name:Nallely james, 12/15/2024 08:30:00 AM, [address], [address], [place], [address], Procedure Notes * Category Sub-Category Detail Notes [...] use of a nail nipper and/or dremel-type tool grinder set up operator gear, to a more viable healthy nail plate [...] to maintain effectiveness in symptomatic relief - 08341 Keratoma Treatment Parring or Cutting o f [...] instrumentation by the physician of record - 76949 Progress Notes * Mihai MONTGOMERY PDOB: (69 yo M)Acc No.[id number]:09/05/2024 Progress Note Patient:?Diallo MONTGOMERY Provider:?Nallely Bowen DPM :1955???Age:69 Y???Sex:Male Loy e:09/05/2024 Address:[address] [place] [address], [id number] Pcp:Maria Isabel Munoz MD Subjective: * Chief [...] History:? * Surgical History:?arm 1988ha nd/wrist 1988tonsillectomy 195umbilical hernia 06/2024 * Hospitalization/Major Diagno stic Procedure:?No [...] three. ?Exercise: yes. ?Marital status: . 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 * Medications:?TakingamLODIPin e Besylate 5 MG [...] 6.9 * Examination: ???Ophthalmology Referral: ?DIABETES EYE EXAM?Procedure Performed:?Yes ?Date of Exam Performed?04/24/2024?Orthopedic: ?MUSCLE STRENGTH:?5/5 all groups in a symmetrical [...] for office visit today.?ORIENTED:?person, place, and time.?FOOT EXAM:?Lower Extremity Neurological Exam performed:?Yes Date ?Visual exam of foot performed:?Yes ?Footwear Evaluation?Footwear Evaluation performed:?Yes?Neurological: ?SENSORY:? Neurological exam demonstrates, reduced light touch [...] 2.?Type 2 diabetes mellitus with diabetic polyneuropathy?Procedure: 12560-QEBDEQP NAIL, 6 OR MORE ?Procedure: 98012-JSTE SKIN LESIONS, 2 TO 4 * Procedures:?Debride [...] use of a nail nipper and/or dremel-type tool grinder set up operator gear, to a more viable healthy nail plate [...] to maintain effectiveness in symptomatic relief - 63107.?Keratoma Treatment:?Parring or Cutting of Benign Hyperkeratotic Lesion(s)?(-56) [...] instrumentation by the physician of record - 61853.? * Procedure Codes:?34715 DEBRI DE NAIL, 6 OR MORE, Modifiers: XS 98608 TRIM SKIN LESIONS, 2 TO 4, Modifiers: [...] Bowen DPM Date:?0 09/05/2024 Generated for Ritchie hernandez/Cate/eTransmitting on:?11/24/2024 08:52 AM EDT History and Physical [...] , SUB MTH (s), 1, Right Orthopedic FOOTWEAR EVALUATION: worn, non-s upportive, shoe gear properties exacerbate patient's foot/toe deformity [...]
--- OUTSIDE RECORDS SUMMARY | 2024-11-24 08:52 | XMS_ITS | Clinical Summary ---
Author Organization [facility] Address [address] [address] Phone Care Team Providers Care Garment Sorter Name Role Phone Maria Isabel Munoz MD Primary Care Provider [phone] Allergies Active Allergy Reactions Criticality Noted Date Comments Atorvastatin Other (see comments) 01/29/2021 Niacin Other (see comments) 01/29/2021 Sulfa Antibiotics Other (see comments) 11/12/19 22 Medications rosuvastatin (CRESTOR) 10 MG tablet Take 1 tablet by mouth 1 (one) time each day Active nebivolol (BYSTOLIC) 2.5 MG tablet Take 1 tablet by mouth 1 (one) time each day 8 Active montelukast (SINGULAIR) 10 MG tablet Take [...] by mouth 1 (one) time each day 8 Active Glucosamine 750 MG tablet Take 1 [...] mouth 1 (one) time each day Active clotrimazole-be tamethasone (LOTRISONE) cream as needed Active aspirin (ST FERNANDO) 81 MG EC tablet Take 1 tablet by mouth 1 (one) time each day Active Ascorbic Acid (Vitamin C ER) 1000 MG tablet controlled-rele ase Take 1 tablet by mouth 1 (one) [...] pump Active Dapagliflozin Propanediol (Farxiga) 10 MG tabletIndicatio ns:Type 2 diabetes mellitus with diabetic chronic kidney disease (HCC),Stage 3b chronic kidney disease (HCC) TAKE 1 TABLET ONCE DAILY 90 tablet 3 Active Dapagliflozin Propanediol (Farxiga) 10 MG tabletIndicatio ns:Type 2 diabetes mellitus with diabetic chronic kidney disease (HCC),Stage 3b chronic kidney disease (HCC) TAKE 1 TABLET BY MOUTH 1 TIME EACH DAY 90 tablet 3 4 025 Discontinued Active Problems Problem Noted Date Diagnosed Date [...] 01/29/2021 Stage 3a chronic kidney disease 01/29/2021 Encounters Date Type Department Care Team Description 11/16/2024 Refill [facility] [address] [place] [address] Jaydno Brunson MD Type 2 diabetes mellitus with diabetic chronic kidney disease (HCC); Stage 3b chronic kidney disease (HCC) 11/15/2024 4:15 PM EDT Office Visit [facility] [address] [facility] [address] [place] [phone] Jaydon Brunson MD Stage 3a chronic kidney disease (HCC) (Primary Dx) 10/24/2024 Orders Only [facility] [address] [phone] Jaydon Brunson MD from Last 3 Months Immunizations Name Administration Dates Next Due Influenza [...] Sign Reading Time Taken Comments Blood Pressure 124/64 11/15/2024 4:24 PM EDT Pulse 55 11/15/2024 4:24 PM EDT Temperature - - Respiratory Rate - - Oxygen Saturation 98% 11/15/2024 4:24 PM EDT Inhaled Oxygen Concentration - - Weight 108 kg (237 lb 6.4 oz) 11/15/2024 4:24 PM EDT Height 190.5 cm (6' 3 ) 09/04/2019 12:00 PM EST Body Mass Index 29.67 09/04/2019 12:00 PM EST Plan of Treatment Upcoming Encounters Date Type Department Care Team (Late st Contact Info) Description 05/22/2025 1:30 PM EDT Office Visit [facility] [address] [facility] [address] [place] [phone] Jaydon Brunson MD [address] [address] Health Maintenance Due Date Last Done Comments [...] Procedure Name Priority Date/Time Associated Diagnosis Comments SPECIMEN STATUS REPORT Routine 10/24/2024 11:39 AM EST PTH, INTACT Routine 10/24/2024 11:39 AM EST MAGNESIUM Routine 10/24/2024 11:39 AM EST VITAMIN D 25 HYDROXY Routine 10/24/2024 11:39 AM EST URINE ALBUMIN / CREATININE RATIO Routine 10/24/2024 11:39 AM EST PROTEIN / CREATININE RATIO, URINE Routine 10/24/2024 11:39 AM EST RENAL FUNCTION PANEL Routine 10/24/2024 11:39 AM EST URINALYSIS WITH MICROSCOPIC Routine 10/24/2024 11:39 AM EST CBC DIFF AMBIGUOUS DEFAULT - DO NOT USE Routine 10/24/2024 11:39 AM EST MICROSCOPIC EXAMINATION - DO NOT USE Routine 10/24/2024 11:39 AM EST HEMOGLOBIN A1C Routine 09/15/2019 5:40 PM EST from Last 3 Months or Most Recently Relevant to Health Maintenance Results * SPECIMEN STATUS REPORT (10/24/2024 11:39 AM EST) Specimen Status Comment [facility] Comment: Ambragini Abbrev RP10 Default Ambig Abbrev RP10 Default A hand-written panel/profile was received from your office. In accordance with the [facility] Ambiguous Test Code Policy dated February 2003, we have completed your order by using the closest currently or formerly recognized AMA panel. ??We have assigned Renal Panel (10), Test Code #[id number] to this request. ??If this is not the testing you wished to receive on this specimen, please contact the [facility] Client Inquiry/Technical Services Department to clarify the test order. ??We appreciate your business. 10/24/2024 11:3 9 AM EST 10/24/2024 Jaydon Brunson MD LAB BLOOD ORDERABLES Final Re sult [facility] [address] [place] [address] * Microscopic Examination (10/24/2024 11:39 AM EST) WBC, Urine None seen 0 - 5 /hpf [facility] RBC, Urine None seen 0 - 2 /hpf [facility] Squamous Epithelial, Urine None seen 0 - 10 /hpf [facility] Casts None seen None seen /lpf [facility] Bacteria, Urine None seen None seen/Few [facility] 10/24/2024 11:3 9 AM EST 10/24/2024 Jaydon Brunson MD LAB MICROBIOLOGY - GENERAL OR DERABLES Final Result [facility] [address] [place] [address] * CBC Diff Ambiguous Default (10/24/2024 11:39 AM EST) WBC 5.0 3.4 - 10.8 x10E3/uL [facility] RBC 4.86 4.14 - 5.80 x10E6/uL [facility] Hemoglobin 15.7 13.0 - 17.7 g/dL [facility] Hematocrit 46.9 37.5 - 51.0 % [facility] MCV 97 79 - 97 fL [facility] MCH 32.3 26.6 - 33.0 pg [facility] MCHC 33.5 31.5 - 35.7 g/dL [facility] RDW 13.6 11.6 - 15.4 % [facility] Platelets 168 150 - 450 x10E3/uL [facility] Neutrophils Relative 64 Not Estab. % [facility] Lymphocytes Relative 25 Not Estab. % [facility] Monocytes 8 Not Estab. % [facility] Eosinophils Relative 3 Not Estab. % [facility] Basophils Relative 0 Not Estab. % [facility] Neutrophils Absolute 3.2 1.4 - 7.0 x10E3/uL [facility] Lymphocytes Absolute 1.3 0.7 - 3.1 x10E3/uL [facility] Monocytes Absolute 0.4 0.1 - 0.9 x10E3/uL [facility] Eosinophils Absolute 0.1 0.0 - 0.4 x10E3/uL [facility] Basophils Absolute 0.0 0.0 - 0.2 x10E3/uL [facility] Immature Granulocytes 0 Not Estab. % [facility] Immature Grans (Absolute) 0.0 0.0 - 0.1 x10E3/uL [facility] Comment: A hand-written panel/profile was received from your office. In accordance with the [facility] Ambiguous Test Code Policy dated February 2003, we have assigned CBC with Differential/Platelet, Test Code #742181 to this request. If this is not the testing you wished to receive on this specimen, please contact the [facility] Client Inquiry/ Technical Services Department to clarify the test order. We appreciate your business. 10/24/2024 11:3 9 AM EST 10/24/2024 Jaydon Brunson MD LAB BLOOD ORDERABLES Final Re sult Performing Organization Address City/[facility]/ZIP Co de Phone Number [email or web address] [address] [place] [address] * Protein, Total, Random Urine w/Creatinine (Protein/Creat Ratio) (10/24/2024 11:39 AM EST) Creatinine, Ur 72.2 Not Estab. mg/dL [facility] Protein, Ur 11.1 Not Estab. mg/dL [facility] Urine Protein/Creatin ine Ratio 154 0 - 200 mg/g creat [facility] 10/24/2024 11:3 9 AM EST 10/24/2024 Jaydon Brunson MD LAB URINE ORDERABLES Final Re sult Performing Organization Address City/[facility]/ZIP Co de Phone Number [facility] [address] [place] [address] * Urine Albumin / Creatinine Ratio (10/24/2024 11:39 AM EST) Pathologist [facility] Albumin, Urine 7.1 Not Estab. ug/mL [facility] Albumin/Creatin ine Ratio 10 0 - 29 mg/g creat [facility] Comment: ? Normal: ?0 - ??29 ? Moderately increased: 30 - 300 ? Severely increased: ? >300 10/24/2024 11:3 9 AM EST 10/24/2024 us Jaydon Brunson MD LAB URINE ORDERABLES Final Re sult [facility] [address] [place] [address] * Vitamin D 25 Hydroxy (10/24/2024 11:39 AM EST) Pathologist [facility] Vitamin D, 25-OH, Total 35.5 30.0 - 100.0 ng/mL [facility] Comment: Vitamin D deficiency has been defined by the Morral of Medicine and an Endocrine Society practice guideline as a level of serum 25-OH vitamin D less than 20 ng/mL (1,2). The Endocrine Society went on to further define vitamin D insufficiency as a level between 21 and 29 ng/mL (2). 1. IOM ([place]ral of Medicine). 2010. Dietary reference ?? intakes for calcium and D. Santacruz [place]: The ?? National AcademMobilization Labs Press. 2. Familia MF, Petey NC, Lisa CASPER, et al. ?? Evaluation, treatment, and prevention of vitamin D ?? deficiency: an Endocrine Society clinical practice ?? guideline. JCEM. 2010; 96(7):1911-30. 10/24/2024 11:3 9 AM EST 10/24/2024 Jaydon Brunson MD LAB BLOOD ORDERABLES Final Re sult [facility] [address] [place] [address] * (ABNORMAL) Urinalysis with microscopic (10/24/2024 11:39 AM EST) Specific [place], Urine >=1.030(A) 1.005 - 1.030 [facility] pH Urine 5.5 5.0 - 7.5 [facility] Color, Urine Yellow Yellow [facility] [phone] Appearance Urine Clear Clear [facility] WBC Esterase Urine Negative Negative [facility] [phone] Protein, Ur 1+(A) Negative/Tra ce [facility] Glucose, Ur 3+(A) Negative [facility] Ketones, Urine Negative Negative [facility] Blood Urine Negative Negative [facility] Bilirubin Urine Negative Negative [facility] [phone] Urobilinogen Urine 0.2 0.2 - 1.0 mg/dL [facility] [phone] Nitrite, Urine Negative Negative [facility] Microscopic Examination See below: [facility] [phone] Comment:Microscopic was raul cated and was performed. 10/24/2024 11:3 9 AM EST 10/24/2024 Jaydon Brunson MD LAB URINE ORDERABLES Final Re sult Performing Organization Address City/[facility]/ZIP Co de Phone Number [facility] [address] [place] [address] * PTH, Intact (10/24/2024 11:39 AM EST) PTH 64 15 - 65 pg/mL [facility] 10/24/2024 11:3 9 AM EST 10/24/2024 Jaydon Brunson MD LAB BLOOD ORDERABLES Final Re sult Performing Organization Address [facility]/ZIP Co de Phone Number [email or web address] [address] [place] [address] * Magnesium (10/24/2024 11:39 AM EST) Magnesium 2.2 1.6 - 2.3 mg/dL [facility] 10/24/2024 11:3 9 AM EST 10/24/2024 Jaydon Brunson MD LAB BLOOD ORDERABLES Final Re sult Performing Organization Address [facility] Co de Phone Number [facility] [address] [place] [address] * (ABNORMAL) Renal Function Panel (10/24/2024 11:39 AM EST) Glucose 151(H) 70 - 99 mg/dL [facility] BUN 25 8 - 27 mg/dL [facility] Creatinine 1.59(H) 0.76 - 1.27 mg/dL [facility] eGFR CKD-EPI CR 2020 46(L) >59 mL/min/1.7 3 [facility] BUN/Creatinine Ratio 16 10 - 24 [facility] Sodium 141 134 - 144 mmol/L [facility] Potassium 4.9 3.5 - 5.2 mmol/L [facility] Chloride 101 96 - 106 mmol/L [facility] Bicarbonate (CO2) 26 20 - 29 mmol/L [facility] Calcium 9.0 8.6 - 10.2 mg/dL [facility] Albumin 4.1 3.9 - 4.9 g/dL [facility] Phosphorus 3.2 2.8 - 4.1 mg/dL [facility] 10/24/2024 11:3 9 AM EST 10/24/2024 Jaydon Brunson MD LAB BLOOD ORDERABLES Final nirmala [facility] [address] [place] [address] * Hemoglobin A1c (09/15/2019 5:40 PM EST) Hemoglobin A1C 6.9 % [facility] Comment: ?Hemoglobin A1C Reference Range ? Adults: [...] average glucose, using the formula of the L3Y-Dzfgsrg Average Glucose study (ADAG), Diabetes Care, Vol.31,#8, Mar. 2007 09/15/2019 5:40 PM EST us Maria Isabel Munoz MD LAB BLOOD ORDERABLES Final Resu lt [place] from Last 3 Months or Most Recently Relevant to Health Maintenance Insurance Member Subscriber Plan / Payer (Ef fective 2019-Present) Name:Mihai Herrera Relation to Subscriber:Self Name:Mihai Herrera Payer ID:Not on file Type:Not on file Address: [address] [phone] MEDICARE MEDICARE Care Teams Garment Sorter Relationship Specialty Start Date End Date Maria Isabel Munoz MD [address] [place] [address] PCP - General Internal Medicine 01/29/21
--- OUTSIDE RECORDS SUMMARY | 2024-11-24 08:53 | XMS_ITS ---
[facility] Address [address] [place] [address] Care Team Providers Care Systems Mgr Name Role Phone Maria Isabel Munoz MD Primary Care Provider Nallely Leonardo Unavailable [phone] Nayan Luther [phone] Tello Encounters Encounter Location Date [facility] [address] 03/10/2024 Nayan Luther Plan Of Treatment Next Appt Details Provider Name:Nallely james, 12/15/2024 08:30:00 AM, [address] [place] [address], [address], Progress Notes * Mihai MONTGOMERY PDOB: (69 yo M)Acc No.[id number]:03/10/2024 Progress Note Patient:?Diallo MONTGOMERY Provider:?Nayan Luther DPM :1955???Age:68 Y???Sex:Male Loy e:03/10/2024 Address:[address] [place] [address] [id number] Pcp:Maria Isabel Munoz MD Subjective: * Chief Complaints: * ???1. Dr. Tello. * Medical History:? Objective: * Vitals:? Assessment: Plan: * Treatment: * Images: * The named appointment provid er may or may not be the originator of this progress note, and it is not deemed complete until electronically signed by the appointment provider. Sign off status: Pending * Provider:Yuyr Luther DPM Date:? 024 Generated for Ritchie hernandez/Cate/Linda on:?11/24/2024 08:52 AM EDT
== END 2024-11-24 09:09 | disposition home or self-care (01) ==
LOC: HO.ENCR 08:28
PROVIDERS: PCP Internal Medicine; Visit Provider Student in an Organized Health Care Education/Training Program
DX: E11.42 Type 2 diabetes mellitus with diabetic polyneuropathy (principal); Z79.4 Long term (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; N18.31 Chronic kidney disease, stage 3a; E78.00 Pure hypercholesterolemia, unspecified; I15.2 Hypertension secondary to endocrine disorders
CPT/HCPCS: 95251; 99214

== ENCOUNTER → 2024-11-24 08:27 | Outpatient (BNVA) | payer MEDICARE, OTHER, SELFPAY | PROVIDERS: PCP Internal Medicine; Visit Provider Student in an Organized Health Care Education/Training Program | DX: E11.22 Type 2 diabetes mellitus with diabetic chronic kidney disease (principal); E11.610 Type 2 diabetes mellitus with diabetic neuropathic arthropathy; E11.40 Type 2 diabetes mellitus with diabetic neuropathy, unspecified; E11.21 Type 2 diabetes mellitus with diabetic nephropathy; E11.42 Type 2 diabetes mellitus with diabetic polyneuropathy; I15.2 Hypertension secondary to endocrine disorders; N18.31 Chronic kidney disease, stage 3a; E78.00 Pure hypercholesterolemia, unspecified; Z79.4 Long term (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 | CPT/HCPCS: 82947; 83036; 99212 ==

== ENCOUNTER 2024-11-30 08:16 | Outpatient (REF) | payer MEDICARE, OTHER, SELFPAY ==
--- OUTSIDE RECORDS SUMMARY | 2024-11-30 08:25 | XMS_ITS ---
Author Organization [facility] Address [address] [place] [address] Care Team Providers Care Cafe Manager Name Role Phone Maria Isabel Munoz MD Primary Care Provider Nallely Leonardo Unavailable [phone] Allergies Allergen (clinical drug ingredient) Drug/Non Drug [...] Polyneuropathy due to type 2 diabetes mellitus (530007606) Type 2 diabetes mellitus with diabetic polyneuropathy (E11.42) Active confirmed Vital Signs Height 6ft 3in in 09/05/2024 Weight 230 lbs 09/05/2024 BMI 28.74 kg/m2 09/05/2024 Blood pressure systolic 130 mm Hg 09/05/19 25 Blood pressure diastolic 63 mm Hg 025 Procedures Procedure Date Ordered Date Performed Result Body Sit e 52158-JTGVSKS NAIL, 6 OR MORE 09/05/2024 N/A 23390-LHDZ SKIN LESIONS, 2 TO 4 09/05/2024 N/A Encounters Encounter Location Date Provider Diagnosis [facility] [address] [address] 09/05/2024 Nallely Bowen Other hammer toe(s) (acquired), [...] INSTRUCTIONS.pdf) Pending Test Test Name Order Date 35944-VPGUYOE NAIL, 6 OR MORE 09/05/2024 15872-XHEA SKIN LESIONS, 2 TO 4 09/05/19 Next Appt Details Follow Up: 3 Months, Reason: Provider Name:Nallely james, 12/15/2024 08:30:00 AM, [address], [address], [place], [address], Procedure Notes * Category Sub-Category Detail Notes [...] use of a nail nipper and/or dremel-type drill grinder, to a more viable healthy nail [...] to maintain effectiveness in symptomatic relief - 13040 Keratoma Treatment Parring or Cutting o f [...] instrumentation by the physician of record - 13961 Progress Notes * Mihai MONTGOMERY PDOB: (69 yo M)Acc No.[id number]:09/05/2024 Progress Note Patient:?Diallo MONTGOMERY Provider:?Nallely Bowen DPM :1955???Age:69 Y???Sex:Male Loy e:09/05/2024 Address:[address] [place] [address], [phone] Pcp:Maria Isabel Munoz MD Subjective: * Chief [...] three. ?Exercise: yes. ?Marital status: . 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 * Medications:?TakingamLODIPin e Besylate 5 MG [...] 2.?Type 2 diabetes mellitus with diabetic polyneuropathy?Procedure: 99568-YRTGKMM NAIL, 6 OR MORE ?Procedure: 43660-YJGV SKIN LESIONS, 2 TO 4 * Procedures:?Debride [...] use of a nail nipper and/or dremel-type drill grinder, to a more viable healthy nail [...] to maintain effectiveness in symptomatic relief - 10523.?Keratoma Treatment:?Parring or Cutting of Benign Hyperkeratotic Lesion(s)?(-56) [...] instrumentation by the physician of record - 10518.? * Procedure Codes:?83804 DEBRI DE NAIL, 6 OR MORE, Modifiers: XS 83603 TRIM SKIN LESIONS, 2 TO 4, Modifiers: [...] DPM Date:?0 09/05/2024 Generated for Ritchie hernandez/Cate/eTransmitting on:?11/30/2024 08:25 AM EDT History and Physical Notes * [...]
--- OUTSIDE RECORDS SUMMARY | 2024-11-30 08:26 | XMS_ITS | Patient Health Record ---
Author Organization [facility] Address [address] [facility] [place] [address] Care Team Providers Care Scale Tester Name Role Phone Maria Isabel Munoz MD Primary Care Provider Nallely Leonardo Unavailable [phone] Nayan Luther Unavailable [phone] Allergies Allergen (clinical drug ingredient) Drug/Non Drug Allergy documented on EMR Reaction Allergy Type Onset Date Status atorvastatin Lipitor high cpk Drug Allergy Acti ve niacin Niacin Unknown Drug Allergy Active Substance with sulfonamide structure and antibacterial mechanism of action (substance) Sulfa Antibiotics Unknown Drug Allergy Active Results Component Value Reference Range Notes HEMOGLOBIN A1C (GLYCOHEMOGLO BIN) Reviewed date:03/07/2024 08:51:55 AM Interpretation: Performing Lab: Notes/Report: HEMOGLOBIN A1C % (HH) 6.5 HEMOGLOBIN A1C (GLYCOHEMOGLO BIN) Reviewed date:06/06/2024 08:43:24 AM Interpretation: Performing Lab: Notes/Report: TOTAL HEMOGLOBIN (HGBA1C) 6.2 HEMOGLOBIN A1C (GLYCOHEMOGLO BIN) Reviewed date:09/05/2024 08:42:32 AM Interpretation: Performing Lab: Notes/Report: HEMOGLOBIN A1C % (HH) 6.9 Reason For Referral No Information Medications Medication SIG (Take, Route, Frequency, Duration) Notes Start Date End Date Status Extra Depth Orthopedic Shoes (1 Pair) with Customized Heat Molded Multidensity Innersoles (3 Pair) as directed Dx: NIDDM/Polyneuropathy (E11.42), Hammertoe Foot Deformity (M20.41,M20.42), Preulcerative Skin Lesion(s) (L85.1 09/05/2024 Active Glucosamine 750 MG Orally A ctive Zetia 10 mg Not-Taki ng flonase Active Loratadine Not-Takin g iron 1 tab Oral Active Insulin Lispro (Human) Not-Taking Irbesartan 300 MG 1 tablet Orally Once a day Active Bystolic Not-Taking CoQ-10 200 MG 1 capsule with a nciolas l Orally Once a day Active Extra Depth Orthopedic Shoes (1 Pair) with Customized Heat Molded Multidensity Innersoles (3 Pair) as directed Dx: IDDM/Polyneuropathy (E10.42), Hammertoe Foot Deformity (M20.41,M20.42), Preulcerative Skin Lesion(s) (L85.1) 08/06/2020 Not-Taking Clotrimazole-Betamethason e Active Extra-Depth Diabetic Shoes with 3 Pair Custom heat-molded multi-density innersoles . 1pair shoes/3sets inserts . . for 1 year Not-Takin g Farxiga Active hydrALAZINE HCl 50 MG Orally Twice a day Not-Taking Ezetimibe Active Furosemide Not-Takin g Extra Depth Orthopedic Shoes (1 Pair) with Customized Heat Molded Multidensity Innersoles (3 Pair) as directed Dx: IDDM/Polyneuropathy (E10.42), Hammertoe Foot Deformity (M20.41,M20.42), Preulcerative Skin Lesion(s) (L85.1) 11/01/2018 Not-Taking Extra Depth Diabetic Shoes with 3 Pair Custom heat-molded multi-density innersoles for 1 year Dx: 04/16/2017 Not-Taking Calcium 600 MG 1 tablet with meals Orally Twice a day Active Betamethasone Dipropionate Active Compression Stockings 20-30mm Hg as directed 02/11/2016 Not-Taking Claritin Active Vitamin D Active Extra Depth Diabetic Shoes with 3 Pair Custom heat-molded multi-density innersoles for 1 year Dx: Not-Taking Aspirin 81 Active Vitamin C Active amLODIPine Besylate 5 MG Orally Active Vitamin B12 500 mg 1 tablet Orally Once a day Active Nystatin Active Nebivolol HCl Active Spironolactone Activ e Rosuvastatin Calcium Active Clotrimazole Not-Corbin ing NovoLOG Active HumaLOG Not-Taking All Day Allergy-D No t-Taking Montelukast Sodium A ctive metFORMIN HCl 500 MG Orally Twice a day Active Immunizations Vaccine Route Administration Date Status Comme [...] Polyneuropathy due to type 2 diabetes mellitus (891917604) Type 2 diabetes mellitus with diabetic polyneuropathy (E11.42) Active confirmed Problem Acquired hammer toe of right foot (4979211990699530 ) Other hammer toe(s) (acquired), right foot (M20.41) Active confirmed Problem Acquired hammer toe of left foot (4637774136075768 ) Other hammer toe(s) (acquired), left foot (M20.42) Active confirmed Vital Signs Blood pressure diastolic 63 mm Hg 09/05/2024 Height 6ft 3in in 09/05/2024 Blood pressure systolic 130 mm Hg 09/05/2024 Weight 230 lbs 09/05/2024 BMI 28.74 kg/m2 09/05/2024 Procedures Procedure Date Ordered Date Performed Result Body Sit e 71381-KWXX SKIN LESIONS, 2 TO 4 12/07/2023 N/A 87464-Ymrg. Subungual Hematoma 12/07/2023 N/A 41985-OEFDKQX NAIL, 6 OR MORE 09/05/2024 N/A 25100-GSZH SKIN LESIONS, 2 TO 4 09/05/2024 N/A Encounters Encounter Location Date Provider Diagnosis [facility] [address] [address] 12/07/2023 Nayan Luther Type 1 diabetes mellitus [...] sequela S90.221S and Metatarsalgia, left foot M77.[address] [address] 03/07/2024 Nayan Luther Type 1 diabetes mellitus with diabetic polyneuropathy E10.42 ; Tinea unguium B35.1 ; Ingrowing nail L60.0 ; Pain in right toe(s) M79.674 ; Pain in left toe(s) M79.675 ; Venous insufficiency of both lower extremities I87.2 ; Other hammer toe(s) (acquired), left foot M20.42 ; Other hammer toe(s) (acquired), right foot M20.41 and Metatarsalgia, left foot M77.[address] [address] 06/06/2024 Nayan Luther Type 1 diabetes mellitus with diabetic polyneuropathy E10.42 ; Tinea unguium B35.1 ; Ingrowing nail L60.0 ; Pain in right toe(s) M79.674 ; Pain in left toe(s) M79.675 ; Venous insufficiency of both lower extremities I87.2 ; Other hammer toe(s) (acquired), left foot M20.42 ; Other hammer toe(s) (acquired), right foot M20.41 and Metatarsalgia, left foot M77.[address] [address] 09/05/2024 Nallely oBwen Other hammer toe(s) (acquired), right foot M20.41 ; Other hammer toe(s) (acquired), left foot M20.42 ; Type 2 diabetes mellitus with diabetic polyneuropathy E11.42 and Tinea unguium B35.1 [facility] [address] [address] 12/07/2023 Nayan Luther Assessments Encounter Date Diagnosis (ICD Code) Assessment Notes Treatment Notes Treatment Clinical Notes Section Notes 12/07/2023 Tinea unguium (ICD-10 - B35.1) 12/07/2023 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 - E10.42) 03/07/2024 Tinea unguium (ICD-10 - B35.1) 03/07/2024 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 - E10.42) 06/06/2024 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 - E10.42) 09/05/2024 Other hammer toe(s) (acquired), right foot (ICD-10 - M20.41) Patient Educated with: DIABETIC FOOT CARE INSTRUCTIONS. pdf (DIABETIC FOOT CARE INSTRUCTIONS. pdf) 09/05/2024 Other hammer toe(s) (acquired), left foot (ICD-10 - M20.42) 09/05/2024 Type 2 diabetes mellitus with diabetic polyneuropathy (ICD-10 - E11.42) 06/06/2024 Tinea unguium (ICD-10 - B35.1) 03/07/2024 Ingrowing nail (ICD-10 - L60.0) 12/07/2023 Ingrowing nail (ICD-10 - L60.0) 12/07/2023 Pain in right toe(s) (ICD-10 - M79.674) 03/07/2024 Pain in right toe(s) (ICD-10 - M79.674) 06/06/2024 Ingrowing nail (ICD-10 - L60.0) 09/05/2024 Tinea unguium (ICD-10 - B35.1) 06/06/2024 Pain in right toe(s) (ICD-10 - M79.674) 03/07/2024 Pain in left toe(s) (ICD-10 - M79.675) 12/07/2023 Pain in left toe(s) (ICD-10 - M79.675) 12/07/2023 Venous insufficiency of both lower extremities [...] - M20.42) 12/07/2023 Other hammer toe(s) (acquired), right foot [...] X ray : Foot, right 2V 12/25/2016 34671-BDGNTVU NAIL, 6 OR MORE 04/16/2017 91657-QYYDJZH NAIL, 6 OR MORE 07/09/2017 77057-SCYILAC NAIL, 6 OR MORE 10/01/2017 72907-ORHGYVF NAIL, 6 OR MORE 02/05/2017 89640-MWOCGIS NAIL, 6 OR MORE 11/24/2016 05911-PAJVZXH NAIL, 6 OR MORE 12/18/2014 45728-XTASCRG NAIL, 6 OR MORE 03/12/2015 42938-LBPPBPX NAIL, 6 OR MORE 06/04/2015 70676-XJIDJRS NAIL, 6 OR MORE 11/12/2015 54568-PJBQOVI NAIL, 6 OR MORE 02/11/2016 98380-EYXRYUR NAIL, 6 OR MORE 05/19/2016 36043-YSPTMMP NAIL, 6 OR MORE 08/25/2016 12688-JDECOZA NAIL, 6 OR MORE 06/09/2011 98846-GQRZTIX NAIL, 6 OR MORE 09/11/2011 21026-CXTFWUK NAIL, 6 OR MORE 09/25/2011 41596-MAFSCZO NAIL, 6 OR MORE 12/01/2011 64584-WLIQLGE NAIL, 6 OR MORE 03/01/2012 34377-FHJIVNE NAIL, 6 OR MORE 05/31/2012 17080-GSLKEKC NAIL, 6 OR MORE 09/06/2012 47569-DMAVWUC NAIL, 6 OR MORE 12/06/2012 66165-UZZQSLQ NAIL, 6 OR MORE 04/18/2013 19524-NMRMZEL NAIL, 6 OR MORE 07/11/2013 34359-RNCMJHU NAIL, 6 OR MORE 10/17/2013 63968-WHWGSXO NAIL, 6 OR MORE 01/09/2014 60250-GMUNAHT NAIL, 6 OR MORE 04/03/2014 81872-IVNLHTA NAIL, 6 OR MORE 06/26/2014 08527-ECGMBCW NAIL, 6 OR MORE 09/21/2014 24606-UXQHWZY NAIL, 6 OR MORE 12/24/2017 12184-LJQCARG NAIL, 6 OR MORE 03/04/2018 46601-UHMHCWT NAIL, 6 OR MORE 05/27/2018 88741-XTDCGGL NAIL, 6 OR MORE 08/02/2018 95427-LGYRVEQ NAIL, 6 OR MORE 09/05/2024 53065-Fnlzdyws Plate 11/05/2020 10882-Vljxckha Plate 02/04/2021 90517-Wysdwipe Plate 05/06/2021 50638-Idejsiuu Plate 02/06/2020 38475-Pomxbpkn Plate 12/24/2017 86813-Szzlmmjy Plate 05/27/2018 63696-Zrzmsiqu Plate 06/26/2014 11441-Bxxwhmvs Plate 07/11/2013 82385-Twpnxjpl Plate 12/06/2012 89558-Isgelwsc Plate 06/09/2011 15350-Yixpyfnz Plate 04/03/2014 58505-Xcvquubz Plate 04/12/2015 96285-Qwvuubqc Plate 08/25/2016 85535-Nntpnsrf Plate 04/16/2017 54271- Debride <25 sq cm 09/25/2011 94634 I&D ABSCESS- SIMPLE,SINGLE 013 71939 I&D ABSCESS- SIMPLE,SINGLE 012 94513 I&D ABSCESS- SIMPLE,SINGLE 012 61596 I&D ABSCESS- SIMPLE,SINGLE 015 92547 I&D ABSCESS- SIMPLE,SINGLE 018 07259-MXZO SKIN LESIONS, OVER 4 05/07/20 39373-AYXH SKIN LESIONS, OVER 4 11/12/19 22 05180-DHSZ SKIN LESIONS, 2 TO 4 08/01/20 21 79089-AVCN SKIN LESIONS, 2 TO 4 05/06/20 21 39530-TDLF SKIN LESIONS, 2 TO 4 02/05/20 21 07128-ZDNT SKIN LESIONS, 2 TO 4 09/05/19 25 87143-QKZF SKIN LESIONS, 2 TO 4 12/07/19 24 98091-DIVY SKIN LESIONS, 2 TO 4 08/06/20 20 03271-SDTH SKIN LESIONS, 2 TO 4 11/06/19 21 44654-UMPQ SKIN LESIONS, 2 TO 4 11/02/19 19 89353-IDSZ SKIN LESIONS, 2 TO 4 02/01/20 19 44644-HNZN SKIN LESIONS, 2 TO 4 05/02/20 19 63160-EQMZ SKIN LESIONS, 2 TO 4 08/08/20 19 68864-ZLJN SKIN LESIONS, 2 TO 4 11/07/19 20 56636-EWWR SKIN LESIONS, 2 TO 4 02/06/20 20 46299-DEWD SKIN LESIONS, 2 TO 4 05/27/20 18 44125-VIHG SKIN LESIONS, 2 TO 4 03/04/20 18 71707-LGHM SKIN LESIONS, 2 TO 4 08/02/20 18 58556-UUCQ SKIN LESIONS, 2 TO 4 06/04/20 15 18952-CPZE SKIN LESIONS, 2 TO 4 03/12/20 15 32217-NARC SKIN LESIONS, 2 TO 4 12/19/19 15 77127-APSV SKIN LESIONS, 2 TO 4 08/25/19 17 79995-AVYF SKIN LESIONS, 2 TO 4 05/19/20 16 87998-ZHGY SKIN LESIONS, 2 TO 4 02/11/20 16 73469-AZAY SKIN LESIONS, 2 TO 4 11/12/19 16 23049-KOZK SKIN LESIONS, 2 TO 4 07/09/20 17 72786-SKMZ SKIN LESIONS, 2 TO 4 12/25/19 18 61679-PCCO SKIN LESIONS, 2 TO 4 10/01/19 18 03967-LXTW SKIN LESIONS, 2 TO 4 11/25/19 17 68163-HMUY SKIN LESIONS, 2 TO 4 04/16/20 17 70285-KJHI SKIN LESIONS, 2 TO 4 02/06/20 17 31314-YFUQ SKIN LESIONS, 2 TO 4 09/25/19 12 94733-BWON SKIN LESIONS, 2 TO 4 12/01/19 12 35809-HTFJ SKIN LESIONS, 2 TO 4 09/11/19 12 51528-RXEH SKIN LESIONS, 2 TO 4 12/07/19 13 52096-QMDG SKIN LESIONS, 2 TO 4 09/06/19 13 18259-EFJF SKIN LESIONS, 2 TO 4 05/31/20 12 91633-VQNK SKIN LESIONS, 2 TO 4 03/01/20 12 30174-XJDJ SKIN LESIONS, 2 TO 4 04/18/20 13 23241-WPPC SKIN LESIONS, 2 TO 4 07/11/20 13 03280-INRM SKIN LESIONS, 2 TO 4 10/17/19 14 00548-LQPL SKIN LESIONS, 2 TO 4 09/21/19 15 78844-HKCZ SKIN LESIONS, 2 TO 4 04/03/20 14 77517-ZJGU SKIN LESIONS, 2 TO 4 01/10/20 14 21192-Jhed. Subungual Hematoma 4 20917,X6840-PUE TENDON SHEATH/LIGAMENT 0 12/25/2016 Next Appt Details Provider Name:Nallely Avitia erika, 12/15/2024 08:30:00 AM, [address] [facility], [facility] [address], [place], [address], Insurance Providers Payer Name Payer Address Payer Phone Subscriber Number Group Number Insured Name Patient Relationship to Insured Coverage Start Date Coverage End Date Medicare National Govt [facility] [address] [place] [phone] [id number] Mihai Herrera Self - patient is the insured [facility] [address] [place] [address] [phone] [id number] Mihai Herrera Self - patient is the insured Medical (General) History Medical History History ICD Code chicken pox diabetic hypertension mumps measles Surgical History Surgery Date(Month/Year) arm 1987 hand/wrist 1987 tonsillectomy 1958 umbilical hernia 06/2024
--- OUTSIDE RECORDS SUMMARY | 2024-11-30 08:26 | XMS_ITS ---
Author Organization [facility] Address [address] [facility] [place] [address] Care Team Providers Care Project Consultant Name Role Phone Maria Isabel Munoz MD Primary Care Provider Unavaila Nallely Mena Unavailable [phone] Nayan Luther Unavailable [phone] Allergies Allergen (clinical drug ingredient) Drug/Non Drug [...] CoQ-10 200 MG 1 capsule with a nioclas l Orally Once a day Active Calcium [...] 06/06/2024 Encounters Encounter Location Date Provider Diagnosis [facility] [address] [address] 06/06/2024 Nayan Luther Type 1 diabetes mellitus [...] Provider Name:Nallely james, 12/15/2024 08:30:00 AM, [address] [facility], [address], [place], [address], Procedure Notes * Category Sub-Category Detail Notes [...] as necessary. Patient chooses, no pharmaceutical tx (48315) Keratoma Treatment Parring or Cutting o f Benign Hyperkeratotic Lesion(s) (-56) 2-4 Lesions - The Benign hyperkeratotic lesions, as described above were pared, and/or cut utilizing a sterile 15 blade, tissue nippers, and/or dremel - 04630 Progress Notes * Mihai MONTGOMERY PDOB: (69 yo M)Acc No.[id number]:06/06/2024 Progress Note Patient:?Diallo Montgomery P Provider:?Nayan Luther DPM :1955???Age:69 Y???Sex:Male Loy e:06/06/2024 Address:[address] [place] [address] [id number] Pcp:Maria Isabel Munoz MD Subjective: * Chief [...] three. ?Exercise: yes. ?Marital status: . 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 * Medications:?TakingamLODIPin e Besylate 5 MG Tablet [...] as necessary. Patient chooses, no pharmaceutical tx (29023).?Keratoma Treatment:?Parring or Cutting of Benign Hyperkeratotic Lesion(s)?(-56) 2-4 Lesions - The Benign hyperkeratotic lesions, as described above were pared, and/or cut utilizing a sterile 15 blade, tissue nippers, and/or dremel - 35288.? * Procedure Codes:?00879 DEBRI DE NAIL, 6 OR MORE, Modifiers: XS 93694 TRIM SKIN LESIONS, 2 TO 4, Modifiers: XS * Follow Up:?3 Months * Images: * Sign off status: Completed true * Provider:?Nayan Luther DPM Date:? 024 Generated for Ritchie hernandez/Cate/eTboyd on:?11/30/2024 08:25 AM EDT History and Physical [...] taking performed:: 1+ ORIENTED: person,place, and [place] Ophthalmology Referral DIABETES EYE EXAM Diabetic Reti [...]
--- OUTSIDE RECORDS SUMMARY | 2024-11-30 08:26 | XMS_ITS ---
Author Organization [facility] Address [address] [place] [address] Care Team Providers Care Deputy Attorney General Name Role Phone Maria Isabel Munoz MD Primary Care Provider Nallely Leonardo Unavailable [phone] Nayan Luther [phone] Tello Encounters Encounter Location Date [facility] [address] 03/10/2024 Nayan Luther Plan Of Treatment Next Appt Details Provider Name:Nallely james, 12/15/2024 08:30:00 AM, [address] [place] [address], [phone], Progress Notes * Mihai MONTGOMERY PDOB: (69 yo M)Acc No.[id number]:03/10/2024 Progress Note Patient:?Diallo MONTGOMERY Provider:?Nayan Luther DPM :1955???Age:68 Y???Sex:Male Loy e:03/10/2024 Address:[address] [place] [address] [place]-[id number] Pcp:Maria Isabel Munoz MD Subjective: * Chief [...] DPM Date:? 024 Generated for Ritchie hernandez/Cate/Linda on:?11/30/2024 08:26 AM EDT
--- OUTSIDE RECORDS SUMMARY | 2024-11-30 08:26 | XMS_ITS | Clinical Summary ---
Author Organization [facility] Address [address] [address] Phone Care Team Providers Care Helicopter Specialist Name Role Phone Maria Isabel Munoz MD Primary Care Provider Allergies Active Allergy Reactions Criticality Noted Date [...] Of [address] [place] [address] Jaydon Brunson MD Type 2 diabetes mellitus with diabetic chronic kidney disease (HCC); Stage 3b chronic kidney disease (HCC) 11/15/2024 4:15 PM EDT Office Visit [facility] [address] [phone] Jaydon Brunson MD Stage 3a chronic kidney disease (HCC) (Primary Dx) 10/24/2024 Orders Only [facility] [address] [phone] Jaydon Brunson MD from Last 3 Months Immunizations Immunization Administration Dates Next Due Influenza (IM) Preservative [...] Office Visit [facility] [address] [facility] [address] [place] [phone] Jaydon Brunson MD [address] [phone] Health Maintenance Due Date Last Done Comments Pneumococcal Vaccine: 50+ Years (1 of 2 - PCV) 1961 10/22/2014 Colorectal Cancer Screening: Annual FOBT 2003 Colorectal Cancer Screening: Colonoscopy 2003 Colorectal Cancer Screening: Sigmoidoscopy 2003 Diabetes: Hemoglobin A1C 09/22/2020 09/15/2019 Diabetes: Ophthalmology Exam 09/22/2020 Diabetes: Pedal Pulse Checked 09/22/2020 Diabetes: Sensory Foot Exam 09/22/2020 Diabetes: Visual Foot Exam 09/22/2020 Influenza Vaccine (Season Ended) 2025 04/23/2020, 05/04/2019, 05/18/2018, Additional history exists Hepatitis B [...] (10/24/2024 11:39 AM EST) Specimen Status Comment [facility] Comment: Ambragini Abbrev RP10 Default Ambig Abbrev RP10 Default A hand-written panel/profile was received from your office. In accordance with the [facility] Ambiguous Test Code Policy dated February 2003, we have completed your order by using the closest currently or formerly recognized AMA panel. ??We have assigned Renal Panel (10), Test Code #495136 to this request. ??If this is not the testing you wished to receive on this specimen, please contact the [facility] Client Inquiry/Technical Services Department to clarify the test order. ??We appreciate your business. 10/24/2024 11:3 9 AM EST 10/24/2024 Jaydon Brunson MD LAB BLOOD ORDERABLES Final Re sult [facility] [address] [place] [address] * Microscopic Examination (10/24/2024 11:39 AM EST) WBC, Urine None seen 0 - 5 /hpf [facility] RBC, Urine None seen 0 - 2 /hpf [facility] Squamous Epithelial, Urine None seen 0 - 10 /hpf [facility] Casts None seen None seen /lpf [facility] Bacteria, Urine None seen None seen/Few [facility] 10/24/2024 11:3 9 AM EST 10/24/2024 Jaydon Brunson MD LAB MICROBIOLOGY - GENERAL OR DERABLES Final Result [facility] [address] [place] [address] * CBC Diff Ambiguous Default (10/24/2024 11:39 AM EST) WBC 5.0 3.4 - 10.8 x10E3/uL [facility] RBC 4.86 4.14 - 5.80 x10E6/uL [facility] Hemoglobin 15.7 13.0 - 17.7 g/dL [facility] Hematocrit 46.9 37.5 - 51.0 % [facility] MCV 97 79 - 97 fL [facility] MCH 32.3 26.6 - 33.0 pg [facility] MCHC 33.5 31.5 - 35.7 g/dL [facility] RDW 13.6 11.6 - 15.4 % [facility] Platelets 168 150 - 450 x10E3/uL [facility] Neutrophils Relative 64 Not Estab. % [facility] Lymphocytes Relative 25 Not Estab. % [facility] Monocytes 8 Not Estab. % [facility] Eosinophils Relative 3 Not Estab. % [facility] Basophils Relative 0 Not Estab. % [facility] Neutrophils Absolute 3.2 1.4 - 7.0 x10E3/uL [facility] Lymphocytes Absolute 1.3 0.7 - 3.1 x10E3/uL [facility] Monocytes Absolute 0.4 0.1 - 0.9 x10E3/uL [facility] Eosinophils Absolute 0.1 0.0 - 0.4 x10E3/uL [facility] Basophils Absolute 0.0 0.0 - 0.2 x10E3/uL [facility] Immature Granulocytes 0 Not Estab. % [facility] Immature Grans (Absolute) 0.0 0.0 - 0.1 x10E3/uL [facility] Comment: A hand-written panel/profile was received from your office. In accordance with the [facility] Ambiguous Test Code Policy dated February 2003, we have assigned CBC with Differential/Platelet, Test Code #[id number] to this request. If this is not the testing you wished to receive on this specimen, please contact the [facility] Client Inquiry/ Technical Services Department to clarify the test order. We appreciate your business. 10/24/2024 11:3 9 AM EST 10/24/2024 Jaydon Brunson MD LAB BLOOD ORDERABLES Final Re sult [facility] [address] [place] [address] * Protein, Total, Random Urine w/Creatinine (Protein/Creat Ratio) (10/24/2024 11:39 AM EST) Creatinine, Ur 72.2 Not Estab. mg/dL [facility] Protein, Ur 11.1 Not Estab. mg/dL [facility] Urine Protein/Creatin ine Ratio 154 0 - 200 mg/g creat [facility] 10/24/2024 11:3 9 AM EST 10/24/2024 Jadyon Brunson MD LAB URINE ORDERABLES Final [facility] [phone] [address] [place] [phone] * Urine Albumin / Creatinine Ratio (10/24/2024 11:39 AM EST) Pathologist [facility] Albumin, Urine 7.1 Not Estab. ug/mL [facility] Albumin/Creatin ine Ratio 10 0 - 29 mg/g creat [facility] Comment: ? Normal: ?0 - ??29 ? Moderately increased: 30 - 300 ? Severely increased: ? >300 10/24/2024 11:3 9 AM EST 10/24/2024 us Jaydon Brunson MD LAB URINE ORDERABLES Final Re sult [facility] [address] [place] [address] * Vitamin D 25 Hydroxy (10/24/2024 11:39 AM EST) Pathologist [facility] Vitamin D, 25-OH, Total 35.5 30.0 - 100.0 ng/mL [facility] Comment: Vitamin D deficiency has been defined by the [place] of Medicine and an Endocrine Society practice guideline as a level of serum 25-OH vitamin D less than 20 ng/mL (1,2). The Endocrine Society went on to further define vitamin D insufficiency as a level between 21 and 29 ng/mL (2). 1. IOM ([place] of Medicine). 2010. Dietary reference ?? intakes for calcium and D. [place]: The ?? National Academies Press. 2. Familia MF, Petey NC, Lisa CASPER, et al. ?? Evaluation, treatment, and prevention of vitamin D ?? deficiency: an Endocrine Society clinical practice ?? guideline. JCEM. 2010; 96(7):1911-30. 10/24/2024 11:3 9 AM EST 10/24/2024 Jaydon Brunson MD LAB BLOOD ORDERABLES Final Re sult [facility] [address] [place] [address] * (ABNORMAL) Urinalysis with microscopic (10/24/2024 11:39 AM EST) Specific [place], Urine >=1.030(A) 1.005 - 1.030 [facility] pH Urine 5.5 5.0 - 7.5 [facility] [phone] Color, Urine Yellow Yellow [facility] Appearance Urine Clear Clear [facility] WBC Esterase Urine Negative Negative [facility] [phone] Protein, Ur 1+(A) Negative/Tra ce [facility] [phone] Glucose, Ur 3+(A) Negative [facility] Ketones, Urine Negative Negative [facility] Blood Urine Negative Negative [facility] Bilirubin Urine Negative Negative [facility] Urobilinogen Urine 0.2 0.2 - 1.0 mg/dL [facility] Nitrite, Urine Negative Negative [facility] Microscopic Examination See below: [facility] Comment:Microscopic was raul cated and was performed. 10/24/2024 11:3 9 AM EST 10/24/2024 Jaydon Brunson MD LAB URINE ORDERABLES Final Re sult Performing Organization Address City/[facility]/ZIP Co de Phone Number [facility] [address] [place] [address] * PTH, Intact (10/24/2024 11:39 AM EST) PTH 64 15 - 65 pg/mL [facility] 10/24/2024 11:3 9 AM EST 10/24/2024 Jaydon Brunson MD LAB BLOOD ORDERABLES Final Re sult Performing Organization Address City/[facility]/ZIP Co de Phone Number [facility]ion [facility] [address] [place] [address] * Magnesium (10/24/2024 11:39 AM EST) Magnesium 2.2 1.6 - 2.3 mg/dL [facility] 10/24/2024 11:3 9 AM EST 10/24/2024 Jaydon Brunson MD LAB BLOOD ORDERABLES Final Re sult Performing Organization Address [facility] Co de Phone Number [facility] [address] [place] [address] * (ABNORMAL) Renal Function Panel (10/24/2024 11:39 AM EST) Glucose 151(H) 70 - 99 mg/dL [facility] BUN 25 8 - 27 mg/dL [facility] Creatinine 1.59(H) 0.76 - 1.27 mg/dL [facility] eGFR CKD-EPI CR 2020 46(L) >59 mL/min/1.7 3 [facility] BUN/Creatinine Ratio 16 10 - 24 [facility] Sodium 141 134 - 144 mmol/L [facility] Potassium 4.9 3.5 - 5.2 mmol/L [facility] Chloride 101 96 - 106 mmol/L [facility] Bicarbonate (CO2) 26 20 - 29 mmol/L [facility] Calcium 9.0 8.6 - 10.2 mg/dL [facility] Albumin 4.1 3.9 - 4.9 g/dL [facility] Phosphorus 3.2 2.8 - 4.1 mg/dL [facility] 10/24/2024 11:3 9 AM EST 10/24/2024 Jaydon Brunson MD LAB BLOOD ORDERABLES Final [facility] [address] [place] [address] * Hemoglobin A1c (09/15/2019 5:40 PM EST) [...] average glucose, using the formula of the K3O-Ylqxcuy Average Glucose study (ADAG), Diabetes Care, Vol.31,#8, Mar. 2007 09/15/2019 5:40 PM EST us Maria Isabel Munoz MD LAB BLOOD ORDERABLES Final Resu lt WALES from Last 3 Months or Most Recently Relevant to Health Maintenance Insurance Member Subscriber Plan / Payer (Ef fective 2019-Present) Name:Mihai Herrera Relation to Subscriber:Self Name:Mihai Herrera Payer ID:Not on file Type:Not on file Address: [address] [phone] Medicare Medicare Care Teams Helicopter Specialist Relationship Specialty Start Date End Date Maria Isabel Munoz MD [address] [place] [address] PCP - General Internal Medicine 01/29/21
[2024-11-30 10:07] LABS: MANUAL DIFF FLAG NO
[2024-11-30 10:17] LABS: Basophils Percent Auto 0.4 % (0-2); Eosinophils Absolute Auto 0.1 X10*3/uL (0.0-0.4); Hemoglobin 15.4 g/dl (14.0-18.0); Imm Gran Abs Auto 0.02 X10*3/uL (0.00-0.03); Imm Gran Pct Auto 0.4 % (0.0-0.4); Lymphocytes Absolute Auto 1.1 X10*3/uL (1.2-4.9); Lymphocytes Percent Auto 24.2 % (20-40); Mean Corpuscular HGB Conc 32.8 g/dl (31.0-36.0); Mean Corpuscular Hemoglobin 32.2 pg (27.0-33.0); Mean Corpuscular Volume 98.3 fL (80.0-98.0); Mean Platelet Volume 11.2 fL (9.4-12.4); Monocytes Absolute Auto 0.4 X10*3/uL (0.1-1.2); Monocytes Percent Auto 8.4 % (2-11); Neutrophils Absolute Auto 2.9 x10*3/uL (2.0-8.3); Neutrophils Percent Auto 63.6 % (45-73); Platelet Count 158 X10*3/uL (160-400); Red Blood Count 4.78 X10*6/uL (4.60-5.80); Red Cell Distribution Width 13.7 % (11.0-16.0); White Blood Count 4.6 X10*3/uL (4.8-10.8)
[2024-11-30 10:29] LABS: Estimated Average Glucose 137 mg/dL; Hemoglobin A1C 191.2268 umol/L; Hemoglobin A1c % 6.4 % (<6.0); Total Hemoglobin (HGBA1C) 4077.7678 umol/L
[2024-11-30 10:40] LABS: Alanine Aminotransferase 41 U/L (0-40); Alkaline Phosphatase 68 U/L (39-117); Anion Gap 10 (12-20); Aspartate Amino Transferase 31 U/L (5-37); Bilirubin Total 0.4 mg/dL (0.0-1.0); Blood Urea Nitrogen 24 mg/dL (9-16); Carbon Dioxide 27 mmol/L (22-29); Chloride 111 mmol/L (96-108); Cholesterol 146 mg/dL (<200); Estimated Glomerular Filt Rate 52; Glucose Fasting 135 mg/dL (60-99); HDL Cholesterol 41 mg/dL (>40); LDL Cholesterol Calculated 60 mg/dL (<100); Potassium 4.4 mmol/L (3.3-5.1); Sodium 144 mmol/L (135-145); Total Protein 6.8 g/dL (6.5-8.0); Triglycerides 225 mg/dL (<150)
[2024-11-30 11:24] LABS: Creatinine Urine 104.29 mg/dL; Microalbum/Creatinine Ratio Ur 5.7 ug/mg cr (<30)
== END 2024-11-30 08:17 | disposition home or self-care (01) ==
LOC: HO.HMGCLDS 08:16
PROVIDERS: PCP Internal Medicine; Visit Provider Internal Medicine
DX: I15.2 Hypertension secondary to endocrine disorders (principal); E11.9 Type 2 diabetes mellitus without complications; N18.30 Chronic kidney disease, stage 3 unspecified; Z79.4 Long term (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
CPT/HCPCS: 36415; 80053; 80061; 82043; 82570; 83036; 85025

== ENCOUNTER 2024-12-07 09:10 | Outpatient (AMB) | payer MEDICARE, OTHER, SELFPAY ==
[2024-12-07 09:12] VITALS: BP 118/66; PULSE 60; RESP 20; TEMP 36.9; O2SAT 97; BMI 30.2
--- NOTE | 2024-12-07 09:12 | MHC.PC.OV ---
Vital Signs 12/07/24 09:12 Height 6 ft 2 in Weight 235 lb BMI 30.2 BP 118/66 Blood Pressure Location Rt brachial Position Sitting Respiration 20 Pulse 60 Pulse Source Pulse Oximeter Temp 98.5 F Temp Source Oral Pulse Oximetry (%) 97 Oxygen Delivery Method Room Air Intake Visit Reasons: PE Intake Note: Pt is here today for PE. Allergies niacin [NIACIN] Allergy (Mild, Verified 12/07/24 09:12) ITCHING, itchy, itchy Kdivpxr-RCB-JxL Reductase Inhibitor [UGMOHCU-BPM-WZC REDUCTASE INHIBITOR] Allergy (Unknown, Verified 12/07/24 09:12) HIGH CPK atorvastatin [Lipitor] Adverse Reaction (Unknown, Verified 12/07/24 09:12) high CPK Medication List - Last Reconciled 12/07/24 by Maria Isabel Munoz MD acetone (urine) test (Ketone Urine Test strips) prn glucose over 250, nausea, vomiting or illness. discard after open 6 months ascorbic acid (vitamin C) 500 mg PO BID aspirin 81 mg PO DAILY calcium carbonate-vitamin D3 600 mg-5 mcg (200 unit) (Calcium 600 + D(3)) 1 cap PO DAILY cholecalciferol (vitamin D3) 25 mcg PO Q OTHER DAY dapagliflozin propanediol (Farxiga) 10 mg PO DAILY docusate sodium (Colace) 100 mg PO BID ezetimibe 10 mg PO DAILY ferrous sulfate (FeroSul) 325 mg PO Q OTHER DAY fluticasone propionate 50 mcg/actuation 1 spray intranasal DAILY glucosamine HCl 750 mg PO DAILY insulin glargine (Lantus U-100 Insulin) 46 units subcut DAILY PRN insulin lispro (Admelog U-100 Insulin lispro) Infuse up to 110 units via insulin pump subcutaneously daily; 90 days irbesartan 300 mg PO DAILY metformin ER 500 mg PO BID nebivolol 2.5 mg PO DAILY rosuvastatin 10 mg PO BEDTIME spironolactone 25 mg PO DAILY Tobacco use date assessed: 12/07/24 Fall risk assessment: No Falls in past year Last assessed Fall Risk: 12/07/24 Dental Screening Dental Screen Date: 12/07/24 Did you have a dental visit in the last 12 months?: Yes Did you have a dental problem in the last 6 months where you did not have access to dental care?: No Was dental information given to patient?: Patient has dentist HPI PE HPI Details Pt presents for PE. 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 Diabetic polyneuropathy associated with type 2 diabetes mellitus Varicose vein of leg Osteoarthritis CKD (chronic kidney disease), stage III Umbilical hernia Peripheral neuropathy Hypokalemia Obstructive sleep apnea Anemia B-complex deficiency Hypercholesterolemia HTN (hypertension) Diabetes type 2, controlled Surgical History Umbilical hernia (07/07/24) History of colonoscopy Family History Father Diabetes mellitus CAD (coronary artery disease) HTN (hypertension) Mother Stroke Pancreatic cancer HTN (hypertension) Maternal Grandfather Abdominal aortic aneurysm CVD (cardiovascular disease) Maternal Grandmother Abdominal aortic aneurysm Paternal Grandfather CVD (cardiovascular disease) Paternal Grandmother No problems noted. Brother Diabetes mellitus Brother No problems noted. Brother No problems noted. Son No problems noted. Son No problems noted. Daughter No problems noted. Sister Hodgkins disease Social History Household Members: Spouse Housing: House Alcohol intake: current Alcohol intake frequency: 0-2 drinks per day Patient Tobacco Use Status: Never used Tobacco e-Cigarette/Vaping Use: Never Used service: No Current occupational status: retired Cognitive needs: No Hearing needs: Yes Vision needs: Yes Questionnaire PHQ-9 Over the last 2 weeks, how often have you been bothered by any of the following problems? 1. Little interest or pleasure in doing things: not at all 2. Feeling down, depressed, or hopeless: not at all 3. Trouble falling or staying asleep, or sleeping too much: not at all 4. Feeling tired or having little energy: not at all 5. Poor appetite or overeating: not at all 6. Feeling bad about yourself - or that you are a failure or have let yourself or your family down: not at all 7. Trouble concentrating on things, such as reading the newspaper or watching television: not at all 8. Moving or speaking so slowly that other people could have noticed. Or the opposite - being so fidgety or restless that you have been moving around a lot more than usual: not at all 9. Thoughts that you would be better off or of hurting yourself in some way: not at all Total score: 0 Depression Screening Interpretation: Negative Depression Screening Done: Yes 22822 - PHQ-9 Billing: Yes Source: Developed by Drs. Vern Gilbert, Thea Vela, Kailash Caal and colleagues, with an educational roopa from [employer]. Thrive Questionnaire Date Thrive assessed: 12/07/24 I am a: Patient What is your living situation today?: I have a steady place to live Within the past 12 months, did the food you bought not last and you didn't have the money to get more?: Never true Within the past 12 months, did you worry whether your food would run out before you got money to buy more?: Never true Do you have trouble paying for medicines?: No Do you have trouble getting transportation to medical appointments?: No Do you have trouble paying your heating and electricity bill?: No Do you have trouble taking care of your child, family member or friend?: No Do you have trouble with day-to-day activities such as bathing, preparing meals, shopping, managing finances, etc.?: No Are you currently unemployed and looking for a job?: No Are you interested in more education?: No Please select the resources that you would like help with: None Currently or been in a relationship where the following occur: No concerns reported THRIVE Score: 0 AUDIT C Alcohol Use Questionnaire (AUDIT-C) 1. How often do you have a drink containing alcohol?: 4 or more times a week 2. How many drinks containing alcohol do you have on a typical day when you are drinking?: 1 or 2 3. How often do you have six or more drinks on one occasion?: Never Total Score: 4 ETA-7 AMB Questionnaire TEA-7 Date TEA - 7 assessed: 12/07/24 Feeling nervous, anxious, or on edge: 0 = Not at all Not being able to stop or control worryin = Not at all Worrying too much about different things: 0 = Not at all Trouble relaxin = Not at all Being so restless that it is hard to sit still: 0 = Not at all Becoming easily annoyed or irritable: 0 = Not at all Feeling afraid as if something awful might happen: 0 = Not at all Total TEA-7 score (0-4 normal; 5-9 mild; 10-14 moderate; 15-21 severe): 0 Source: Developed by Drs. Vern Gilbert, Thea Vela, Kailash Caal and colleagues, with an educational roopa from [employer]. TEA-7 Assessment Billing TEA-7 Assessment Tool: TEA-7 Assessment 57405 Review of Systems Const All systems reviewed & are unremarkable except as noted in HPI and below Reports no additional complaints Eyes Reports no additional complaints ENT Reports no additional complaints Card Reports no additional complaints Resp Reports no additional complaints GI Reports no additional complaints Physical exam (Primary Care) Vital Signs: Last Vital Signs Temp 98.5 F 12/07/24 09:12 Pulse 60 12/07/24 09:12 Resp 20 12/07/24 09:12 BP 118/66 12/07/24 09:12 Pulse Ox 97 12/07/24 09:12 Oxygen Delivery Method Room Air 12/07/24 09:12 BMI result Body Mass Index 30.2 Tobacco/Smoking Status: Tobacco use Status Tobacco use date assessed 12/07/24 12/07/24 09:19 Patient Tobacco Use Status Never used Tobacco 12/07/24 09:19 e-Cigarette/Vaping Use Never Used 12/07/24 09:19 PHQ-9: PHQ-9 Score PHQ-9: Total score 0 12/07/24 10:09 Depression Screening Interpretation: Negative Thrive Assessment: Date of Thrive Assessment Date Thrive assessed 12/07/24 12/07/24 09:19 Currently or been in a relationship where the following occur: No concerns reported Const General: no acute distress HENMT Head: Yes normal to inspection Ears: hearing grossly normal bilaterally Face and sinus: Yes normal facial exam Mouth: Normal oral and palatal mucosa present Eyes General: appearance normal, both eyes and all related structures Neck Neck: Yes no lymphadenopathy and Yes supple Resp Effort & Inspection: normal respiratory effort Auscultation: clear to auscultation bilaterally Cardio Rhythm: regular rhythm Heart sounds: S1 normal heart sound present and S2 normal heart sound present GI Inspection: Yes normal to inspection Palpation (GI): Soft to palpation Percussion: Yes normal to percussion Auscultation: normal bowel sounds Extrem General: Yes no clubbing, cyanosis or edema Immunizations pneumoc 20-jose angel conj-dip cr(PF) 0.5 mL IM syringe Performing Provider: Maria Isabel Munoz MD [place] [facility] [place] [facility] [place] [facility] Administered by: MAURO Soto on 12/07/24 10:12 Dose Route Admin Location Dispensed Lot Number Expiration Date NDC [employer] 0.5 mL IM Left Deltoid 0.5 mL [id number] 10/20/25 9942-8225-38 [employer] VIS Given Date VIS Provided VIS Publication Date 12/07/24 Single Vaccine 21 Eligibility Eligibility Date Funding Source Not [facility] Eligible 12/07/24 Private Coding Level of Care Code Est Pt Prev Care >65y(21560) Diagnoses Diabetic polyneuropathy associated with type 2 diabetes mellitus E11.42 Hypertension due to endocrine disorder I15.2 Hypertension type: secondary to endocrine disorders Hypercholesterolemia E78.00 Stage 3a chronic kidney disease N18.31 Chronic kidney disease stage 3 subtype: stage 3a (GFR 45-59) Controlled type 2 diabetes mellitus with diabetic polyneuropathy, with long-term current use of insulin E11.42; Z79.4 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 mellitus 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 insulin use: with 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 use Diabetes mellitus complication status: with neurologic complications Diabetes mellitus complication detail: with polyneuropathy Annual physical exam Z00.00 Lung nodule seen on imaging study R91.1 Additional Codes TEA-7 Assessment Billing - TEA-7 Assessment Tool: TEA-7 Assessment 97656 ([id number]) PHQ-9 - 85445 - PHQ-9 Billing: Yes ([id number]) Assessment & Plan Assessment & Plan (1) Diabetic polyneuropathy associated with type 2 diabetes mellitus: Code(s): E11.42 - Type 2 diabetes mellitus with diabetic polyneuropathy Category: Medical Plan: 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 Bobo Code(s): N18.30 - Chronic kidney disease, stage 3 unspecified Category: Medical Qualifiers: Chronic kidney disease stage 3 subtype: stage 3a (GFR 45-59) Qualified Code(s): N18.31 - Chronic kidney disease, stage 3a Plan: Monitor renal function avoid nephrotoxins (5) Diabetes type 2, controlled: Comment: [employer] for renoprotection Dr. 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 Patient is up-to-date with diabetic eye exam. 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 He will call GI to schedule colonoscopy (7) Lung nodule seen on imaging study: Comment: [address] abd/pelvis 06/2024, Lung CT 08/2024 stable, repeat 6-12 months Code(s): R91.1 - Solitary pulmonary nodule Category: Medical Plan: Repeat CT in 6-12 months Orders: Orders Pneumococcal 20 Immunization Today Z23 - Encounter for immunization Lipid Panel 6 Months E11.42 - Type 2 diabetes mellitus with diabetic polyneuropathy, E53.8 - Deficiency of other specified B group vitamins, E55.9 - Vitamin D deficiency, unspecified, I15.2 - Hypertension secondary to endocrine disorders, N18.31 - Chronic kidney disease, stage 3a Complete Blood Count Auto Diff 6 Months E11.42 - Type 2 diabetes mellitus with diabetic polyneuropathy, E53.8 - Deficiency of other specified B group vitamins, E55.9 - Vitamin D deficiency, unspecified, I15.2 - Hypertension secondary to endocrine disorders, N18.31 - Chronic kidney disease, stage 3a Vitamin B12 and Folate 6 Months E11.42 - Type 2 diabetes mellitus with diabetic polyneuropathy, E53.8 - Deficiency of other specified B group vitamins, E55.9 - Vitamin D deficiency, unspecified, I15.2 - Hypertension secondary to endocrine disorders, N18.31 - Chronic kidney disease, stage 3a Vitamin D 25-OH Total 6 Months E11.42 - Type 2 diabetes mellitus with diabetic polyneuropathy, E53.8 - Deficiency of other specified B group vitamins, E55.9 - Vitamin D deficiency, unspecified, I15.2 - Hypertension secondary to endocrine disorders, N18.31 - Chronic kidney disease, stage 3a IRON PROFILE 6 Months E11.42 - Type 2 diabetes mellitus with diabetic polyneuropathy, E53.8 - Deficiency of other specified B group vitamins, E55.9 - Vitamin D deficiency, unspecified, I15.2 - Hypertension secondary to endocrine disorders, N18.31 - Chronic kidney disease, stage 3a Comprehensive [place]. Panel Fast 6 Months E11.42 - Type 2 diabetes mellitus with diabetic polyneuropathy, E53.8 - Deficiency of other specified B group vitamins, E55.9 - Vitamin D deficiency, unspecified, I15.2 - Hypertension secondary to endocrine disorders, N18.31 - Chronic kidney disease, stage 3a Microalbumin, Random (w Creat) 6 Months E11.42 - Type 2 diabetes mellitus with diabetic polyneuropathy, E53.8 - Deficiency of other specified B group vitamins, E55.9 - Vitamin D deficiency, unspecified, I15.2 - Hypertension secondary to endocrine disorders, N18.31 - Chronic kidney disease, stage 3a
--- OUTSIDE RECORDS SUMMARY | 2024-12-07 10:10 | XMS_ITS | Clinical Summary ---
Author Organization [facility] Address [address] [address] Phone Care Team Providers Care Jigman Name Role Phone Maria Isabel Munoz MD Primary Care Provider [phone] Allergies Active Allergy Reactions Criticality Noted Date [...] Of [address] [place] [address] Jaydon Brunson MD Type 2 diabetes mellitus with diabetic chronic kidney disease (HCC); Stage 3b chronic kidney disease (HCC) 11/15/2024 4:15 PM EDT Office Visit [facility] [address] [phone] Jaydon Brunson MD Stage 3a chronic kidney disease (HCC) (Primary Dx) 10/24/2024 Orders Only [facility] [address] [phone] Jaydon Brunson MD from Last 3 Months [...] Office Visit [facility] [address] [facility] [address] [place] [phone] Jaydon Brunson MD [address] [address] Health Maintenance Due Date Last Done Comments Pneumococcal Vaccine: 50+ Years (1 of 2 - PCV) 1973 10/22/2014 Colorectal Cancer Screening: Annual FOBT 2003 Colorectal Cancer Screening: Colonoscopy 2003 Colorectal Cancer Screening: Sigmoidoscopy 2003 Diabetes: Hemoglobin A1C 09/22/2020 09/15/2019 Diabetes: Ophthalmology Exam 09/22/2020 Diabetes: Pedal Pulse Checked 09/22/2020 Diabetes: Sensory Foot Exam 09/22/2020 Diabetes: Visual Foot Exam 09/22/2020 Influenza Vaccine (Season Ended) 2025 04/23/2020, 05/04/2019, 05/18/2018, Additional history exists Pneumococcal Vaccine: Peds (0 to 5 Years) and At-Risk Patients (6 to 49 Years) Discontinued 10/22/2014 Hepatitis B Vaccine Aged Out No longe [...] (10/24/2024 11:39 AM EST) Specimen Status Comment [facility] Comment: Ambragini Abbrev RP10 Default Ambig Abbrev RP10 Default A hand-written panel/profile was received from your office. In accordance with the [facility] Ambiguous Test Code Policy dated February 2003, we have completed your order by using the closest currently or formerly recognized AMA panel. ??We have assigned Renal Panel (10), Test Code #025602 to this request. ??If this is not the testing you wished to receive on this specimen, please contact the [facility] Client Inquiry/Technical Services Department to clarify the test order. ??We appreciate your business. 10/24/2024 11:3 9 AM EST 10/24/2024 us Jaydon Brunson MD LAB BLOOD ORDERABLES Final Re sult [facility] [address] [place] [phone] * Microscopic Examination (10/24/2024 11:39 AM EST) WBC, Urine None seen 0 - 5 /hpf [facility] RBC, Urine None seen 0 - 2 /hpf [facility] Squamous Epithelial, Urine None seen 0 - 10 /hpf [facility] Casts None seen None seen /lpf [facility] Bacteria, Urine None seen None seen/Few [facility] 10/24/2024 11:3 9 AM EST 10/24/2024 us Jaydon Brunson MD LAB MICROBIOLOGY - GENERAL OR DERABLES Final Result [facility] [address] [place] [address] * CBC Diff Ambiguous Default (10/24/2024 11:39 AM EST) WBC 5.0 3.4 - 10.8 x10E3/uL [facility] RBC 4.86 4.14 - 5.80 x10E6/uL [facility] Hemoglobin 15.7 13.0 - 17.7 g/dL [facility] Hematocrit 46.9 37.5 - 51.0 % [facility] MCV 97 79 - 97 fL [facility] MCH 32.3 26.6 - 33.0 pg [facility] MCHC 33.5 31.5 - 35.7 g/dL [facility] RDW 13.6 11.6 - 15.4 % [facility] Platelets 168 150 - 450 x10E3/uL [facility] Neutrophils Relative 64 Not Estab. % [facility] Lymphocytes Relative 25 Not Estab. % [facility] Monocytes 8 Not Estab. % [facility] Eosinophils Relative 3 Not Estab. % [facility] Basophils Relative 0 Not Estab. % [facility] Neutrophils Absolute 3.2 1.4 - 7.0 x10E3/uL [facility] Lymphocytes Absolute 1.3 0.7 - 3.1 x10E3/uL [facility] Monocytes Absolute 0.4 0.1 - 0.9 x10E3/uL [facility] Eosinophils Absolute 0.1 0.0 - 0.4 x10E3/uL [facility] Basophils Absolute 0.0 0.0 - 0.2 x10E3/uL [facility] Immature Granulocytes 0 Not Estab. % [facility] Immature Grans (Absolute) 0.0 0.0 - 0.1 x10E3/uL [facility] Comment: A hand-written panel/profile was received from your office. In accordance with the [facility] Ambiguous Test Code Policy dated February 2003, we have assigned CBC with Differential/Platelet, Test Code #325587 to this request. If this is not the testing you wished to receive on this specimen, please contact the [facility] Client Inquiry/ Technical Services Department to clarify the test order. We appreciate your business. 10/24/2024 11:3 9 AM EST 10/24/2024 Jaydon Brunson MD LAB BLOOD ORDERABLES Final Re [facility] [address] [place] [address] * Protein, Total, Random Urine w/Creatinine (Protein/Creat Ratio) (10/24/2024 11:39 AM EST) Creatinine, Ur 72.2 Not Estab. mg/dL [facility] Protein, Ur 11.1 Not Estab. mg/dL [facility] Urine Protein/Creatin ine Ratio 154 0 - 200 mg/g creat [facility] 10/24/2024 11:3 9 AM EST 10/24/2024 Jaydon Brunson MD LAB URINE ORDERABLES Final Re sult Performing Organization Address [facility] de Phone Number [facility] [address] [place] [address] * Urine Albumin / Creatinine Ratio (10/24/2024 11:39 AM EST) Albumin, Urine 7.1 Not Estab. ug/mL [facility] Albumin/Creatin ine Ratio 10 0 - 29 mg/g [facility] Comment: ? Normal: ?0 - ??29 ? Moderately increased: 30 - 300 ? Severely increased: ? >300 10/24/2024 11:3 9 AM EST 10/24/2024 Jaydon Brunson MD LAB URINE ORDERABLES Final Re sult Performing Organization Address [facility] de Phone Number [facility] [address] [place] [address] * Vitamin D 25 Hydroxy (10/24/2024 11:39 AM EST) Vitamin D, 25-OH, Total 35.5 30.0 - 100.0 ng/mL [facility] Comment: Vitamin D deficiency has been defined by the [place] of Medicine and an Endocrine Society practice guideline as a level of serum 25-OH vitamin D less than 20 ng/mL (1,2). The Endocrine Society went on to further define vitamin D insufficiency as a level between 21 and 29 ng/mL (2). 1. IOM ([place] of Medicine). 2010. Dietary reference ?? intakes for calcium and D. [place]: The ?? National [employer]. 2. Familia MF, Petey SHERWOOD, Lisa CASPER, et al. ?? Evaluation, treatment, and prevention of vitamin D ?? deficiency: an Endocrine Society clinical practice ?? guideline. JCEM. 2010; 96(7):1911-30. 10/24/2024 11:3 9 AM EST 10/24/2024 us Jaydon Brunson MD LAB BLOOD ORDERABLES Final Re sult [facility] [address] [place] [address] * (ABNORMAL) Urinalysis with microscopic (10/24/2024 11:39 AM EST) Specific Phil Campbell, Urine >=1.030(A) 1.005 - 1.030 [facility] pH Urine 5.5 5.0 - 7.5 [facility] Color, Urine Yellow Yellow [facility] Appearance Urine Clear Clear [facility] WBC Esterase Urine Negative Negative [facility] Protein, Ur 1+(A) Negative/Tra ce [facility] Glucose, Ur 3+(A) Negative [facility] Ketones, Urine Negative Negative [facility] [phone] Blood Urine Negative Negative [facility] [phone] Bilirubin Urine Negative Negative [facility] Urobilinogen Urine 0.2 0.2 - 1.0 mg/dL [facility] Nitrite, Urine Negative Negative [facility] Microscopic Examination See below: [facility] Comment:Microscopic was raul cated and was performed. 10/24/2024 11:3 9 AM EST 10/24/2024 Jaydon Brunson MD LAB URINE ORDERABLES Final Re sult Performing Organization Address City/[facility]/ZIP Co de Phone Number [facility] [address] [place] [address] * PTH, Intact (10/24/2024 11:39 AM EST) PTH 64 15 - 65 pg/mL [facility] 10/24/2024 11:3 9 AM EST 10/24/2024 Jaydon Brunson MD LAB BLOOD ORDERABLES Final Re sult Performing Organization Address [facility] Co de Phone Number [facility] [address] [place] [address] * Magnesium (10/24/2024 11:39 AM EST) Magnesium 2.2 1.6 - 2.3 mg/dL [facility] 10/24/2024 11:3 9 AM EST 10/24/2024 Jaydon Brunson MD LAB BLOOD ORDERABLES Final Re sult Performing Organization Address City/[facility] Co de Phone Number [facility] [address] [place] [address] * (ABNORMAL) Renal Function Panel (10/24/2024 11:39 AM EST) Glucose 151(H) 70 - 99 mg/dL [facility] BUN 25 8 - 27 mg/dL [facility] Creatinine 1.59(H) 0.76 - 1.27 mg/dL [facility] eGFR CKD-EPI CR 2020 46(L) >59 mL/min/1.7 3 [facility] BUN/Creatinine Ratio 16 10 - 24 [facility] Sodium 141 134 - 144 mmol/L [facility] Potassium 4.9 3.5 - 5.2 mmol/L [facility] Chloride 101 96 - 106 mmol/L [facility] Bicarbonate (CO2) 26 20 - 29 mmol/L [facility] Calcium 9.0 8.6 - 10.2 mg/dL [facility] Albumin 4.1 3.9 - 4.9 g/dL [facility] Phosphorus 3.2 2.8 - 4.1 mg/dL [facility] 10/24/2024 11:3 9 AM EST 10/24/2024 us Jaydon Brunson MD LAB BLOOD ORDERABLES Final Re sult [facility] [address] [place] [address] * Hemoglobin A1c (09/15/2019 5:40 PM EST) [facility] Hemoglobin A1C 6.9 % [facility] Comment: ?Hemoglobin A1C Reference Range ? Adults: ??4.8 - 6.0 % ? Non diabetic: ??< 6.0 % ? Goal: ??< 7.0 % Additional Action Suggested: ??> 8.0 % Note: ??Hemoglobin A1c results are invalid for patients ? with abnormal amounts of HbF. ??Blood transfusions ? may impact the HbA1c concentration in the patient ? sample. Estimated Average Glucose 151 MG/DL [facility] Comment: eAG = Estimated average glucose which is %A1C expressed as average glucose, using the formula of the E5A-Nnmmnlp Average Glucose study (ADAG), Diabetes Care, Vol.31,#8, Mar. 2007 09/15/2019 5:40 PM EST us Maria Isabel Munoz MD LAB BLOOD ORDERABLES Final Resu lt [facility] from Last 3 Months or Most Recently Relevant to Health Maintenance Insurance Medicare Member Subscriber Plan / Payer (Ef fective 2019-Present) Name:Mihai Herrera Relation to Subscriber:Self Name:Mihai Herrera Payer ID:Not on file Type:Not on file Address: [place] [id number] Medicare Care Teams Jigman Relationship Specialty Start Date End Date Maria Isabel Munoz MD [address] [place] [address] PCP - General Internal Medicine 01/29/21
--- OUTSIDE RECORDS SUMMARY | 2024-12-07 10:10 | XMS_ITS | Patient Health Record ---
Author Organization [facility] Address [address] [place] [address] Care Team Providers Care Pattern Changer And Repairer Name Role Phone Maria Isabel Munoz MD Primary Care Provider Nallely Leonardo Unavailable [phone] Nayan Luther Unavailable [phone] Allergies Allergen (clinical drug ingredient) Drug/Non Drug [...] (HH) 6.5 HEMOGLOBIN A1C (GLYCOHEMOGLO BIN) Reviewed date:09/05/2024 08:42:32 AM Interpretation: Performing Lab: Notes/Report: HEMOGLOBIN A1C % (HH) 6.9 HEMOGLOBIN A1C (GLYCOHEMOGLO BIN) Reviewed date:06/06/2024 08:43:24 [...] Polyneuropathy due to type 2 diabetes mellitus (584988261) Type 2 diabetes mellitus with diabetic polyneuropathy (E11.42) Active confirmed Problem Acquired hammer toe of right foot (4853971942258045 ) Other hammer toe(s) (acquired), right foot (M20.41) Active confirmed Problem Acquired hammer toe of left foot (0771335923101492 ) Other hammer toe(s) (acquired), left foot (M20.42) Active confirmed Vital Signs Blood pressure diastolic 63 mm Hg 09/05/2024 Height 6ft 3in in 09/05/2024 Blood pressure systolic 130 mm Hg 09/05/2024 Weight 230 lbs 09/05/2024 BMI 28.74 kg/m2 09/05/2024 Procedures Procedure Date Ordered Date Performed Result Body Sit e 95878-OGDGGJZ NAIL, 6 OR MORE 09/05/2024 N/A 10235-SVST SKIN LESIONS, 2 TO 4 09/05/2024 N/A Encounters Encounter Location Date Provider Diagnosis [facility] [address] [address] 03/07/2024 Nayan Luther Type 1 diabetes mellitus with diabetic polyneuropathy E10.42 ; Tinea unguium B35.1 ; Ingrowing nail L60.0 ; Pain in right toe(s) M79.674 ; Pain in left toe(s) M79.675 ; Venous insufficiency of both lower extremities I87.2 ; Other hammer toe(s) (acquired), left foot M20.42 ; Other hammer toe(s) (acquired), right foot M20.41 and Metatarsalgia, left foot M77.[address] [address] 06/06/2024 Nayan Luther Type 1 diabetes mellitus with diabetic polyneuropathy E10.42 ; Tinea unguium B35.1 ; Ingrowing nail L60.0 ; Pain in right toe(s) M79.674 ; Pain in left toe(s) M79.675 ; Venous insufficiency of both lower extremities I87.2 ; Other hammer toe(s) (acquired), left foot M20.42 ; Other hammer toe(s) (acquired), right foot M20.41 and Metatarsalgia, left foot M77.[address] [address] 09/05/2024 Nallely Andrés Other hammer toe(s) (acquired), right foot M20.41 ; Other hammer toe(s) (acquired), left foot M20.42 ; Type 2 diabetes mellitus with diabetic polyneuropathy E11.42 and Tinea unguium B35.1 Assessments Encounter Date Diagnosis (ICD Code) Assessment Notes Treatment Notes Treatment Clinical Notes Section Notes 03/07/2024 Tinea unguium (ICD-10 - B35.1) 03/07/2024 [...] in left toe(s) (ICD-10 - M79.675) 06/06/2024 Pain in left toe(s) (ICD-10 - [...] X ray : Foot, right 2V 12/25/2016 18224-DORZTSK NAIL, 6 OR MORE 04/16/2017 45004-HQSKKEG NAIL, 6 OR MORE 07/09/2017 48830-CFPYOFN NAIL, 6 OR MORE 10/01/2017 51380-CIJTXQC NAIL, 6 OR MORE 02/05/2017 01669-KETWGAP NAIL, 6 OR MORE 11/24/2016 65349-OCTINJT NAIL, 6 OR MORE 12/18/2014 48975-FHAKZIB NAIL, 6 OR MORE 03/12/2015 12542-HZPWMGT NAIL, 6 OR MORE 06/04/2015 83718-RMVRHHP NAIL, 6 OR MORE 11/12/2015 05707-BDLRFIG NAIL, 6 OR MORE 02/11/2016 12213-VOYWBSJ NAIL, 6 OR MORE 05/19/2016 60768-RFWWTNP NAIL, 6 OR MORE 08/25/2016 33522-EEPMMPM NAIL, 6 OR MORE 06/09/2011 76961-DXFBHQP NAIL, 6 OR MORE 09/11/2011 42010-XNNBWTJ NAIL, 6 OR MORE 09/25/2011 52956-MUXVWYX NAIL, 6 OR MORE 12/01/2011 30471-KIYKPIZ NAIL, 6 OR MORE 03/01/2012 68949-LQTKXVR NAIL, 6 OR MORE 05/31/2012 29015-DMAJQOQ NAIL, 6 OR MORE 09/06/2012 33682-FZQSXFK NAIL, 6 OR MORE 12/06/2012 69953-JJWDQYY NAIL, 6 OR MORE 04/18/2013 22426-ZDWRJMN NAIL, 6 OR MORE 07/11/2013 24812-ZHMHOAL NAIL, 6 OR MORE 10/17/2013 62088-YRFUCME NAIL, 6 OR MORE 01/09/2014 45255-CVZIZRU NAIL, 6 OR MORE 04/03/2014 80692-MTTPOTX NAIL, 6 OR MORE 06/26/2014 82972-GYCYERE NAIL, 6 OR MORE 09/21/2014 83862-GWYNUKS NAIL, 6 OR MORE 12/24/2017 58073-JRNPRJB NAIL, 6 OR MORE 03/04/2018 85713-CIVYCSG NAIL, 6 OR MORE 05/27/2018 39288-CWNEBSF NAIL, 6 OR MORE 08/02/2018 38220-ZVJMTDL NAIL, 6 OR MORE 09/05/2024 30321-Yxvlsojd Plate 11/05/2020 25005-Iujfguwu Plate 02/04/2021 24012-Tmwlohyz Plate 05/06/2021 10910-Jkjjjjwb Plate 02/06/2020 81508-Pxmlpgyb Plate 12/24/2017 27885-Awlhyqlw Plate 05/27/2018 87644-Vqxnutuv Plate 06/26/2014 97285-Forvvyxj Plate 07/11/2013 10265-Dnjepfvi Plate 12/06/2012 81026-Nsbsgofi Plate 06/09/2011 00095-Xufisvod Plate 04/03/2014 23324-Vrtgsvtt Plate 04/12/2015 99979-Jyauwwsm Plate 08/25/2016 60022-Fdnruppm Plate 04/16/2017 91026- Debride <25 sq cm 09/25/2011 15713 I&D ABSCESS- SIMPLE,SINGLE 013 53388 I&D ABSCESS- SIMPLE,SINGLE 012 41705 I&D ABSCESS- SIMPLE,SINGLE 012 31742 I&D ABSCESS- SIMPLE,SINGLE 015 42053 I&D ABSCESS- SIMPLE,SINGLE 018 58438-BEHH SKIN LESIONS, OVER 4 05/07/20 13327-VPKC SKIN LESIONS, OVER 4 11/12/19 22 26015-GJGJ SKIN LESIONS, 2 TO 4 08/01/20 19097-ACXO SKIN LESIONS, 2 TO 4 05/06/20 21 37815-DWAQ SKIN LESIONS, 2 TO 4 02/05/20 21 23416-DWCF SKIN LESIONS, 2 TO 4 09/05/19 60604-AAEG SKIN LESIONS, 2 TO 4 12/07/19 24 12212-DYDG SKIN LESIONS, 2 TO 4 08/06/20 20 88451-RMEQ SKIN LESIONS, 2 TO 4 11/06/19 21 08297-MHSN SKIN LESIONS, 2 TO 4 11/02/19 19 63757-IVYU SKIN LESIONS, 2 TO 4 02/01/20 19 81775-ESOB SKIN LESIONS, 2 TO 4 05/02/20 19 40042-GTWC SKIN LESIONS, 2 TO 4 08/08/20 19 11463-ZHNR SKIN LESIONS, 2 TO 4 11/07/19 20 82839-OLNE SKIN LESIONS, 2 TO 4 02/06/20 20 43923-CQUT SKIN LESIONS, 2 TO 4 05/27/20 18 37061-WOKH SKIN LESIONS, 2 TO 4 03/04/20 18 75720-DJJV SKIN LESIONS, 2 TO 4 08/02/20 18 23614-BWGL SKIN LESIONS, 2 TO 4 06/04/20 15 89868-AGVM SKIN LESIONS, 2 TO 4 03/12/20 15 50188-ZZOE SKIN LESIONS, 2 TO 4 12/19/19 15 11414-UXXA SKIN LESIONS, 2 TO 4 08/25/19 17 81829-OWKX SKIN LESIONS, 2 TO 4 05/19/20 16 92967-TFIG SKIN LESIONS, 2 TO 4 02/11/20 16 56133-LKQU SKIN LESIONS, 2 TO 4 11/12/19 16 52991-HYAG SKIN LESIONS, 2 TO 4 07/09/20 17 96590-MPNB SKIN LESIONS, 2 TO 4 12/25/19 18 63856-TWJX SKIN LESIONS, 2 TO 4 10/01/19 18 67588-VURC SKIN LESIONS, 2 TO 4 11/25/19 17 86879-UZDY SKIN LESIONS, 2 TO 4 04/16/20 17 26352-JATK SKIN LESIONS, 2 TO 4 02/06/20 17 77342-NUBE SKIN LESIONS, 2 TO 4 09/25/19 12 43817-BAOX SKIN LESIONS, 2 TO 4 12/01/19 12 63172-GVNE SKIN LESIONS, 2 TO 4 09/11/19 12 73833-IDHM SKIN LESIONS, 2 TO 4 12/07/19 13 30854-GNII SKIN LESIONS, 2 TO 4 09/06/19 13 00820-BAII SKIN LESIONS, 2 TO 4 05/31/20 12 95262-HARR SKIN LESIONS, 2 TO 4 03/01/20 12 46021-CPPZ SKIN LESIONS, 2 TO 4 04/18/20 13 56771-WNGU SKIN LESIONS, 2 TO 4 07/11/20 13 18001-IXXY SKIN LESIONS, 2 TO 4 10/17/19 14 72293-JBCR SKIN LESIONS, 2 TO 4 09/21/19 15 06617-OCGF SKIN LESIONS, 2 TO 4 04/03/20 14 81358-DQQK SKIN LESIONS, 2 TO 4 01/10/20 14 45104-Clzy. Subungual Hematoma 4 05781,Y8450-FIC TENDON SHEATH/LIGAMENT 0 12/25/2016 Next Appt Details Provider Name:Nallely Sadi james, 12/15/2024 08:30:00 AM, [address] [address], [place], [address], Insurance Providers Payer Name Payer Address Payer Phone Subscriber Number Group Number Insured Name Patient Relationship to Insured Coverage Start Date Coverage End Date Medicare National Govt Sv[employer] [address] [place] [phone] [id number] Mihai Herrera Self - patient is the insured Health [facility] [address] [place] [address] [phone] [id number] Mihai Herrera Self - patient is the insured Medical (General) History Medical History History ICD Code chicken pox diabetic hypertension mumps measles Surgical History Surgery Date(Month/Year) arm 1988 hand/wrist 1988 tonsillectomy 1958 umbilical hernia 06/2024
--- OUTSIDE RECORDS SUMMARY | 2024-12-07 10:10 | XMS_ITS ---
Author Organization [facility] Address [address] [place] [address] Care Team Providers Care Client Service Administrator Name Role Phone Maria Isabel Munoz MD Primary Care Provider Nallely Leonardo Unavailable [phone] Allergies Allergen (clinical drug ingredient) Drug/Non Drug [...] Polyneuropathy due to type 2 diabetes mellitus (055552356) Type 2 diabetes mellitus with diabetic polyneuropathy (E11.42) Active confirmed Vital Signs Height 6ft 3in in 09/05/2024 Weight 230 lbs 09/05/2024 BMI 28.74 kg/m2 09/05/2024 Blood pressure systolic 130 mm Hg 09/05/19 25 Blood pressure diastolic 63 mm Hg 025 Procedures Procedure Date Ordered Date Performed Result Body Sit e 26599-FKWQXWR NAIL, 6 OR MORE 09/05/2024 N/A 29528-OOGR SKIN LESIONS, 2 TO 4 09/05/2024 N/A Encounters Encounter Location Date Provider Diagnosis [facility] [address] [address] 09/05/2024 Nallely Bowen Other hammer toe(s) (acquired), [...] INSTRUCTIONS.pdf) Pending Test Test Name Order Date 56394-WYANZCJ NAIL, 6 OR MORE 09/05/2024 17970-LCSW SKIN LESIONS, 2 TO 4 09/05/19 Next Appt Details Follow Up: 3 Months, Reason: Provider Name:Nallely james, 12/15/2024 08:30:00 AM, [address], [address], [place], [address], Procedure Notes * Category Sub-Category Detail Notes [...] use of a nail nipper and/or dremel-type roll contour grinder, to a more viable healthy nail [...] to maintain effectiveness in symptomatic relief - 01817 Keratoma Treatment Parring or Cutting o f [...] instrumentation by the physician of record - 77418 Progress Notes * Mihai MONTGOMERY PDOB: (69 yo M)Acc No.[id number]:09/05/2024 Progress Note Patient:?Diallo MONTGOMERY Provider:?Nallely Bowen DPM :1955???Age:69 Y???Sex:Male Loy e:09/05/2024 Address:[address] [place] [address], [id number] Pcp:Maria Isabel Munoz MD Subjective: * Chief [...] ?Exercise: yes. ?Marital status: . 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 * Medications:?TakingamLODIPin e Besylate 5 MG Tablet [...] 2.?Type 2 diabetes mellitus with diabetic polyneuropathy?Procedure: 32768-KNNJXVF NAIL, 6 OR MORE ?Procedure: 92094-XRYA SKIN LESIONS, 2 TO 4 * Procedures:?Debride [...] use of a nail nipper and/or dremel-type roll contour grinder, to a more viable healthy nail [...] to maintain effectiveness in symptomatic relief - 45461.?Keratoma Treatment:?Parring or Cutting of Benign Hyperkeratotic Lesion(s)?(-56) [...] instrumentation by the physician of record - 10644.? * Procedure Codes:?60974 DEBRI DE NAIL, 6 OR MORE, Modifiers: XS 22463 TRIM SKIN LESIONS, 2 TO 4, Modifiers: [...] DPM Date:?0 09/05/2024 Generated for Ritchie hernandez/Cate/eTransmitting on:?12/07/2024 10:09 AM EDT History and Physical Notes * [...]
--- OUTSIDE RECORDS SUMMARY | 2024-12-07 10:10 | XMS_ITS ---
Author Organization [facility] Address [address] [facility] [place] [address] Care Team Providers Care Mason Apprentice Name Role Phone Maria Isabel Munoz MD Primary Care Provider Unavaila Nallely Mena Unavailable [phone] Nayan Luther Unavailable [phone] Allergies Allergen (clinical drug ingredient) Drug/Non Drug [...] 06/06/2024 Encounters Encounter Location Date Provider Diagnosis [facility] [address] [address] 06/06/2024 Nayan Luther Type 1 diabetes mellitus [...] Provider Name:Nallely james, 12/15/2024 08:30:00 AM, [address] [facility], [address], [place], [address], Procedure Notes * Category Sub-Category Detail Notes [...] as necessary. Patient chooses, no pharmaceutical tx (17776) Keratoma Treatment Parring or Cutting o f Benign Hyperkeratotic Lesion(s) (-56) 2-4 Lesions - The Benign hyperkeratotic lesions, as described above were pared, and/or cut utilizing a sterile 15 blade, tissue nippers, and/or dremel - 81697 Progress Notes * Mihai MONTGOMERY PDOB: (69 yo M)Acc No.[id number]:06/06/2024 Progress Note Patient:?Diallo Montgomery P Provider:?Nayan Luther DPM :1955???Age:69 Y???Sex:Male Loy e:06/06/2024 Address:[address] [place] [address] [facility] Pcp:Maria Isabel Munoz MD Subjective: * Chief [...] three. ?Exercise: yes. ?Marital status: . 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 * Medications:?TakingamLODIPin e Besylate 5 MG Tablet [...] as necessary. Patient chooses, no pharmaceutical tx (91852).?Keratoma Treatment:?Parring or Cutting of Benign Hyperkeratotic Lesion(s)?(-56) 2-4 Lesions - The Benign hyperkeratotic lesions, as described above were pared, and/or cut utilizing a sterile 15 blade, tissue nippers, and/or dremel - 67994.? * Procedure Codes:?19239 DEBRI DE NAIL, 6 OR MORE, Modifiers: XS 09548 TRIM SKIN LESIONS, 2 TO 4, Modifiers: XS * Follow Up:?3 Months * Images: * Sign off status: Completed true * Provider:?Nayan Luther DPM Date:? 024 Generated for Ritchie hernandez/Cate/eTboyd on:?12/07/2024 10:10 AM EDT History and Physical Notes * [...] taking performed:: 1+ ORIENTED: person,place, and ti wi Ophthalmology Referral DIABETES EYE EXAM Diabetic Reti [...]
--- OUTSIDE RECORDS SUMMARY | 2024-12-07 10:11 | XMS_ITS ---
[facility] Address [address] [place] [address] Care Team Providers Care Tool Rental Technician Name Role Phone Maria Isabel Munoz MD Primary Care Provider Nallely Leonardo Unavailable [phone] Nayan Luther [phone] Tello Encounters Encounter [facility] Date [facility] [address] 03/10/2024 Nayan Luther Plan Of Treatment Next Appt Details Provider Name:Nallely james, 12/15/2024 08:30:00 AM, [address] [place] [address], [id number], Progress Notes * Mihai MONTGOMERY PDOB: (69 yo M)Acc No.[id number]:03/10/2024 Progress Note Patient:?Diallo MONTGOMERY Provider:?Nayan Luther DPM :1955???Age:68 Y???Sex:Male Loy e:03/10/2024 Address:[address] [place] [address] Ashley Snow [id number] Pcp:Maria Isabel Munoz MD Subjective: * Chief [...] DPM Date:? 024 Generated for Ritchie hernandez/Cate/Linda on:?12/07/2024 10:10 AM EDT
== END 2024-12-07 10:09 | disposition home or self-care (01) ==
LOC: HO.HMCC 09:11
PROVIDERS: PCP Internal Medicine; Visit Provider Internal Medicine
DX: Z00.00 Encounter for general adult medical examination without abnormal findings (principal); E11.42 Type 2 diabetes mellitus with diabetic polyneuropathy; N18.31 Chronic kidney disease, stage 3a; Z79.4 Long term (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; I15.2 Hypertension secondary to endocrine disorders; E78.00 Pure hypercholesterolemia, unspecified; R91.1 Solitary pulmonary nodule; Z23 Encounter for immunization

== ENCOUNTER → 2024-12-07 09:10 | Outpatient (BNVA) | payer MEDICARE, OTHER, SELFPAY | PROVIDERS: PCP Internal Medicine; Visit Provider Internal Medicine | DX: Z00.00 Encounter for general adult medical examination without abnormal findings (principal); Z23 Encounter for immunization; E11.42 Type 2 diabetes mellitus with diabetic polyneuropathy; I15.2 Hypertension secondary to endocrine disorders; E78.00 Pure hypercholesterolemia, unspecified; N18.31 Chronic kidney disease, stage 3a; R91.1 Solitary pulmonary nodule; Z79.4 Long term (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 | CPT/HCPCS: 90471; 90677; 96127; 99397 ==

== ENCOUNTER 2025-02-26 08:22 | Outpatient (AMB) | payer MEDICARE, OTHER, SELFPAY ==
[2025-02-26 08:24] VITALS: BP 144/80; PULSE 50; O2SAT 98; BMI 30.3
--- NOTE | 2025-02-26 08:24 | MHC.OFFVIS ---
Vital Signs 02/26/25 08:31 Weight 165 lb 5.547 oz Intake Visit Reasons: T2DM Intake Note: Patient present today for Type 2 Diabetes Mellitus Last Diabetic eye exam: Last Podiatry Visit: Random Glucose: mg/dl HgA1C: Due Allergies niacin (NIACIN) Allergy (Mild, Verified 12/07/24 09:12) ITCHING, itchy, itchy Kikpldu-VMX-KsM Reductase Inhibitor (EAAFZYU-JTK-GJL REDUCTASE INHIBITOR) Allergy (Unknown, Verified 12/07/24 09:12) HIGH CPK atorvastatin (Lipitor) Adverse Reaction (Unknown, Verified 12/07/24 09:12) high CPK HPI Comments Details: Patient is 69 year old male with DM type 2 diagnosed at 35 years of age, who presents for management of diabetes. Past medical history: DM2, HTN, HLD, CKD3, Charcot arthopathy Micro and macrovascular complications: no retinopathy, + nephropathy, + neuropathy, no CVA, CAD, PVD. Diabetes medications: metformin 500 mg BID, intolerant of higher doses. Farxiga 10 mg. Novolog via TAndem pump with control IQ Insulin pump and CGM data downloaded from November 11 to 11/24/2024 Have his reading 150 mg/dL Time in range 86% Time high 14% Time very high 0.3% Time low 0% Time CGM and use 100% Standard deviation 28 mg/dL Coefficient of variation 18% G mi 6.9% Interpretation [excellent control most of the day with no hypoglycemia, though does have some hyperglycemia overnight between 00:00 and 02:00, his pump basal leaves H is also a little bit more than the settings entered, we can go up on the basal rate by 10% during that segment. Some days I do notice he is bolusing himself a little bit later than he eats but otherwise doing okay. ] Basal: 12:00 2.6 2A 3 4:30a 2.25 11:30a 2.00 1pm 1.5 2:30 1.25 4pm 1.1 6:30 2.0 10:00pm 2.6 Correction 1:19 Carb ration 12:00 1:4 1130 AM = 1:3.5 4 PM = 1:4.5 Target 120 Symptoms reported: + numbness, tingling, nocramping in lower extremities Hypoglycemia: None recent . No hypoglycemia Hyperglycemia: + urinary frequency (takes diurectics), denies nocturia, polydypsia Exercise: walking 20 - 30 minutes on most days. Welding Equipment Repairer: every [address] Manzanares Ophthalmology evaluation: 04/2024 no retinopathy. For his [facility] Other specialists: Dr. Brunson, voice intercept technician. Stimulate C-peptide was> 2 and antibodies were negative confirming presence of type 2 diabetes and insulin reserve [facility] screen labs 07/10/24 Fibrosis-4 (Fib-4) Index for liver fibrosis (calculated on lab work done: ) [1.81 ] points Advanced fibrosis [excluded ] Approximate Fibrosis stage Memo [2-3 ] *Use with caution in patients <35 or >65 years old, as the score has been shown to be less reliable in these patients. Prior Imaging [none] Action Plan: [] rescreen two years from date of screening labs[ ] Physical exam General: sitting comfortably in no acute distress HEENT: normocephalic/atraumatic, Neck: supple, symmetrical, no thyromegaly , no dorsocervical or supraclavicular fat pads Cardiac: normal heart sounds Pulm: normal breath sounds B/L, no added breath sounds Abd: not distended, no tenderness Extremities: no edema, no signs of myxedema Neuro: AAO x3, Speech: normal, no facial droop, moving all 4 extremities Skin: no rash Laboratory Tests 11/30/23 06/01/24 06/01/24 08:50 09:57 09:58 Plt Count Creatinine Estim Creat Clear Calc Estimated GFR Hemoglobin A1c % 6.4 H 6.2 H AST ALT Cholesterol 147 LDL Cholesterol, Calc 70 HDL Cholesterol 46 Vitamin B12 495 Urine Creatinine 110.51 Urine Microalbumin 9.0 Microalb/Creat Ratio 8.1 07/09/24 20:47 Plt Count 168 Creatinine 1.12 Estim Creat Clear Calc 79.0 Estimated GFR > 60 Hemoglobin A1c % AST 22 ALT 27 Cholesterol LDL Cholesterol, Calc HDL Cholesterol Vitamin B12 Urine Creatinine Urine Microalbumin Microalb/Creat Ratio labs done at [facility] 10/24/24 showed me on phone albumin /cr ratio 10 Plt 160 cr 1.5 gfr 50 EXAMINATION: 06/01/24 Noninvasive assessment of the arteries of both lower extremities to include a single level PVR exam and ANKLE BRACHIAL INDICES (ABIs). CLINICAL INFORMATION: Peripheral vascular disease TECHNIQUE: The ankle/brachial indices of the distal posterior tibial and the dorsalis pedis arteries were obtained of the lower extremity arterial system bilaterally; along with pressures and pulse volume recordings at the ankle level. The study was performed at rest. COMPARISON: None FINDINGS: 1. ANKLE-BRACHIAL INDICES: RIGHT: 1.06 in the dorsalis pedis artery. Noncompressible posterior tibial artery LEFT: 1.08 and the dorsalis pedis artery. Noncompressible in the posterior tibial artery 2. ANKLE PVR WAVEFORMS: RIGHT: Normal LEFT: Normal US/US CORBY complete IMPRESSION: Noncompressible bilateral posterior tibial arteries. Normal ankle brachial indices in the bilateral dorsalis pedis arteries. PVR waveforms are unremarkable. 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 Diabetic polyneuropathy associated with type 2 diabetes mellitus Varicose vein of leg Osteoarthritis CKD (chronic kidney disease), stage III Umbilical hernia Peripheral neuropathy Hypokalemia Obstructive sleep apnea Anemia B-complex deficiency Hypercholesterolemia HTN (hypertension) Diabetes type 2, controlled Surgical History Umbilical hernia (07/07/24) History of colonoscopy Family History Father Diabetes mellitus CAD (coronary artery disease) HTN (hypertension) Mother Stroke Pancreatic cancer HTN (hypertension) Maternal Grandfather Abdominal aortic aneurysm CVD (cardiovascular disease) Maternal Grandmother Abdominal aortic aneurysm Paternal Grandfather CVD (cardiovascular disease) Paternal Grandmother No problems noted. Brother Diabetes mellitus Brother No problems noted. Brother No problems noted. Son No problems noted. Son No problems noted. Daughter No problems noted. Sister Hodgkins disease Social History Household Members: Spouse Housing: House Alcohol intake: current Alcohol intake frequency: 0-2 drinks per day Patient Tobacco Use Status: Never used Tobacco e-Cigarette/Vaping Use: Never Used service: No Current occupational status: retired Cognitive needs: No Hearing needs: Yes Vision needs: Yes Assessment & Plan Assessment & Plan (1) Diabetes type 2, controlled: Comment: Grupo for renoprotection Dr. Bobo, on insulin pump, established with [facility] [facility] Code(s): E11.9 - Type 2 diabetes mellitus without complications Category: Medical Plan: This is a 68-year-old white male with a history of type 2 diabetes being managed with metformin, Farxiga and it T-slim insulin pump with excellent glycemic control and known microvascular complications namely CKD stage IIIB as well as neuropathy. A1c November 2024 6.5% down from 08/25/2024 at 6.9%. Pump data downloaded which also shows overall excellent control with being in target range 86 % of the time. He is noted to have some hyperglycemia overnight between midnight to 02:00 and today we increased his basal rate in that segment by 10%. Patient will follow-up in 3 mos . Patient is up to date with opth, renal and podiatry. Pump seeting chnaged in bold Basal: 12:00 2.6 to 2.8 2A 3 4:30a 2.25 11:30a 2.00 1pm 1.5 2:30 1.25 4pm 1.1 6:30 2.0 10:00pm 2.6 Correction 1:19 Carb ration 12:00 1:4 1130 AM = 1:3.5 4 PM = 1:4.5 Target 120 (2) CKD (chronic kidney disease), stage III: Comment: Dr. Bobo Code(s): N18.30 - Chronic kidney disease, stage 3 unspecified Category: Medical Qualifiers: Chronic kidney disease stage 3 subtype: stage 3a (GFR 45-59) Qualified Code(s): N18.31 - Chronic kidney disease, stage 3a Plan: Most recently GFR from May 2024 greater than 60. Follows with Nephrology. Continue Farxiga 10 mg daily and spironolactone 25 mg daily, irbesartan 300 mg daily (3) Hypercholesterolemia: Code(s): E78.00 - Pure hypercholesterolemia, unspecified Category: Medical Plan: LDL at 70 from May 2024. Goal LDL less than 70. Continue rosuvastatin Next labs ordered for May 2025 prior to follow up (4) HTN (hypertension): Code(s): I10 - Essential (primary) hypertension Category: Medical Qualifiers: Hypertension type: secondary to endocrine disorders Qualified Code(s): I15.2 - Hypertension secondary to endocrine disorders Plan: Blood pressure much improved today. Continue current regimen He is on nebivolol 2.5 mg daily, spironolactone 25 mg daily in a irbesartan 300 mg daily. 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 Has backup Lantus insulin changes In case of pump failure to inject 50 units daily Has ketone strips Hypoglycemia education done Has nasal Baqsimi Plan I spent 30 minutes in reviewing the record, seeing the patient and documenting in the medical record. Patient Instructions: Rule of 15 Treatment for Hypoglycemia (Low blood sugar) If your blood glucose is low (70 and below)*, follow the steps below to treat: Eat or drink something from the list below equal to 15 grams of carbohydrate (carb). Rest for 15 minutes Re-check your blood glucose. If it is still low, (below 70), repeat step 1 above. ? If your next meal is more than an hour away, you will need to eat one carbohydrate choice as a snack to keep your blood glucose from going low again. ?If you can't figure out why you have low blood glucose, call your healthcare provider, as your medicine may need to be adjusted. ?Always carry something with you to treat an insulin reaction. Use food from the list below. ? Foods equal to One Carbohydrate Choice (15 grams of carbohydrate): 3 Glucose ?tablets or 4 Dextrose tablets 4 ounces of fruit juice 5-6 ounces (about 1/2 can) of regular soda such as Coke or Pepsi ? 7-8 gummy or regular Life Savers ? 1 Tbsp. of sugar or jelly NOTE: If your blood sugar is less than 50, double the portion above for a total of 30 gm. ?Carbohydrate. ? Follow meal plan of 45-60 g of consistent carbohydrates at 3 meals each day and 15 g of carbohydrate at 1-2 snacks each day. On tandem T slim insulin pump. Has backup Lantus insulin changes In case of pump failure to inject 50 units daily Has ketone strips Hypoglycemia education done Has nasal Baqsimi Coding Level of Care Code Est Pt Level 4 (92349) Diagnoses Diabetes type 2, controlled E11.9 Stage 3a chronic kidney disease N18.31 Chronic kidney disease stage 3 subtype: stage 3a (GFR 45-59) Hypercholesterolemia E78.00 Hypertension due to endocrine disorder I15.2 Hypertension type: secondary to endocrine disorders MCFP (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 Z79.4 Time Spent (min) 30
--- OUTSIDE RECORDS SUMMARY | 2025-02-26 08:30 | XMS_ITS | Patient Health Record ---
Author Organization [facility] Address [address] [place] [address] Care Team Providers Care Bleacher Sulfite Pulp Name Role Phone Maria Isabel Munoz MD Primary Care Provider Javier De León Jr Unavailable [phone] Allergies Allergen (clinical drug ingredient) Drug/Non Drug Allergy documented on EMR Reaction Allergy Type Onset Date Status Niacin Unknown Drug Allergy Active atorvastatin Lipitor Unknown Drug Allergy Acti ve Reason For Referral No Information Medications Medication SIG (Take, Route, Frequency, Duration) Notes Start Date End Date Status Iron 325 (65 Fe) MG 1 tablet Orally Once a day for 30 day(s) Active Spironolactone 50 MG 1 tablet with food Orally Once a day for 30 day(s) Active Colyte with Flavor Packs 240 GM As directed Orally Over the specified time. for 1 day(s) 06/28/2019 Active Irbesartan 300 MG 1 tablet Orally Once a day for 30 day(s) Active Vitamin C 1000 MG 1 tablet Orally Once a day for 30 day(s) Active Furosemide 20 MG 1 tablet Orally Once a day Active Flonase Active Zetia 10 MG 1 tablet Orally Once a day for 30 day(s) Active Rosuvastatin Calcium 10 MG 1 tablet Oral ly Once a day Active Aspirin 81 81 MG 1 tablet Orally Once a day for 30 day(s) Active Montelukast Sodium 10 MG 1 tablet Orally Once a day Active Loratadine 10 MG 1 tablet Orally Once a day for 30 day(s) Active metFORMIN HCl ER 500 MG 1 tablet with ev ening meal Orally twice a day Active Calcium 600+D 600-200 MG-UNIT 1 tablet Orally Once a day Active HumaLOG 100 UNIT/ML as directed Subcutaneous Active Vitamin B12 500 MCG 1 tablet Orally Once a day Active Bystolic 2.5 MG 2 tablets Orally Onc e a day for 30 day(s) Active Glucosamine 750 MG as directed Orally Active amLODIPine Besylate 5 MG 1 tablet Orally Once a day for 30 day(s) Active Coenzyme Q-10 300 1 capsule with a nicolas l Orally Once a day Active hydrALAZINE HCl 50 MG 1 tablet with food Orally Three times a day for 30 day(s) Active Immunizations Vaccine Route Administration Date Status Comme nts Influenza Unknown 05/21/2019 Administered Social History Tobacco Use: Social History Observation Description Date Details (start date - stop date) Never Smoker NA - NA Tobacco Use/Smoking Question Answer Notes Patient is a nonsmoker Alcohol Screen Question Answer Notes Did you have a drink contain ing alcohol in the past year? Yes How often did you have a dri nk containing alcohol in the past year? 4 or more times a week (4 points) How many drinks did you have on a typical day when you were drinking in the past year? 1 or 2 drinks (0 point) Points 4 Interpretation Positive Section Notes: glass of wine at dinner Problems Problem Type SNOMED Code ICD Code Onset Dates Problem Status W/U Status Risk Notes Problem [id number] Colon cancer screening (Z12.11) Active confirmed Plan Of Treatment Future Test Test Name Order Date COLONOSCOPY 06/28/2019 Next Appt Details Provider Name:Javier mercado , 03/19/2025 11:00:00 AM, [address] [place] [address], [address], [place], [address], Insurance Providers Payer Name Payer Address Payer Phone Subscriber Number Group Number Insured Name Patient Relationship to Insured Coverage Start Date Coverage End Date MEDICARE OF [facility] [id number] [id number] CHRISTIANA MONTGOMERY Self - patient is the insured [facility] [address] [place] [address] [id number] CHRISTIANA MONTGOMERY Self - patient is the insured Medical (General) History Medical History History ICD Code diabetes chronic kidney disease hypertension hyperlipidemia varicose veins Surgical History Surgery Date(Month/Year) tonsillectomy and adenoidectomy pin in right arm
--- OUTSIDE RECORDS SUMMARY | 2025-02-26 08:30 | XMS_ITS | Clinical Summary ---
Author Organization [facility] Address [address] [address] Phone Care Team Providers Care Board Mixer Tender Name Role Phone Maria Isabel Munoz MD Primary Care Provider [phone] Allergies Active Allergy Reactions Criticality Noted Date Comments Atorvastatin Other (see comments) 01/29/2021 Niacin Other (see comments) 01/29/2021 Sulfa Antibiotics Other (see comments) 11/12/19 Medications rosuvastatin (CRESTOR) 10 MG tablet Take [...] 1 TABLET ONCE DAILY 90 tablet 3 11/16/2024 Active Active Problems Problem Noted Date Diagnosed [...] Stage 3a chronic kidney disease 01/29/2021 Immunizations Immunization Administration Dates Next Due Influenza [...] [facility] [address] [address] Jaydon Brunson MD [address] [address] Health Maintenance Due Date Last Done Comments Pneumococcal Vaccine: 50+ Years (1 of 2 - PCV) 1973 10/22/2014 Colorectal Cancer Screening: Annual FOBT 2003 Colorectal Cancer Screening: Colonoscopy 2003 Colorectal Cancer Screening: Sigmoidoscopy 2003 Diabetes: Hemoglobin A1C 09/22/2020 09/15/2019 Diabetes: Ophthalmology Exam 09/22/2020 Diabetes: Pedal Pulse Checked 09/22/2020 Diabetes: Sensory Foot Exam 09/22/2020 Diabetes: Visual Foot Exam 09/22/2020 Influenza Vaccine (#1) 2025 , 05/04/2019, 05/18/2018, Additional history exists Pneumococcal Vaccine: [...] 5:40 PM EST) Hemoglobin A1C 6.9 % [place] Comment: Hemoglobin A1C Reference Range Adults: 4.8 - 6.0 % Non diabetic: < 6.0 % Goal: < 7.0 % Additional Action Suggested: > 8.0 % Note: Hemoglobin A1c results are invalid for patients with abnormal amounts of HbF. Blood transfusions may impact the HbA1c concentration in the patient sample. Estimated Average Glucose 151 MG/DL [facility] Comment: eAG = Estimated average glucose which is %A1C expressed as average glucose, using the formula of the D7N-Dcfittk Average Glucose study (ADAG), Diabetes Care, Vol.31,#8, Mar. 2007 09/15/2019 5:40 PM EST us Maria Isabel Munoz MD LAB BLOOD ORDERABLES Final Resu lt [place] from Last 3 Months or Most Recently Relevant to Health Maintenance Insurance [facility] [place] [address] Member Subscriber Plan / Payer (Ef fective 2019-Present) Name:Mihai Herrera Relation to Subscriber:Self Name:Mihai Herrera Payer ID:Not on file Type:Not on file Address: [place] [id number] Medicare Care Teams Board Mixer Tender Relationship Specialty Start Date End Date Maria Isabel Munoz MD [address] [place] [address] PCP - General Internal Medicine 01/29/21
[2025-02-26 08:31] VITALS: BP 135/80
--- OUTSIDE RECORDS SUMMARY | 2025-02-26 08:31 | XMS_ITS | Patient Health Record ---
[facility] Address [address] [place] [address] Care Team Providers Care Business Applications Developer Name Role Phone Maria Isabel Munoz MD Primary Care Provider Nallely Leonardo Unavailable [phone] Nayan Luther Unavailable [phone] Allergies Allergen (clinical drug ingredient) Drug/Non Drug Allergy documented on EMR Reaction Allergy Type Onset Date Status atorvastatin Lipitor high cpk Drug Allergy Acti ve Niacin Unknown Drug Allergy Active Substance with sulfonamide structure and antibacterial mechanism of action (substance) Sulfa Antibiotics Unknown Drug Allergy Active Results Component Value Reference Range Notes HEMOGLOBIN A1C (GLYCOHEMOGLO BIN) Reviewed date:06/06/2024 08:43:24 AM Interpretation: Performing Lab: Notes/Report: TOTAL HEMOGLOBIN (HGBA1C) 6.2 HEMOGLOBIN A1C (GLYCOHEMOGLO BIN) Reviewed date:09/05/2024 08:42:32 AM Interpretation: Performing Lab: Notes/Report: HEMOGLOBIN A1C % (HH) 6.9 HEMOGLOBIN A1C (GLYCOHEMOGLO BIN) Reviewed date:12/15/2024 08:34:09 AM Interpretation: Performing Lab: Notes/Report: HEMOGLOBIN A1C % (HH) 6.4 Reason For Referral No Information Medications Medication SIG (Take, Route, Frequency, Duration) Notes Start Date End Date Status All Day Allergy-D No t-Taking HumaLOG Not-Taking Nystatin Active Rosuvastatin Calcium Active Spironolactone Activ e Vitamin D Active Vitamin B12 500 mg 1 tablet Orally Once a day Active amLODIPine Besylate 5 MG Orally Active Vitamin C Active Aspirin 81 Active Extra Depth Orthopedic Shoes (1 Pair) with Customized Heat Molded Multidensity Innersoles (3 Pair) as directed Dx: NIDDM/Polyneuropathy (E11.42), Hammertoe Foot Deformity (M20.41,M20.42), Preulcerative Skin Lesion(s) (L85.1 09/05/2024 Active metFORMIN HCl 500 MG Orally Twice a day Active Insulin Lispro (Human) Not-Taking Montelukast Sodium A ctive Clotrimazole Not-Corbin ing NovoLOG Active Nebivolol HCl Active Extra Depth Orthopedic Shoes (1 Pair) with Customized Heat Molded Multidensity Innersoles (3 Pair) as directed Dx: IDDM/Polyneuropathy (E10.42), Hammertoe Foot Deformity (M20.41,M20.42), Preulcerative Skin Lesion(s) (L85.1) 11/01/2018 Not-Taking Extra-Depth Diabetic Shoes with 3 Pair Custom heat-molded multi-density innersoles . 1pair shoes/3sets inserts . .; Duration: 1 year Not-Taking Ezetimibe Active Extra Depth Orthopedic Shoes (1 Pair) with Customized Heat Molded Multidensity Innersoles (3 Pair) as directed Dx: IDDM/Polyneuropathy (E10.42), Hammertoe Foot Deformity (M20.41,M20.42), Preulcerative Skin Lesion(s) (L85.1) 08/06/2020 Not-Taking Farxiga Active Furosemide Not-Takin g flonase Active hydrALAZINE HCl 50 MG Orally Twice a day Not-Taking Glucosamine 750 MG Orally A ctive Loratadine Not-Takin g Irbesartan 300 MG 1 tablet Orally Once a day Active Zetia 10 mg Not-Taki ng iron 1 tab Oral Active Bystolic Not-Taking Betamethasone Dipropionate Active Extra Depth Diabetic Shoes with 3 Pair Custom heat-molded multi-density innersoles for 1 year Dx: Not-Taking Calcium 600 MG 1 tablet with meals Orally Twice a day Active Compression Stockings 20-30mm Hg as directed 02/11/2016 Not-Taking Claritin Active Extra Depth Diabetic Shoes with 3 Pair Custom heat-molded multi-density innersoles for 1 year Dx: 04/16/2017 Not-Taking Clotrimazole-Betamethason e Active CoQ-10 200 MG 1 capsule with a nicolas l Orally Once a day Active Immunizations Vaccine Route Administration [...] Polyneuropathy due to type 2 diabetes mellitus (589510588) Type 2 diabetes mellitus with diabetic polyneuropathy (E11.42) Active confirmed Problem Acquired hammer toe of right foot ([id number] ) Other hammer toe(s) (acquired), right foot (M20.41) Active confirmed Problem Acquired hammer toe of left foot ([id number] ) Other hammer toe(s) (acquired), left foot (M20.42) Active confirmed Problem Skin ulcer of to e of right foot with fat layer exposed (L97.512) Active confirmed Problem Skin ulcer of to e of left foot with fat layer exposed (L97.522) Active confirmed Vital Signs Blood pressure diastolic 63 mm Hg 09/05/2024 Height 6ft 3in in 01/09/2025 Blood pressure systolic 130 mm Hg 09/05/2024 Weight 230 lbs 01/09/2025 BMI 28.74 kg/m2 01/09/2025 Procedures Procedure Date Ordered Date Performed Result Body Sit e 98858-TGLONCF NAIL, 6 OR MORE 09/05/2024 N/A 41588-XUGW SKIN LESIONS, 2 TO 4 09/05/2024 N/A 18405-ZWXRBRM NAIL, 6 OR MORE 12/15/2024 N/A 97921-MXI 12/15/2024 N/A 82726-PPSY SKIN LESIONS, 2 TO 4 12/15/2024 N/A 94787-YHTYXXJ SKIN/TISSUE 01/09/2025 N/A Encounters Encounter Location Date Provider Diagnosis [address] [address] 03/07/2024 Nayan Luther Type 1 diabetes mellitus with diabetic polyneuropathy E10.42 ; Tinea unguium B35.1 ; Ingrowing nail L60.0 ; Pain in right toe(s) M79.674 ; Pain in left toe(s) M79.675 ; Venous insufficiency of both lower extremities I87.2 ; Other hammer toe(s) (acquired), left foot M20.42 ; Other hammer toe(s) (acquired), right foot M20.41 and Metatarsalgia, left foot M77.[address] [address] 06/06/2024 Nayan Luther Type 1 diabetes mellitus with diabetic polyneuropathy E10.42 ; Tinea unguium B35.1 ; Ingrowing nail L60.0 ; Pain in right toe(s) M79.674 ; Pain in left toe(s) M79.675 ; Venous insufficiency of both lower extremities I87.2 ; Other hammer toe(s) (acquired), left foot M20.42 ; Other hammer toe(s) (acquired), right foot M20.41 and Metatarsalgia, left foot M77.[address] [address] 09/05/2024 Nallely Bowen Other hammer toe(s) (acquired), right foot M20.41 ; Other hammer toe(s) (acquired), left foot M20.42 ; Type 2 diabetes mellitus with diabetic polyneuropathy E11.42 and Tinea unguium B35.[address] [address] 12/15/2024 Nallely Bowen Type 2 diabetes mellitus with diabetic polyneuropathy E11.42 ; Tinea unguium B35.1 and Ingrown nail L60.0 [facility] [address] [address] 01/09/2025 Nallely Bowen Skin ulcer of toe of left foot with fat layer exposed L97.522 Assessments Encounter Date Diagnosis (ICD Code) Assessment [...] toe(s) (acquired), left foot (ICD-10 - M20.42) 12/15/2024 Type 2 diabetes mellitus with diabetic polyneuropathy (ICD-10 - E11.42) 12/15/2024 Tinea unguium (ICD-10 - B35.1) 01/09/2025 Skin ulcer of toe of left foot with fat layer exposed (ICD-10 - L97.522) Patient Educated with: WOUND CARE INSTRUCTIONS. pdf (WOUND CARE INSTRUCTIONS. pdf) 12/15/2024 Ingrown nail (ICD-10 - L60.0) 09/05/2024 Type 2 diabetes mellitus with diabetic [...] 06/06/2024 Metatarsalgia, left foot (ICD-10 - M77.42) 01/09/2025 Other Patient Educated with: WOUND CARE INSTRUCTIONS. pdf (WOUND CARE INSTRUCTIONS. pdf) Plan Of Treatment Pending Test Test Name Order Date X ray : Foot, left 2V 12/25/2016 X ray : Foot, right 2V 12/25/2016 67567-KJPIIYY NAIL, 6 OR MORE 04/16/2017 49740-VTQLBZH NAIL, 6 OR MORE 07/09/2017 07415-MHYGXJR NAIL, 6 OR MORE 10/01/2017 41364-XKXWDXY NAIL, 6 OR MORE 02/05/2017 85435-THWLZTG NAIL, 6 OR MORE 11/24/2016 88178-XROYVAQ NAIL, 6 OR MORE 12/18/2014 35848-UANMTOP NAIL, 6 OR MORE 03/12/2015 42837-NGDYJGF NAIL, 6 OR MORE 06/04/2015 66544-MUIRBRM NAIL, 6 OR MORE 11/12/2015 63396-AYURIES NAIL, 6 OR MORE 02/11/2016 73273-LQLNGFZ NAIL, 6 OR MORE 05/19/2016 27802-DJPOEJJ NAIL, 6 OR MORE 08/25/2016 94014-BBBPLXC NAIL, 6 OR MORE 06/09/2011 94474-MLMGXKJ NAIL, 6 OR MORE 09/11/2011 71178-ZTNVHSS NAIL, 6 OR MORE 09/25/2011 56770-ECQFHER NAIL, 6 OR MORE 12/01/2011 59009-TBMDRZK NAIL, 6 OR MORE 03/01/2012 77297-OKXCLNU NAIL, 6 OR MORE 05/31/2012 08983-ZDFKPEU NAIL, 6 OR MORE 09/06/2012 38986-CCMPVVB NAIL, 6 OR MORE 12/06/2012 69257-CHGUSVB NAIL, 6 OR MORE 04/18/2013 24994-FRFVDAO NAIL, 6 OR MORE 07/11/2013 25200-VAACODP NAIL, 6 OR MORE 10/17/2013 95500-ZRJAOOR NAIL, 6 OR MORE 01/09/2014 03139-ASBRMMA NAIL, 6 OR MORE 04/03/2014 51180-BQVNKPJ NAIL, 6 OR MORE 06/26/2014 18754-TQTBSZB NAIL, 6 OR MORE 09/21/2014 02090-RTEUPJK NAIL, 6 OR MORE 12/24/2017 24517-IGEFVDO NAIL, 6 OR MORE 03/04/2018 86739-PLYWLXQ NAIL, 6 OR MORE 05/27/2018 61997-ETACMVE NAIL, 6 OR MORE 08/02/2018 55934-EJIYAPB NAIL, 6 OR MORE 09/05/2024 05253-ZZXMFNQ NAIL, 6 OR MORE 12/15/2024 11672-Lsllwzat Plate 11/05/2020 62301-Bthvhkpd Plate 02/04/2021 40664-Gevfctgx Plate 05/06/2021 12654-Rcmuqdgv Plate 02/06/2020 07020-Rsogyfcs Plate 12/24/2017 41013-Jafcdkaz Plate 05/27/2018 00867-Ldetahol Plate 06/26/2014 49039-Rtgbgyjy Plate 07/11/2013 24197-Gecinhya Plate 12/06/2012 51090-Jewmwgfq Plate 06/09/2011 77684-Jxujbnbh Plate 04/03/2014 24867-Eytasqby Plate 04/12/2015 83511-Rzuhekrj Plate 08/25/2016 32881-Grsutwpr Plate 04/16/2017 33800-UJY 12/15/2024 18757- Debride <25 sq cm 09/25/2011 39640-ZYDDQGN SKIN/TISSUE 01/09/2025 15317 I&D ABSCESS- SIMPLE,SINGLE 018 88650 I&D ABSCESS- SIMPLE,SINGLE 013 33842 I&D ABSCESS- SIMPLE,SINGLE 012 04265 I&D ABSCESS- SIMPLE,SINGLE 012 52904 I&D ABSCESS- SIMPLE,SINGLE 015 50382-LPBX SKIN LESIONS, OVER 4 05/07/20 27579-LIRW SKIN LESIONS, OVER 4 11/12/19 49715-BMSC SKIN LESIONS, 2 TO 4 08/01/20 17330-JMGR SKIN LESIONS, 2 TO 4 05/06/20 76822-QRHF SKIN LESIONS, 2 TO 4 02/05/20 39379-FPEN SKIN LESIONS, 2 TO 4 12/07/19 24 22024-ZVOP SKIN LESIONS, 2 TO 4 12/16/19 25 25526-SUSR SKIN LESIONS, 2 TO 4 09/05/19 64263-UGYI SKIN LESIONS, 2 TO 4 08/06/20 98197-SAPR SKIN LESIONS, 2 TO 4 11/06/19 77742-QCDM SKIN LESIONS, 2 TO 4 11/02/19 19 82937-UKBH SKIN LESIONS, 2 TO 4 02/01/20 19 55674-TMYD SKIN LESIONS, 2 TO 4 05/02/20 19 10691-RIJA SKIN LESIONS, 2 TO 4 08/08/20 19 57338-CUUS SKIN LESIONS, 2 TO 4 11/07/19 20 71961-NRNO SKIN LESIONS, 2 TO 4 02/06/20 20 58208-THMP SKIN LESIONS, 2 TO 4 05/27/20 18 47884-PUWD SKIN LESIONS, 2 TO 4 03/04/20 18 76573-SNOC SKIN LESIONS, 2 TO 4 08/02/20 18 21044-XULR SKIN LESIONS, 2 TO 4 06/04/20 15 27780-CPLJ SKIN LESIONS, 2 TO 4 03/12/20 15 71847-TTIT SKIN LESIONS, 2 TO 4 12/19/19 15 45943-XYHY SKIN LESIONS, 2 TO 4 08/25/19 17 44971-WGQZ SKIN LESIONS, 2 TO 4 05/19/20 16 95475-FKMP SKIN LESIONS, 2 TO 4 02/11/20 16 68756-OCOG SKIN LESIONS, 2 TO 4 11/12/19 16 93575-EZES SKIN LESIONS, 2 TO 4 07/09/20 17 48044-MMLH SKIN LESIONS, 2 TO 4 12/25/19 18 78744-XYVA SKIN LESIONS, 2 TO 4 10/01/19 18 36343-CSHR SKIN LESIONS, 2 TO 4 11/25/19 17 18657-ROPU SKIN LESIONS, 2 TO 4 04/16/20 17 47663-MGNB SKIN LESIONS, 2 TO 4 02/06/20 17 99986-JJNZ SKIN LESIONS, 2 TO 4 09/25/19 12 08403-SONC SKIN LESIONS, 2 TO 4 12/01/19 12 93576-XAID SKIN LESIONS, 2 TO 4 09/11/19 12 87456-EIBO SKIN LESIONS, 2 TO 4 12/07/19 13 84391-USIG SKIN LESIONS, 2 TO 4 09/06/19 13 38661-HSWE SKIN LESIONS, 2 TO 4 05/31/20 12 59682-NGBE SKIN LESIONS, 2 TO 4 03/01/20 12 47609-DPBV SKIN LESIONS, 2 TO 4 04/18/20 13 91313-CAGM SKIN LESIONS, 2 TO 4 07/11/20 13 95435-KTSS SKIN LESIONS, 2 TO 4 10/17/19 14 57913-NVMV SKIN LESIONS, 2 TO 4 09/21/19 15 36689-CVLM SKIN LESIONS, 2 TO 4 04/03/20 14 94618-WQTS SKIN LESIONS, 2 TO 4 01/10/20 14 29570-Ttib. Subungual Hematoma 4 78722,S1310-QHD TENDON SHEATH/LIGAMENT 0 12/25/2016 Next Appt Details Provider Name:Nallely james, 03/16/2025 09:30:00 AM, [address] [facility] [address], [place], [address], Insurance Providers Payer Name Payer Address Payer Phone Subscriber Number Group Number Insured Name Patient Relationship to Insured Coverage Start Date Coverage End Date Medicare [facility] [address] [facility] [place] [address] [id number] Mihai Herrera Self - patient is the insured [facility] [address] [place] [address] [id number] Mihai Herrera Self - patient is the insured Medical (General) History Medical History History ICD Code chicken pox diabetic hypertension mumps measles Surgical History Surgery Date(Month/Year) arm 1987 hand/wrist 1987 tonsillectomy 1958 umbilical hernia 06/2024
--- NOTE | 2025-02-26 08:36 | A.OFFVIS_ITS ---
Vital Signs 3 02/26/25 08:24 02/26/25 08:31 Height 6 ft 2 in Weight 236 lb 5.369 oz 165 lb 5.547 oz BMI 30.3 BP 144/80 H 135/80 Blood Pressure Location Lt brachial Lt brachial Position Sitting Sitting Pulse 50 Pulse Source Pulse Oximeter Pulse Oximetry (%) 98 Oxygen Delivery Method Room Air Intake Visit Reasons: T2DM Intake Note: Patient present today for Type 2 Diabetes Mellitus Last Diabetic eye exam: 04/2024 Last Podiatry Visit: 11/2024 Random Glucose: 96 mg/dl HgA1C: 6.9% Online Merchandising Coordinator Required: No Accompanied by: Self / Same As Patient Allergies niacin (NIACIN) Allergy (Mild, Verified 02/26/25 08:36) ITCHING, itchy, itchy Czecycv-DDA-CbY Reductase Inhibitor (QRQQDEG-LJT-FTR REDUCTASE INHIBITOR) Allergy (Unknown, Verified 02/26/25 08:36) HIGH CPK atorvastatin (Lipitor) Adverse Reaction (Unknown, Verified 02/26/25 08:36) high CPK HPI Comments Details: Patient is 69 year old male with DM type 2 diagnosed at 35 years of age, who presents for management of diabetes. Past medical history: DM2, HTN, HLD, CKD3, Charcot arthopathy Micro and macrovascular complications: no retinopathy, + nephropathy, + neuropathy, no CVA, CAD, PVD. Diabetes medications: metformin 500 mg BID, intolerant of higher doses. Farxiga 10 mg. Novolog via TAndem pump with control IQ Tandem T slim pump data downloaded from February 13 to 02/26/2025 Average reading 152 mg/dL Time in range 84% Time CGM and use 100% Standard deviation 40 mg/dL in Coefficient of variation 26% G MN 6.9% Above target range 14% Very high 2.7% Low 0% Interpretation: Most days he has a excellent glycemic control, a few days around February 23, he was running in the 200s and 300s, seems like he did not give enter enough carbs according to what he was eating Basal: 12:00 2.8 2A 3 4:30a 2.25 11:30a 2.00 1pm 1.5 2:30 1.25 4pm 1.1 6:30 2.0 10:00pm 2.6 Correction 1:19 Carb ration 12:00 1:4 1130 AM = 1:3.5 4 PM = 1:4.5 Target 120 A1c POC 6.9% Symptoms reported: + numbness, tingling, nocramping in lower extremities Hypoglycemia: None recent . No hypoglycemia Hyperglycemia: + urinary frequency (takes diurectics), denies nocturia, polydypsia Exercise: walking 20 - 30 minutes on most days. Quill Machine Tender: every [address] Manzanares Ophthalmology evaluation: 04/2024 no retinopathy. 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 Stimulate C-peptide was> 2 and antibodies were negative confirming presence of type 2 diabetes and insulin reserve [facility] screen labs 07/10/24 Fibrosis-4 (Fib-4) Index for liver fibrosis (calculated on lab work done: ) [1.81 ] points Advanced fibrosis [excluded ] Approximate Fibrosis stage Memo [2-3 ] *Use with caution in patients <35 or >65 years old, as the score has been shown to be less reliable in these patients. Prior Imaging [none] Action Plan: [] rescreen two years from date of screening labs[ ] Physical exam General: sitting comfortably in no acute distress HEENT: normocephalic/atraumatic, Neck: supple, symmetrical, no thyromegaly , no dorsocervical or supraclavicular fat pads Cardiac: normal heart sounds Pulm: normal breath sounds B/L, no added breath sounds Abd: not distended, no tenderness Extremities: no edema, no signs of myxedema Neuro: AAO x3, Speech: normal, no facial droop, moving all 4 extremities Skin: no rash Laboratory Tests 11/30/23 06/01/24 06/01/24 08:50 09:57 09:58 Plt Count Creatinine Estim Creat Clear Calc Estimated GFR Hemoglobin A1c % 6.4 H 6.2 H AST ALT Cholesterol 147 LDL Cholesterol, Calc 70 HDL Cholesterol 46 Vitamin B12 495 Urine Creatinine 110.51 Urine Microalbumin 9.0 Microalb/Creat Ratio 8.1 07/09/24 20:47 Plt Count 168 Creatinine 1.12 Estim Creat Clear Calc 79.0 Estimated GFR > 60 Hemoglobin A1c % AST 22 ALT 27 Cholesterol LDL Cholesterol, Calc HDL Cholesterol Vitamin B12 Urine Creatinine Urine Microalbumin Microalb/Creat Ratio Laboratory Tests 11/30/24 11/30/24 08:33 08:35 Hgb 15.4 Hct 47.0 Plt Count 158 L Sodium 144 Potassium 4.4 D Creatinine 1.36 Estimated GFR 52 Fasting Glucose 135 H Estimat Average Glucose 137 Hemoglobin A1c % 6.4 H AST 31 ALT 41 H Albumin 4.0 Triglycerides 225 H Cholesterol 146 LDL Cholesterol, Calc 60 HDL Cholesterol 41 Urine Creatinine 104.29 Urine Microalbumin 6.0 Microalb/Creat Ratio 5.7 labs done at [facility] 10/24/24 showed me on phone albumin /cr ratio 10 Plt 160 cr 1.5 gfr 50 EXAMINATION: 06/01/24 Noninvasive assessment of the arteries of both lower extremities to include a single level PVR exam and ANKLE BRACHIAL INDICES (ABIs). CLINICAL INFORMATION: Peripheral vascular disease TECHNIQUE: The ankle/brachial indices of the distal posterior tibial and the dorsalis pedis arteries were obtained of the lower extremity arterial system bilaterally; along with pressures and pulse volume recordings at the ankle level. The study was performed at rest. COMPARISON: None FINDINGS: 1. ANKLE-BRACHIAL INDICES: RIGHT: 1.06 in the dorsalis pedis artery. Noncompressible posterior tibial artery LEFT: 1.08 and the dorsalis pedis artery. Noncompressible in the posterior tibial artery 2. ANKLE PVR WAVEFORMS: RIGHT: Normal LEFT: Normal US/US CORBY complete IMPRESSION: Noncompressible bilateral posterior tibial arteries. Normal ankle brachial indices in the bilateral dorsalis pedis arteries. PVR waveforms are unremarkable. Electronically signed by: Deandre Fall MD 06/06/2024 08:45 AM EDT [facility] Medical History Abdominal distension Hearing loss Annual physical exam Overweight (BMI 25.0-29.9) B12 deficiency group home (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 Diabetic polyneuropathy associated with type 2 diabetes mellitus Varicose vein of leg Osteoarthritis CKD (chronic kidney disease), stage III Umbilical hernia Peripheral neuropathy Hypokalemia Obstructive sleep apnea Anemia B-complex deficiency Hypercholesterolemia HTN (hypertension) Diabetes type 2, controlled Surgical History Umbilical hernia (07/07/24) History of colonoscopy Family History Father Diabetes mellitus CAD (coronary artery disease) HTN (hypertension) Mother Stroke Pancreatic cancer HTN (hypertension) Maternal Grandfather Abdominal aortic aneurysm CVD (cardiovascular disease) Maternal Grandmother Abdominal aortic aneurysm Paternal Grandfather CVD (cardiovascular disease) Paternal Grandmother No problems noted. Brother Diabetes mellitus Brother No problems noted. Brother No problems noted. Son No problems noted. Son No problems noted. Daughter No problems noted. Sister Hodgkins disease Social History Household Members: Spouse Housing: House Alcohol intake: current Alcohol intake frequency: 0-2 drinks per day Patient Tobacco Use Status: Never used Tobacco e-Cigarette/Vaping Use: Never Used service: No Current occupational status: retired Cognitive needs: No Hearing needs: Yes Vision needs: Yes Physical Exam Vital Signs: Last Vital Signs Pulse 50 02/26/25 08:24 BP 144/80 H 02/26/25 08:24 Pulse Ox 98 02/26/25 08:24 Oxygen Delivery Method Room Air 02/26/25 08:24 BMI result Body Mass Index 30.3 Results AMB Hemoglobin A1c 2 AMB Hemoglobin A1c 6.9 % Last Edit by MAURO Leon on 02/26/25 08:49 Results Reviewed Results Reviewed: Laboratory Last Values Glucose (Clinic) 96 mg/dL (60-115) 02/26/25 08:39 Assessment & Plan Assessment & Plan (1) Diabetes type 2, controlled: Comment: Grupo for renoprotection Dr. Bobo, on insulin pump, established with [facility] Code(s): E11.9 - Type 2 diabetes mellitus without complications Category: Medical Plan: This is a 68-year-old white male with a history of type 2 diabetes being managed with metformin, Farxiga and it T-slim insulin pump with excellent glycemic control and known microvascular complications namely CKD stage IIIB as well as neuropathy. A1c today 6.9% POC which is up from 6.5% in November 2024. Pump data downloaded which also shows overall excellent control with being in target range 82 % of the time. He is noted to have some hyperglycemia mostly it was around holiday February 23, I did discuss this with the him and it seems like he did not enter enough carbs as much as he was eating. Today we will not make any pump change settings. Patient will follow-up in 3 mos . Patient is up to date with opth, renal and podiatry. Pump settings continued Basal: 12:00 2.8 2A 3 4:30a 2.25 11:30a 2.00 1pm 1.5 2:30 1.25 4pm 1.1 6:30 2.0 10:00pm 2.6 Correction 1:19 Carb ration 12:00 1:4 1130 AM = 1:3.5 4 PM = 1:4.5 Target 120 (2) CKD (chronic kidney disease), stage III: Comment: Dr. Bobo Code(s): N18.30 - Chronic kidney disease, stage 3 unspecified Category: Medical Qualifiers: Chronic kidney disease stage 3 subtype: stage 3a (GFR 45-59) Qualified Code(s): N18.31 - Chronic kidney disease, stage 3a Plan: Most recently GFR from May 2024 greater than 60. Follows with Nephrology. Continue Farxiga 10 mg daily and spironolactone 25 mg daily, irbesartan 300 mg daily (3) Hypercholesterolemia: Code(s): E78.00 - Pure hypercholesterolemia, unspecified Category: Medical Plan: LDL at 64 from November 2024. Goal LDL less than 70. Continue rosuvastatin His triglycerides are elevated to 257 November 2024, almost up 100 point since last May 2024, discussed with him importance of dietary modification (4) HTN (hypertension): Code(s): I10 - Essential (primary) hypertension Category: Medical Qualifiers: Hypertension type: secondary to endocrine disorders Qualified Code(s): I15.2 - Hypertension secondary to endocrine disorders Plan: Blood pressure initially elevated, however when I repeated it was within normal range. Continue current regimen He is on nebivolol 2.5 mg daily, spironolactone 25 mg daily in a irbesartan 300 mg daily. 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 Has backup Lantus insulin changes In case of pump failure to inject 50 units daily Has ketone strips Hypoglycemia education done Has nasal Baqsimi Plan I spent 30 minutes in reviewing the record, seeing the patient and documenting in the medical record. 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 Rest for 15 minutes Re-check your blood glucose. If it is still low, (below 70), repeat step 1 above. ? If your next meal is more than an hour away, you will need to eat one carbohydrate choice as a snack to keep your blood glucose from going low again. ?If you can't figure out why you have low blood glucose, call your healthcare provider, as your medicine may need to be adjusted. ?Always carry something with you to treat an insulin reaction. Use food from the list below. ? Foods equal to One Carbohydrate Choice (15 grams of carbohydrate): 3 Glucose ?tablets or 4 Dextrose tablets 4 ounces of fruit juice 5-6 ounces (about 1/2 can) of regular soda such as Coke or Pepsi ? 7-8 gummy or regular Life Savers ? 1 Tbsp. of sugar or jelly NOTE: If your blood sugar is less than 50, double the portion above for a total of 30 gm. ?Carbohydrate. ? Follow meal plan of 45-60 g of consistent carbohydrates at 3 meals each day and 15 g of carbohydrate at 1-2 snacks each day. Coding Level of Care Code Est Pt Level 4 (12043) Diagnoses Diabetes type 2, controlled E11.9 Stage 3a chronic kidney disease N18.31 Chronic kidney disease stage 3 subtype: stage 3a (GFR 45-59) Hypercholesterolemia E78.00 Hypertension due to endocrine disorder I15.2 Hypertension type: secondary to endocrine disorders group home (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 Z79.4 Time Spent (min) 30
[2025-02-26 08:43] LABS: Glucose, Whole Blood 96 mg/dL (60-115)
== END 2025-02-26 08:55 | disposition home or self-care (01) ==
LOC: HO.ENCR 08:23
PROVIDERS: PCP Internal Medicine; Visit Provider Student in an Organized Health Care Education/Training Program
DX: E11.42 Type 2 diabetes mellitus with diabetic polyneuropathy (principal); N18.31 Chronic kidney disease, stage 3a; E78.00 Pure hypercholesterolemia, unspecified; I15.2 Hypertension secondary to endocrine disorders; Z79.4 Long term (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; Z13.9 Encounter for screening, unspecified
CPT/HCPCS: 95251; 99214

== ENCOUNTER → 2025-02-26 08:22 | Outpatient (BNVA) | payer MEDICARE, OTHER, SELFPAY | PROVIDERS: PCP Internal Medicine; Visit Provider Student in an Organized Health Care Education/Training Program | DX: E11.22 Type 2 diabetes mellitus with diabetic chronic kidney disease (principal); N18.30 Chronic kidney disease, stage 3 unspecified; E11.42 Type 2 diabetes mellitus with diabetic polyneuropathy; I15.2 Hypertension secondary to endocrine disorders; Z79.4 Long term (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; Z96.41 Presence of insulin pump (external) (internal) | CPT/HCPCS: 82947; 83036; 99212 ==

== ENCOUNTER 2025-04-12 16:04 | Outpatient (REF) | payer MEDICARE, OTHER, SELFPAY ==
--- OUTSIDE RECORDS SUMMARY | 2025-04-12 16:07 | XMS_ITS | Patient Health Record ---
Author Organization [facility] Address [address] [place] [address] Care Team Providers Care Real Estate Processor Name Role Phone Maria Isabel Munoz MD Primary Care Provider Javier De León Jr Unavailable Allergies Allergen (clinical drug ingredient) Drug/Non Drug Allergy documented on EMR Reaction Allergy Type Onset Date Status niacin Niacin Unknown Drug Allergy Active atorvastatin Lipitor Unknown Drug Allergy Acti ve Reason For Referral No Information Medications Medication SIG (Take, Route, Frequency, Duration) Notes Start Date End Date Status Calcium 600+D 600-200 MG-UNIT 1 tablet Orally Once a day Active HumaLOG 100 UNIT/ML as directed Subcutaneous Active Coenzyme Q-10 300 1 capsule with a nicolas l Orally Once a day Active metFORMIN HCl ER 500 MG 1 tablet with ev ening meal Orally twice a day Active Glucosamine 750 MG as directed Orally Active Bystolic 2.5 MG 2 tablets Orally Onc e a day for 30 day(s) Active Iron 325 (65 Fe) MG 1 tablet Orally Once a day for 30 day(s) Active Irbesartan 300 MG 1 tablet Orally Once a day for 30 day(s) Active Vitamin C 1000 MG 1 tablet Orally Once a day for 30 day(s) Active Betamethasone - as directed Ac tive Spironolactone 25 MG 1 tablet Orally Onc e a day for 30 days Active Vitamin B-12 5000 MCG as directed Orally Active Zetia 10 MG 1 tablet Orally Once a day for 30 day(s) Active Vitamin D-Vitamin K 20-120 MCG/0.1ML as directed Orally Active Flonase Active Coenzyme Q10 300 MG as directed Orally Active Loratadine 10 MG 1 tablet Orally Once a day for 30 day(s) Active Vitamin D 25 MCG (1000 UT) 1 tablet Oral ly Once a day Active Aspirin 81 81 MG 1 tablet Orally Once a day for 30 day(s) Active Farxiga 10 MG 1 tablet Orally Once a day Active Vitamin B12 500 MCG 1 tablet Orally Once a day Active Rosuvastatin Calcium 10 MG 1 tablet Oral ly Once a day Active Immunizations Vaccine Route Administration Date Status Comme nts Influenza Unknown 05/21/2019 Administered Influenza Unknown 06/13/2024 Administered Social History Tobacco Use: Social History [...] Section Notes: glass of wine at dinner glass of wine at dinner Problems Problem Type SNOMED Code ICD Code Onset Dates Problem Status W/U Status Risk Notes Problem [id number] Colon cancer screening (Z12.11) Active confirmed Vital Signs Temperature 98.6 degrees Fahrenheit 03/15/2025 Blood pressure diastolic 01 mm Hg 03/15/2025 Height 74 in 03/15/2025 Blood pressure systolic 001 mm Hg 03/15/2025 Weight 234.6 lbs 03/15/2025 BMI 30.12 kg/m2 03/15/2025 Encounters Encounter Location Date Provider Diagnosis [facility] [address] [place] [phone] 03/15/2025 Javier Steward Jr [facility] [address] [place] [phone] 03/15/2025 Javier Steward Jr [facility] [address] [place] [phone] 03/16/2025 Javier Steward Jr Colon cancer screening Z12.11 [facility] [address] [place] [phone] 03/27/2025 Javier Steward Jr Assessments Encounter Date Diagnosis (ICD Code) Assessment Notes Treatment Notes Treatment Clinical Notes Section Notes 03/16/2025 Colon cancer screening (ICD-10 - Z12.11) Plan Of Treatment Pending Test Test Name Order Date OCCULT BLOOD STOOL X3 (OBS) 03/16/2025 OCCULT BLOOD STOOL 11/28/2008 Future Test Test Name Order Date COLONOSCOPY 06/28/2019 Insurance Providers Payer Name Payer Address Payer Phone Subscriber Number Group Number Insured Name Patient Relationship to Insured Coverage Start Date Coverage End Date MEDICARE OF [place] [address] [place] [id number] CHRISTIANA MONTGOMERY Self - patient is the insured [facility] [address] [place] [address] [id number] CHRISTIANA MONTGOMERY Self - patient is the insured 5 Medical (General) History Medical History History ICD Code diabetes chronic kidney disease hypertension hyperlipidemia varicose veins Surgical History Surgery Date(Month/Year) hernia 07/16 pin in right arm tonsillectomy and adenoidectomy
--- OUTSIDE RECORDS SUMMARY | 2025-04-12 16:07 | XMS_ITS | Clinical Summary ---
Author Organization [facility] Address [address] [address] Phone Care Team Providers Care Safe And Vault Mechanic Name Role Phone Maria Isabel Munoz MD Primary Care Provider [phone] Allergies Active Allergy Reactions Criticality Noted Date [...] Care Team (Late st Contact Info) Description 04/17/2025 Orders Only [facility] [address] [phone] Jaydon Brunson MD [address] [address] Stage 3a chronic kidney disease (HCC) 05/22/2025 1:30 PM EDT Office Visit [facility] [address] [address] Jaydon Brunson MD [address] [address] Health Maintenance Due Date Last Done Comments Pneumococcal Vaccine: 50+ Years (1 of 2 - PCV) 1973 10/22/2014 Colorectal Cancer Screening: Annual FOBT 2003 Colorectal Cancer Screening: Colonoscopy 2003 Colorectal Cancer Screening: Sigmoidoscopy 2003 Diabetes: Hemoglobin A1C 09/22/2020 09/15/2019 Diabetes: Ophthalmology Exam 09/22/2020 Diabetes: Pedal Pulse Checked 09/22/2020 Diabetes: Sensory Foot Exam 09/22/2020 Diabetes: Visual Foot Exam 09/22/2020 Influenza Vaccine (#1) 2025 0, 05/04/2019, 05/18/2018, Additional history exists Pneumococcal Vaccine: [...] 5:40 PM EST) Hemoglobin A1C 6.9 % SHAQUILLECINDY Comment: Hemoglobin A1C Reference Range Adults: 4.8 - 6.0 % Non diabetic: < 6.0 % Goal: < 7.0 % Additional Action Suggested: > 8.0 % Note: Hemoglobin A1c results are invalid for patients with abnormal amounts of HbF. Blood transfusions may impact the HbA1c concentration in the patient sample. Estimated Average Glucose 151 MG/DL GUZMAN Comment: eAG = Estimated average glucose which is %A1C expressed as average glucose, using the formula of the [id number] Average Glucose study (ADAG), Diabetes Care, Vol.31,#8, Mar. 2007 09/15/2019 5:40 PM EST us Maria Isabel Munoz MD LAB BLOOD ORDERABLES Final Resu lt [place] from Last 3 Months or Most Recently Relevant to Health Maintenance [place] [address] [place] [address] Medicare Care Teams Safe And Vault Mechanic Relationship Specialty Start Date End Date Maria Isabel Munoz MD [address] [place] [address] PCP - General Internal Medicine 01/29/21
--- OUTSIDE RECORDS SUMMARY | 2025-04-12 16:07 | XMS_ITS | Patient Health Record ---
Author [facility] Address [address] [facility] [place] [address] Care Team Providers Care Cook'S Assistant Name Role Phone Maria Isabel Munoz MD Primary Care Provider Nallely Leonardo Unavailable [phone] Nayan Luther Unavailable [phone] Allergies Allergen (clinical drug ingredient) Drug/Non Drug [...] Lab: Notes/Report: HEMOGLOBIN A1C % (HH) 6.4 HEMOGLOBIN A1C (GLYCOHEMOGLO BIN) Reviewed date:03/16/2025 09:27:04 AM Interpretation: Performing Lab: Notes/Report: HEMOGLOBIN A1C % (HH) 6.8 Reason For Referral No Information Medications Medication SIG (Take, Route, Frequency, Duration) Notes Start Date End Date Status flonase Active hydrALAZINE HCl 50 MG Orally Twice a day Not-Taking Farxiga Active Furosemide Not-Takin g Irbesartan 300 MG 1 tablet Orally Once a day Active Glucosamine 750 MG Orally A ctive Clotrimazole-Betamethason e Active Extra Depth Orthopedic Shoes (1 Pair) with Customized Heat Molded Multidensity Innersoles (3 Pair) as directed Dx: IDDM/Polyneuropathy (E10.42), Hammertoe Foot Deformity (M20.41,M20.42), Preulcerative Skin Lesion(s) (L85.1) 11/01/2018 Not-Taking Claritin Active Extra Depth Diabetic Shoes with 3 Pair Custom heat-molded multi-density innersoles for 1 year Dx: 04/16/2017 Not-Taking Ezetimibe Active Extra Depth Orthopedic Shoes (1 Pair) with Customized Heat Molded Multidensity Innersoles (3 Pair) as directed Dx: IDDM/Polyneuropathy (E10.42), Hammertoe Foot Deformity (M20.41,M20.42), Preulcerative Skin Lesion(s) (L85.1) 08/06/2020 Not-Taking CoQ-10 200 MG 1 capsule with a nicolas l Orally Once a day Active Extra-Depth Diabetic Shoes with 3 Pair Custom heat-molded multi-density innersoles . 1pair shoes/3sets inserts . .; Duration: 1 year Not-Taking Extra Depth Orthopedic Shoes (1 Pair) with Customized Heat Molded Multidensity Innersoles (3 Pair) as directed Dx: NIDDM/Polyneuropathy (E11.42), Hammertoe Foot Deformity (M20.41,M20.42), Preulcerative Skin Lesion(s) (L85.1 09/05/2024 Active Vitamin C Active Calcium 600 MG 1 tablet with meals Orally Twice a day Active Compression Stockings 20-30mm Hg as directed 02/11/2016 Not-Taking Betamethasone Dipropionate Active Extra Depth Diabetic Shoes with 3 Pair Custom heat-molded multi-density innersoles for 1 year Dx: Not-Taking Aspirin 81 Active Vitamin D Active Spironolactone Activ e amLODIPine Besylate 5 MG Orally Active Vitamin B12 500 mg 1 tablet Orally Once a day Active Nebivolol HCl Active HumaLOG Not-Taking NovoLOG Active All Day Allergy-D No t-Taking Rosuvastatin Calcium Active Nystatin Active iron 1 tab Oral Active Bystolic Not-Taking Zetia 10 mg Not-Taki ng Montelukast Sodium N ot-Taking Clotrimazole Not-Corbin ing metFORMIN HCl 500 MG Orally Twice a day Active Insulin Lispro (Human) Not-Taking Loratadine Not-Takin g Immunizations Vaccine Route Administration Date Status Comme nts Pneumococcal Unknown 10/22/2014 Administered Influenza Unknown 05/11/2016 Administered Influenza Unknown 05/06/2017 Administered Influenza Unknown 05/18/2018 Administered Influenza Unknown 05/04/2019 Administered Influenza Unknown 04/23/2020 Administered Influenza Unknown 04/24/2024 Administered COVID-19 Moderna Vaccine Unknown 11/13/2020 Administere d 1st 10/16/20 Social History Tobacco Use: Social History Observation Description Date Details (start date - stop date) Never Smoker NA - NA Tobacco use other than smoking: Question Answer Notes Are you an other tobacco user? No Tobacco Control (Standard) Question Answer Notes Tobacco use: Nonsmoker Additional Findings: Tobacco non-user Current no nsmoker AUDIT-C (Standard) Question Answer Notes Did you have a drink contain ing alcohol in the past year? Yes How often did you have a dri nk containing alcohol in the past year? Monthly or less (1 point) How many drinks did you have on a typical day when you were drinking in the past year? 1 or 2 drinks (0 point) How often did you have six o r more drinks on one occasion in the past year? Never (0 point) Points 1 Interpretation Negative Problems Problem Type SNOMED Code ICD Code Onset Dates Problem Status W/U Status Risk Notes Problem Polyneuropathy due to type 2 diabetes mellitus (068782774) Type 2 diabetes mellitus with diabetic polyneuropathy (E11.42) Active confirmed Problem Acquired hammer toe of right foot (6887218771792447 ) Other hammer toe(s) (acquired), right foot (M20.41) Active confirmed Problem Acquired hammer toe of left foot (1765909392124611 ) Other hammer toe(s) (acquired), left foot (M20.42) Active confirmed Problem Skin ulcer of to e of right foot with fat layer exposed (L97.512) Active confirmed Problem Skin ulcer of to e of left foot with fat layer exposed (L97.522) Active confirmed Vital Signs Blood pressure diastolic 63 mm Hg 09/05/2024 Height 6ft 3in in 03/16/2025 Blood pressure systolic 130 mm Hg 09/05/2024 Weight 230 lbs 03/16/2025 BMI 28.74 kg/m2 03/16/2025 Procedures Procedure Date Ordered Date Performed Result Body Sit e 43365-XRUDGGN NAIL, 6 OR MORE 09/05/2024 N/A 82725-MYYR SKIN LESIONS, 2 TO 4 09/05/2024 N/A 29458-YFEDDRY NAIL, 6 OR MORE 12/15/2024 N/A 49495-TAW 12/15/2024 N/A 06184-OKOX SKIN LESIONS, 2 TO 4 12/15/2024 N/A 84789-CBIQGJQ SKIN/TISSUE 01/09/2025 N/A Encounters Encounter Location Date Provider Diagnosis [address] [address] 06/06/2024 Nayan Luther Type 1 diabetes mellitus with diabetic polyneuropathy E10.42 ; Tinea unguium B35.1 ; Ingrowing nail L60.0 ; Pain in right toe(s) M79.674 ; Pain in left toe(s) M79.675 ; Venous insufficiency of both lower extremities I87.2 ; Other hammer toe(s) (acquired), left foot M20.42 ; Other hammer toe(s) (acquired), right foot M20.41 and Metatarsalgia, left foot M77.[address] [address] 09/05/2024 Nallely Bowen Other hammer toe(s) (acquired), right foot M20.41 ; Other hammer toe(s) (acquired), left foot M20.42 ; Type 2 diabetes mellitus with diabetic polyneuropathy E11.42 and Tinea unguium B35.[address] [address] 12/15/2024 Nallely Bowen Type 2 diabetes mellitus with diabetic polyneuropathy E11.42 ; Tinea unguium B35.1 and Ingrown nail L60.[address] [address] 01/09/2025 Nallely Bowen Skin ulcer of toe of left foot with fat layer exposed L97.522 [facility] [place] [address] [facility] [address] [place] [address] 03/16/2025 Nallely Bowen Type 2 diabetes mellitus with [...] CARE INSTRUCTIONS. pdf (WOUND CARE INSTRUCTIONS. pdf) 03/16/2025 Type 2 diabetes mellitus with diabetic polyneuropathy (ICD-10 - E11.42) 03/16/2025 Tinea unguium (ICD-10 - B35.1) 12/15/2024 Ingrown nail (ICD-10 - L60.0) 09/05/2024 Type 2 diabetes mellitus with diabetic polyneuropathy (ICD-10 - E11.42) 06/06/2024 Tinea unguium (ICD-10 - B35.1) 06/06/2024 Ingrowing nail (ICD-10 - L60.0) 09/05/2024 [...] X ray : Foot, right 2V 12/25/2016 28707-SWEZXUG NAIL, 6 OR MORE 04/16/2017 72166-OTQDQIZ NAIL, 6 OR MORE 07/09/2017 69020-WEPMDWW NAIL, 6 OR MORE 10/01/2017 62641-BTQPLJZ NAIL, 6 OR MORE 02/05/2017 25143-PCVTLDF NAIL, 6 OR MORE 11/24/2016 72990-SQPJLKL NAIL, 6 OR MORE 12/18/2014 74201-PQCSUJW NAIL, 6 OR MORE 03/12/2015 88213-JXPGJAQ NAIL, 6 OR MORE 06/04/2015 80675-KVUXGFT NAIL, 6 OR MORE 11/12/2015 19278-SFFNDRL NAIL, 6 OR MORE 02/11/2016 59013-XIOQODK NAIL, 6 OR MORE 05/19/2016 62607-BNBOQQK NAIL, 6 OR MORE 08/25/2016 59121-DACWEZP NAIL, 6 OR MORE 06/09/2011 65229-DHLEPYW NAIL, 6 OR MORE 09/11/2011 60873-ZZJSEPJ NAIL, 6 OR MORE 09/25/2011 48025-SECGJJP NAIL, 6 OR MORE 12/01/2011 74686-JQGZJPA NAIL, 6 OR MORE 03/01/2012 47568-UVITJAV NAIL, 6 OR MORE 05/31/2012 26880-HMKWKHP NAIL, 6 OR MORE 09/06/2012 60364-BLCOCIL NAIL, 6 OR MORE 12/06/2012 38978-YHRTFXR NAIL, 6 OR MORE 04/18/2013 06024-VBWYMFH NAIL, 6 OR MORE 07/11/2013 82060-LIVEGQT NAIL, 6 OR MORE 10/17/2013 30285-TIQFWHX NAIL, 6 OR MORE 01/09/2014 98941-AYAIJYP NAIL, 6 OR MORE 04/03/2014 02501-TCZAQMG NAIL, 6 OR MORE 06/26/2014 13787-IGJIJVH NAIL, 6 OR MORE 09/21/2014 69367-DUWSIFG NAIL, 6 OR MORE 12/24/2017 54212-MCQFNBU NAIL, 6 OR MORE 03/04/2018 34375-XMTHQYZ NAIL, 6 OR MORE 05/27/2018 39598-UPONHXX NAIL, 6 OR MORE 08/02/2018 04186-CDVVTIE NAIL, 6 OR MORE 09/05/2024 88092-WPPSDRQ NAIL, 6 OR MORE 12/15/2024 78944-Dgtqxcme Plate 11/05/2020 72027-Qpweltnb Plate 02/04/2021 50061-Gmahtngx Plate 05/06/2021 45867-Wbomxjvn Plate 02/06/2020 70509-Gvsviloo Plate 12/24/2017 26487-Wafhhewt Plate 05/27/2018 44456-Fqtgbbrk Plate 06/26/2014 73574-Eunhipkh Plate 07/11/2013 98842-Eehgglus Plate 12/06/2012 69768-Rafbhqua Plate 06/09/2011 34766-Apykktvt Plate 04/03/2014 11526-Nntqigvk Plate 04/12/2015 49345-Tdtopjnu Plate 08/25/2016 75261-Alwsiqor Plate 04/16/2017 17069-VKV 12/15/2024 17664- Debride <25 sq cm 09/25/2011 61808-AGFZGEW SKIN/TISSUE 01/09/2025 54705 I&D ABSCESS- SIMPLE,SINGLE 018 04447 I&D ABSCESS- SIMPLE,SINGLE 013 15583 I&D ABSCESS- SIMPLE,SINGLE 012 08982 I&D ABSCESS- SIMPLE,SINGLE 012 09999 I&D ABSCESS- SIMPLE,SINGLE 015 72977-OGIZ SKIN LESIONS, OVER 4 05/07/20 20 42298-QKLG SKIN LESIONS, OVER 4 11/12/19 22 94918-HGRE SKIN LESIONS, 2 TO 4 08/01/20 21 04884-YTHP SKIN LESIONS, 2 TO 4 05/06/20 21 04386-DVTU SKIN LESIONS, 2 TO 4 02/05/20 90302-WQCV SKIN LESIONS, 2 TO 4 12/07/19 24 44088-JVAH SKIN LESIONS, 2 TO 4 12/16/19 25 83782-XTHW SKIN LESIONS, 2 TO 4 09/05/19 11024-WPHR SKIN LESIONS, 2 TO 4 08/06/20 41410-QLCX SKIN LESIONS, 2 TO 4 11/06/19 48847-RRCC SKIN LESIONS, 2 TO 4 11/02/19 19 45512-SWEM SKIN LESIONS, 2 TO 4 02/01/20 19 16420-ERAU SKIN LESIONS, 2 TO 4 05/02/20 19 33978-BOOC SKIN LESIONS, 2 TO 4 08/08/20 19 84408-ILEB SKIN LESIONS, 2 TO 4 11/07/19 20 75097-ELRI SKIN LESIONS, 2 TO 4 02/06/20 23782-TYCY SKIN LESIONS, 2 TO 4 05/27/20 18 07553-EOJY SKIN LESIONS, 2 TO 4 03/04/20 18 45556-VSPM SKIN LESIONS, 2 TO 4 08/02/20 18 80007-QGMG SKIN LESIONS, 2 TO 4 06/04/20 15 92418-CEAZ SKIN LESIONS, 2 TO 4 03/12/20 15 73121-DCUL SKIN LESIONS, 2 TO 4 12/19/19 15 29575-ICUX SKIN LESIONS, 2 TO 4 08/25/19 17 99954-QGWG SKIN LESIONS, 2 TO 4 05/19/20 16 07281-MCLK SKIN LESIONS, 2 TO 4 02/11/20 16 36272-JATX SKIN LESIONS, 2 TO 4 11/12/19 16 60782-VLOH SKIN LESIONS, 2 TO 4 07/09/20 17 30145-WYTA SKIN LESIONS, 2 TO 4 12/25/19 18 74600-MDQQ SKIN LESIONS, 2 TO 4 10/01/19 18 50973-BBSD SKIN LESIONS, 2 TO 4 11/25/19 17 29556-MFCP SKIN LESIONS, 2 TO 4 04/16/20 17 46810-HEZL SKIN LESIONS, 2 TO 4 02/06/20 17 35701-UFJS SKIN LESIONS, 2 TO 4 09/25/19 12 10693-KCNR SKIN LESIONS, 2 TO 4 12/01/19 12 94154-YKKH SKIN LESIONS, 2 TO 4 09/11/19 12 48346-OKWD SKIN LESIONS, 2 TO 4 12/07/19 13 32241-BBZL SKIN LESIONS, 2 TO 4 09/06/19 13 66886-XFBM SKIN LESIONS, 2 TO 4 05/31/20 12 51440-FTDV SKIN LESIONS, 2 TO 4 03/01/20 12 67838-PVAD SKIN LESIONS, 2 TO 4 04/18/20 13 90636-XSVB SKIN LESIONS, 2 TO 4 07/11/20 13 56051-VEZI SKIN LESIONS, 2 TO 4 10/17/19 14 72531-BZDD SKIN LESIONS, 2 TO 4 09/21/19 15 61943-NOSX SKIN LESIONS, 2 TO 4 04/03/20 14 26655-KOPP SKIN LESIONS, 2 TO 4 01/10/20 14 00161-Dpvz. Subungual Hematoma 4 87617,J7294-TYF TENDON SHEATH/LIGAMENT 0 12/25/2016 Next Appt Details Provider Name:Nallely Avitia erika, 06/15/2025 09:15:00 AM, [address] [facility], [address], [place], [address], Insurance Providers Payer Name Payer Address Payer Phone Subscriber Number Group Number Insured Name Patient Relationship to Insured Coverage Start Date Coverage End Date Medicare National Govt [facility] [address] [place] [address] [id number] Mihai Herrera Self - patient is the insured [facility] [address] [place] [address] [id number] Mihai Herrera Self - patient is the insured Medical (General) History Medical History History ICD Code chicken pox diabetic hypertension mumps measles Surgical History Surgery Date(Month/Year) arm 1988 hand/wrist 1988 tonsillectomy 1958 umbilical hernia 06/2024
== END 2025-04-12 16:05 | disposition home or self-care (01) ==
LOC: HO.LAB 16:04
PROVIDERS: PCP Internal Medicine; Visit Provider Internal Medicine Gastroenterology
DX: Z13.89 Encounter for screening for other disorder (principal)

== ENCOUNTER 2025-05-23 10:00 | Outpatient (REF) | payer MEDICARE, OTHER, SELFPAY ==
--- NOTE | ~2025-05-23 | XR_ITS ---
EXAMINATION: XR KNEE 4 OR MORE VIEWS LEFT HISTORY: W10.8XXA - Fall (on) (from) other stairs and steps, initial encounter COMPARISON: There are no prior studies available for comparison. FINDINGS: Four views of the left knee are submitted. Osseous mineralization is normal. There is no fracture or dislocation. There is mild osteoarthritis of the medial compartment with osteophyte formation. There are vascular calcifications. There is no joint effusion. XR/XR knee LT 4V IMPRESSION: Mild osteoarthritis of the medial compartment. Electronically signed by: Vern Teixeira MD 05/23/2025 11:20 AM EDT
== END 2025-05-23 10:01 | disposition home or self-care (01) ==
LOC: HO.HMGCX 10:00
PROVIDERS: PCP Internal Medicine; Visit Provider Physician Assistant
DX: S80.02XA Contusion of left knee, initial encounter (principal); H05.232 Hemorrhage of left orbit; W10.8XXA Fall (on) (from) other stairs and steps, initial encounter
CPT/HCPCS: 73564; 99212

== ENCOUNTER 2025-05-23 10:00 | Outpatient (AMB) | payer MEDICARE, OTHER, SELFPAY ==
[2025-05-23 10:03] VITALS: BP 130/90; PULSE 67; RESP 16; TEMP 36.8; O2SAT 98; BMI 30.8
--- NOTE | 2025-05-23 10:03 | AM.OFFWIN_ITS ---
Intake Vital Signs 05/23/25 10:03 Height 6 ft 2 in Weight 240 lb BMI 30.8 BP 130/90 H Blood Pressure Location Lt brachial Position Sitting Respiration 16 Pulse 67 Pulse Source Pulse Oximeter Temp 98.3 F Pulse Oximetry (%) 98 Intake Visit Reasons: EP fell yesterday and hit head and knee Patient Tobacco Use Status: Never used Tobacco Telephone Interviewer Required: No Allergies niacin (NIACIN) Allergy (Mild, Verified 05/23/25 10:07) ITCHING, itchy, itchy Jvemxts-CQH-TtX Reductase Inhibitor (ODBXPRP-ANT-ZZP REDUCTASE INHIBITOR) Allergy (Unknown, Verified 05/23/25 10:07) HIGH CPK atorvastatin (Lipitor) Adverse Reaction (Unknown, Verified 05/23/25 10:07) high CPK HPI HPI Comments History of Present Illness Details History of Present Illness - The patient is a 70-year-old male pres enting with injuries sustained from a fall. - The patient fell yesterday morning whi le navigating stairs in the dark, resulting in a fall onto his knee and head. - The fall led to a contusion of the lef t knee, which is swollen and painful, but the patient is able to walk on it. - The patient also sustained a black ey e with significant swelling and bruising around the eye, but no vision changes or eye pain were reported. - The patient reports a mild headache, w hich is alleviated by Tylenol, and denies any dizziness, nausea, vomiting, sound or light sensitivity. - The patient has a history of chronic k idney disease and is cautious with medication use, preferring Tylenol over NSAIDs due to renal considerations. - Is not on a blood thinner, no LOC. Physical Exam General: Cooperative, healthy appearing, comfortable, no acute distress and well developed Orientation: Patient oriented x3 Limitations: No limitations Head: atraumatic Ears: Hearing grossly normal bilaterally Face and sinus: mild tenderness noted on periorbital bones and maxillary bone, no instability on any facial bones Eyes: right eye appearance normal, left eye with no injury to the eye itself, EOM intact, PERRL, periorbital edema and ecchymosis of left eye Neck: appearance normal, full ROM Respiratory: Normal respiratory effort and able to speak in complete sentences. Skin: No rashes or lesions noted Neuro: Patient oriented x3, CN 2-12 intact, gait normal Back/spine: No TTP cervical, thoracic or lumbar spine Extremities: moving all extremities normally, right knee with ecchymosis and edema, no joint laxity, negative patellar ballottement, no lacerations noted. full ROM right knee. Review of Systems - Neurological: Reports mild headache, d enies nausea, vomiting, or light sensitivity - Musculoskeletal: Reports pain and swel ling in the left knee, able to ambulate - Ophthalmologic: Reports no vision walsh ges despite periorbital swelling All systems reviewed and are unremarkable except as noted in HPI [facility] Medical History Abdominal distension Hearing loss Annual physical exam Overweight (BMI 25.0-29.9) B12 deficiency half-way (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 Diabetic polyneuropathy associated with type 2 diabetes mellitus Varicose vein of leg Osteoarthritis CKD (chronic kidney disease), stage III Umbilical hernia Peripheral neuropathy Hypokalemia Obstructive sleep apnea Anemia B-complex deficiency Hypercholesterolemia HTN (hypertension) Diabetes type 2, controlled Surgical History Umbilical hernia (07/07/24) History of colonoscopy Family History Father Diabetes mellitus CAD (coronary artery disease) HTN (hypertension) Mother Stroke Pancreatic cancer HTN (hypertension) Maternal Grandfather Abdominal aortic aneurysm CVD (cardiovascular disease) Maternal Grandmother Abdominal aortic aneurysm Paternal Grandfather CVD (cardiovascular disease) Paternal Grandmother No problems noted. Brother Diabetes mellitus Brother No problems noted. Brother No problems noted. Son No problems noted. Son No problems noted. Daughter No problems noted. Sister Hodgkins disease Social History Household Members: Spouse Housing: House Alcohol intake: current Alcohol intake frequency: 0-2 drinks per day Patient Tobacco Use Status: Never used Tobacco e-Cigarette/Vaping Use: Never Used service: No Current occupational status: retired Cognitive needs: No Hearing needs: Yes Vision needs: Yes Physical Exam Vital Signs: Last Vital Signs Temp 98.3 F 05/23/25 10:03 Pulse 67 05/23/25 10:03 Resp 16 05/23/25 10:03 BP 130/90 H 05/23/25 10:03 Pulse Ox 98 05/23/25 10:03 BMI result Body Mass Index 30.8 Assessment & Plan Assessment & Plan (1) Contusion of left knee: Code(s): S80.02XA - Contusion of left knee, initial encounter Qualifiers: Encounter type: initial encounter Qualified Code(s): S80.02XA - Contusion of left knee, initial encounter Plan: Plan - An x-ray of the left knee was ordered to assess for any fractures due to significant swelling. - The patient was advised to apply ice and rest the knee to reduce swelling and pain. - An KARTIK compression wrap was applied to the left knee to provide support and reduce swelling. - The patient as instructed to monitor for any worsening symptoms, such as severe headache or changes in vision, dizziness, weakness or fatigue and to seek immediate medical attention if they occur. - Use ice on left eye. - The patient was advised to use Tylenol for pain management due to his history of chronic kidney disease. Patient was informed and verbally consented to the use of an ambient scribe for clinic note documentation during this visit. (2) Fall (on) (from) other stairs and steps, initial encounter: Code(s): W10.8XXA - Fall (on) (from) other stairs and steps, initial encounter Plan: as above (3) Periorbital hematoma of left eye: Code(s): H05.232 - Hemorrhage of left orbit Plan: as above Orders: Orders XR knee LT 4V Today S80.02XA - Contusion of left knee, initial encounter, W10.8XXA - Fall (on) (from) other stairs and steps, initial encounter Coding Level of Care Code Est Pt Level 4 (99853) Diagnoses Contusion of left knee, initial encounter S80.02XA Encounter type: initial encounter Fall (on) (from) other stairs and steps, initial encounter W10.8XXA Periorbital hematoma of left eye H05.232
--- OUTSIDE RECORDS SUMMARY | 2025-05-23 11:10 | XMS_ITS | Clinical Summary ---
Author Organization [facility] Address [address] [address] Phone Care Team Providers Care Whistle Punk Name Role Phone Maria Isabel Munoz MD Primary Care Provider [phone] Allergies Active Allergy Reactions Criticality Noted Date [...] Encounters Date Type Department Care Team Description 04/17/2025 Orders Only [facility] [address] [facility] [address] [place] [address] Jaydon Brunson MD Stage 3a chronic kidney disease (HCC) from Last 3 Months Immunizations Immunization Administration [...] Care Team (Late st Contact Info) Description 05/29/2025 9:15 AM EDT Office Visit [facility] [address] [address] Ana Luisa Lynne ARNP [address] [phone] Health Maintenance Due Date Last Done Comments [...] average glucose, using the formula of the W2N-Mcearss Average Glucose study (ADAG), Diabetes Care, Vol.31,#8, Mar. 2008 09/15/2019 5:40 PM EST us Maria Isabel Munoz MD LAB BLOOD ORDERABLES Final Resu lt LOGAN from Last 3 Months or Most Recently Relevant to Health Maintenance Insurance [facility] Health Medicare [facility] Medicare Care Teams Whistle Punk Relationship Specialty Start Date End Date Maria Isabel Munoz MD [facility] [place] [address] PCP - General Internal Medicine 01/29/21
--- OUTSIDE RECORDS SUMMARY | 2025-05-23 11:10 | XMS_ITS | Patient Health Record ---
Author Organization [facility] Address [address] [place] [address] Care Team Providers Care Hvac Manager Name Role Phone Maria Isabel Munoz [...] Problem Status W/U Status Risk Notes Problem [id number] Colon cancer screening (Z12.11) Active confirmed Problem Long-term current use of antiplatelet drug ([id number]) Long-term use of aspirin therapy (Z79.82) Active confirmed Vital Signs Temperature 98.6 degrees Fahrenheit 03/15/2025 Blood pressure diastolic 01 mm Hg 03/15/2025 Height 74 in 03/15/2025 Blood pressure systolic 001 mm Hg 03/15/2025 Weight 234.6 lbs 03/15/2025 BMI 30.12 kg/m2 03/15/2025 Encounters Encounter Location Date Provider Diagnosis [facility] [address] [place] [phone] 03/15/2025 Javier Steward Jr Colon cancer screening Z12.11 and Long-term use of aspirin therapy Z79.82 [facility] [address] [place] [phone] 03/15/2025 Javier Steward Jr [facility] [address] [place] [phone] 03/16/2025 Javier Steward Jr Colon cancer screening Z12.11 [facility] [address] [place] [address] 03/27/2025 Javier Steward Jr Assessments Encounter Date Diagnosis (ICD Code) Assessment Notes Treatment Notes Treatment Clinical Notes Section Notes 03/15/2025 Colon cancer screening (ICD-10 - Z12.11) We discussed colonoscopy today. We discussed risks and benefits of the procedure today. He understands these. He will have stool occult blood testing. If he agrees to colonoscopy this will be arranged at his convenience. He will have to take one half of his long-acting insulin the night before the procedure and no short acting insulin the day of the procedure. He will have to stop aspirin 1 week before the procedure. He will have to stop iron 1 week before the procedure. He should stop his spironolactone the day before the procedure. 03/15/2025 Long-term use of aspirin therapy (ICD-10 - Z79.82) We discussed colonoscopy today. We discussed risks and benefits of the procedure today. He understands these. He will have stool occult blood testing. If he agrees to colonoscopy this will be arranged at his convenience. He will have to take one half of his long-acting insulin the night before the procedure and no short acting insulin the day of the procedure. He will have to stop aspirin 1 week before the procedure. He will have to stop iron 1 week before the procedure. He should stop his spironolactone the day before the procedure. 03/16/2025 Colon cancer screening (ICD-10 - Z12.11) Plan Of Treatment Pending Test Test Name Order Date OCCULT BLOOD STOOL X3 (OBS) 03/16/2025 OCCULT BLOOD STOOL 11/28/2008 Future Test Test Name Order Date COLONOSCOPY 06/28/2019 Insurance Providers Payer Name Payer Address Payer Phone Subscriber Number Group Number Insured Name Patient Relationship to Insured Coverage Start Date Coverage End Date MEDICARE OF [facility] [place] [address] [id number] CHRISTIANA MONTGOMERY Self - patient is the insured [facility] [address] [place] [address] [id number] CHRISTIANA MONTGOMERY Self - patient is the insured 06/12/202 5 Medical (General) History Medical History History ICD Code diabetes chronic kidney disease hypertension hyperlipidemia varicose veins Surgical History Surgery Date(Month/Year) hernia 07/16 pin in right arm tonsillectomy and adenoidectomy
--- OUTSIDE RECORDS SUMMARY | 2025-05-23 11:10 | XMS_ITS | Patient Health Record ---
Author Organization [facility] Address [address] [facility] [place] [address] Care Team Providers Care Document Analyst Name Role Phone Maria Isabel Munoz MD Primary Care Provider Nallely Leonardo Unavailable [phone] Nayan Luther Unavailable [phone] Allergies Allergen (clinical drug ingredient) Drug/Non Drug [...] Administration Date Status Comme nts Influenza Unknown 05/11/2016 Administered Influenza Unknown 05/06/2017 Administered Influenza Unknown 05/18/2018 Administered Influenza Unknown 05/04/2019 Administered Influenza Unknown 04/23/2020 Administered Influenza Unknown 04/24/2024 Administered Pneumococcal Unknown 10/22/2014 Administered COVID-19 Moderna Vaccine Unknown 11/13/2020 Administere [...] Polyneuropathy due to type 2 diabetes mellitus (337422925) Type 2 diabetes mellitus with diabetic polyneuropathy (E11.42) Active confirmed Problem Acquired hammer toe of right foot (6672274647038115 ) Other hammer toe(s) (acquired), right foot (M20.41) Active confirmed Problem Acquired hammer toe of left foot (8913852956026938 ) Other hammer toe(s) (acquired), left foot [...] Ordered Date Performed Result Body Sit e 21314-RQPCSTM NAIL, 6 OR MORE 09/05/2024 N/A 18300-MODE SKIN LESIONS, 2 TO 4 09/05/2024 N/A 50759-PDMELDJ NAIL, 6 OR MORE 12/15/2024 N/A 03530-OMX 12/15/2024 N/A 84223-MCMU SKIN LESIONS, 2 TO 4 12/15/2024 N/A 25417-OIMREEG SKIN/TISSUE 01/09/2025 N/A Encounters Encounter Location Date Provider Diagnosis [address] [address] 06/06/2024 Nayan Luther Type 1 diabetes mellitus with diabetic polyneuropathy E10.42 ; Tinea unguium B35.1 ; Ingrowing nail L60.0 ; Pain in right toe(s) M79.674 ; Pain in left toe(s) M79.675 ; Venous insufficiency of both lower extremities I87.2 ; Other hammer toe(s) (acquired), left foot M20.42 ; Other hammer toe(s) (acquired), right foot M20.41 and Metatarsalgia, left foot M77.[address] [address] 09/05/2024 Nallely Bowen Other hammer toe(s) (acquired), right foot M20.41 ; Other hammer toe(s) (acquired), left foot M20.42 ; Type 2 diabetes mellitus with diabetic polyneuropathy E11.42 and Tinea unguium B35.[address] [address] 12/15/2024 Nallely Bowen Type 2 diabetes mellitus with diabetic polyneuropathy E11.42 ; Tinea unguium B35.1 and Ingrown nail L60.[address] [address] 01/09/2025 Nallely Bowen Skin ulcer of toe of left foot with fat layer exposed L97.522 [facility] [place] [address] [facility] [address] [place] [address] 03/16/2025 Nallely Bowen Type 2 diabetes mellitus [...] X ray : Foot, right 2V 12/25/2016 77547-ZYSHUVM NAIL, 6 OR MORE 04/16/2017 55099-DCLDCKV NAIL, 6 OR MORE 07/09/2017 75259-COKAKAO NAIL, 6 OR MORE 10/01/2017 74058-AXVTCRL NAIL, 6 OR MORE 02/05/2017 85493-EFZWWIO NAIL, 6 OR MORE 11/24/2016 89345-XVVNFYX NAIL, 6 OR MORE 12/18/2014 39517-HLPJSZE NAIL, 6 OR MORE 03/12/2015 51262-WQCLDET NAIL, 6 OR MORE 06/04/2015 54062-TBDCBVU NAIL, 6 OR MORE 11/12/2015 31101-XUWJTSQ NAIL, 6 OR MORE 02/11/2016 09353-KFDWQDM NAIL, 6 OR MORE 05/19/2016 55063-MQLVAHK NAIL, 6 OR MORE 08/25/2016 55976-NRRWFYG NAIL, 6 OR MORE 06/09/2011 94591-ASECVNK NAIL, 6 OR MORE 09/11/2011 78889-QFJDQUE NAIL, 6 OR MORE 09/25/2011 95224-UILMYVC NAIL, 6 OR MORE 12/01/2011 48767-ESOKXYH NAIL, 6 OR MORE 03/01/2012 02079-RPVKUIB NAIL, 6 OR MORE 05/31/2012 22693-DUQSDYI NAIL, 6 OR MORE 09/06/2012 77215-SEALJHK NAIL, 6 OR MORE 12/06/2012 85702-QPKWEPY NAIL, 6 OR MORE 04/18/2013 50111-CDIIKWL NAIL, 6 OR MORE 07/11/2013 80998-YPXEXDO NAIL, 6 OR MORE 10/17/2013 16267-JUFWXXO NAIL, 6 OR MORE 01/09/2014 79826-EYODLIQ NAIL, 6 OR MORE 04/03/2014 94114-DBUTTPL NAIL, 6 OR MORE 06/26/2014 85169-NNYMBQJ NAIL, 6 OR MORE 09/21/2014 27156-JADTWJN NAIL, 6 OR MORE 12/24/2017 35332-FLCOSGJ NAIL, 6 OR MORE 03/04/2018 65527-RIXDMRR NAIL, 6 OR MORE 05/27/2018 90875-EJGORRE NAIL, 6 OR MORE 08/02/2018 38691-LLLMVDP NAIL, 6 OR MORE 09/05/2024 55255-UIWSMYD NAIL, 6 OR MORE 12/15/2024 19340-Gmnmlrny Plate 11/05/2020 88292-Scgujacm Plate 02/04/2021 23556-Ewdjxkuo Plate 05/06/2021 20042-Orxujagp Plate 02/06/2020 13586-Ebninwrl Plate 12/24/2017 81655-Twbqkofd Plate 05/27/2018 05123-Vkvytydt Plate 06/26/2014 43705-Pfjyuzcb Plate 07/11/2013 99639-Wkatouxr Plate 12/06/2012 92164-Ncnbgaif Plate 06/09/2011 04436-Csrvdyxu Plate 04/03/2014 60484-Yybpquhw Plate 04/12/2015 98765-Luhnfmym Plate 08/25/2016 06292-Klyrviyz Plate 04/16/2017 95147-QQH 12/15/2024 34786- Debride <25 sq cm 09/25/2011 88604-PFQKHMM SKIN/TISSUE 01/09/2025 92130 I&D ABSCESS- SIMPLE,SINGLE 018 03480 I&D ABSCESS- SIMPLE,SINGLE 013 19922 I&D ABSCESS- SIMPLE,SINGLE 012 38813 I&D ABSCESS- SIMPLE,SINGLE 012 27224 I&D ABSCESS- SIMPLE,SINGLE 015 54130-DQBV SKIN LESIONS, OVER 4 05/07/20 20 52278-XQBT SKIN LESIONS, OVER 4 11/12/19 22 36846-KMLG SKIN LESIONS, 2 TO 4 08/01/20 21 23814-ZRTD SKIN LESIONS, 2 TO 4 05/06/20 21 38171-AZIE SKIN LESIONS, 2 TO 4 02/05/20 80609-RTPD SKIN LESIONS, 2 TO 4 12/07/19 24 33931-GVIW SKIN LESIONS, 2 TO 4 12/16/19 25 72197-VLOX SKIN LESIONS, 2 TO 4 09/05/19 36881-EZTT SKIN LESIONS, 2 TO 4 08/06/20 43533-AJSO SKIN LESIONS, 2 TO 4 11/06/19 16479-IHWB SKIN LESIONS, 2 TO 4 11/02/19 19 35506-YAZJ SKIN LESIONS, 2 TO 4 02/01/20 19 11557-CTZS SKIN LESIONS, 2 TO 4 05/02/20 19 34714-GFKY SKIN LESIONS, 2 TO 4 08/08/20 19 68278-SJNJ SKIN LESIONS, 2 TO 4 11/07/19 20 67913-UCSS SKIN LESIONS, 2 TO 4 02/06/20 25466-FKBN SKIN LESIONS, 2 TO 4 05/27/20 18 20654-BSRL SKIN LESIONS, 2 TO 4 03/04/20 18 40572-XTBL SKIN LESIONS, 2 TO 4 08/02/20 18 32102-RLTJ SKIN LESIONS, 2 TO 4 06/04/20 15 04416-TEQO SKIN LESIONS, 2 TO 4 03/12/20 15 76096-SHQG SKIN LESIONS, 2 TO 4 12/19/19 15 57822-LBNX SKIN LESIONS, 2 TO 4 08/25/19 17 71696-GZSR SKIN LESIONS, 2 TO 4 05/19/20 16 91650-JQEJ SKIN LESIONS, 2 TO 4 02/11/20 16 42881-ANPP SKIN LESIONS, 2 TO 4 11/12/19 16 30796-BJLB SKIN LESIONS, 2 TO 4 07/09/20 17 66755-LYAW SKIN LESIONS, 2 TO 4 12/25/19 18 52636-JZFH SKIN LESIONS, 2 TO 4 10/01/19 18 55207-LZBG SKIN LESIONS, 2 TO 4 11/25/19 17 58281-GGPB SKIN LESIONS, 2 TO 4 04/16/20 17 22017-HMMV SKIN LESIONS, 2 TO 4 02/06/20 17 41534-WERQ SKIN LESIONS, 2 TO 4 09/25/19 12 44728-EGWV SKIN LESIONS, 2 TO 4 12/01/19 12 67809-FZLW SKIN LESIONS, 2 TO 4 09/11/19 12 55820-IVSV SKIN LESIONS, 2 TO 4 12/07/19 13 38449-JWTV SKIN LESIONS, 2 TO 4 09/06/19 13 67737-CHIK SKIN LESIONS, 2 TO 4 05/31/20 12 85521-VVZR SKIN LESIONS, 2 TO 4 03/01/20 12 25831-FEZO SKIN LESIONS, 2 TO 4 04/18/20 13 11179-SDVN SKIN LESIONS, 2 TO 4 07/11/20 13 80169-PKGU SKIN LESIONS, 2 TO 4 10/17/19 14 54521-BOAV SKIN LESIONS, 2 TO 4 09/21/19 15 20034-VRTA SKIN LESIONS, 2 TO 4 04/03/20 14 47929-MWDM SKIN LESIONS, 2 TO 4 01/10/20 14 38120-Gnbm. Subungual Hematoma 4 48497,S3788-LUY TENDON SHEATH/LIGAMENT 0 12/25/2016 Next Appt Details Provider Name:Nallely Avitia erika, 06/15/2025 09:15:00 AM, [address] [facility], [address], [place], [address], Insurance Providers Payer Name Payer Address Payer Phone Subscriber Number Group Number Insured Name Patient Relationship to Insured Coverage Start Date Coverage End Date Medicare National Govt [facility] [address] [place] [address] [id number] Mihai Herrera Self - patient is the insured [facility] [address] [place] [address] [phone] [id number] Mihai Herrera Self - patient is the insured Medical (General) History Medical History History ICD Code chicken pox diabetic hypertension mumps measles Surgical History Surgery Date(Month/Year) arm 1988 hand/wrist 1988 tonsillectomy 1958 umbilical hernia 06/2024
== END 2025-05-23 11:38 | disposition home or self-care (01) ==
PROVIDERS: PCP Internal Medicine; Visit Provider Physician Assistant
DX: S80.02XA Contusion of left knee, initial encounter (principal); W10.8XXA Fall (on) (from) other stairs and steps, initial encounter; H05.232 Hemorrhage of left orbit

== ENCOUNTER → 2025-05-23 10:56 | Outpatient (BNV) | payer MEDICARE, OTHER, SELFPAY | PROVIDERS: PCP Internal Medicine; Visit Provider Radiology Diagnostic Radiology | DX: M17.12 Unilateral primary osteoarthritis, left knee (principal) | CPT/HCPCS: 73564 ==

== ENCOUNTER 2025-05-28 08:27 | Outpatient (AMB) | payer MEDICARE, OTHER, SELFPAY ==
--- NOTE | 2025-05-28 08:34 | A.OFFVIS_ITS ---
Vital Signs 3 05/28/25 08:35 Height 6 ft 2 in Weight 234 lb 2.095 oz BMI 30.1 BP 114/62 Blood Pressure Location Lt brachial Position Sitting Pulse 58 Pulse Source Pulse Oximeter Pulse Oximetry (%) 98 Oxygen Delivery Method Room Air Intake Visit Reasons: T2DM Intake Note: Patient present today for Type 2 Diabetes Mellitus Last Diabetic eye exam: Last exam was on 04/2025 Last Podiatry Visit: Last visit was 04/2025 Random Glucose: 101 mg/dl HgA1C: 6.3% Partition Notcher Required: No Accompanied by: Self / Same As Patient Allergies niacin (NIACIN) Allergy (Mild, Verified 05/28/25 08:39) ITCHING, itchy, itchy Xsojksi-QOW-WrW Reductase Inhibitor (LXJLQVT-ARC-LIU REDUCTASE INHIBITOR) Allergy (Unknown, Verified 05/28/25 08:39) HIGH CPK atorvastatin (Lipitor) Adverse Reaction (Unknown, Verified 05/28/25 08:39) high CPK Medication List - Last Reconciled 05/28/25 by Scarlet Carrizales MD acetone (urine) test (Ketone Urine Test strips) prn glucose over 250, nausea, vomiting or illness. discard after open 6 months ascorbic acid (vitamin C) 500 mg PO BID aspirin 81 mg PO DAILY calcium carbonate-vitamin D3 600 mg-5 mcg (200 unit) (Calcium 600 + D(3)) 1 cap PO DAILY cholecalciferol (vitamin D3) 25 mcg PO Q OTHER DAY dapagliflozin propanediol (Farxiga) 10 mg PO DAILY docusate sodium (Colace) 100 mg PO BID ezetimibe 10 mg PO DAILY ferrous sulfate (FeroSul) 325 mg PO Q OTHER DAY fluticasone propionate 50 mcg/actuation 1 spray intranasal DAILY glucosamine HCl 750 mg PO DAILY insulin glargine (Lantus U-100 Insulin) 46 units subcut DAILY PRN insulin lispro (Admelog U-100 Insulin lispro) Infuse up to 110 units via insulin pump subcutaneously daily; 90 days irbesartan 300 mg PO DAILY metformin ER 500 mg PO BID nebivolol 2.5 mg PO DAILY rosuvastatin 10 mg PO BEDTIME spironolactone 25 mg PO DAILY HPI Comments Details: 70 year old male with DM type 2 with long-term insulin use with complications of CKD stage 3, Charcot's arthropathy, neuropathy here for follow up History of diabetes diagnosed at 35 years of age, Past medical history: DM2, HTN, HLD, CKD3, Charcot arthopathy Micro and macrovascular complications: no retinopathy, + nephropathy, + neuropathy, no CVA, CAD, PVD. Diabetes medications: metformin 500 mg BID, intolerant of higher doses. Farxiga 10 mg. Novolog via TAndem pump with control IQ Last seen in February 2025. He needs to be seen every 3 months because of his pump supplies through Medicare. He has been on vacation in April, that is why he switched his profile too high amounts of basal insulin because of dietary indiscretion. He returned back from vacation 6 days ago on May 23, blood sugars have been perfect since then. He did sustain a fall, Tandem T slim pump data downloaded from February 13 to 02/26/2025 Average reading 152 mg/dL Time in range 84% Time CGM and use 100% Standard deviation 40 mg/dL in Coefficient of variation 26% G NC 6.9% Above target range 14% Very high 2.7% Low 0% Interpretation: Most days he has a excellent glycemic control, a few days around February 23, he was running in the 200s and 300s, seems like he did not give enter enough carbs according to what he was eating Basal: 12:00 4.6 2A 4.6 4:30a 4.2 11:30a 4 1pm 3.7 2:30 3.3 4pm 3.4 6:30 4.1 10:00pm 4.7 Correction 1:19 Carb ration 12:00 1:4 1130 AM = 1:3.5 4 PM = 1:4.5 Target 120 A1c 05/28/2025 POC 6.3% 02/26/25POC 6.9% Symptoms reported: + numbness, tingling, nocramping in lower extremities Hypoglycemia: None recent . No hypoglycemia Hyperglycemia: + urinary frequency (takes diurectics), denies nocturia, polydypsia Exercise: walking 20 - 30 minutes on most days. Hotel Reservationist: every [address] Manzanares Ophthalmology evaluation: 04/2025 no retinopathy. For [facility] does have new macular degeneration Other specialists: Dr. Brunson, revenue analyst. Stimulate C-peptide was> 2 and antibodies were negative confirming presence of type 2 diabetes and insulin reserve [facility] screen labs 07/10/24 Fibrosis-4 (Fib-4) Index for liver fibrosis (calculated on lab work done: ) [1.81 ] points Advanced fibrosis [excluded ] Approximate Fibrosis stage Memo [2-3 ] *Use with caution in patients <35 or >65 years old, as the score has been shown to be less reliable in these patients. Prior Imaging [none] Action Plan: [] rescreen two years from date of screening labs[ ] Physical exam General: sitting comfortably in no acute distress HEENT: Bruising from the fall noted Cardiac: normal heart sounds Pulm: normal breath sounds B/L, no added breath sounds Abd: not distended, no tenderness Extremities: no edema, no signs of myxedema Laboratory Tests 11/30/23 06/01/24 06/01/24 08:50 09:57 09:58 Plt Count Creatinine Estim Creat Clear Calc Estimated GFR Hemoglobin A1c % 6.4 H 6.2 H AST ALT Cholesterol 147 LDL Cholesterol, Calc 70 HDL Cholesterol 46 Vitamin B12 495 Urine Creatinine 110.51 Urine Microalbumin 9.0 Microalb/Creat Ratio 8.1 07/09/24 20:47 Plt Count 168 Creatinine 1.12 Estim Creat Clear Calc 79.0 Estimated GFR > 60 Hemoglobin A1c % AST 22 ALT 27 Cholesterol LDL Cholesterol, Calc HDL Cholesterol Vitamin B12 Urine Creatinine Urine Microalbumin Microalb/Creat Ratio Laboratory Tests 11/30/24 11/30/24 08:33 08:35 Hgb 15.4 Hct 47.0 Plt Count 158 L Sodium 144 Potassium 4.4 D Creatinine 1.36 Estimated GFR 52 Fasting Glucose 135 H Estimat Average Glucose 137 Hemoglobin A1c % 6.4 H AST 31 ALT 41 H Albumin 4.0 Triglycerides 225 H Cholesterol 146 LDL Cholesterol, Calc 60 HDL Cholesterol 41 Urine Creatinine 104.29 Urine Microalbumin 6.0 Microalb/Creat Ratio 5.7 labs done at [facility] 06/16 showed me on phone albumin /cr ratio 16 HB 14.9 HCT 45.1 Plt 143 cr 1.41 gfr 53 labs done at [facility] 10/24/24 showed me on phone albumin /cr ratio 10 Plt 160 cr 1.5 gfr 50 EXAMINATION: 06/01/24 Noninvasive assessment of the arteries of both lower extremities to include a single level PVR exam and ANKLE BRACHIAL INDICES (ABIs). CLINICAL INFORMATION: Peripheral vascular disease TECHNIQUE: The ankle/brachial indices of the distal posterior tibial and the dorsalis pedis arteries were obtained of the lower extremity arterial system bilaterally; along with pressures and pulse volume recordings at the ankle level. The study was performed at rest. COMPARISON: None FINDINGS: 1. ANKLE-BRACHIAL INDICES: RIGHT: 1.06 in the dorsalis pedis artery. Noncompressible posterior tibial artery LEFT: 1.08 and the dorsalis pedis artery. Noncompressible in the posterior tibial artery 2. ANKLE PVR WAVEFORMS: RIGHT: Normal LEFT: Normal US/US CORBY complete IMPRESSION: Noncompressible bilateral posterior tibial arteries. Normal ankle brachial indices in the bilateral dorsalis pedis arteries. PVR waveforms are unremarkable. Electronically signed by: Deander Fall MD 06/06/2024 08:45 AM EDT RP [facility] Medical History Abdominal distension Hearing loss Annual physical exam Overweight (BMI 25.0-29.9) B12 deficiency half-way (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 Diabetic polyneuropathy associated with type 2 diabetes mellitus Varicose vein of leg Osteoarthritis CKD (chronic kidney disease), stage III Umbilical hernia Peripheral neuropathy Hypokalemia Obstructive sleep apnea Anemia B-complex deficiency Hypercholesterolemia HTN (hypertension) Diabetes type 2, controlled Surgical History Umbilical hernia (07/07/24) History of colonoscopy Family History Father Diabetes mellitus CAD (coronary artery disease) HTN (hypertension) Mother Stroke Pancreatic cancer HTN (hypertension) Maternal Grandfather Abdominal aortic aneurysm CVD (cardiovascular disease) Maternal Grandmother Abdominal aortic aneurysm Paternal Grandfather CVD (cardiovascular disease) Paternal Grandmother No problems noted. Brother Diabetes mellitus Brother No problems noted. Brother No problems noted. Son No problems noted. Son No problems noted. Daughter No problems noted. Sister Hodgkins disease Social History Household Members: Spouse Housing: House Alcohol intake: current Alcohol intake frequency: 0-2 drinks per day Patient Tobacco Use Status: Never used Tobacco e-Cigarette/Vaping Use: Never Used service: No Current occupational status: retired Cognitive needs: No Hearing needs: Yes Vision needs: Yes Physical Exam Vital Signs: Last Vital Signs Pulse 58 05/28/25 08:35 BP 114/62 05/28/25 08:35 Pulse Ox 98 05/28/25 08:35 Oxygen Delivery Method Room Air 05/28/25 08:35 BMI result Body Mass Index 30.1 Office Procedures Glucose Monitoring Details Details: See [facility] [address] - Glucose monitoring, continuous-physician I&R Procedure code (CPT) selection complete Results AMB Hemoglobin A1c 2 AMB Hemoglobin A1c 6.3 % Last Edit by MAURO Leon on 05/28/25 09:05 Results Reviewed Results Reviewed: Laboratory Last Values Glucose (Clinic) 101 mg/dL (60-115) 05/28/25 08:41 Assessment & Plan Assessment & Plan (1) Diabetes type 2, controlled: Comment: Grupo for renoprotection Dr. Bobo, on insulin pump, established with [facility] Code(s): E11.9 - Type 2 diabetes mellitus without complications Category: Medical Plan: 70-year-old white male with a history of type 2 diabetes being managed with metformin, Farxiga and it T-slim insulin pump with excellent glycemic control and known microvascular complications namely CKD stage IIIB as well as neuropathy. A1c today 6.3% which is down from 6.9% February 2025 which is up from 6.5% in November 2024. Pump data downloaded which also shows overall excellent control over the past 6 days, prior to that he was having some postprandial hyperglycemia. This is because he was on vacation and was having dietary indiscretion. Today we will not make any pump change settings. Now that he is back from vacation he is going to switch back as profile to the normal basal profile. Currently he is on the high dose 1 because of vacation. Patient will follow-up in 3 mos . Patient is up to date with opth, renal and podiatry. New diagnosis of macular degeneration. Pump settings continued Follow up in 3 months (2) CKD (chronic kidney disease), stage III: Comment: Dr. Bobo Code(s): N18.30 - Chronic kidney disease, stage 3 unspecified Category: Medical Qualifiers: Chronic kidney disease stage 3 subtype: stage 3a (GFR 45-59) Qualified Code(s): N18.31 - Chronic kidney disease, stage 3a Plan: Most recently GFR from May 2025 at 53 Follows with Nephrology. Continue Farxiga 10 mg daily and spironolactone 25 mg daily, irbesartan 300 mg daily (3) Hypercholesterolemia: Code(s): E78.00 - Pure hypercholesterolemia, unspecified Category: Medical Plan: LDL at 64 from November 2024. Goal LDL less than 70. Continue rosuvastatin His triglycerides are elevated to 257 November 2024, almost up 100 point since last May 2024, discussed with him importance of dietary modification We will be due for lipid panel prior to next visit. Ordered. (4) HTN (hypertension): Code(s): I10 - Essential (primary) hypertension Category: Medical Qualifiers: Hypertension type: secondary to endocrine disorders Qualified Code(s): I15.2 - Hypertension secondary to endocrine disorders Plan: Blood pressure within normal range. Continue current regimen He is on nebivolol 2.5 mg daily, spironolactone 25 mg daily in a irbesartan 300 mg daily. (5) half-way (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: Comment: On insulin pump, follows up with gang ripsaw operator every 3 months Code(s): Z79.4 - half-way (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 Category: Medical Plan: On tandem T slim insulin pump. Has backup Lantus insulin changes In case of pump failure to inject 50 units daily Has ketone strips Hypoglycemia education done Has nasal Baqsimi Plan I spent 30 minutes in reviewing the record, seeing the patient and documenting in the medical record. Orders: Orders 2 Lipid Panel 08/20/25 E11.42 - Type 2 diabetes mellitus with diabetic polyneuropathy, E78.00 - Pure hypercholesterolemia, unspecified, Z79.4 - medical terminologist (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 Aspartate Amino Transferase 08/20/25 E11.42 - Type 2 diabetes mellitus with diabetic polyneuropathy, E78.00 - Pure hypercholesterolemia, unspecified, Z79.4 - medical terminologist (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 Hemoglobin A1c 08/20/25 E11.42 - Type 2 diabetes mellitus with diabetic polyneuropathy, E78.00 - Pure hypercholesterolemia, unspecified, Z79.4 - medical terminologist (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 AMB Glucose Monitoring Today E11.42 - Type 2 diabetes mellitus with diabetic polyneuropathy, Z79.4 - medical terminologist (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 AMB Hemoglobin A1c Today E11.42 - Type 2 diabetes mellitus with diabetic polyneuropathy, Z13.9 - Encounter for screening, unspecified, Z79.4 - half-way (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 Vitamin B12 08/20/25 E11.42 - Type 2 diabetes mellitus with diabetic polyneuropathy, E78.00 - Pure hypercholesterolemia, unspecified, Z79.4 - half-way (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 Alanine Aminotransferase 08/20/25 E11.42 - Type 2 diabetes mellitus with diabetic polyneuropathy, E78.00 - Pure hypercholesterolemia, unspecified, Z79.4 - medical terminologist (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 Medications: Changed 2 From insulin glargine (Lantus U-100 Insulin) for pump failure 46 units subcut DAILY PRN Hyperglycemia To insulin glargine (Lantus U-100 Insulin) for pump failure 50 units (0.5 mL) subcut DAILY PRN 3 mL 2RF pump failure Refilled 2 metformin ER 500 mg PO BID 180 tabs 3RF Patient Instructions: do fasting blood work a week prior to next appt Coding Level of Care Code Est Pt Level 4 (86368) Diagnoses Diabetes type 2, controlled E11.9 Stage 3a chronic kidney disease N18.31 Chronic kidney disease stage 3 subtype: stage 3a (GFR 45-59) Hypercholesterolemia E78.00 Hypertension due to endocrine disorder I15.2 Hypertension type: secondary to endocrine disorders half-way (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 Z79.4 CPT Codes Details - CPT: 47886 - Glucose monitoring, continuous-physician I&R ([id number]) Time Spent (min) 30
[2025-05-28 08:35] VITALS: BP 114/62; PULSE 58; O2SAT 98; BMI 30.1
[2025-05-28 08:46] LABS: Glucose, Whole Blood 101 mg/dL (60-115)
--- OUTSIDE RECORDS SUMMARY | 2025-05-28 09:00 | XMS_ITS ---
Author Name Kashmir Gonzalez Address Unknown Organization [facility] Care Team Providers Care Food Safety Field Specialist Name Role Phone Unavailable Primary Care Physician Unavailab le History Of Present Illness This is a 70 year old male who is following up for lipodermatosclerosis on the left pretibial region. He was seen on February 19, 2025, at which time the following treatment recommendations were given: Continue the following treatments: -- betamethasone, augmented 0.05 % topical cream BID x 2 wks, thenstop for 1 week. Repeat as needed to pink areas- Dove cleanser and Gold Fraser moisturizer- compression stockings and the leg elevation. Plan: -- Consider decreasing the cortisone treatment if symptomsare improved.- Consider adding Vasculara in future. Since then, the patient states the lipodermatosclerosis is better.The patient presents for further evaluation and management.The patient followed the treatment plan as directed.Interval History: Still using betamethasone BID x 2 weeks on, 1 week off.Not wearing compression stockings as he finds they make him itchy.He also reports having a recentfall- fell down stairs at relative???s house in [place] yesterday morning 05/22/25. Allergies, Adverse Reactions, Alerts Substance RxNorm Reaction(s) Severity Status Start Da te niacin 7393 unspecified active 09/06/19 24 Lipitor unspecified active Medications Medication Generic Name RxNorm Strength Strength Unit Route Dose Dose Form Frequency Date Started Date Ended Status Indication Sig betamethaso ne, augmented betameth asone, augmente d 757572 0.05 % Topica l 1 cream bid/prn 09/06/19 24 active Appl y to rash on left lowe r leg twic e sunday y for two week s, then stop for one week . Repe at cycl e as dire cted . Flonase Allergy Relief fluticas one propiona te 9050559 50 mcg/actua tion Nasal 1 spray ,susp ensio n bid active Adult Low Dose Aspirin aspirin 102887 81 mg Oral 1 table t,del ayed relea se (/E Ashleigh) daily active Allerclear loratadi ne 10 mg Oral 1 table t daily active Calcium 600 with Vitamin D3 calcium carbonat e-vitami n D3 8490604 600 mg-12.5 mcg (500 unit) Oral 1 capsu le daily active coenzyme Q10 coenzyme Q10 300 mg Oral 1 capsu le daily active ezetimibe ezetimib e 181410 10 mg Oral 1 table t daily active Farxiga dapaglif lozin propaned iol 5286853 10 mg Oral 1 table t daily active Glucosamine glucosam ine sulfate 500 mg Oral 1 table t daily active irbesartan irbesart an 975731 300 mg Oral 1 table t daily active metformin metformi n 376906 500 mg Oral 1 table t exten ded relea se 24 hr bid active montelukast monteluk ast 809720 10 mg Oral 1 table t daily active nebivolol nebivolo l 697408 2.5 mg Oral 1 table t daily active rosuvastati n rosuvast atin 419270 10 mg Oral 1 table t daily active spironolact one 771318 25 mg Oral 1 table t daily active Vitamin C 630292 1,000 mg Oral 1 table t daily active Admelog U-100 Insulin lispro 2725495 100 unit/mL Subcut aneous 1 solut ion as directed active B12 cyanocob alamin-c obamamid e 5,000-100 mcg Sublin gual 1 lozen ge daily active Problems Problem Code Type Status Date of Diagnosis Date of Resolution Panniculitis (disorder) 21057507(S NOMED) Diagnosis active 05/23/2025 Panniculitis (disorder) 81158319(S NOMED) Diagnosis active 02/19/2025 Panniculitis (disorder) 43793302(S NOMED) Diagnosis active 11/20/2024 Panniculitis (disorder) 50738397(S NOMED) Diagnosis active 08/21/2024 Panniculitis (disorder) 05537008(S NOMED) Diagnosis active 03/27/2024 Disorder of pigmentation (disorder) 242295979( SNOMED) Diagnosis active 03/27/2024 Panniculitis (disorder) 32840975(S NOMED) Diagnosis active 12/22/2023 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 Office phonenumber is [phone]. Office fax number is [phone]. Encounter Diagnosis Location Date / Time Type Lipodermatosclerosis (M79.3) [facility] 05/23/2025 1 3:00:00 [facility] [id number] Reason For Referral No data Procedures Procedure Date Documentation of current medications (pr ocedure) 05/23/2025 12:00 am [facility] Documentation of current medications (pr ocedure) 02/19/2025 12:00 am [place] Documentation of past medical history (p rocedure) Documentation of past medical history (p rocedure) Documentation of past medical history (p rocedure) Documentation of past medical history (p rocedure) Documentation of past medical history (p rocedure) Documentation of past medical history (p rocedure) Documentation of past medical history (p rocedure) Documentation of past medica l history (procedure) Umbilical hernia Jun 2024 Review Of Systems Provider reviewed on May 23, 2025.A focused review of systems was performed including Integumentaryand was notable for problems with scarring (hypertrophic or keloid).No Problems With Healing. Assessment 1.Lipodermatosclerosis, Status: StableCounselingPrescription Medication Management: Plan - -- Consider decreasing the cortisone treatment if symptoms are improved.- Consider adding Vasculara in future; Continue Regimen - -- betamethasone, augmented 0.05 % topical cream BID for 1 week, then stop for2 weeks. Repeat as needed to pink areas.- Use Dove cleanser and Gold Fraser moisturizer- Compression stockings and the leg elevation- Cool compress;. Plan of Care Future visit for 09/12/2025 - Follow up in 4 months for: Focused Visit - 15 minutes. Other Instructions: For Lipodermatosclerosis f/u. Other Instructions: For Lipodermatosclerosis f/u. Code Detail Instructions 315117 betamethasone, augme nted 0.05 % topical cream Apply to rash on left lower leg twice daily for two weeks, then stop for one week. Repeat cycle as directed. Instructions * I counseled the patient regarding the following:Skin care: Treatment includes leg elevation, compression stockings, trental.Expectations: Lipodermatosclerosis is inflammation of the subcutaneous fat that becomes sclerosing. The disease is progressive and fibrosis irreversible.Contact office if: Lesions fails to improve with compression stockings, leg elevation and medication. Social History Code Activity Start Date End Date [id number] (Big Fish) Never smoker Sex male Sexual orientation Don't Know Gender identity Unspecified Vital Signs No data
--- OUTSIDE RECORDS SUMMARY | 2025-05-28 09:00 | XMS_ITS | Patient Health Record ---
Author Organization [facility] Address [address] [place] [phone] Care Team Providers Care Valet Runner Name Role Phone Maria Isabel Munoz MD Primary Care Provider Javier De León Jr Unavailable [phone] Allergies Allergen (clinical drug ingredient) Drug/Non Drug [...] Problem Status W/U Status Risk Notes Problem [id number] Colon cancer screening (Z12.11) Active confirmed Problem Long-term current use of antiplatelet drug (679489235671076) Long-term use of aspirin therapy (Z79.82) Active confirmed Vital Signs Temperature 98.6 degrees Fahrenheit 03/15/2025 Blood pressure diastolic 01 mm Hg 03/15/2025 Height 74 in 03/15/2025 Blood pressure systolic 001 mm Hg 03/15/2025 Weight 234.6 lbs 03/15/2025 BMI 30.12 kg/m2 03/15/2025 Encounters Encounter Location Date Provider Diagnosis [facility] [address] [place] [phone] 03/15/2025 Javier Steward Jr Colon cancer screening Z12.11 and Long-term use of aspirin therapy Z79.82 [facility] [address] [place] [phone] 03/15/2025 Javier Steward Jr [facility] [address] [place] [phone] 03/16/2025 Javier Steward Jr Colon cancer screening Z12.11 [facility] [address] [place] [address] 03/27/2025 Javier Steward Jr Assessments Encounter Date [...] Start Date Coverage End Date MEDICARE OF BHC [facility] [address] [id number] CHRISTIANA MONTGOMERY Self - patient is the insured [facility] [address] [place] [address] [id number] CHRISTIANA MONTGOMERY Self - patient is the insured 06/12/202 5 Medical (General) History Medical History History ICD Code diabetes chronic kidney disease hypertension hyperlipidemia varicose veins Surgical History Surgery Date(Month/Year) hernia 07/16 pin in right arm tonsillectomy and adenoidectomy
--- OUTSIDE RECORDS SUMMARY | 2025-05-28 09:00 | XMS_ITS | Clinical Summary ---
Author Organization [facility] Address [address] [address] Phone Care Team Providers Care High School Guidance Counselor Name Role Phone Maria Isabel Munoz MD Primary Care Provider [phone] Allergies Active Allergy Reactions Criticality Noted Date [...] Encounters Date Type Department Care Team Description 05/24/2025 Orders Only [facility] [address] [address] Jaydon Brunson MD 04/17/2025 Orders Only [facility] [address] [address] Jaydon Brunson MD Stage 3a chronic kidney [...] Office Visit [facility] [address] [address] Ana Luisa Lynne ARNP [address] [address] Health Maintenance Due Date Last Done Comments [...] Procedure Name Priority Date/Time Associated Diagnosis Comments URINALYSIS Routine 05/24/2025 10:20 AM EDT MAGNESIUM Routine 05/24/2025 10:20 AM EDT Stage 3a chronic kidney disease (HCC) CBC Routine 05/24/2025 10:20 AM EDT Stage 3a chronic kidney disease (HCC) VITAMIN D 25 HYDROXY Routine 05/24/2025 10:20 AM EDT Stage 3a chronic kidney disease (HCC) PROTEIN / CREATININE RATIO, URINE Routine 05/24/2025 10:20 AM EDT Stage 3a chronic kidney disease (HCC) URINE CULTURE Routine 05/24/2025 10:20 AM EDT Stage 3a chronic kidney disease (HCC) URINE ALBUMIN / CREATININE RATIO Routine 05/24/2025 10:20 AM EDT Stage 3a chronic kidney disease (HCC) RENAL FUNCTION PANEL Routine 05/24/2025 10:20 AM EDT Stage 3a chronic kidney disease (HCC) PTH, INTACT Routine 05/24/2025 10:20 AM EDT Stage 3a chronic kidney disease (HCC) RESULT Routine 05/24/2025 10:20 AM EDT HEMOGLOBIN A1C Routine 09/15/2019 5:40 PM EST from Last 3 Months or Most Recently Relevant to Health Maintenance Results * Result (05/24/2025 10:20 AM EDT) Result Comment [facility] Comment: Culture shows less than 10,000 colony forming units of bacteria per milliliter of urine. This colony count is not generally considered to be clinically significant. 05/24/2025 10:2 0 AM EDT 05/24/2025 Jaydon Brunson MD LAB MICROBIOLOGY - GENERAL OR DERABLES Final Result Performing Organization Address City/[facility]/ZIP Co de Phone Number [facility] [address], [address] [place] [address] * Protein, Total, Random Urine w/Creatinine (Protein/Creat Ratio) (05/24/2025 10:20 AM EDT) Creatinine, Ur 107.6 Not Estab. mg/dL [facility] Protein, Ur 17.5 Not Estab. mg/dL [facility] Urine Protein/Creatin ine Ratio 163 0 - 200 mg/g creat [facility] Urine specimen (specimen) Urine specimen obtained by clean catch procedure / Unknown 05/24/2025 10:20 AM EDT 05/24/2025 Comment:UC Jaydon Brunson MD LAB URINE ORDERABLES Final Re sult Performing Organization Address City/[facility]/ZIP Co de Phone Number [facility] [address] [place] [address] * Urine Albumin / Creatinine Ratio (05/24/2025 10:20 AM EDT) Albumin, Urine 17.6 Not Estab. ug/mL [facility] Albumin/Creatin ine Ratio 16 0 - 29 mg/g creat [facility] Comment: Normal: 0 - 29 Moderately increased: 30 - 300 Severely increased: >300 Urine specimen (specimen) Urine specimen obtained by clean catch procedure / Unknown 05/24/2025 10:20 AM EDT 05/24/2025 Comment: Jaydon Brunson MD LAB URINE ORDERABLES Final Re sult Performing Organization Address [facility] Co de Phone Number [facility] [address] [place] [address] * Vitamin D 25 Hydroxy (05/24/2025 10:20 AM EDT) Vitamin D, 25-OH, Total 33.5 30.0 - 100.0 ng/mL [facility] Comment: Vitamin D deficiency has been defined by the [place] of Medicine and an Endocrine Society practice guideline as a level of serum 25-OH vitamin D less than 20 ng/mL (1,2). The Endocrine Society went on to further define vitamin D insufficiency as a level between 21 and 29 ng/mL (2). 1. IOM ([place] of Medicine). 2010. Dietary reference intakes for calcium and D. [place]: The National Academies Press. 2. Familia MF, Petey NC, Lisa CASPER, et al. Evaluation, treatment, and prevention of vitamin D deficiency: an Endocrine Society clinical practice guideline. JCEM. 2010; 96(7):1911-30. Blood specimen (specimen) Venous blood / Unknown 05/24/2025 10:20 AM EDT 05/24/2025 Comment: Jaydon Brunson MD LAB BLOOD ORDERABLES Final Re sult Performing Organization Address City/[facility]/ZIP Co de Phone Number [facility] [address] [place] [address] * (ABNORMAL) Urinalysis (05/24/2025 10:20 AM EDT) Specific [place], Urine >=1.030(A) 1.005 - 1.030 [facility] [phone] pH Urine 6.0 5.0 - 7.5 [facility] Color, Urine Yellow Yellow [facility] [phone] Appearance Urine Clear Clear [facility] [phone] WBC Esterase Urine Negative Negative [facility] Protein, Ur Trace Negative/Tra ce [facility] Glucose, Ur 3+(A) Negative [facility] [phone] Ketones, Urine Negative Negative [facility] Blood Urine Negative Negative [facility] Bilirubin Urine Negative Negative [facility] Urobilinogen Urine 0.2 0.2 - 1.0 mg/dL [facility] [phone] Nitrite, Urine Negative Negative [facility] Microscopic Examination Comment [facility] Comment:Microscopic not raul cated and not performed. 05/24/2025 10:2 0 AM EDT 05/24/2025 Comment:UC us Jaydon Brunson MD LAB URINE ORDERABLES Final Re sult [facility] [address] [place] [address] * (ABNORMAL) CBC (05/24/2025 10:20 AM EDT) WBC 4.7 3.4 - 10.8 x10E3/uL [facility] RBC 4.54 4.14 - 5.80 x10E6/uL [facility] Hemoglobin 14.9 13.0 - 17.7 g/dL [facility] Hematocrit 45.1 37.5 - 51.0 % [facility] MCV 99(H) 79 - 97 fL [facility] MCH 32.8 26.6 - 33.0 pg [facility] MCHC 33.0 31.5 - 35.7 g/dL [facility] RDW 13.4 11.6 - 15.4 % [facility] Platelets 143(L) 150 - 450 x10E3/uL [facility] Blood specimen (specimen) Venous blood / Unknown 05/24/2025 10:20 AM EDT 05/24/2025 Jaydon Brunson MD LAB BLOOD ORDERABLES Final Re sult [facility] [address] [place] [address] * Urine Culture (05/24/2025 10:20 AM EDT) Culture Result, Urine Final report [facility] [place] Urine specimen (specimen) Urine specimen obtained by clean catch procedure / Unknown 05/24/2025 10:20 AM EDT 05/24/2025 Comment:UC Jaydon Brunson MD LAB URINE ORDERABLES Final Re sult [facility] [place] [address] [place] [address] * PTH, Intact (05/24/2025 10:20 AM EDT) PTH 34 15 - 65 pg/mL [facility] Blood specimen (specimen) Venous blood / Unknown 05/24/2025 10:20 AM EDT 05/24/2025 Comment:UC Jaydon Brunson MD LAB BLOOD ORDERABLES Final Re sult [facility] [address] [place] [address] * Magnesium (05/24/2025 10:20 AM EDT) Magnesium 2.0 1.6 - 2.3 mg/dL [facility] Blood specimen (specimen) Venous blood / Unknown 05/24/2025 10:20 AM EDT 05/24/2025 Comment: Jaydon Brunson MD LAB BLOOD ORDERABLES Final Re sult [facility] [address] [place] [address] * (ABNORMAL) Renal Function Panel (05/24/2025 10:20 AM EDT) Glucose 133(H) 70 - 99 mg/dL [facility] BUN 21 8 - 27 mg/dL [facility] Creatinine 1.41(H) 0.76 - 1.27 mg/dL [facility] eGFR CKD-EPI CR 2020 53(L) >59 mL/min/1.7 3 [facility] BUN/Creatinine Ratio 15 10 - 24 [facility] Sodium 142 134 - 144 mmol/L [facility] Potassium 4.5 3.5 - 5.2 mmol/L [facility] Chloride 104 96 - 106 mmol/L [facility] Bicarbonate (CO2) 22 20 - 29 mmol/L [facility] Calcium 8.9 8.6 - 10.2 mg/dL [facility] Albumin 3.9 3.8 - 4.8 g/dL [facility] Phosphorus 3.3 2.8 - 4.1 mg/dL [facility] Blood specimen (specimen) Venous blood / Unknown 05/24/2025 10:20 AM EDT 05/24/2025 Comment:UC Jaydon Brunson MD LAB BLOOD ORDERABLES Final Re sult [facility] [address] [place] [address] * Hemoglobin A1c (09/15/2019 5:40 PM EST) Hemoglobin A1C 6.9 % [facility] Comment: Hemoglobin A1C Reference Range Adults: 4.8 [...] average glucose, using the formula of the M4Q-Zwouqsm Average Glucose study (ADAG), Diabetes Care, Vol.31,#8, Mar. 2007 09/15/2019 5:40 PM EST Maria Isabel Munoz MD LAB BLOOD ORDERABLES Final Resu lt [facility] from Last 3 Months or Most Recently Relevant to Health Maintenance Insurance [facility] [place] [address] Medicare Care Teams High School Guidance Counselor Relationship Specialty Start Date End Date Maria Isabel Munoz MD [facility] [place] [address] PCP - General Internal Medicine 01/29/21
--- OUTSIDE RECORDS SUMMARY | 2025-05-28 09:01 | XMS_ITS | Patient Health Record ---
Author Organization [facility] Address [address] [place] [address] Care Team Providers Care Time Study Statistician Name Role Phone Maria Isabel Munoz MD Primary Care Provider UnavailNallely Canales Unavailable [phone] Nayan May Unavailable [phone] Allergies Allergen (clinical drug ingredient) Drug/Non Drug [...] Polyneuropathy due to type 2 diabetes mellitus (163534941) Type 2 diabetes mellitus with diabetic polyneuropathy (E11.42) Active confirmed Problem Acquired hammer toe of right foot (7639509490597229 ) Other hammer toe(s) (acquired), right foot (M20.41) Active confirmed Problem Acquired hammer toe of left foot (2870981843618630 ) Other hammer toe(s) (acquired), left foot [...] Ordered Date Performed Result Body Sit e 70577-BPRMFAR NAIL, 6 OR MORE 09/05/2024 N/A 67371-STNM SKIN LESIONS, 2 TO 4 09/05/2024 N/A 27402-KTVFFEX NAIL, 6 OR MORE 12/15/2024 N/A 43986-EFD 12/15/2024 N/A 50895-JQAS SKIN LESIONS, 2 TO 4 12/15/2024 N/A 63693-HCZZLSJ SKIN/TISSUE 01/09/2025 N/A Encounters Encounter Location Date Provider Diagnosis [address] [address] 06/06/2024 Nayan May Type 1 diabetes mellitus with diabetic polyneuropathy E10.42 ; Tinea unguium B35.1 ; Ingrowing nail L60.0 ; Pain in right toe(s) M79.674 ; Pain in left toe(s) M79.675 ; Venous insufficiency of both lower extremities I87.2 ; Other hammer toe(s) (acquired), left foot M20.42 ; Other hammer toe(s) (acquired), right foot M20.41 and Metatarsalgia, left foot M77.[address] [address] 09/05/2024 Nallely Bowen Other hammer toe(s) (acquired), right foot M20.41 ; Other hammer toe(s) (acquired), left foot M20.42 ; Type 2 diabetes mellitus with diabetic polyneuropathy E11.42 and Tinea unguium B35.[address] [address] 12/15/2024 Nallely Bowen Type 2 diabetes mellitus with diabetic polyneuropathy E11.42 ; Tinea unguium B35.1 and Ingrown nail L60.[address] [address] 01/09/2025 Nallely Bowen Skin ulcer of toe of left foot with fat layer exposed L97.522 [facility] [place] [address] [address] 03/16/2025 Nallely Bowen Type 2 diabetes mellitus [...] X ray : Foot, right 2V 12/25/2016 00715-UGUBEZP NAIL, 6 OR MORE 04/16/2017 94340-CTXLFNC NAIL, 6 OR MORE 07/09/2017 25965-TUXUVWM NAIL, 6 OR MORE 10/01/2017 88704-NQBRZAZ NAIL, 6 OR MORE 02/05/2017 07287-ACFDNQT NAIL, 6 OR MORE 11/24/2016 05754-HEYGWFU NAIL, 6 OR MORE 12/18/2014 57170-SRPHDWD NAIL, 6 OR MORE 03/12/2015 35449-FKQMKHT NAIL, 6 OR MORE 06/04/2015 08301-OPMIDWQ NAIL, 6 OR MORE 11/12/2015 84123-IQHEPCE NAIL, 6 OR MORE 02/11/2016 34031-QDDORMQ NAIL, 6 OR MORE 05/19/2016 79353-VVQRCEH NAIL, 6 OR MORE 08/25/2016 21491-ZSYTHTK NAIL, 6 OR MORE 06/09/2011 82629-EXYUPBI NAIL, 6 OR MORE 09/11/2011 51023-SGTZVQD NAIL, 6 OR MORE 09/25/2011 66979-SQUXRGW NAIL, 6 OR MORE 12/01/2011 96248-BEBYZHB NAIL, 6 OR MORE 03/01/2012 54709-OHLVBBV NAIL, 6 OR MORE 05/31/2012 27310-EUJCBER NAIL, 6 OR MORE 09/06/2012 99422-NMWXOOD NAIL, 6 OR MORE 12/06/2012 94650-NLTITQX NAIL, 6 OR MORE 04/18/2013 37952-KWNIBPN NAIL, 6 OR MORE 07/11/2013 11076-SYEQQOV NAIL, 6 OR MORE 10/17/2013 87684-SMTFLRW NAIL, 6 OR MORE 01/09/2014 54980-OMDDFLR NAIL, 6 OR MORE 04/03/2014 65947-GFZUCJE NAIL, 6 OR MORE 06/26/2014 24351-BCJKLYB NAIL, 6 OR MORE 09/21/2014 25851-OKZZEPN NAIL, 6 OR MORE 12/24/2017 73084-SKOUSKX NAIL, 6 OR MORE 03/04/2018 80269-CZSFPXC NAIL, 6 OR MORE 05/27/2018 64006-TBJVZHO NAIL, 6 OR MORE 08/02/2018 62116-LAHXPQR NAIL, 6 OR MORE 09/05/2024 76224-ABBLMQJ NAIL, 6 OR MORE 12/15/2024 59281-Mwbxqxll Plate 11/05/2020 06722-Aqrbcyzj Plate 02/04/2021 73935-Jkkguvau Plate 05/06/2021 97192-Gbvolqlx Plate 02/06/2020 84179-Bmqmidre Plate 12/24/2017 24808-Lwzkgkuz Plate 05/27/2018 17237-Rpvwehuw Plate 06/26/2014 46977-Mqmwzyow Plate 07/11/2013 00090-Ngitatsz Plate 12/06/2012 51398-Uzdfrisz Plate 06/09/2011 67941-Uhqbckbw Plate 04/03/2014 28858-Chaorhjo Plate 04/12/2015 41034-Blmcrnxh Plate 08/25/2016 71198-Logublqy Plate 04/16/2017 70566-GWG 12/15/2024 73068- Debride <25 sq cm 09/25/2011 75519-EWERATK SKIN/TISSUE 01/09/2025 98472 I&D ABSCESS- SIMPLE,SINGLE 018 63557 I&D ABSCESS- SIMPLE,SINGLE 013 02177 I&D ABSCESS- SIMPLE,SINGLE 012 20418 I&D ABSCESS- SIMPLE,SINGLE 012 98502 I&D ABSCESS- SIMPLE,SINGLE 015 98179-UEFA SKIN LESIONS, OVER 4 05/07/20 20 98995-NKUO SKIN LESIONS, OVER 4 11/12/19 22 75346-YBNV SKIN LESIONS, 2 TO 4 08/01/20 21 90321-FBGN SKIN LESIONS, 2 TO 4 05/06/20 21 31155-TVTX SKIN LESIONS, 2 TO 4 02/05/20 21 07770-NOPV SKIN LESIONS, 2 TO 4 12/07/19 24 37055-CPYT SKIN LESIONS, 2 TO 4 12/16/19 36882-LKYH SKIN LESIONS, 2 TO 4 09/05/19 36104-SKEP SKIN LESIONS, 2 TO 4 08/06/20 07244-OBJP SKIN LESIONS, 2 TO 4 11/06/19 21 54429-EGEM SKIN LESIONS, 2 TO 4 11/02/19 19 30224-GQJX SKIN LESIONS, 2 TO 4 02/01/20 19 43311-HJUY SKIN LESIONS, 2 TO 4 05/02/20 19 14412-FQHP SKIN LESIONS, 2 TO 4 08/08/20 19 57768-PNFO SKIN LESIONS, 2 TO 4 11/07/19 10130-YIZL SKIN LESIONS, 2 TO 4 02/06/20 32994-CVNI SKIN LESIONS, 2 TO 4 05/27/20 18 20076-KUQR SKIN LESIONS, 2 TO 4 03/04/20 18 53479-LSQF SKIN LESIONS, 2 TO 4 08/02/20 18 77629-OOEJ SKIN LESIONS, 2 TO 4 06/04/20 15 30010-SHCY SKIN LESIONS, 2 TO 4 03/12/20 15 57149-FZVJ SKIN LESIONS, 2 TO 4 12/19/19 15 92656-IYXV SKIN LESIONS, 2 TO 4 08/25/19 17 25663-JGOD SKIN LESIONS, 2 TO 4 05/19/20 16 17298-IKSX SKIN LESIONS, 2 TO 4 02/11/20 16 93908-LFIN SKIN LESIONS, 2 TO 4 11/12/19 16 66191-CQOF SKIN LESIONS, 2 TO 4 07/09/20 17 30303-BSMD SKIN LESIONS, 2 TO 4 12/25/19 18 15962-TJDD SKIN LESIONS, 2 TO 4 10/01/19 18 52808-WFNV SKIN LESIONS, 2 TO 4 11/25/19 17 50409-CDRV SKIN LESIONS, 2 TO 4 04/16/20 17 63115-JSRS SKIN LESIONS, 2 TO 4 02/06/20 17 53335-VAOX SKIN LESIONS, 2 TO 4 09/25/19 12 58304-VTTN SKIN LESIONS, 2 TO 4 12/01/19 12 19227-GEZW SKIN LESIONS, 2 TO 4 09/11/19 12 99680-ZVZD SKIN LESIONS, 2 TO 4 12/07/19 13 29709-MCIQ SKIN LESIONS, 2 TO 4 09/06/19 13 22265-ZUYC SKIN LESIONS, 2 TO 4 05/31/20 12 85255-YKXN SKIN LESIONS, 2 TO 4 03/01/20 12 83435-FEHZ SKIN LESIONS, 2 TO 4 04/18/20 13 30566-XXUH SKIN LESIONS, 2 TO 4 07/11/20 13 93839-EGYF SKIN LESIONS, 2 TO 4 10/17/19 14 71893-HBUQ SKIN LESIONS, 2 TO 4 09/21/19 15 43614-ZRPH SKIN LESIONS, 2 TO 4 04/03/20 14 14326-VIEG SKIN LESIONS, 2 TO 4 01/10/20 14 96561-Nthx. Subungual Hematoma 4 79980,F2723-VFN TENDON SHEATH/LIGAMENT 0 12/25/2016 Next Appt Details Provider Name:Nallely Avitia erika, 06/15/2025 09:15:00 AM, [address] [facility], [address], [place], [address], Insurance Providers Payer Name Payer Address Payer Phone Subscriber Number Group Number Insured Name Patient Relationship to Insured Coverage Start Date Coverage End Date Medicare National [employer] [address] [place] [address] [id number] Mihai Herrera Self - patient is the insured [facility] [address] [place] [address] [id number] Mihai Herrera Self - patient is the insured Medical (General) History Medical History History ICD Code chicken pox diabetic hypertension mumps measles Surgical History Surgery Date(Month/Year) arm 1987 hand/wrist 1987 tonsillectomy 1958 umbilical hernia 06/2024
--- OUTSIDE RECORDS SUMMARY | 2025-05-28 09:01 | XMS_ITS | Encounter Summary ---
Author Organization [facility] Address [address] [address] Phone Care Team Providers Care Product Support Specialist Name Role Phone Maria Isabel Munoz MD Primary Care Provider [phone] Encounter Details Date Type Department Care Team (Late st Contact Info) Description 05/24/2025 Orders Only [facility] [address] [phone] Jaydon Brunson MD [address] [address] Social History Tobacco Use Types Packs/Day Years Used Date Smoking Tobacco: Never Alcohol Use Standard Drinks/Week Comments No 0 (1 standard drink = 0.6 oz pur e alcohol) Sex and Gender Information Value Date Recorded Sex Assigned at Not on file Legal Sex Male 5:13 PM EST Gender Identity Not on file Sexual Orientation Not on file documented as of this encounter Plan of Treatment Upcoming Encounters Date Type Department Care Team (Late st Contact Info) Description 05/29/2025 9:15 AM EDT Office Visit [facility] [address] [phone] Ana Luisa Lynne ARNP [address] [address] documented as of this encounter Procedures Procedure Name Priority Date/Time Associated Diagnosis Comments URINALYSIS Routine 05/24/2025 10:20 AM EDT documented in this encounter Results * (ABNORMAL) Urinalysis (05/24/2025 10:20 AM EDT) Specific [place], Urine >=1.030(A) 1.005 - 1.030 [facility] pH Urine 6.0 5.0 - 7.5 [facility] [phone] Color, Urine Yellow Yellow [facility] Appearance Urine Clear Clear [facility] WBC Esterase Urine Negative Negative [facility] Protein, Ur Trace Negative/Tra ce [facility] [phone] Glucose, Ur 3+(A) Negative [facility] Ketones, Urine Negative Negative [facility] [phone] Blood Urine Negative Negative [facility] Bilirubin Urine Negative Negative [facility] [phone] Urobilinogen Urine 0.2 0.2 - 1.0 mg/dL [facility] Nitrite, Urine Negative Negative [facility] Microscopic Examination Comment [facility] Comment:Microscopic not raul cated and not performed. 05/24/2025 10:2 0 AM EDT 05/24/2025 Comment:UC us Jaydon Brunson MD LAB URINE ORDERABLES Final Re sult [facility] [address] [place] [address] documented in this encounter Visit Diagnoses Not on filedocumented in this encounter Care Teams Product Support Specialist Relationship Specialty Start Date End Date Maria Isabel Munoz MD [address] [place] [address] PCP - General Internal Medicine 01/29/21 documented as of this encounter
== END 2025-05-28 09:04 | disposition home or self-care (01) ==
LOC: HO.ENCR 08:28
PROVIDERS: PCP Internal Medicine; Visit Provider Student in an Organized Health Care Education/Training Program
DX: E11.42 Type 2 diabetes mellitus with diabetic polyneuropathy (principal); N18.31 Chronic kidney disease, stage 3a; E78.00 Pure hypercholesterolemia, unspecified; I15.2 Hypertension secondary to endocrine disorders; Z79.4 Long term (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; Z13.9 Encounter for screening, unspecified
CPT/HCPCS: 95251; 99214

== ENCOUNTER → 2025-05-28 08:27 | Outpatient (BNVA) | payer MEDICARE, OTHER, SELFPAY | PROVIDERS: PCP Internal Medicine; Visit Provider Student in an Organized Health Care Education/Training Program | DX: E11.22 Type 2 diabetes mellitus with diabetic chronic kidney disease (principal); E11.40 Type 2 diabetes mellitus with diabetic neuropathy, unspecified; N18.30 Chronic kidney disease, stage 3 unspecified; E78.00 Pure hypercholesterolemia, unspecified; I15.2 Hypertension secondary to endocrine disorders; Z96.41 Presence of insulin pump (external) (internal); Z79.4 Long term (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 | CPT/HCPCS: 82947; 83036; 99212 ==

== ENCOUNTER 2025-06-04 08:42 | Outpatient (REF) | payer MEDICARE, OTHER, SELFPAY ==
--- OUTSIDE RECORDS SUMMARY | 2025-06-04 08:46 | XMS_ITS | Patient Health Record ---
Author Organization [facility] Address [address] [place] [address] Care Team Providers Care Operations Associate Name Role Phone Maria Isabel Munoz MD [...] MG 2 tablets Orally Onc e a day; Duration: 30 day(s) Active Iron 325 (65 Fe) MG 1 tablet Orally Once a day; Duration: 30 day(s) Active Irbesartan 300 MG 1 tablet Orally Once a day; Duration: 30 day(s) Active Vitamin C 1000 MG 1 tablet Orally Once a day; Duration: 30 day(s) Active Betamethasone - as directed Ac tive Spironolactone 25 MG 1 tablet Orally Onc e a day; Duration: 30 days Active Vitamin B-12 5000 MCG as directed Orally Active Zetia 10 MG 1 tablet Orally Once a day; Duration: 30 day(s) Active Vitamin D-Vitamin K 20-120 MCG/0.1ML as directed Orally Active Flonase Active Coenzyme Q10 300 MG as directed Orally Active Loratadine 10 MG 1 tablet Orally Once a day; Duration: 30 day(s) Active Vitamin D 25 MCG (1000 UT) 1 tablet Oral ly Once a day Active Aspirin 81 81 MG 1 tablet Orally Once a day; Duration: 30 day(s) Active Farxiga 10 MG 1 [...] Problem Status W/U Status Risk Notes Problem Colon cancer screening (494059104) Colon cancer screening (Z12.11) Active confirmed Problem Long-term current use of antiplatelet drug (255336088355468) Long-term use of aspirin therapy (Z79.82) Active confirmed Vital Signs Temperature 98.6 degrees Fahrenheit 03/15/2025 Blood pressure diastolic 01 mm Hg 03/15/2025 Height 74 in 03/15/2025 Blood pressure systolic 001 mm Hg 03/15/2025 Weight 234.6 lbs 03/15/2025 BMI 30.12 kg/m2 03/15/2025 Encounters Encounter Location Date Provider Diagnosis [facility] [address] [place] [address] 03/15/2025 Javier Steward Jr Colon cancer screening Z12.11 and Long-term use of aspirin therapy Z79.82 [facility] [address] [place], [place] [address] [place] [address] 03/15/2025 Javier Steward Jr [facility] [address] [place] [address] 03/16/2025 Javier Steward Jr Colon cancer screening Z12.11 [facility] [address] [place] [address] 03/27/2025 Javier Steward Jr Assessments Encounter Date [...] Start Date Coverage End Date MEDICARE OF EFRAIN PADMINI CARO [address] [address] [id number] CHRISTIANA MONTGOMERY Self - patient is the [facility] [address] [place] [address] [id number] CHRISTIANA MONTGOMERY Self - patient is the insured 5 Medical (General) History Medical History History ICD Code diabetes chronic kidney disease hypertension hyperlipidemia varicose veins Surgical History Surgery Date(Month/Year) hernia 07/16 pin in right arm tonsillectomy and adenoidectomy
--- OUTSIDE RECORDS SUMMARY | 2025-06-04 08:47 | XMS_ITS | Clinical Summary ---
Author Organization [facility] Address [address] [address] Phone Care Team Providers Care Shoemaker Apprentice Name Role Phone Maria Isabel Munoz MD Primary Care Provider [phone] Allergies Active Allergy Reactions Criticality Noted Date Comments Atorvastatin Other (see comments) 01/29/2021 Niacin Other (see comments) 01/29/2021 Sulfa Antibiotics Other (see comments) 11/12/19 22 Medications rosuvastatin (CRESTOR) 10 MG tablet Take 1 tablet by mouth 1 (one) time each day Active nebivolol (BYSTOLIC) 2.5 MG tablet Take 1 tablet by mouth 1 (one) time each day 8 Active metFORMIN (GLUCOPHAGE) 500 MG tablet Take [...] mouth 1 (one) time each day Active Dapagliflozin Propanediol (Farxiga) 10 MG tabletIndication s:Type 2 diabetes mellitus with diabetic chronic kidney disease (HCC),Stage 3b chronic kidney disease (HCC) TAKE 1 TABLET ONCE DAILY 90 tablet 3 5 Active Insulin Lispro (ADMELOG SC) Inject 120 Units under the skin 1 (one) time each day Active spironolactone (ALDACTONE) 25 MG tablet Take 25 mg by mouth 1 (one) time each day Active montelukast (SINGULAIR) 10 MG tablet Take 1 tablet by mouth 1 (one) time each day 05/29/20 25 Discontinu ed(Med List Maintenanc e) insulin aspart (NovoLOG) 100 UNIT/ML injection Inject under the skin 3 (three) times a day before meals 05/29/20 25 Discontinu ed(Med List Maintenanc e) Insulin Aspart (NOVOLOG SC) 100 Units novolog 100 units per day on pump 05/29/20 25 Discontinu ed(Med List Maintenanc e) Active Problems Problem Noted Date Diagnosed Date Hypertension 05/29/2025 Polyneuropathy due to type 1 diabetes mellitus 0 12/17/2021 Peripheral venous insufficiency 12/17/2021 Hammer toe 12/17/2021 Stage 3b chronic kidney disease 07/30/2021 Type 2 diabetes mellitus wit h diabetic chronic kidney disease 07/30/2021 Renal osteodystrophy 07/30/2021 Benign hypertensive renal disease 01/29/2021 Chronic kidney disease stage 3 01/29/2021 Renal disorder due to type 2 diabetes mellitus 0 01/29/2021 Stage 3a chronic kidney disease 01/29/2021 Encounters Date Type Department Care Team Description 05/29/2025 9:15 AM EDT Office Visit [facility] [address] [address] Ana Luisa Lynne ARNP Stage 3a chronic kidney disease (HCC) (Primary Dx); Hypertension 05/24/2025 Orders Only [facility] [address] [address] Jaydon Brunson MD 04/17/2025 Orders Only [facility] [place] [address] [address] Jaydon Brunson MD Stage 3a chronic kidney [...] Sign Reading Time Taken Comments Blood Pressure 130/70 05/29/2025 9:58 AM EDT Pulse 54 05/29/2025 9:36 AM EDT Temperature - - Respiratory Rate - - Oxygen Saturation 99% 05/29/2025 9:36 AM EDT Inhaled Oxygen Concentration - - Weight 105 kg (232 lb 6.4 oz) 05/29/2025 9:36 AM EDT Height 190.5 cm (6' 3 ) 09/04/2019 12:00 PM EST Body Mass Index 29.05 09/04/2019 12:00 PM EST Plan of Treatment Upcoming Encounters Date Type Department Care Team (Late st Contact Info) Description 11/27/2025 1:00 PM EDT [facility] [address] [phone] Ana Luisa Lynne ARNP [address] [address] Health Maintenance Due Date Last Done Comments [...] Result (05/24/2025 10:20 AM EDT) Result Comment [facility] Comment: Culture shows less than 10,000 colony forming units of bacteria per milliliter of urine. This colony count is not generally considered to be clinically significant. 05/24/2025 10:2 0 AM EDT 05/24/2025 us Jaydon Brunson MD LAB MICROBIOLOGY - GENERAL OR DERABLES Final Result [facility] [address], [address] [place] [address] * Protein, Total, Random Urine w/Creatinine (Protein/Creat Ratio) (05/24/2025 10:20 AM EDT) Creatinine, Ur 107.6 Not Estab. mg/dL [facility] Protein, Ur 17.5 Not Estab. mg/dL [facility] [facility] Urine Protein/Creatin ine Ratio 163 0 - 200 mg/g creat [facility] [facility] Urine specimen (specimen) Urine specimen obtained by clean catch procedure / Unknown 05/24/2025 10:20 AM EDT 05/24/2025 Comment: Jaydon Brunson MD LAB URINE ORDERABLES Final Re sult Performing Organization Address City/[facility]/ZIP Co de Phone Number [employer] [facility] [place] [address] [place] [address] * Urine Albumin / Creatinine Ratio (05/24/2025 10:20 AM EDT) Albumin, Urine 17.6 Not Estab. ug/mL [facility] Albumin/Creatin ine Ratio 16 0 - 29 mg/g creat [facility] [facility] Comment: Normal: 0 - 29 Moderately increased: 30 - 300 Severely increased: >300 Urine specimen (specimen) Urine specimen obtained by clean catch procedure / Unknown 05/24/2025 10:20 AM EDT 05/24/2025 Comment: Jaydon Brunson MD LAB URINE ORDERABLES Final Re sult Performing Organization Address [facility] de Phone Number [facility] [place] [address] [place] [address] * Vitamin D 25 Hydroxy (05/24/2025 10:20 AM EDT) Vitamin D, 25-OH, Total 33.5 30.0 - 100.0 ng/mL [facility] Comment: Vitamin D deficiency has been defined by the [place] of Medicine and an Endocrine Society practice guideline as a level of serum 25-OH vitamin D less than 20 ng/mL (1,2). The Endocrine Society went on to further define vitamin D insufficiency as a level between 21 and 29 ng/mL (2). 1. IOM ([place] of Medicine). 2010. Dietary reference intakes for calcium and D. [place]: The National Academies Press. 2. Familia THOMAS, Petey SHERWOOD, Lisa CASPER, et al. Evaluation, treatment, and prevention of vitamin D deficiency: an Endocrine Society clinical practice guideline. JCEM. 2010; 96(7):1911-30. Blood specimen (specimen) Venous blood / Unknown 05/24/2025 10:20 AM EDT 05/24/2025 Comment:OSIEL Jaydon Brunson MD LAB BLOOD ORDERABLES Final Re sult [facility] [place] [address] [place] [address] * (ABNORMAL) Urinalysis (05/24/2025 10:20 AM EDT) Specific [place], Urine >=1.030(A) 1.005 - 1.030 [facility] [place] [facility] pH Urine 6.0 5.0 - 7.5 [facility] [place] [phone] Color, Urine Yellow Yellow [facility] [place] Appearance Urine Clear Clear [facility] [place] WBC Esterase Urine Negative Negative [facility] [place] Protein, Ur Trace Negative/Tra ce [facility] [place] Glucose, Ur 3+(A) Negative [facility] [place] Ketones, Urine Negative Negative [facility] [place] [phone] Blood Urine Negative Negative [facility] [place] [phone] Bilirubin Urine Negative Negative [facility] [place] [phone] Urobilinogen Urine 0.2 0.2 - 1.0 mg/dL [facility] [facility] Nitrite, Urine Negative Negative [facility] [place] Microscopic Examination Comment [facility] [place] Comment:Microscopic not raul cated and not performed. 05/24/2025 10:2 0 AM EDT 05/24/2025 Comment:OSIEL Jaydon Brunson MD LAB URINE ORDERABLES Final Re sult [facility] [place] [address] [place] [address] * (ABNORMAL) CBC (05/24/2025 10:20 AM EDT) WBC 4.7 3.4 - 10.8 x10E3/uL [facility] [place] [facility] RBC 4.54 4.14 - 5.80 x10E6/uL [facility] Hemoglobin 14.9 13.0 - 17.7 g/dL [facility] [facility] Hematocrit 45.1 37.5 - 51.0 % [facility] MCV 99(H) 79 - 97 fL [facility] [facility] MCH 32.8 26.6 - 33.0 pg [facility] MCHC 33.0 31.5 - 35.7 g/dL [facility] RDW 13.4 11.6 - 15.4 % [facility] Platelets 143(L) 150 - 450 x10E3/uL [facility] [facility] Blood specimen (specimen) Venous blood / Unknown 05/24/2025 10:20 AM EDT 05/24/2025 Jaydon Brunson MD LAB BLOOD ORDERABLES Final Re sult [facility] [place] [address] [place] [address] * Urine Culture (05/24/2025 10:20 AM EDT) Culture Result, Urine Final report [facility] Urine specimen (specimen) Urine specimen obtained by clean catch procedure / Unknown 05/24/2025 10:20 AM EDT 05/24/2025 Comment:UC Jaydon Brunson MD LAB URINE ORDERABLES Final Re sult [facility] [address], [address] [place] [address] * PTH, Intact (05/24/2025 10:20 AM EDT) PTH 34 15 - 65 pg/mL [facility] Blood specimen (specimen) Venous blood / Unknown 05/24/2025 10:20 AM EDT 05/24/2025 Comment: Jaydon Brunson MD LAB BLOOD ORDERABLES Final Re sult Performing Organization Address City/[facility]/ZIP Co de Phone Number [facility] [place] [address] [place] [address] * Magnesium (05/24/2025 10:20 AM EDT) Magnesium 2.0 1.6 - 2.3 mg/dL [facility] Blood specimen (specimen) Venous blood / Unknown 05/24/2025 10:20 AM EDT 05/24/2025 Comment: Jaydon Brunson MD LAB BLOOD ORDERABLES Final Re sult [facility] [place] [address] [place] [address] * (ABNORMAL) Renal Function Panel (05/24/2025 10:20 AM EDT) Glucose 133(H) 70 - 99 mg/dL [facility] BUN 21 8 - 27 mg/dL [facility] Creatinine 1.41(H) 0.76 - 1.27 mg/dL [facility] eGFR CKD-EPI CR 2020 53(L) >59 mL/min/1.7 3 [facility] BUN/Creatinine Ratio 15 10 - 24 [facility] Sodium 142 134 - 144 mmol/L [facility] Potassium 4.5 3.5 - 5.2 mmol/L [facility] Chloride 104 96 - 106 mmol/L [facility] Bicarbonate (CO2) 22 20 - 29 mmol/L [facility] Calcium 8.9 8.6 - 10.2 mg/dL [facility] Albumin 3.9 3.8 - 4.8 g/dL [facility] Phosphorus 3.3 2.8 - 4.1 mg/dL [facility] Blood specimen (specimen) Venous blood / Unknown 05/24/2025 10:20 AM EDT 05/24/2025 Comment:UC Jaydon Brunson MD LAB BLOOD ORDERABLES Final Re sult [facility] [place] [address] [place] [address] * Hemoglobin A1c (09/15/2019 5:40 PM EST) Hemoglobin A1C 6.9 % [facility] Comment: Hemoglobin A1C Reference Range Adults: 4.8 - 6.0 % Non diabetic: < 6.0 % Goal: < 7.0 % Additional Action Suggested: > 8.0 % Note: Hemoglobin A1c results are invalid for patients with abnormal amounts of HbF. Blood transfusions may impact the HbA1c concentration in the patient sample. Estimated Average Glucose 151 MG/DL [facility] Comment: eAG = Estimated average glucose which is %A1C expressed as average glucose, using the formula of the K4H-Ihnatze Average Glucose study (ADAG), Diabetes Care, Vol.31,#8, Mar. 2007 09/15/2019 5:40 PM EST us Maria Isabel Munoz MD LAB BLOOD ORDERABLES Final Resu lt [facility] from Last 3 Months or Most Recently Relevant to Health Maintenance Insurance Member Subscriber Plan / Payer (Ef fective 2019-Present) Name:Mihai Herrera Relation to Subscriber:Self Name:Mihai Herrera Payer ID:Not on file Type:Not on file Address: [address] [phone] [place] [address] Health Medicare Care Teams Shoemaker Apprentice Relationship Specialty Start Date End Date Maria Isabel Munoz MD [address] [place] [phone] PCP - General Internal Medicine 01/29/21
--- OUTSIDE RECORDS SUMMARY | 2025-06-04 08:47 | XMS_ITS | Patient Health Record ---
Author Organization [facility] Address [address] [facility] [place] [address] Care Team Providers Care Service Station Operator Name Role Phone Maria Isabel Munoz MD Primary Care Provider UnavailNallely Canales Unavailable [phone] Nayan May Unavailable [phone] Allergies Allergen (clinical drug ingredient) Drug/Non Drug [...] Polyneuropathy due to type 2 diabetes mellitus (127469431) Type 2 diabetes mellitus with diabetic polyneuropathy (E11.42) Active confirmed Problem Acquired hammer toe of right foot (9039982070078026 ) Other hammer toe(s) (acquired), right foot (M20.41) Active confirmed Problem Acquired hammer toe of left foot (1155430705547016 ) Other hammer toe(s) (acquired), left foot [...] Ordered Date Performed Result Body Sit e 62822-SRHHSYU NAIL, 6 OR MORE 09/05/2024 N/A 28826-BAZN SKIN LESIONS, 2 TO 4 09/05/2024 N/A 42573-YOYVLUZ NAIL, 6 OR MORE 12/15/2024 N/A 97796-UDK 12/15/2024 N/A 02462-XYKT SKIN LESIONS, 2 TO 4 12/15/2024 N/A 55025-YBZBDLA SKIN/TISSUE 01/09/2025 N/A Encounters Encounter Location Date Provider Diagnosis [address] [address] 06/06/2024 Nayan May Type 1 diabetes mellitus with diabetic polyneuropathy E10.42 ; Tinea unguium B35.1 ; Ingrowing nail L60.0 ; Pain in right toe(s) M79.674 ; Pain in left toe(s) M79.675 ; Venous insufficiency of both lower extremities I87.2 ; Other hammer toe(s) (acquired), left foot M20.42 ; Other hammer toe(s) (acquired), right foot M20.41 and Metatarsalgia, left foot M77.[address] [address] 09/05/2024 Nallely Bowen Other hammer toe(s) (acquired), right foot M20.41 ; Other hammer toe(s) (acquired), left foot M20.42 ; Type 2 diabetes mellitus with diabetic polyneuropathy E11.42 and Tinea unguium B35.[address] [address] 12/15/2024 Nallely Bowen Type 2 diabetes mellitus with diabetic polyneuropathy E11.42 ; Tinea unguium B35.1 and Ingrown nail L60.[address] [address] 01/09/2025 Nallely Bowen Skin ulcer of toe of left foot with fat layer exposed L97.522 [facility] [address] [address] 03/16/2025 Nallely Bowen Type 2 diabetes mellitus [...] X ray : Foot, right 2V 12/25/2016 58010-PWVPPWT NAIL, 6 OR MORE 04/16/2017 11411-LQUVNYD NAIL, 6 OR MORE 07/09/2017 21030-NADHTRG NAIL, 6 OR MORE 10/01/2017 20073-CKJHMMR NAIL, 6 OR MORE 02/05/2017 36237-GHBOFVW NAIL, 6 OR MORE 11/24/2016 09569-RCAVLOY NAIL, 6 OR MORE 12/18/2014 72929-SCICMAF NAIL, 6 OR MORE 03/12/2015 63000-OKTSUIU NAIL, 6 OR MORE 06/04/2015 06175-EEEQVEI NAIL, 6 OR MORE 11/12/2015 79336-DWAKCEY NAIL, 6 OR MORE 02/11/2016 97968-SIQGLWG NAIL, 6 OR MORE 05/19/2016 49599-ACCZEZM NAIL, 6 OR MORE 08/25/2016 27740-UHIYMAY NAIL, 6 OR MORE 06/09/2011 58033-BMXZYHN NAIL, 6 OR MORE 09/11/2011 88901-VSMHFBF NAIL, 6 OR MORE 09/25/2011 28003-MAZABWI NAIL, 6 OR MORE 12/01/2011 40534-VGJUZLJ NAIL, 6 OR MORE 03/01/2012 83023-RRHITEK NAIL, 6 OR MORE 05/31/2012 71611-XFURQNI NAIL, 6 OR MORE 09/06/2012 55817-ONEZSDT NAIL, 6 OR MORE 12/06/2012 10651-YABRMUX NAIL, 6 OR MORE 04/18/2013 46671-XCWQUAY NAIL, 6 OR MORE 07/11/2013 07356-ADHBVQM NAIL, 6 OR MORE 10/17/2013 91928-JQIDHOS NAIL, 6 OR MORE 01/09/2014 05546-MFPNFVG NAIL, 6 OR MORE 04/03/2014 05814-BKYIYVY NAIL, 6 OR MORE 06/26/2014 92814-GHGMASW NAIL, 6 OR MORE 09/21/2014 80834-MAXQOPI NAIL, 6 OR MORE 12/24/2017 42505-NQXFVJF NAIL, 6 OR MORE 03/04/2018 20239-WUJNZNV NAIL, 6 OR MORE 05/27/2018 46485-HXXYZYK NAIL, 6 OR MORE 08/02/2018 24147-QXGPNXZ NAIL, 6 OR MORE 09/05/2024 59914-JZDWHSL NAIL, 6 OR MORE 12/15/2024 58636-Mhtjgqhs Plate 11/05/2020 93202-Iulepmhf Plate 02/04/2021 14932-Zseqajqc Plate 05/06/2021 84932-Jndfgwsh Plate 02/06/2020 94597-Xmnrqjco Plate 12/24/2017 50046-Ugubpuyk Plate 05/27/2018 22868-Qvkxfnhc Plate 06/26/2014 48889-Yhkyfihv Plate 07/11/2013 76392-Qjtsymmw Plate 12/06/2012 44824-Rficjtka Plate 06/09/2011 20050-Xddncfjw Plate 04/03/2014 17878-Bwqniwhw Plate 04/12/2015 47007-Kbqevqxd Plate 08/25/2016 69189-Rbgdhipq Plate 04/16/2017 76332-TXT 12/15/2024 65654- Debride <25 sq cm 09/25/2011 31927-ZXXMYHN SKIN/TISSUE 01/09/2025 15580 I&D ABSCESS- SIMPLE,SINGLE 018 44824 I&D ABSCESS- SIMPLE,SINGLE 013 72225 I&D ABSCESS- SIMPLE,SINGLE 012 48306 I&D ABSCESS- SIMPLE,SINGLE 012 67297 I&D ABSCESS- SIMPLE,SINGLE 015 97199-LQGB SKIN LESIONS, OVER 4 05/07/20 20 63207-IUCJ SKIN LESIONS, OVER 4 11/12/19 22 75245-MOPA SKIN LESIONS, 2 TO 4 08/01/20 21 23393-MWCD SKIN LESIONS, 2 TO 4 05/06/20 21 97246-SDQX SKIN LESIONS, 2 TO 4 02/05/20 21 33253-XWLF SKIN LESIONS, 2 TO 4 12/07/19 24 75855-VYNR SKIN LESIONS, 2 TO 4 12/16/19 92746-VTDW SKIN LESIONS, 2 TO 4 09/05/19 02138-KGZO SKIN LESIONS, 2 TO 4 08/06/20 36493-HVHC SKIN LESIONS, 2 TO 4 11/06/19 21 55173-FKXT SKIN LESIONS, 2 TO 4 11/02/19 19 18841-AJXD SKIN LESIONS, 2 TO 4 02/01/20 19 81266-BZZT SKIN LESIONS, 2 TO 4 05/02/20 19 32398-MTJB SKIN LESIONS, 2 TO 4 08/08/20 19 82193-UHGF SKIN LESIONS, 2 TO 4 11/07/19 40640-QEKV SKIN LESIONS, 2 TO 4 02/06/20 14306-FHZT SKIN LESIONS, 2 TO 4 05/27/20 18 81653-IQUA SKIN LESIONS, 2 TO 4 03/04/20 18 11075-REDY SKIN LESIONS, 2 TO 4 08/02/20 18 60508-DLNR SKIN LESIONS, 2 TO 4 06/04/20 15 19115-TANO SKIN LESIONS, 2 TO 4 03/12/20 15 63251-UNII SKIN LESIONS, 2 TO 4 12/19/19 15 30752-NAXC SKIN LESIONS, 2 TO 4 08/25/19 17 32848-HGOX SKIN LESIONS, 2 TO 4 05/19/20 16 04964-QXRI SKIN LESIONS, 2 TO 4 02/11/20 16 50556-SBNI SKIN LESIONS, 2 TO 4 11/12/19 16 54702-RKXM SKIN LESIONS, 2 TO 4 07/09/20 17 73896-COPZ SKIN LESIONS, 2 TO 4 12/25/19 18 12013-GBWC SKIN LESIONS, 2 TO 4 10/01/19 18 34434-HRJF SKIN LESIONS, 2 TO 4 11/25/19 17 71609-OZXD SKIN LESIONS, 2 TO 4 04/16/20 17 31007-GOTF SKIN LESIONS, 2 TO 4 02/06/20 17 33538-WFMD SKIN LESIONS, 2 TO 4 09/25/19 12 27732-ELNT SKIN LESIONS, 2 TO 4 12/01/19 12 99505-MBFT SKIN LESIONS, 2 TO 4 09/11/19 12 38337-MFHW SKIN LESIONS, 2 TO 4 12/07/19 13 10474-VDLE SKIN LESIONS, 2 TO 4 09/06/19 13 27829-AITD SKIN LESIONS, 2 TO 4 05/31/20 12 37541-XIWB SKIN LESIONS, 2 TO 4 03/01/20 12 82357-WUDI SKIN LESIONS, 2 TO 4 04/18/20 13 52614-FJQX SKIN LESIONS, 2 TO 4 07/11/20 13 26075-KZTO SKIN LESIONS, 2 TO 4 10/17/19 14 37941-RAOH SKIN LESIONS, 2 TO 4 09/21/19 15 04502-FTFG SKIN LESIONS, 2 TO 4 04/03/20 14 02019-ODFF SKIN LESIONS, 2 TO 4 01/10/20 14 77317-Lwjo. Subungual Hematoma 4 34180,T6666-KCE TENDON SHEATH/LIGAMENT 0 12/25/2016 Next Appt Details Provider Name:Nallely Avitia erika, 06/15/2025 09:15:00 AM, [address] [facility], [address], [place], [address], Insurance Providers Payer Name Payer Address Payer Phone Subscriber Number Group Number Insured Name Patient Relationship to Insured Coverage Start Date Coverage End Date Medicare National [employer] [address] [place] [address] [id number] Mihai Herrera Self - patient is the insured [facility] [address] [place] [address] [id number] Mihai Herrera Self - patient is the insured Medical (General) History Medical History History ICD Code chicken pox diabetic hypertension mumps measles Surgical History Surgery Date(Month/Year) arm 1987 hand/wrist 1987 tonsillectomy 1958 umbilical hernia 06/2024
[2025-06-04 10:21] LABS: MANUAL DIFF FLAG NO
[2025-06-04 10:25] LABS: Hematocrit 46.2 % (42.0-52.0); Hemoglobin 14.9 g/dl (14.0-18.0); Imm Gran Abs Auto 0.05 X10*3/uL (0.00-0.03); Imm Gran Pct Auto 0.7 % (0.0-0.4); Lymphocytes Absolute Auto 2.0 X10*3/uL (1.2-4.9); Mean Corpuscular HGB Conc 32.3 g/dl (31.0-36.0); Mean Corpuscular Hemoglobin 32.3 pg (27.0-33.0); Mean Corpuscular Volume 100.0 fL (80.0-98.0); NRBC Abs Auto 0.000 X10*3/uL (0.0-0.012); NRBC Pct Auto 0.0 /100WBC (0.0-0.2); Platelet Count 178 X10*3/uL (160-400); Red Blood Count 4.62 X10*6/uL (4.60-5.80); White Blood Count 6.8 X10*3/uL (4.8-10.8)
[2025-06-04 10:48] LABS: Alanine Aminotransferase 32 U/L (0-40); Albumin Level 4.1 g/dL (3.5-5.0); Alkaline Phosphatase 61 U/L (39-117); Anion Gap 13 (12-20); Aspartate Amino Transferase 23 U/L (5-37); Blood Urea Nitrogen 30 mg/dL (9-16); Calcium 8.6 mg/dL (8.4-10.2); Carbon Dioxide 27 mmol/L (22-29); Chloride 107 mmol/L (96-108); Cholesterol 149 mg/dL (<200); Estimated Glomerular Filt Rate 44; HDL Cholesterol 52 mg/dL (>40); Iron 86 mcg/dL (45-160); Percent Iron Saturation 41 % (15-50); Potassium 4.0 mmol/L (3.3-5.1); Sodium 143 mmol/L (135-145); Total Iron Binding Capacity 210 mcg/dL (228-428); Total Protein 6.5 g/dL (6.5-8.0); Triglycerides 113 mg/dL (<150); Unsaturated Iron Binding 124 ug/dL
[2025-06-04 11:09] LABS: Folate 6.2 ng/mL (> or = 4.0); Vitamin B12 476 pg/mL (200-900)
== END 2025-06-04 08:43 | disposition home or self-care (01) ==
LOC: HO.HMGCLDS 08:42
PROVIDERS: PCP Internal Medicine; Visit Provider Internal Medicine
DX: E11.42 Type 2 diabetes mellitus with diabetic polyneuropathy (principal); E11.22 Type 2 diabetes mellitus with diabetic chronic kidney disease; N18.31 Chronic kidney disease, stage 3a; I15.2 Hypertension secondary to endocrine disorders; E55.9 Vitamin D deficiency, unspecified; E53.8 Deficiency of other specified B group vitamins
CPT/HCPCS: 36415; 80053; 80061; 82306; 82570; 82607; 82746; 83540; 85025

== ENCOUNTER 2025-06-07 11:06 | Outpatient (AMB) | payer MEDICARE, OTHER, SELFPAY ==
--- OUTSIDE RECORDS SUMMARY | 2024-03-10 04:30 | XMS_ITS ---
Author Organization [facility] Address [address] [place] [address] Care Team Providers Care Shuttle Fitting Supervisor Name Role Phone Maria Isabel Munoz MD Primary Care Provider UnavailNallely Canales Unavailable [phone] Nayan May Unavailable [phone] Tello Encounters Encounter Location Date Provider Diagnosis [address] [address] 03/10/2024 Nayan May Plan Of Treatment Next Appt Details Provider Name:Nallely Kimberlily erika, 06/15/2025 09:15:00 AM, [address] [place] [address], [phone], Progress Notes * Mihai MONTGOMERY PDOB: (70 yo M)Acc No.[id number]:03/10/2024 Progress Note Patient: Susanna Mihai ROMERO Provider: Alysha Luther DPM :1955 A ge:68 Y S ex:Male Date:03/10/2024 Address:[address] [place], [place] [address] [id number] Pcp:Maria Isabel Munoz MD Subjective: * Chief [...] DPM Date: 0 03/10/2024 Generated for Ritchie hernandez/Cate/Linda on: 1 02:08 PM EDT
[2025-06-07 11:15] VITALS: BP 120/72; PULSE 52; O2SAT 100; BMI 30.3
--- NOTE | 2025-06-07 11:15 | AM.OFFWIN_ITS ---
Intake Vital Signs 06/07/25 11:15 Height 6 ft 2 in Weight 236 lb BMI 30.3 BP 120/72 Blood Pressure Location Lt brachial Position Sitting Pulse 52 Pulse Source Pulse Oximeter Pulse Oximetry (%) 100 Oxygen Delivery Method Room Air Intake Visit Reasons: ep left leg check for blood clot Patient Tobacco Use Status: Never used Tobacco Allergies niacin (NIACIN) Allergy (Mild, Verified 06/07/25 11:16) ITCHING, itchy, itchy Rpjfvww-SYW-IoJ Reductase Inhibitor (NHDHKMS-PYP-RNS REDUCTASE INHIBITOR) Allergy (Unknown, Verified 06/07/25 11:16) HIGH CPK atorvastatin (Lipitor) Adverse Reaction (Unknown, Verified 06/07/25 11:16) high CPK Do you need a note to return to daycare/school/sports/work: No HPI HPI Comments History of Present Illness Details History of Present Illness - The patient is a 70-year-old male pres enting with knee pain and swelling following a fall. - The patient fell on his left knee on M onday, resulting in pain that initially hurt to the touch but now persists constantly. - The fall occurred while descending sta irs in a dimly lit area, leading to the patient landing on his knee and hitting his head against a TV stand. - He was seen here for the fall and now the bruising, swelling and pain is worse. - He did fly home after the fall in a ai rplane. - The patient reports significant bruisi ng and swelling in the knee area to the left lower leg, raising concerns about a possible blood clot. - No calf pain, numbness, tingling, ches t pain, or shortness of breath reported. Physical Exam General: Cooperative, healthy appearing, comfortable, no acute distress and well developed Orientation: Patient oriented x3 Limitations: No limitations Respiratory: Normal respiratory effort and able to speak in complete sentences. Clear to auscultation bilaterally. No w/r/r noted. Cardiovascular: Regular rate and rhythm. Normal S1 and S2. No m/r/g noted. Skin: Bruising noted on the leg, no rashes or lesions noted Neuro: Sensation intact. 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 Diabetic polyneuropathy associated with type 2 diabetes mellitus Varicose vein of leg Osteoarthritis CKD (chronic kidney disease), stage III Umbilical hernia Peripheral neuropathy Hypokalemia Obstructive sleep apnea Anemia B-complex deficiency Hypercholesterolemia HTN (hypertension) Diabetes type 2, controlled Surgical History Umbilical hernia (07/07/24) History of colonoscopy Family History Father Diabetes mellitus CAD (coronary artery disease) HTN (hypertension) Mother Stroke Pancreatic cancer HTN (hypertension) Maternal Grandfather Abdominal aortic aneurysm CVD (cardiovascular disease) Maternal Grandmother Abdominal aortic aneurysm Paternal Grandfather CVD (cardiovascular disease) Paternal Grandmother No problems noted. Brother Diabetes mellitus Brother No problems noted. Brother No problems noted. Son No problems noted. Son No problems noted. Daughter No problems noted. Sister Hodgkins disease Social History Household Members: Spouse Housing: House Alcohol intake: current Alcohol intake frequency: 0-2 drinks per day Patient Tobacco Use Status: Never used Tobacco e-Cigarette/Vaping Use: Never Used service: No Current occupational status: retired Cognitive needs: No Hearing needs: Yes Vision needs: Yes Review of Systems Const All systems reviewed & are unremarkable except as noted in HPI and below Physical Exam Vital Signs: Last Vital Signs Pulse 52 06/07/25 11:15 BP 120/72 06/07/25 11:15 Pulse Ox 100 06/07/25 11:15 Oxygen Delivery Method Room Air 06/07/25 11:15 BMI result Body Mass Index 30.3 Assessment & Plan Assessment & Plan (1) Left leg swelling: Code(s): M79.89 - Other specified soft tissue disorders (2) Lower leg pain: Code(s): M79.669 - Pain in unspecified lower leg Qualifiers: Laterality: left Qualified Code(s): M79.662 - Pain in left lower leg Plan Most likely contusion vs DVT plan - Plan to monitor the bruising and swelling, with consideration for pain management as needed. - Observation for any signs of concussion or other complications. - Ultrasound ordered to rule out deep vein thrombosis due to significant bruising and swelling. - will call the patient with the results - elevate leg - advised to go to the ED if pain is worse or her develops SOB or CP Orders: Orders US venous duplex LE LT Today M79.605 - Pain in left leg Coding Level of Care Code Est Pt Level 4 (05871) Diagnoses Left leg swelling M79.89 Pain of left lower leg M79.662 Laterality: left
--- OUTSIDE RECORDS SUMMARY | 2025-06-07 14:08 | XMS_ITS | Patient Health Record ---
Author Organization [facility] Address [address] [facility] [place] [address] Care Team Providers Care Manager Compensation Name Role Phone Maria Isabel Munoz MD Primary Care Provider Nallely Leonardo Unavailable [phone] Allergies Allergen (clinical drug ingredient) Drug/Non Drug Allergy documented on EMR Reaction Allergy Type Onset Date Status atorvastatin Lipitor high cpk Drug Allergy Acti ve niacin Niacin Unknown Drug Allergy Active Substance with sulfonamide structure and antibacterial mechanism of action (substance) Sulfa Antibiotics Unknown Drug Allergy Active Results Component Value Reference Range Notes HEMOGLOBIN A1C (GLYCOHEMOGLO BIN) Reviewed date:09/05/2024 08:42:32 [...] Polyneuropathy due to type 2 diabetes mellitus (273098611) Type 2 diabetes mellitus with diabetic polyneuropathy (E11.42) Active confirmed Problem Acquired hammer toe of right foot (0797207639195483 ) Other hammer toe(s) (acquired), right foot (M20.41) Active confirmed Problem Acquired hammer toe of left foot (5867990575421746 ) Other hammer toe(s) (acquired), left foot [...] Ordered Date Performed Result Body Sit e 07181-XVWAGWG NAIL, 6 OR MORE 09/05/2024 N/A 67318-HPCG SKIN LESIONS, 2 TO 4 09/05/2024 N/A 71576-EYDYFXC NAIL, 6 OR MORE 12/15/2024 N/A 52105-IMG 12/15/2024 N/A 58897-ZETY SKIN LESIONS, 2 TO 4 12/15/2024 N/A 50269-QJMPAZD SKIN/TISSUE 01/09/2025 N/A Encounters Encounter Location Date Provider Diagnosis [address] [address] 09/05/2024 Nallely Bowen Other hammer toe(s) (acquired), right foot M20.41 ; Other hammer toe(s) (acquired), left foot M20.42 ; Type 2 diabetes mellitus with diabetic polyneuropathy E11.42 and Tinea unguium B35.[address] [address] 12/15/2024 Nallely Bowen Type 2 diabetes mellitus with diabetic polyneuropathy E11.42 ; Tinea unguium B35.1 and Ingrown nail L60.[address] [address] 01/09/2025 Nallely Bowen Skin ulcer of toe of left foot with fat layer exposed L97.[address] [address] 03/16/2025 Nallely Bowen Type 2 diabetes mellitus [...] E11.42) 09/05/2024 Tinea unguium (ICD-10 - B35.1) 01/09/2025 Other Patient Educated with: WOUND CARE INSTRUCTIONS. pdf (WOUND CARE INSTRUCTIONS. pdf) Plan Of Treatment Pending Test Test Name Order Date X ray : Foot, left 2V 12/25/2016 X ray : Foot, right 2V 12/25/2016 55792-IGXMPWK NAIL, 6 OR MORE 04/16/2017 93742-VPUVIOL NAIL, 6 OR MORE 07/09/2017 38785-LXWSJJJ NAIL, 6 OR MORE 10/01/2017 22162-TBAVXRZ NAIL, 6 OR MORE 02/05/2017 98381-FFLTYDR NAIL, 6 OR MORE 11/24/2016 57187-TCKZVRK NAIL, 6 OR MORE 12/18/2014 60258-LETANVJ NAIL, 6 OR MORE 03/12/2015 72650-TNXIHIY NAIL, 6 OR MORE 06/04/2015 57692-RZAWQMY NAIL, 6 OR MORE 11/12/2015 15240-CPCECSI NAIL, 6 OR MORE 02/11/2016 84417-UAAPRKO NAIL, 6 OR MORE 05/19/2016 56138-DPJAIHF NAIL, 6 OR MORE 08/25/2016 24567-GVBYTXO NAIL, 6 OR MORE 06/09/2011 28649-TELZIOD NAIL, 6 OR MORE 09/11/2011 50636-XBPVSPD NAIL, 6 OR MORE 09/25/2011 95074-ETJABGK NAIL, 6 OR MORE 12/01/2011 90266-QSLDTNR NAIL, 6 OR MORE 03/01/2012 19597-NJAJMCO NAIL, 6 OR MORE 05/31/2012 79877-GFBLIIT NAIL, 6 OR MORE 09/06/2012 72446-GNQUQTD NAIL, 6 OR MORE 12/06/2012 34341-FRPTPOZ NAIL, 6 OR MORE 04/18/2013 01003-SLCGIWK NAIL, 6 OR MORE 07/11/2013 92736-IDDWSHD NAIL, 6 OR MORE 10/17/2013 02922-MZMFTVD NAIL, 6 OR MORE 01/09/2014 03215-TFPQBMW NAIL, 6 OR MORE 04/03/2014 83221-HXUWZZO NAIL, 6 OR MORE 06/26/2014 39346-SVHMNDC NAIL, 6 OR MORE 09/21/2014 95731-XUAJRQE NAIL, 6 OR MORE 12/24/2017 60985-OAKZLJB NAIL, 6 OR MORE 03/04/2018 50262-NZPMYGE NAIL, 6 OR MORE 05/27/2018 73043-IZORJXF NAIL, 6 OR MORE 08/02/2018 94251-HNQOQNG NAIL, 6 OR MORE 09/05/2024 30865-KJWYHQJ NAIL, 6 OR MORE 12/15/2024 73081-Ocxjwqfy Plate 11/05/2020 07192-Zzdhkung Plate 02/04/2021 56908-Wgxzfnnw Plate 05/06/2021 10251-Mnubxohd Plate 02/06/2020 94100-Sygrelfn Plate 12/24/2017 69107-Ivohrrvs Plate 05/27/2018 25352-Qlnlpujd Plate 06/26/2014 09700-Nsblgejd Plate 07/11/2013 51153-Ogaurgpo Plate 12/06/2012 97779-Ujlaotgf Plate 06/09/2011 78493-Tpfnbuaz Plate 04/03/2014 40853-Xnsnzsaz Plate 04/12/2015 49228-Ivazdimf Plate 08/25/2016 66043-Efxiynsn Plate 04/16/2017 33004-BRG 12/15/2024 40375- Debride <25 sq cm 09/25/2011 85272-UVVXPVI SKIN/TISSUE 01/09/2025 22400 I&D ABSCESS- SIMPLE,SINGLE 018 04261 I&D ABSCESS- SIMPLE,SINGLE 013 90175 I&D ABSCESS- SIMPLE,SINGLE 012 52910 I&D ABSCESS- SIMPLE,SINGLE 012 78680 I&D ABSCESS- SIMPLE,SINGLE 015 10028-NGOU SKIN LESIONS, OVER 4 05/07/20 20 30995-NEEZ SKIN LESIONS, OVER 4 11/12/19 65394-QUBC SKIN LESIONS, 2 TO 4 08/01/20 18999-IBBX SKIN LESIONS, 2 TO 4 05/06/20 21 48999-DACZ SKIN LESIONS, 2 TO 4 02/05/20 21 02116-MYJO SKIN LESIONS, 2 TO 4 12/07/19 24 57992-YODG SKIN LESIONS, 2 TO 4 12/16/19 74068-CBVP SKIN LESIONS, 2 TO 4 09/05/19 85320-EXMD SKIN LESIONS, 2 TO 4 08/06/20 53378-TMCH SKIN LESIONS, 2 TO 4 11/06/19 41399-NYWN SKIN LESIONS, 2 TO 4 11/02/19 45532-NHOF SKIN LESIONS, 2 TO 4 02/01/20 19 59295-YHXP SKIN LESIONS, 2 TO 4 05/02/20 19 65172-BVHU SKIN LESIONS, 2 TO 4 08/08/20 19 04624-XWUK SKIN LESIONS, 2 TO 4 11/07/19 83968-GZKU SKIN LESIONS, 2 TO 4 02/06/20 36192-RKCY SKIN LESIONS, 2 TO 4 05/27/20 18 40330-NNBA SKIN LESIONS, 2 TO 4 03/04/20 18 50318-XSVM SKIN LESIONS, 2 TO 4 08/02/20 18 12054-TLMR SKIN LESIONS, 2 TO 4 06/04/20 15 35669-HNBU SKIN LESIONS, 2 TO 4 03/12/20 15 40822-HXER SKIN LESIONS, 2 TO 4 12/19/19 15 33123-LZCU SKIN LESIONS, 2 TO 4 08/25/19 17 33108-MBHS SKIN LESIONS, 2 TO 4 05/19/20 16 83246-AUYP SKIN LESIONS, 2 TO 4 02/11/20 16 25383-PQSR SKIN LESIONS, 2 TO 4 11/12/19 16 65671-LWLR SKIN LESIONS, 2 TO 4 07/09/20 17 30841-DZKB SKIN LESIONS, 2 TO 4 12/25/19 18 50707-YAPQ SKIN LESIONS, 2 TO 4 10/01/19 18 47627-BVMM SKIN LESIONS, 2 TO 4 11/25/19 17 33242-HBJV SKIN LESIONS, 2 TO 4 04/16/20 17 80549-PVML SKIN LESIONS, 2 TO 4 02/06/20 17 20472-PBEV SKIN LESIONS, 2 TO 4 09/25/19 12 65095-SXDV SKIN LESIONS, 2 TO 4 12/01/19 12 08146-UTGS SKIN LESIONS, 2 TO 4 09/11/19 12 96349-EUDQ SKIN LESIONS, 2 TO 4 12/07/19 13 75842-SHTJ SKIN LESIONS, 2 TO 4 09/06/19 13 92192-UGIH SKIN LESIONS, 2 TO 4 05/31/20 12 32076-AXYL SKIN LESIONS, 2 TO 4 03/01/20 12 91101-FUZT SKIN LESIONS, 2 TO 4 04/18/20 13 74674-OVPH SKIN LESIONS, 2 TO 4 07/11/20 13 97444-ABTX SKIN LESIONS, 2 TO 4 10/17/19 14 60329-HNSO SKIN LESIONS, 2 TO 4 09/21/19 15 83951-ROKT SKIN LESIONS, 2 TO 4 04/03/20 14 40513-JAWE SKIN LESIONS, 2 TO 4 01/10/20 14 67688-Wgwm. Subungual Hematoma 4 74687,C3897-ONW TENDON SHEATH/LIGAMENT 0 12/25/2016 Next Appt Details Provider Name:Nallely Avitia erika, 06/15/2025 09:15:00 AM, [address] [facility] [facility], [address], [place], [address], Insurance Providers Payer Name Payer Address Payer Phone Subscriber Number Group Number Insured Name Patient Relationship to Insured Coverage Start Date Coverage End Date Medicare National [employer] [address] [place] [address] [id number] Mihai Herrera Self - patient is the insured [facility] [address] [place] [address] [id number] Mihai Herrera Self - patient is the insured Medical (General) History Medical History History ICD Code chicken pox diabetic hypertension mumps measles Surgical History Surgery Date(Month/Year) arm 1987 hand/wrist 1987 tonsillectomy 1958 umbilical hernia 06/2024
--- OUTSIDE RECORDS SUMMARY | 2025-06-07 14:08 | XMS_ITS | Patient Health Record ---
Author Organization [facility] Address [address] [place] [address] Care Team Providers Care Talent Consultant Name Role Phone Maria Isabel Munoz [...] Status Risk Notes Problem Colon cancer screening (714613220) Colon cancer screening (Z12.11) Active confirmed Problem Long-term current use of antiplatelet drug (840460580396425) Long-term use of aspirin therapy (Z79.82) Active confirmed Vital Signs Temperature 98.6 degrees Fahrenheit 03/15/2025 Blood pressure diastolic 01 mm Hg 03/15/2025 Height 74 in 03/15/2025 Blood pressure systolic 001 mm Hg 03/15/2025 Weight 234.6 lbs 03/15/2025 BMI 30.12 kg/m2 03/15/2025 Encounters Encounter Location Date Provider Diagnosis [facility] [address] [place] [address] 03/15/2025 Javier Steward Jr Colon cancer screening Z12.11 and Long-term use of aspirin therapy Z79.82 [facility] [address] [place], [place] [address] [place] [address] 03/15/2025 Javier Steward Jr [facility] [address] [place] [address] 03/16/2025 aJvier Steward Jr Colon cancer screening Z12.11 [facility] [address] [place] [address] 03/27/2025 Javier Steward Jr Assessments Encounter Date [...] OF [place] PADMINI CARO [address] [address] [id number] CHRISTIANA MONTGOMERY Self - patient is the [facility] [address] [place] [address] [id number] [place]RIST[place] MONTGOMERY Self - patient is the insured 5 Medical (General) History Medical History History ICD Code diabetes chronic kidney disease hypertension hyperlipidemia varicose veins Surgical History Surgery Date(Month/Year) hernia 07/16 pin in right arm tonsillectomy and adenoidectomy
--- OUTSIDE RECORDS SUMMARY | 2025-06-07 14:08 | XMS_ITS | Clinical Summary ---
Author Organization [facility] Address [address] [address] Phone Care Team Providers Care Tester [employer] Name Role Phone Maria Isabel Munoz MD Primary Care Provider [phone] Allergies Active Allergy Reactions Criticality Noted Date [...] Visit [facility] [address] [address] Ana Luisa Lynne ARNP Stage 3a chronic kidney disease (HCC) (Primary Dx); Hypertension 05/24/2025 Orders Only [facility] [address] [address] Jaydon Brunson MD 04/17/2025 Orders Only [facility] [place] [id number] [address] Jaydon Brunson MD Stage 3a chronic kidney [...] Office Visit [facility] [address] [phone] Ana Luisa Lynne ARNP [address] [address] Health Maintenance Due Date Last [...] Result (05/24/2025 10:20 AM EDT) Result Comment [facility] Comment: Culture shows less than 10,000 colony forming units of bacteria per milliliter of urine. This colony count is not generally considered to be clinically significant. 05/24/2025 10:2 0 AM EDT 05/24/2025 us Jaydon Brunson MD LAB MICROBIOLOGY - GENERAL OR DERABLES Final Result [facility] [address], [address] [place] [address] * Protein, Total, Random Urine w/Creatinine (Protein/Creat Ratio) (05/24/2025 10:20 AM EDT) Creatinine, Ur 107.6 Not Estab. mg/dL [facility] Protein, Ur 17.5 Not Estab. mg/dL [facility] Urine Protein/Creatin ine Ratio 163 0 - 200 mg/g creat [facility] Urine specimen (specimen) Urine specimen obtained by clean catch procedure / Unknown 05/24/2025 10:20 AM EDT 05/24/2025 Comment: Jaydon Brunson MD LAB URINE ORDERABLES Final Re sult Performing Organization Address City/[facility]/ZIP Co de Phone Number [facility] [address] [place] [address] * Urine Albumin / Creatinine Ratio (05/24/2025 10:20 AM EDT) Albumin, Urine 17.6 Not Estab. ug/mL [facility] Albumin/Creatin ine Ratio 16 0 - 29 mg/g creat [facility] Comment: Normal: 0 - 29 Moderately increased: 30 - 300 Severely increased: >300 Urine specimen (specimen) Urine specimen obtained by clean catch procedure / Unknown 05/24/2025 10:20 AM EDT 05/24/2025 Comment: Jaydon Brunson MD LAB URINE ORDERABLES Final Re sult Performing Organization Address [facility] de Phone Number [facility] [address] [place] [address] * Vitamin D 25 Hydroxy (05/24/2025 10:20 AM EDT) Vitamin D, 25-OH, Total 33.5 30.0 - 100.0 ng/mL [facility] Comment: Vitamin D deficiency has been defined by the [place] of Medicine and an Endocrine Society practice guideline as a level of serum 25-OH vitamin D less than 20 ng/mL (1,2). The Endocrine Society went on to further define vitamin D insufficiency as a level between 21 and 29 ng/mL (2). 1. IOM ([place] of Medicine). 2010. Dietary reference intakes for [...] BLOOD ORDERABLES Final Re sult [facility] [address] [place] [address] * (ABNORMAL) Urinalysis (05/24/2025 10:20 AM EDT) Specific [place], Urine >=1.030(A) 1.005 - 1.030 [facility] pH Urine 6.0 5.0 - 7.5 [facility] Color, Urine Yellow Yellow [facility] Appearance Urine Clear Clear [facility] WBC Esterase Urine Negative Negative [facility] Protein, Ur Trace Negative/Tra ce [facility] Glucose, Ur 3+(A) Negative [facility] Ketones, Urine Negative Negative [facility] [phone] Blood Urine Negative Negative [facility] [phone] Bilirubin Urine Negative Negative [facility] Urobilinogen Urine 0.2 0.2 - 1.0 mg/dL [facility] Nitrite, Urine Negative Negative [facility] Microscopic Examination Comment [facility] Comment:Microscopic not raul cated and not performed. 05/24/2025 10:2 0 AM EDT 05/24/2025 Comment:OSIEL Jaydon Brunson MD LAB URINE ORDERABLES Final Re sult [facility] [address] [place] [address] * (ABNORMAL) CBC (05/24/2025 10:20 AM EDT) WBC 4.7 3.4 - 10.8 x10E3/uL [facility] RBC 4.54 4.14 - 5.80 x10E6/uL [facility] Hemoglobin 14.9 13.0 - 17.7 g/dL [facility] Hematocrit 45.1 37.5 - 51.0 % [facility] MCV 99(H) 79 - 97 fL [facility] MCH 32.8 26.6 - 33.0 pg [facility] MCHC 33.0 31.5 - 35.7 g/dL [facility] RDW 13.4 11.6 - 15.4 % [facility] Platelets 143(L) 150 - 450 x10E3/uL [facility] Blood specimen (specimen) Venous blood / Unknown 05/24/2025 10:20 AM EDT 05/24/2025 Jaydon Brunson MD LAB BLOOD ORDERABLES Final Re sult [facility] [address] [place] [address] * Urine Culture (05/24/2025 10:20 AM EDT) Culture Result, Urine Final report [facility] Urine specimen (specimen) Urine specimen obtained by clean catch procedure / Unknown 05/24/2025 10:20 AM EDT 05/24/2025 Comment:UC Jaydon Brunson MD LAB URINE ORDERABLES Final Re sult [facility] [address] [place] [address] * PTH, Intact (05/24/2025 10:20 AM EDT) PTH 34 15 - 65 pg/mL [facility] Blood specimen (specimen) Venous blood / Unknown 05/24/2025 10:20 AM EDT 05/24/2025 Comment: Jaydon Brunson MD LAB BLOOD ORDERABLES Final Re sult Performing Organization Address City/[facility]/ZIP Co de Phone Number [facility] [address] [place] [address] * Magnesium (05/24/2025 10:20 AM EDT) Magnesium 2.0 1.6 - 2.3 mg/dL [facility] Blood specimen (specimen) Venous blood / Unknown 05/24/2025 10:20 AM EDT 05/24/2025 Comment: Jaydon Brunson MD LAB BLOOD ORDERABLES Final Re sult [facility] [address] [place] [address] * (ABNORMAL) Renal Function Panel (05/24/2025 10:20 AM EDT) Glucose 133(H) 70 - 99 mg/dL [facility] BUN 21 8 - 27 mg/dL [facility] Creatinine 1.41(H) 0.76 - 1.27 mg/dL [facility] eGFR CKD-EPI CR 2020 53(L) >59 mL/min/1.7 3 [facility] BUN/Creatinine Ratio 15 10 - 24 [facility] Sodium 142 134 - 144 mmol/L [facility] Potassium 4.5 3.5 - 5.2 mmol/L [facility] Chloride 104 96 - 106 mmol/L [facility] Bicarbonate (CO2) 22 20 - 29 mmol/L [facility] Calcium 8.9 8.6 - 10.2 mg/dL [facility] Albumin 3.9 3.8 - 4.8 g/dL [facility] Phosphorus 3.3 2.8 - 4.1 mg/dL [facility] Blood specimen (specimen) Venous blood / Unknown 05/24/2025 10:20 AM EDT 05/24/2025 Comment:UC Jaydon Brunson MD LAB BLOOD ORDERABLES Final Re sult [facility] [address] [place] [address] * Hemoglobin A1c (09/15/2019 5:40 PM EST) [...] average glucose, using the formula of the N4I-Sryokuc Average Glucose study (ADAG), Diabetes Care, Vol.31,#8, Mar. 2007 09/15/2019 5:40 PM EST us Maria Isabel Munoz MD LAB BLOOD ORDERABLES Final Resu lt ASHLEY from Last 3 Months or Most Recently Relevant to Health Maintenance Insurance Member Subscriber Plan / Payer (Ef fective 2019-Present) Name:Mihai Herrera Relation to Subscriber:Self Name:Mihai Herrera Payer ID:Not on file Type:Not on file Address: [address] [phone] [place] [address] Health Medicare Care Teams Tester [employer] Relationship Specialty Start Date End Date Maria Isabel Munoz MD [address] [place] [phone] PCP - General Internal Medicine 01/29/21
== END 2025-06-07 12:41 | disposition home or self-care (01) ==
PROVIDERS: PCP Internal Medicine; Visit Provider Physician Assistant Medical
DX: M79.89 Other specified soft tissue disorders (principal); M79.662 Pain in left lower leg

== ENCOUNTER 2025-06-07 14:43 | Outpatient (REF) | payer MEDICARE, OTHER, SELFPAY ==
--- NOTE | ~2025-06-07 | US_ITS ---
EXAMINATION: US TRIPLEX LOWER EXTREMITY, LEFT CLINICAL INFORMATION: M79.605 - Pain in left leg r/o dvt COMPARISON: None available. TECHNIQUE: Color-flow triplex imaging with spectral analysis and compression Doppler were performed on the left lower extremity. FINDINGS: Respiratory variation, normal compression and augmented flow are noted throughout the left lower extremity. The visualized common femoral vein, greater saphenous vein, femoral vein, profunda femoral vein, popliteal vein and midcalf peroneal and posterior tibial venous segments show no evidence of deep venous thrombosis. Contralateral right common femoral vein was also evaluated, and was patent. Area of pain indicated by the patient in the left lateral calf was also evaluated. Survey did not reveal fluid collections or other sonographic abnormality. US/US venous duplex LE IMPRESSION: No evidence of deep venous thrombosis involving the left lower extremity. Electronically signed by: Amol Moses MD 06/07/2025 03:11 PM EDT
== END 2025-06-07 14:44 | disposition home or self-care (01) ==
LOC: HO.HMGCX 14:43
PROVIDERS: PCP Internal Medicine; Visit Provider Physician Assistant Medical
DX: M79.89 Other specified soft tissue disorders (principal); M79.662 Pain in left lower leg
CPT/HCPCS: 93971; 99212

== ENCOUNTER → 2025-06-07 14:46 | Outpatient (BNV) | payer MEDICARE, OTHER, SELFPAY | PROVIDERS: PCP Internal Medicine; Visit Provider Radiology Body Imaging | DX: M79.605 Pain in left leg (principal) | CPT/HCPCS: 93971 ==

== ENCOUNTER 2025-06-11 08:48 | Outpatient (AMB) | payer MEDICARE, OTHER, SELFPAY ==
[2025-06-11 08:54] VITALS: BP 124/80; PULSE 50; RESP 17; TEMP 37.2; O2SAT 96; BMI 30.3
--- NOTE | 2025-06-11 08:54 | MHC.PC.OV ---
Vital Signs 06/11/25 08:54 Height 6 ft 2 in Weight 236 lb BMI 30.3 BP 124/80 Blood Pressure Location Lt brachial Position Sitting Respiration 17 Pulse 50 Pulse Source Pulse Oximeter Temp 98.9 F Temp Source Oral Pulse Oximetry (%) 96 Oxygen Delivery Method Room Air Intake Visit Reasons: 6 months f/up Intake Note: Pt is here today for 6 months follow up visit. Allergies niacin (NIACIN) Allergy (Mild, Verified 06/11/25 08:57) ITCHING, itchy, itchy Igsymwj-WJR-RiY Reductase Inhibitor ([id number] REDUCTASE INHIBITOR) Allergy (Unknown, Verified 06/11/25 08:57) HIGH CPK atorvastatin (Lipitor) Adverse Reaction (Unknown, Verified 06/11/25 08:57) high CPK Medication List - Last Reconciled 06/11/25 by Maria Isabel Munoz MD acetone (urine) test (Ketone Urine Test strips) prn glucose over 250, nausea, vomiting or illness. discard after open 6 months ascorbic acid (vitamin C) 500 mg PO BID aspirin 81 mg PO DAILY calcium carbonate-vitamin D3 600 mg-5 mcg (200 unit) (Calcium 600 + D(3)) 1 cap PO DAILY cholecalciferol (vitamin D3) 25 mcg PO Q OTHER DAY dapagliflozin propanediol (Farxiga) 10 mg PO DAILY docusate sodium (Colace) 100 mg PO BID ezetimibe 10 mg PO DAILY ferrous sulfate (FeroSul) 325 mg PO Q OTHER DAY fluticasone propionate 50 mcg/actuation 1 spray intranasal DAILY glucosamine HCl 750 mg PO DAILY insulin glargine (Lantus U-100 Insulin) 50 units (0.5 mL) subcut DAILY PRN insulin lispro (Admelog U-100 Insulin lispro) Infuse up to 110 units via insulin pump subcutaneously daily; 90 days irbesartan 300 mg PO DAILY metformin ER 500 mg PO BID nebivolol 2.5 mg PO DAILY rosuvastatin 10 mg PO BEDTIME spironolactone 25 mg PO DAILY Tobacco use date assessed: 06/11/25 Fall risk assessment: 1 Fall in past year Last assessed Fall Risk: 06/11/25 Dental Screening Dental Screen Date: 12/07/24 HPI 6 months f/up HPI Details Patient presents for the follow-up of insulin-dependent diabetes hyperlipidemia chronic kidney disease stage 3 hypertension stable on current medications. Patient tripped and fell injuring his left lower extremity. He developed subcutaneous hematoma and had negative for DVT venous ultrasound . He complains of persistent discomfort when sitting but not when walking. [facility] Medical History Abdominal distension Hearing loss Annual physical exam Overweight (BMI 25.0-29.9) B12 deficiency jail (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 Diabetic polyneuropathy associated with type 2 diabetes mellitus Varicose vein of leg Osteoarthritis CKD (chronic kidney disease), stage III Umbilical hernia Peripheral neuropathy Hypokalemia Obstructive sleep apnea Anemia B-complex deficiency Hypercholesterolemia HTN (hypertension) Diabetes type 2, controlled Surgical History (Updated 06/11/25 @ 09:11 by Maria Isabel Munoz MD) Umbilical hernia (07/07/24) History of colonoscopy Family History Father Diabetes mellitus CAD (coronary artery disease) HTN (hypertension) Mother Stroke Pancreatic cancer HTN (hypertension) Maternal Grandfather Abdominal aortic aneurysm CVD (cardiovascular disease) Maternal Grandmother Abdominal aortic aneurysm Paternal Grandfather CVD (cardiovascular disease) Paternal Grandmother No problems noted. Brother Diabetes mellitus Brother No problems noted. Brother No problems noted. Son No problems noted. Son No problems noted. Daughter No problems noted. Sister Hodgkins disease Social History Household Members: Spouse Housing: House Alcohol intake: current Alcohol intake frequency: 0-2 drinks per day Patient Tobacco Use Status: Never used Tobacco e-Cigarette/Vaping Use: Never Used service: No Current occupational status: retired Cognitive needs: No Hearing needs: Yes Vision needs: Yes Questionnaire PHQ-9 Over the last 2 weeks, how often have you been bothered by any of the following problems? 1. Little interest or pleasure in doing things: not at all 2. Feeling down, depressed, or hopeless: not at all 3. Trouble falling or staying asleep, or sleeping too much: not at all 4. Feeling tired or having little energy: not at all 5. Poor appetite or overeating: not at all 6. Feeling bad about yourself - or that you are a failure or have let yourself or your family down: not at all 7. Trouble concentrating on things, such as reading the newspaper or watching television: not at all 8. Moving or speaking so slowly that other people could have noticed. Or the opposite - being so fidgety or restless that you have been moving around a lot more than usual: not at all 9. Thoughts that you would be better off or of hurting yourself in some way: not at all Total score: 0 Depression Screening Interpretation: Negative Depression Screening Done: Yes Source: Developed by Drs. Vern Gilbert, Thea Vela, Kailash Caal and colleagues, with an educational roopa from [employer]. Thrive Questionnaire Date Thrive assessed: 11/30/24 I am a: Patient What is your living situation today?: I have a steady place to live Within the past 12 months, did the food you bought not last and you didn't have the money to get more?: Never true Within the past 12 months, did you worry whether your food would run out before you got money to buy more?: Never true Do you have trouble paying for medicines?: No Do you have trouble getting transportation to medical appointments?: No Do you have trouble paying your heating and electricity bill?: No Do you have trouble taking care of your child, family member or friend?: No Do you have trouble with day-to-day activities such as bathing, preparing meals, shopping, managing finances, etc.?: No Are you currently unemployed and looking for a job?: No Are you interested in more education?: No Please select the resources that you would like help with: None Currently or been in a relationship where the following occur: No concerns reported THRIVE Score: 0 TEA-7 AMB Questionnaire TEA-7 Date TEA - 7 assessed: 12/07/24 Feeling nervous, anxious, or on edge: 0 = Not at all Not being able to stop or control worryin = Not at all Worrying too much about different things: 0 = Not at all Trouble relaxin = Not at all Being so restless that it is hard to sit still: 0 = Not at all Becoming easily annoyed or irritable: 0 = Not at all Feeling afraid as if something awful might happen: 0 = Not at all Total TEA-7 score (0-4 normal; 5-9 mild; 10-14 moderate; 15-21 severe): 0 Source: Developed by Drs. Vern Gilbert, Thea Vela, Kailash Caal and colleagues, with an educational roopa from [employer]. Review of Systems Const All systems reviewed & are unremarkable except as noted in HPI and below Eyes Reports no additional complaints ENT Reports no additional complaints Card Reports no additional complaints Resp Reports no additional complaints GI Reports no additional complaints Reports no additional complaints Physical exam (Primary Care) Vital Signs: Last Vital Signs Temp 98.9 F 06/11/25 08:54 Pulse 50 06/11/25 08:54 Resp 17 06/11/25 08:54 BP 124/80 06/11/25 08:54 Pulse Ox 96 06/11/25 08:54 Oxygen Delivery Method Room Air 06/11/25 08:54 BMI result Body Mass Index 30.3 Tobacco/Smoking Status: Tobacco use Status Tobacco use date assessed 06/11/25 06/11/25 08:58 Patient Tobacco Use Status Never used Tobacco 06/11/25 08:58 e-Cigarette/Vaping Use Never Used 06/11/25 08:58 PHQ-9: PHQ-9 Score PHQ-9: Total score 0 06/11/25 08:59 Depression Screening Interpretation: Negative Thrive Assessment: Date of Thrive Assessment Date Thrive assessed 11/30/24 06/11/25 08:58 Currently or been in a relationship where the following occur: No concerns reported Const General: no acute distress HENMT Head: Yes normal to inspection General nose exam: Normal external nose present Face and sinus: Yes normal facial exam Mouth: Normal oral and palatal mucosa present Throat: Yes posterior oropharynx normal Eyes General: appearance normal, both eyes and all related structures Neck Neck: Yes no lymphadenopathy and Yes supple Resp Effort & Inspection: normal respiratory effort Auscultation: clear to auscultation bilaterally Cardio Rhythm: regular rhythm Heart sounds: S1 normal heart sound present and S2 normal heart sound present GI Inspection: Yes normal to inspection Palpation (GI): Soft to palpation Percussion: Yes normal to percussion Auscultation: normal bowel sounds Coding Level of Care Code Est Pt Level 4 (51784) Diagnoses Diabetes type 2, controlled E11.9 Hypertension due to endocrine disorder I15.2 Hypertension type: secondary to endocrine disorders Hypercholesterolemia E78.00 Stage 3a chronic kidney disease N18.31 Chronic kidney disease stage 3 subtype: stage 3a (GFR 45-59) Assessment & Plan Assessment & Plan (1) Diabetes type 2, controlled: Comment: rGupo for renoprotection Dr. Bobo, on insulin pump, established with [facility] Code(s): E11.9 - Type 2 diabetes mellitus without complications Category: Medical Plan: A1c is 6.3. Continue current medications patient is established with hat measurer every 3 months (2) HTN (hypertension): Code(s): I10 - Essential (primary) hypertension Category: Medical Qualifiers: Hypertension type: secondary to endocrine disorders Qualified Code(s): I15.2 - Hypertension secondary to endocrine disorders Plan: Continue current medications (3) Hypercholesterolemia: Code(s): E78.00 - Pure hypercholesterolemia, unspecified Category: Medical Plan: Continue current medications (4) CKD (chronic kidney disease), stage III: Comment: Dr. Bobo Code(s): N18.30 - Chronic kidney disease, stage 3 unspecified Category: Medical Qualifiers: Chronic kidney disease stage 3 subtype: stage 3a (GFR 45-59) Qualified Code(s): N18.31 - Chronic kidney disease, stage 3a Plan: Avoid nephrotoxins monitor renal function follow-up with certified retinal angiographer. Patient will return for physical in 6 months Orders: Orders Comprehensive Met. 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 Complete Blood Count Auto Diff 6 Months E11.42 - Type 2 diabetes mellitus with diabetic polyneuropathy, E78.00 - Pure hypercholesterolemia, unspecified, I15.2 - Hypertension secondary to endocrine disorders, R00.1 - Bradycardia, unspecified, Z79.4 - jail (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 Lipid 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.4 - jail (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 Hemoglobin A1c 6 Months E11.42 - Type 2 diabetes mellitus with diabetic polyneuropathy, E78.00 - Pure hypercholesterolemia, unspecified, I15.2 - Hypertension secondary to endocrine disorders, R00.1 - Bradycardia, unspecified, 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 UA w Microscopic 6 Months E11.42 - Type 2 diabetes mellitus with diabetic polyneuropathy, E78.00 - Pure hypercholesterolemia, unspecified, I15.2 - Hypertension secondary to endocrine disorders, R00.1 - Bradycardia, unspecified, Z79.4 - jail (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 IRON PROFILE 6 Months E11.42 - Type 2 diabetes mellitus with diabetic polyneuropathy, E78.00 - Pure hypercholesterolemia, unspecified, I15.2 - Hypertension secondary to endocrine disorders, R00.1 - Bradycardia, unspecified, 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
== END 2025-06-11 10:16 | disposition home or self-care (01) ==
LOC: HO.HMCC 08:49
PROVIDERS: PCP Internal Medicine; Visit Provider Internal Medicine
DX: E11.9 Type 2 diabetes mellitus without complications (principal); I15.2 Hypertension secondary to endocrine disorders; E78.00 Pure hypercholesterolemia, unspecified; N18.31 Chronic kidney disease, stage 3a

== ENCOUNTER → 2025-06-11 08:48 | Outpatient (BNVA) | payer MEDICARE, OTHER, SELFPAY | PROVIDERS: PCP Internal Medicine; Visit Provider Internal Medicine | DX: E11.22 Type 2 diabetes mellitus with diabetic chronic kidney disease (principal); E11.42 Type 2 diabetes mellitus with diabetic polyneuropathy; I15.2 Hypertension secondary to endocrine disorders; E78.00 Pure hypercholesterolemia, unspecified; N18.31 Chronic kidney disease, stage 3a; R00.1 Bradycardia, unspecified; Z79.4 Long term (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 | CPT/HCPCS: 96127; 99212 ==

== ENCOUNTER 2025-08-22 09:20 | Outpatient (REF) | payer MEDICARE, OTHER, SELFPAY ==
--- OUTSIDE RECORDS SUMMARY | 2024-03-10 03:30 | XMS_ITS ---
Author Organization [facility] Address [address] [place] [address] Care Team Providers Care Consultant Intern Name Role Phone Maria Isabel Munoz MD Primary Care Provider UnavailNallely Canales Unavailable [phone] Nayan May Unavailable [phone] Tello Encounters Encounter Location Date Provider Diagnosis [address] [id number] 03/10/2024 Nayan May Plan Of Treatment Next Appt Details Provider Name:Nallely Sadi james, 09/14/2025 09:00:00 AM, [address] [place] [address], [phone], Progress Notes * Mihai MONTGOMERY PDOB: (70 yo M)Acc No.[id number]:03/10/2024 Progress Note Patient: Susanna Mihai ROMERO Provider: Alysha Luther DPM :1955 A ge:68 Y S ex:Male Date:03/10/2024 Address:[address] [place], [place] [id number] Pcp:Maria Isabel Munoz MD Subjective: * Chief Complaints: * [address] Tello. * Medical History: Objective: * Vitals: Assessment: Plan: * Treatment: * Images: * The named appointment provid er may or may not be the originator of this progress note, and it is not deemed complete until electronically signed by the appointment provider. Sign off status: Pending * Provider: Alysha Luther DPM Date: 0 03/10/2024 Generated for Ritchie Chawla/Linda on: 09:33 AM EST
--- OUTSIDE RECORDS SUMMARY | 2025-08-22 09:34 | XMS_ITS | Patient Health Record ---
Author Organization [facility] Address [address] [place] [id number] Care Team Providers Care Aoc Director Intelligence Officer Name Role Phone Maria Isabel Munoz MD Primary Care Provider Javier De León Jr Unavailable [phone] Allergies Allergen (clinical drug ingredient) Drug/Non Drug Allergy documented on EMR Reaction Allergy Type Onset Date Status atorvastatin Lipitor Unknown Drug Allergy Acti ve niacin Niacin Unknown Drug Allergy Active Reason For Referral No Information Medications Medication SIG (Take, Route, Frequency, Duration) Notes Start Date End Date Status Calcium 600+D 600-200 MG-UNIT Tablet and k 1 tablet Orally Once a day Active HumaLOG 100 UNIT/ML Solution as directed Subcutaneous Act macarena Coenzyme Q-10 300 mg 1 capsule with a me al Orally Once a day Active metFORMIN HCl ER 500 MG Tablet Extended Release 24 Hour 1 tablet with evening meal Orally twice a day Active Glucosamine 750 MG Tablet as directed Orally Active Bystolic 2.5 MG Tablet 2 tablets Orally Once a day; Duration: 30 day(s) Active Iron 325 (65 Fe) MG Tablet 1 tablet Oral ly Once a day; Duration: 30 day(s) Active Irbesartan 300 MG Tablet 1 tablet Orally Once a day; Duration: 30 day(s) Active Vitamin C 1000 MG Tablet 1 tablet Orally Once a day; Duration: 30 day(s) Active Betamethasone - Powder as directed Active Spironolactone 25 MG Tablet 1 tablet Ora lly Once a day; Duration: 30 days Active Vitamin B-12 5000 MCG Lozenge as directed Orally Active Zetia 10 MG Tablet 1 tablet Orally Once a day; Duration: 30 day(s) Active Vitamin D-Vitamin K 20-120 MCG/0.1ML Liquid as directed Orally Activ e Flonase Active Coenzyme Q10 300 MG Capsule as directed Orally Active Loratadine 10 MG Tablet 1 tablet Orally Once a day; Duration: 30 day(s) Active Vitamin D 25 MCG (1000 UT) Tablet 1 tablet Orally Once a day Active Aspirin 81 81 MG Tablet Delayed Release 1 tablet Orally Once a day; Duration: 30 day(s) Active Farxiga 10 MG Tablet 1 tablet Orally Onc e a day Active Vitamin B12 500 MCG Tablet 1 tablet Oral ly Once a day Active Rosuvastatin Calcium 10 MG Tablet 1 tablet Orally Once a day Active Immunizations Vaccine Route Administration Date Status Comme nts Influenza Unknown 05/21/2019 Administered Influenza Unknown 06/13/2024 Administered Social History Tobacco Use: Social History Observation Description Date Details (start date - stop date) Never Smoker NA - NA Social History Drugs/Alcohol: Social Info Question Answer Notes Alcohol Screen Did you have a drink containing alcohol in the past year? Yes How often did you have a drink containing alcohol in the past year? 4 or more times a week (4 points) How many drinks did you have on a typical day when you were drinking in the past year? 1 or 2 drinks (0 point) Points 4 Interpretation Positive Tobacco Use: Social Info Question Answer Notes Tobacco Use/Smoking Patient is a nonsmoker Additional Details Category Social Info Options Details Miscellaneous: Marital status: Occupation: works Section Notes: glass of wine at dinner glass of wine at dinner Problems Problem Type SNOMED Code ICD Code Onset Dates Problem Status W/U Status Risk Notes Problem Colon cancer screening ([id number]) Colon cancer screening (Z12.11) Active confirmed Problem Long-term current use of antiplatelet drug ([id number]) Long-term use of aspirin therapy (Z79.82) Active confirmed Vital Signs Temperature 98.6 degrees Fahrenheit 03/15/2025 Blood pressure diastolic 01 mm Hg 03/15/2025 Height 74 in 03/15/2025 Blood pressure systolic 001 mm Hg 03/15/2025 Weight 234.6 lbs 03/15/2025 BMI 30.12 kg/m2 03/15/2025 Encounters Encounter Location Date Provider Diagnosis [facility] [address] [place] [phone] 03/15/2025 Javier Steward Jr Colon cancer screening Z12.11 and Long-term use of aspirin therapy Z79.82 [facility] [address] [place] [address] 03/15/2025 [facility] [address] [place] [address] 03/16/2025 Javier Steward Jr Colon cancer screening Z12.11 [facility] [address] [place], [place] [address] [place] [address] 03/27/2025 Javier Steward Jr Assessments Encounter Date [...] Date MEDICARE OF [place] [address] [place] [address] [phone] [id number] CHRISTIANA MONTGOMERY Self - patient is the insured [facility] [address] [place] [address] [id number] CHRISTIANA MONTGOMERY Self - patient is the insured 5 Medical (General) History Medical History History ICD Code diabetes chronic kidney disease hypertension hyperlipidemia varicose veins Surgical History Surgery Date(Month/Year) tonsillectomy and adenoidectomy pin in right arm hernia 07/16
--- OUTSIDE RECORDS SUMMARY | 2025-08-22 09:34 | XMS_ITS | Continuity of Care Document ---
Author Organization [facility], MARJORIE Taylaciarafrancis 3rd floor Address [address] [place] [address] Support Name Relationship Address Phone VALENTINA CHRISTIANA self [address] [place] [address] Assessment Encounter Date Assessment Date Assessment LastModified by Organization Details LastModified Time 05/28/2025 05/28/2025 Urgent Care Visit I am seeing the patient today under the supervision of Dr. Bird who was available but who did not see the patient. Chief Complaint: right scapular pain HPI: Patient is here today for evaluation of his neck and scapular pain. He had a fall where he struck the left side of his head on a coffee table. He states that he did bend his neck toward the right side. Since then he has had scapular pain. No pain with shoulder range of motion. More of a burning and tingling. Does report some numbness. No previous difficulty in the neck. No pain radiating down his elbow into his hand. Past family, medical, social history and review of systems has been reviewed, updated and signed by me and is located in the patient's chart. Examination: The patient is well appearing and in no apparent distress. Alert and oriented x3. Cervical Spine: No warmth, effusion, erythema, ecchymosis, slight limitation and reproduction of pain with lateral bending, and rotation. Full range of motion of flexion and extension no edema, 5/5 strength upper extremities, nontender paraspinal muscles, nontender spinous processes. Neurovascularly intact, +Spurlings test, negative upper limb tension test, no radicular symptoms X-rays ordered, obtained and reviewed at [facility]: 4 views of the right shoulder reveal well preserved glenohumeral joint space, no evidence of acromioclavicular arthrosis. Type I acromion. No calcifications. No os acromiale. No obvious fractures, loose bodies or dislocations. Of what is visualized of the scapula there is no fracture. Impression: Cervical radiculopathy into medial scapular border C6 distribution Plan: I explained the nature of the diagnosis with the patient and its treatment options both conservative and surgical. Conservative measures were discussed at length including but not limited to physical therapy, bracing, anti-inflammatories and injection therapies. Patient would like to try Medrol Dosepak and home exercise program. Discussed hyperglycemia with steroid medications of the patient is a diabetic. He will monitor closely. He will contact the office after the steroid medication is finished if he is still feeling radiating pain and we may image further or discuss potential physiatry appointment referral. The patient understands and agrees with the plan. They know to call if they have any further questions or concerns regarding their symptoms, or to follow up sooner if needed. [email or web address] Not available 05/28/2025 20:28:37 Plan of Treatment Reminders Order Date Submit Date Provider Name Organization Details Last Modified By Last Modified Time Details Appointments None record ed. Lab None record ed. Referral None record ed. Procedures None record ed. Surgeries None record ed. Imaging XR, should er, 2 or more view 025 14:05:0 2 025 SUZANNE Kerr [facility] [address] [facility] [address] [facility] [address], [place], [address], [facility] 5 09:22:54 MedicationOrders None record ed. VaccineOrders None record ed. Patient TargetsNo targets recorded. Patient InstructionsNo instructions recorded. Reason for Referral None Reported. Results Created Date Observation Date Name Description Value Unit Range Abnormal Flag Specimen Type Note LastModifiedBy Organization Detail LastModifiedTime 05/28/2025 05/28/2025 shoulder 4 view [email or web address]=xrLfHpnAS2bHibCDg5r%7HMYadVcrnv4gvyn%3Wp0EZk6 stBfjB8bWpNDgdzIo5SoHHMqFsmGWY1hAjVMyve24p2476QR0JboDiVEjewNuGlmZoU Not Available [facility] , [address] [address] , [place], [place] , [facility], , 05/28/2025 14:11:57 05/28/2025 05/28/2025 shoulder 4 view [email or web address]=huDzUurGO3mCzuVKx4v%0NOQrlGoeqp5yydq%7Pr2NJf0 kdMmoA5tZcTPhydFy9HxZMJbWsfNWL9iEvIHlin49z4931IO4SfnXjBCrbaEwGxpRtD Not Available [facility] , [address] [facility] [address] , [place] , [address], , 05/28/2025 14:11:59 Result Notes Documentation Provider Name and Address Organization Details Recorded Time Xr, Shoulder, 2 Or More View : [email or web address] Encrypted=guWpXibTP5hSgrT Uv6g%3ASVgqZgwiu8qpdq%2Fg 0CFh3woEosA7vDjRNiwpNu0Ol SNTgHtsPBP2aExTFvuv40l655 6XW2SarMsHUlwvUiQhfZbO Not Available [facility] 05/28/2025 14:11: 57 Xr, Shoulder, 2 Or More View : [email or web address] Encrypted=neWyOgoWL9hNjxZ Uv6g%2CAYxaGdypg4gtkz%2Fg 5LYh9duZpbW8gZlLVjzfWn2Qg NQKuZgkXLI3vMxZLqkj45b315 4VK7KfcJtXOemlJjQbxKeK Not Available [facility] 05/28/2025 14:11: 59 Problems Name Problem SNOMED Code Status Onset Date Resolution Date Notes Provider Name and Address Organization Details Recorded Time Pain of right shoulder joint [id number] 00 Active 2024 KAYLDENAE L'HEUREUX [facility] 14:04:28 Problem Notes None recorded. Medical Equipment None Reported. Allergies Allergen ID Allergen Name Allergen Category Reaction Reaction Severity Criticality Documentation Date Start Date Code Code System Note Provider Name and Address Organization Details Recorded Time 234459 niacin medicatio n Not available Not available Not available 05/28/2025 7393 RxNorm PATRIZIA L'HEUREUX [facility], [facility] 14:03:07 13230 Product containin g 3-hydroxy -3-methyl glutaryl- coenzyme A reductase inhibitor (product) medicatio n Not available Not available Not available 10/25/20232016 67022 009 SNOMED Aller gyNam e: 'stat ins'; Not Available [facility] 13:27:42 Medications Name Authored On Sig Start Date Stop Date Status Note Indication Fill Status Repeat Number Dispense Quantity LastModified by Organization Details LastModified Time Farxi ga 10 mg table t 5 12:53:39 TAKE 1 TABL ET ONCE IGNACIA Y active Not Available Not availab le 0 Not Available Not Available bessy - External Data Service - prod 05/28/2025 12:53:39 irbes carole 300 mg table t 5 12:53:39 TAKE 1 TABL ET BY MOUT H IGNACIA Y active Not Available Not availab le 0 Not Available Not Available bessy - External Data Service - prod 05/28/2025 12:53:39 metfo rmin ER 500 mg table t,ext ended relea se 24 hr 12:53:39 TAKE 1 TABL ET TWIC E A DAY active Not Available Not availab le 0 Not Available Not Available bessy - External Data Service - prod 05/28/2025 12:53:39 rosuv astat in 10 mg table t 5 12:53:40 TAKE 1 TABL ET AT BEDT KRYSTIN active Not Available Not availab le 0 Not Available Not Available bessy - External Data Service - prod 05/28/2025 12:53:40 docus ate sodiu m 100 mg capsu le 12:53:42 TAKE ONE CAPS ULE BY NICKIE Villanueva TWLEON E IGNACIA Y 05/29 aborted Not Available Not availab le 0 Not Available KAYLIA L'HEUREUX [facility] 05/29/2025 09:46:16 Admel og U-100 Insul in lispr o 100 unit/ mL subcu taneo us solut ion 12:53:40 FOR INSU SHIVAM PUMP FOR 90 DAYS ; INFU SE UP TO 110 UNIT S VIA INSU SHIVAM PUMP SUBC UTAN EOUS LY IGNACIA Y 05/29 aborted Not Available Not availab le 0 Not Available KAYLIA L'HEUREUX [facility] 05/29/2025 09:46:37 oxyco done 5 mg table t 5 12:53:42 TAKE 1 TABL ET BY NICKIE Villanueva EVER Y 4 HOUR S NEED ED FOR PAIN 05/29 aborted Not Available Not availab le 0 Not Available KAYLIA L'HEUREUX [facility] 05/29/2025 09:47:13 Aller clear 10 mg table t 5 10:16:54 Take 1 tabl et ever y day by oral rout e. active Not Available Not availab le 0 Not Available KAYLIA L'HEUREUX [facility] 05/29/2025 10:16:54 Aspri n Ec Low Dose 81 mg table t,ellyn ayed relea se 5 10:17:04 Take 1 tabl et ever y day by oral rout e. active Not Available Not availab le 0 Not Available KAYLIA L'HEUREUX [facility] 05/29/2025 10:17:04 B12 5 10:17:10 active Not Available Not availab le 0 Not Available KAYLIA L'HEUREUX [facility] 05/29/2025 10:17:10 calci um 5 10:17:16 active Not Available Not availab le 0 Not Available KAYLIA L'HEUREUX [facility] 05/29/2025 10:17:16 Vitam in C 5 10:17:33 active Not Available Not availab le 0 Not Available KAYLIA L'HEUREUX [facility] 05/29/2025 10:17:33 clotr imazo le 5 10:17:44 active Not Available Not availab le 0 Not Available KAYLIA L'HEUREUX [facility] 05/29/2025 10:17:44 coenz yme Q10 5 10:17:59 active Not Available Not availab le 0 Not Available KAYLIA L'HEUREUX [facility] 05/29/2025 10:17:59 Vitam in D 5 10:43:19 active Not Available Not availab le 0 Not Available KAYLIA L'HEUREUX [facility] 05/29/2025 10:43:19 Flona se Aller gy Relie f 5 10:43:26 active Not Available Not availab le 0 Not Available KAYLIA L'HEUREUX [facility] 05/29/2025 10:43:26 Gluco samin e 5 10:43:35 active Not Available Not availab le 0 Not Available KAYLIA L'HEUREUX [facility] 05/29/2025 10:43:35 iron 5 10:43:43 active Not Available Not availab le 0 Not Available KAYLIA L'HEUREUX [facility] 05/29/2025 10:43:43 monte eusebio t 10 mg table t 5 10:43:53 Take 1 tabl et ever y day by oral rout e. active Not Available Not availab le 0 Not Available KAYLIA L'HEUREUX [facility] 05/29/2025 10:43:53 Novol og FlexP en U-100 Insul in 5 10:44:06 active Not Available Not availab le 0 Not Available KAYLIA L'HEUREUX [facility] 05/29/2025 10:44:06 nysta tin (bulk ) 1 moris on unit powde r 10:44:15 active Not Available Not availab le 0 Not Available KAYLIA L'HEUREUX [place] [facility] [place] [facility] 05/29/2025 10:44:15 ezeti mibe 10 mg table t 12:09:49 TAKE 1 TABL ET IGNACIA Y active Not Available Not availab le 0 Not Available Not Available bessy - External Data Service - prod 06/10/2025 12:09:49 Basag lar KwikP en U-100 Insul in 100 unit/ mL (3 mL) subcu taneo us 12:09:[address] 50 UNIT S SUBC UTAN EOUS EVER Y DAY NEED ED FOR PUMP FAIL URE active Not Available Not availab le 0 Not Available Not Available bessy - External Data Service - prod 06/10/2025 12:09:50 methy lpred nisol one 4 mg table ts in a dose pack 12:09:50 FOLL OW PACK AGE DIRE CTIO NS active Not Available Not availab le 0 Not Available Not Available bessy - External Data Service - prod 06/10/2025 12:09:50 nebiv olol 2.5 mg table t 12:09:50 TAKE 1 TABL ET IGNACIA Y active Not Available Not availab le 0 Not Available Not Available bessy - External Data Service - prod 06/10/2025 12:09:50 manny nolac tone 25 mg table t 5 12:09:50 TAKE 1 TABL ET IGNACIA Y active Not Available Not availab le 0 Not Available Not Available bessy - External Data Service - prod 06/10/2025 12:09:50 Vitals Date Recorded Body height Body mass index (BMI) Body weight Provider Name and Address Organization Details Last Updated DateTime 05/28/2025 187.96 cm 29.5 kg/m2 664810.25 g KAYLIA L'HEUREUX [place] [facility] [place] [facility] 05/28/2025 14:02:14 Social History Question Answer Notes LastModified by Organizat ion Details LastModified Time Tobacco Smoking Status Never Smoker KAYLIA L'HEUREUX [facility] 05/28/2025 14:03:48 What Is Your Level Of Alcohol Consumption? Occasional PATRIZIA SOTOX [facility] 05/28/2025 14:03:48 Have you ever been counseled for unhealthy alcohol use? No [facility] 05/28/2025 14:03:48 What is your relationship status? PATRIZIA SCHMITZ [facility] 05/28/2025 14:03:51 Social History Observation Description Date Observed Sex Unknown 05/28/2025 Legal Sex Male Status Not (finding) 08/22/20 25 No social history survey screeners recorded No social history SDOH screeners recorded Functional Status Question Answer Note LastModified by Organizat ion Details LastModified Time Do you or have you ever used any other forms of tobacco or nicotine? No PATRIZIA KHANEUX [facility] 05/28/2025 14:03:48 What is your level of alcohol consumption? Occasional PATRIZIA SOTOX [facility] 05/28/2025 14:03:48 How many times per week do you consume alcohol? Less than 1 time per week PATRIZIA SCHMITZ [facility] 05/28/2025 14:03:48 Do you use any illicit or recreational drugs? No PATRIZIA KHANEUX [facility] 05/28/2025 14:03:48 No Functional Screening assessment recorded No Functional SDOH screeners recorded Mental Status None recorded. No Mental Screening assessment recorded No Mental SDOH screeners recorded Family History Nothing Reported. Medical History Condition Response Allergies/Hayfever N Coronary Artery Disease N Breathing or lung disorders N Anxiety/Depression N Emphysema N Nerve Disorders N Thyroid Problems N COPD N Pacemaker N Kidney/Bladder Problems Y Anemia N Vascular Disease N Heart Trouble N Heart Attack (DC) N Gastrointestinal Disease N Cholesterol Y Diabetes Y Autoimmune disease N Inflammatory Joint disease N Bleeding Disorder N Orthotics N Seizures/Epilepsy N Arthritis Y Blood Clot N AIDS/HIV N Congestive Heart Failure (CHF) N Acid Reflux (GERD) N Cancer N Stroke N Asthma N Circulation Problems N Peripheral Vascular Disease N Sleep Apnea Y Hepatitis N Heart Disease N Rheumatoid Arthritis N Pulmonary Embolism N Arrhythmia N Headaches N Fibromyalgia N Hypertension Y Osteoporosis N Past Encounters Encounter ID Performer Location Encounter Start Date Encounter Closed Date Diagnosis/Indication Diagnosis SNOMED-CT Code Diagnosis ICD10 Code Diagnosis IMO Codes Diagnosis Note [id number] SUZANNE Kerr [address] [facility] [place] [address] 05/28/2025 12:54:03 06/06/2025 09:22:54 Pain of right shoulder joint 2196722735 9293476 M25.511 198007 Right cerv ical root neuropathy 0095866988 2017071 M54.12 [id number] Health Concerns Section Related Observation LastModified by Organization Detai ls LastModified Time None Recorded Concern Status LastModified by Organization Details LastModified Time None Recorded SDOH Concern Status LastModified by Organization Detai ls LastModified Time None Recorded Payers Encounter Date Sequence Insurance Name Policy Number Policy Armendariz Covered Member ID Armendariz Member ID Guarantor Name 05/28/2025 1 [place] [employer] Christiana Herrera [id number] Christiana Herrera 05/28/2025 2 [facility] [place] - PLAN 1 (MEDICARE SUPPLEMENT) [id number] Christiana Herrera [id number] Christiana Herrera Care Team Name Role Member ID Specialty Address Phone None Recorded.
--- OUTSIDE RECORDS SUMMARY | 2025-08-22 09:34 | XMS_ITS | Patient Health Record ---
Author Organization [facility] Address [address] [place] [address] Care Team Providers Care Teacher Education Director Name Role Phone Maria Isabel Munoz MD Primary Care Provider Nallely Leonardo Unavailable [phone] Allergies Allergen (clinical drug ingredient) Drug/Non Drug [...] Lab: Notes/Report: HEMOGLOBIN A1C % (HH) 6.8 HEMOGLOBIN A1C (GLYCOHEMOGLO BIN) Reviewed date:06/12/2025 09:14:58 AM Interpretation: Performing Lab: Notes/Report: HEMOGLOBIN A1C % (HH) 6.3 Reason For Referral No Information Medications Medication SIG (Take, Route, Frequency, Duration) Notes Start Date End Date Status flonase Active Clotrimazole-Betamethason e Active Extra Depth Orthopedic Shoes (1 Pair) with Customized Heat Molded Multidensity Innersoles (3 Pair) as directed Dx: IDDM/Polyneuropathy (E10.42), Hammertoe Foot Deformity (M20.41,M20.42), Preulcerative Skin Lesion(s) (L85.1) 11/01/2018 Not-Taking CoQ-10 200 MG 1 capsule with [...] Skin Lesion(s) (L85.1) 08/06/2020 Not-Taking Farxiga Active Aspirin 81 Active Montelukast Sodium N ot-Taking Betamethasone Dipropionate Active Extra Depth Diabetic Shoes with 3 Pair Custom heat-molded multi-density innersoles for 1 year Dx: Not-Taking Calcium 600 MG 1 tablet with meals Orally Twice a day Active Compression Stockings 20-30mm Hg as directed 02/11/2016 Not-Taking Claritin Active Extra Depth Diabetic Shoes with 3 Pair Custom heat-molded multi-density innersoles for 1 year Dx: 04/16/2017 Not-Taking Vitamin B12 500 mg 1 tablet Orally Once a day Active Vitamin C Active amLODIPine Besylate 5 MG Orally Active Extra Depth Orthopedic Shoes (1 Pair) with Customized Heat Molded Multidensity Innersoles (3 Pair) as directed Dx: NIDDM/Polyneuropathy (E11.42), Hammertoe Foot Deformity (M20.41,M20.42), Preulcerative Skin Lesion(s) (L85.1 09/05/2024 Active Nystatin Active HumaLOG Not-Taking Rosuvastatin Calcium Active Spironolactone Activ e Vitamin D Active iron 1 tab Oral Active Bystolic Not-Taking metFORMIN HCl 500 MG Orally Twice a day Active Insulin Lispro (Human) Not-Taking NovoLOG Active Clotrimazole Not-Corbin ing Nebivolol HCl Active All Day Allergy-D No t-Taking Furosemide Not-Takin g hydrALAZINE HCl 50 MG Orally Twice a day Not-Taking Glucosamine 750 MG Orally A ctive Loratadine Not-Takin g Irbesartan 300 MG 1 tablet Orally Once a day Active Zetia 10 mg Not-Taki ng Immunizations Vaccine Route Administration Date Status Comme nts Influenza Unknown 05/11/2016 Administered Influenza Unknown 05/06/2017 Administered Influenza Unknown 05/18/2018 Administered Influenza Unknown 05/04/2019 Administered Influenza Unknown 04/23/2020 Administered Influenza Unknown 04/24/2024 Administered Influenza Unknown 05/06/2025 Administered Pneumococcal Unknown 10/22/2014 Administered COVID-19 Moderna [...] Polyneuropathy due to type 2 diabetes mellitus (589278996) Type 2 diabetes mellitus with diabetic polyneuropathy (E11.42) Active confirmed Problem Acquired hammer toe of right foot (9212722242511556 ) Other hammer toe(s) (acquired), right foot (M20.41) Active confirmed Problem Acquired hammer toe of left foot (2518078950621978 ) Other hammer toe(s) (acquired), left foot (M20.42) Active confirmed Problem Skin ulcer of to e of right foot with fat layer exposed (L97.512) Active confirmed Problem Skin ulcer of to e of left foot with fat layer exposed (L97.522) Active confirmed Vital Signs Heart Rate 62 /min 06/12/2025 Blood pressure diastolic 104 R mm Hg 06/12/2025 Height 6ft 3in in 06/12/2025 Blood pressure systolic 163 mm Hg 06/12/2025 Weight 230 lbs 06/12/2025 BMI 28.74 kg/m2 06/12/2025 Procedures Procedure Date Ordered Date Performed Result Body Sit e 86803-YWUTHDY NAIL, 6 OR MORE 09/05/2024 N/A 41626-GIJI SKIN LESIONS, 2 TO 4 09/05/2024 N/A 02215-MZOVSDH NAIL, 6 OR MORE 12/15/2024 N/A 00397-XLD 12/15/2024 N/A 65810-ZAOQ SKIN LESIONS, 2 TO 4 12/15/2024 N/A 14531-CBEOXNV SKIN/TISSUE 01/09/2025 N/A Encounters Encounter Location Date Provider Diagnosis [address] [address] 09/05/2024 Nallely Bowen Other hammer toe(s) (acquired), right foot M20.41 ; Other hammer toe(s) (acquired), left foot M20.42 ; Type 2 diabetes mellitus with diabetic polyneuropathy E11.42 and Tinea unguium B35.[address] [address] 12/15/2024 Nallely Bowen Type 2 diabetes mellitus with diabetic polyneuropathy E11.42 ; Tinea unguium B35.1 and Ingrown nail L60.[address] [address] 01/09/2025 Nallely Bowen Skin ulcer of toe of left foot with fat layer exposed L97.[address] [address] 03/16/2025 Nallely Bowen Type 2 diabetes mellitus with diabetic polyneuropathy E11.42 and Tinea unguium B35.[address] [address] 06/12/2025 Nallely Bowen Type 2 diabetes mellitus with [...] mellitus with diabetic polyneuropathy (ICD-10 - E11.42) 06/12/2025 Type 2 diabetes mellitus with diabetic polyneuropathy (ICD-10 - E11.42) 06/12/2025 Tinea unguium (ICD-10 - B35.1) 03/16/2025 Tinea unguium (ICD-10 - B35.1) 12/15/2024 [...] X ray : Foot, right 2V 12/25/2016 55478-LDETEIM NAIL, 6 OR MORE 04/16/2017 37759-FPTXDOI NAIL, 6 OR MORE 07/09/2017 98803-NFCKJJJ NAIL, 6 OR MORE 10/01/2017 33911-GHUUIBE NAIL, 6 OR MORE 02/05/2017 58417-QCPIAZK NAIL, 6 OR MORE 11/24/2016 73062-SPUVZMF NAIL, 6 OR MORE 12/18/2014 12010-EMOHCAF NAIL, 6 OR MORE 03/12/2015 29919-SAKDESU NAIL, 6 OR MORE 06/04/2015 14729-ICWMWCY NAIL, 6 OR MORE 11/12/2015 07044-ZDHECQS NAIL, 6 OR MORE 02/11/2016 09944-YDDLWXN NAIL, 6 OR MORE 05/19/2016 45174-NQTTRQR NAIL, 6 OR MORE 08/25/2016 97682-KGKZMFK NAIL, 6 OR MORE 06/09/2011 26324-DFMZLGT NAIL, 6 OR MORE 09/11/2011 61282-KLKAYXU NAIL, 6 OR MORE 09/25/2011 20851-ZWCSVIR NAIL, 6 OR MORE 12/01/2011 09483-OSEBUZX NAIL, 6 OR MORE 03/01/2012 63785-UBNYDQG NAIL, 6 OR MORE 05/31/2012 44509-HPPWGAO NAIL, 6 OR MORE 09/06/2012 05463-OTWKOSM NAIL, 6 OR MORE 12/06/2012 41784-EPNFZUV NAIL, 6 OR MORE 04/18/2013 58966-ICVPAUI NAIL, 6 OR MORE 07/11/2013 46388-XVVKFXF NAIL, 6 OR MORE 10/17/2013 69189-YBBZHRF NAIL, 6 OR MORE 01/09/2014 07438-UDYGXPE NAIL, 6 OR MORE 04/03/2014 90501-RCJTIOJ NAIL, 6 OR MORE 06/26/2014 94516-QPNBRQK NAIL, 6 OR MORE 09/21/2014 30614-XURSXOW NAIL, 6 OR MORE 12/24/2017 23132-CUUBFUV NAIL, 6 OR MORE 03/04/2018 85926-GYCVINI NAIL, 6 OR MORE 05/27/2018 18320-UEAUMEY NAIL, 6 OR MORE 08/02/2018 62357-ICXRZGL NAIL, 6 OR MORE 09/05/2024 77858-WSPULER NAIL, 6 OR MORE 12/15/2024 83747-Bekwwdnd Plate 11/05/2020 49375-Crtukxar Plate 02/04/2021 75793-Txaccbhs Plate 05/06/2021 15961-Yufxgtye Plate 02/06/2020 42451-Abrifmck Plate 12/24/2017 55379-Tqbfgvbk Plate 05/27/2018 38444-Pzuvgxjf Plate 06/26/2014 36352-Hwyyuiuz Plate 07/11/2013 04009-Kkynmgjh Plate 12/06/2012 95559-Waddrief Plate 06/09/2011 05971-Tqwpkajb Plate 04/03/2014 73074-Zsuhurpv Plate 04/12/2015 80722-Vipuzega Plate 08/25/2016 25271-Zlnrojun Plate 04/16/2017 06046-TNO 12/15/2024 44354- Debride <25 sq cm 09/25/2011 24097-OXIDQWM SKIN/TISSUE 01/09/2025 84602 I&D ABSCESS- SIMPLE,SINGLE 018 00075 I&D ABSCESS- SIMPLE,SINGLE 013 97898 I&D ABSCESS- SIMPLE,SINGLE 012 71654 I&D ABSCESS- SIMPLE,SINGLE 012 67645 I&D ABSCESS- SIMPLE,SINGLE 015 28837-WSZQ SKIN LESIONS, OVER 4 05/07/20 61514-IXLO SKIN LESIONS, OVER 4 11/12/19 68404-HHYZ SKIN LESIONS, 2 TO 4 08/01/20 17742-NEZD SKIN LESIONS, 2 TO 4 05/06/20 21 31410-WZYT SKIN LESIONS, 2 TO 4 02/05/20 87535-BZWT SKIN LESIONS, 2 TO 4 12/07/19 24 94505-ISPC SKIN LESIONS, 2 TO 4 12/16/19 94900-ICMH SKIN LESIONS, 2 TO 4 09/05/19 99640-PDYV SKIN LESIONS, 2 TO 4 08/06/20 68260-NAOH SKIN LESIONS, 2 TO 4 11/06/19 01087-MCRW SKIN LESIONS, 2 TO 4 11/02/19 19 77084-LBMU SKIN LESIONS, 2 TO 4 02/01/20 19 67881-PCGE SKIN LESIONS, 2 TO 4 05/02/20 19 94278-RHQY SKIN LESIONS, 2 TO 4 08/08/20 19 30041-HTTC SKIN LESIONS, 2 TO 4 11/07/19 20 80715-DOXL SKIN LESIONS, 2 TO 4 02/06/20 20 59113-PKNO SKIN LESIONS, 2 TO 4 05/27/20 18 31707-POHS SKIN LESIONS, 2 TO 4 03/04/20 18 32829-FGLX SKIN LESIONS, 2 TO 4 08/02/20 18 85137-MFWH SKIN LESIONS, 2 TO 4 06/04/20 15 15168-IBVY SKIN LESIONS, 2 TO 4 03/12/20 15 62317-JXYD SKIN LESIONS, 2 TO 4 12/19/19 15 03471-RISC SKIN LESIONS, 2 TO 4 08/25/19 17 04023-WYNS SKIN LESIONS, 2 TO 4 05/19/20 16 56093-FXMF SKIN LESIONS, 2 TO 4 02/11/20 16 98091-OLOH SKIN LESIONS, 2 TO 4 11/12/19 16 51516-DKTP SKIN LESIONS, 2 TO 4 07/09/20 17 50455-GHFD SKIN LESIONS, 2 TO 4 12/25/19 18 83529-YZPX SKIN LESIONS, 2 TO 4 10/01/19 18 53912-OABM SKIN LESIONS, 2 TO 4 11/25/19 17 15920-IOIZ SKIN LESIONS, 2 TO 4 04/16/20 17 79335-RTZH SKIN LESIONS, 2 TO 4 02/06/20 17 42480-XXKN SKIN LESIONS, 2 TO 4 09/25/19 12 97661-OYCA SKIN LESIONS, 2 TO 4 12/01/19 12 48316-EOAC SKIN LESIONS, 2 TO 4 09/11/19 12 73215-SQAZ SKIN LESIONS, 2 TO 4 12/07/19 13 99574-OFWW SKIN LESIONS, 2 TO 4 09/06/19 13 93332-GBXX SKIN LESIONS, 2 TO 4 05/31/20 12 78020-BZIG SKIN LESIONS, 2 TO 4 03/01/20 12 09225-FOLL SKIN LESIONS, 2 TO 4 04/18/20 13 51602-RDVC SKIN LESIONS, 2 TO 4 07/11/20 13 19075-ZZHO SKIN LESIONS, 2 TO 4 10/17/19 14 90390-TEVF SKIN LESIONS, 2 TO 4 09/21/19 15 98483-LSNY SKIN LESIONS, 2 TO 4 04/03/20 14 02022-BFLH SKIN LESIONS, 2 TO 4 01/10/20 14 37516-Tsqe. Subungual Hematoma 4 26969,E2509-EMV TENDON SHEATH/LIGAMENT 0 12/25/2016 Next Appt Details Provider Name:Nallely Avitia erika, 09/14/2025 09:00:00 AM, [address] [facility] [address], [place], [address], Insurance Providers Payer Name Payer Address Payer Phone Subscriber Number Group Number Insured Name Patient Relationship to Insured Coverage Start Date Coverage End Date Medicare National [employer] [address] MADD[place] Carvalho [phone] [id number] Mihai Herrera Self - patient is the insured [facility] [address] [place] [address] [phone] [id number] Mihai Herrera Self - patient is the insured Medical (General) History Medical History History ICD Code chicken pox diabetic hypertension mumps measles Surgical History Surgery Date(Month/Year) arm 1988 hand/wrist 1987 tonsillectomy 1958 umbilical hernia 06/2024
--- OUTSIDE RECORDS SUMMARY | 2025-08-22 09:35 | XMS_ITS | Data Portability ---
Author Organization [facility], [facility] Ida Address [address] [place] [address] Support Name Relationship Address Phone CHRISTIANA MONTGOMERY self [address] [facility] [place] [address] Assessment Encounter Date Assessment Date Assessment LastModified [...] or to follow up sooner if needed. [email or web address] Not available 05/28/2025 20:28:37 Plan of Treatment Reminders Order Date Submit Date Provider Name Organization Details Last Modified By Last Modified Time Details Appointments None record ed. Lab None record ed. Referral None record ed. Procedures None record ed. Surgeries None record ed. Imaging XR, should er, 2 or more view 025 14:05:0 2 [facility] Dud[facility] [address] [facility] [address], [place], [address], [facility] 5 09:22:54 MedicationOrders None record ed. VaccineOrders None record ed. Patient TargetsNo targets recorded. Patient InstructionsNo instructions recorded. Reason for Referral None Reported. Results Created Date Observation Date Name Description Value Unit Range Abnormal Flag Specimen Type Note LastModifiedBy Organization Detail LastModifiedTime 05/28/2025 05/28/2025 shoulder 4 view [email or web address]=vjStQstMU7eFgwTNq4v%1ELBejThcxq9dert%2Qb3MUh3 nrBnqO3hLyAWjpmAk2UdMZYzOggNTU2oVeODbhi76k6312IX0FkjZuKUjokNqIpzKyN Not Available [facility] , [address] [facility] [address] [address] , [place] , [address], , 05/28/2025 14:11:57 05/28/2025 05/28/2025 shoulder 4 view [email or web address]=iuMlPkoRG2jLfjGTp6v%9FVMwnAlume4tqob%9Fh5NIa5 blTjlY4ySrCYucdLz3AnYDSwVcrBVC8uEyZWwdz85m7105RN6XcpYeHDexhLtZqvVlR Not Available [facility] , [address] [address] , [place] , [address], , 05/28/2025 14:11:59 Result Notes Documentation Provider Name and Address Organization Details Recorded Time Xr, Shoulder, 2 Or More View : [email or web address] Encrypted=eaEpZymGC5oInxV Uv6g%5UHRtpTqlyq9yhzo%2Fg 2CTw1ykVbvN8jQqJAdtaFe5Fi EYRaKdtXUL3iZrKCzcz50n767 9FD1FdnIdWSvdfKbYsjFbW Not Available [facility] 05/28/2025 14:11: 57 Xr, Shoulder, 2 Or More View : [email or web address] Encrypted=viOqHjqSE2mKlnZ Uv6g%6WKHrbZnewz6tucj%2Fg 7ZUu9gvFfqF1uTfMWdhyNb4Wy WAVnFdxUFA3bFyBNuqd00k717 7AN5MbxUvDTyacKyTotWvC Not Available [facility] 05/28/2025 14:11: 59 Problems Name Problem SNOMED Code Status Onset Date Resolution Date Notes Provider Name and Address Organization Details Recorded Time Pain of right shoulder joint 443167955754312 00 Active 2024 KAYLIA L'HEUREUX [facility], [facility] 14:04:28 Problem Notes None recorded. Medical Equipment None Reported. Allergies Allergen ID Allergen Name Allergen Category Reaction Reaction Severity Criticality Documentation Date Start Date Code Code System Note Provider Name and Address Organization Details Recorded Time 534643 niacin medicatio n Not available Not available Not available 05/28/2025 7393 RxNorm CIERAYLDENAE L'HEUREUX [facility] 14:03:07 90025 Product containin g 3-hydroxy -3-methyl glutaryl- coenzyme A reductase inhibitor (product) medicatio n Not available Not available Not available 10/25/20232016 85996 009 SNOMED Aller gyNam e: 'stat ins'; Not Available [facility] 13:27:42 Medications Name Authored On Sig Start Date Stop Date Status Note Indication Fill Status Repeat Number Dispense Quantity LastModified by Organization Details LastModified Time Farxi ga 10 mg table t 12:53:39 TAKE 1 TABL ET ONCE IGNACIA [...] 0 Not Available Not Available bessy - [employer] - prod 05/28/2025 12:53:40 docus ate sodiu m 100 mg capsu le 12:53:42 TAKE ONE CAPS ULE BY NICKIE Villanueva TWLEON E IGNACIA Y 05/29 aborted Not Available Not availab le 0 Not Available KAYLIA L'HEUREUX [facility] 05/29/2025 09:46:16 Admel og U-100 Insul in lispr o 100 unit/ mL subcu taneo us solut ion 12:53:40 FOR INSU SHIVAM PUMP FOR 90 DAYS ; INFU SE UP TO 110 UNIT S VIA INSU SHIVAM PUMP SUB CUTA NEOU SLY IGNACIA Y 05/29 aborted Not Available Not availab le 0 Not Available KAYLIA L'HEUREUX [facility] 05/29/2025 09:46:37 oxyco done 5 mg table t 12:53:42 TAKE 1 TABL ET BY NICKIE Villanueva EVER Y 4 HOUR S NEED ED FOR PAIN 05/29 aborted Not Available Not availab le 0 Not Available KAYLIA L'HEUREUX [facility] 05/29/2025 09:47:13 Aller clear 10 mg table t 5 10:16:54 Take 1 tabl et ever y day by oral rout e. active Not Available Not availab le 0 Not Available KAYLIA L'HEUREUX [facility] 05/29/2025 10:16:54 Aspri n Ec Low Dose 81 mg table t,del ayed relea se 5 10:17:04 Take 1 tabl et ever y day by oral rout e. active Not Available Not availab le 0 Not Available KAYLIA L'HEUREUX [facility] 05/29/2025 10:17:04 B12 5 10:17:10 active Not Available Not availab le 0 Not Available KAYLIA L'HEUREUX [facility] 05/29/2025 10:17:10 calci um 5 10:17:16 active Not Available Not availab le 0 Not Available KAYLIA L'HEUREUX [facility] 05/29/2025 10:17:16 Vitam in C 5 10:17:33 active Not Available Not availab le 0 Not Available KAYLIA L'HEUREUX [facility] 05/29/2025 10:17:33 clotr imazo le 5 10:17:44 active Not Available Not availab le 0 Not Available KAYLIA L'HEUREUX [facility] 05/29/2025 10:17:44 coenz yme Q10 5 10:17:59 active Not Available Not availab le 0 Not Available KAYLIA L'HEUREUX [facility] 05/29/2025 10:17:59 Vitam in D 5 10:43:19 active Not Available Not availab le 0 Not Available KAYLIA L'HEUREUX [facility] 05/29/2025 10:43:19 Flona se Aller gy Relie f 5 10:43:26 active Not Available Not availab le 0 Not Available KAYLIA L'HEUREUX [facility] 05/29/2025 10:43:26 Gluco samin e 5 10:43:35 active Not Available Not availab le 0 Not Available KAYLIA L'HEUREUX [facility] 05/29/2025 10:43:35 iron 5 10:43:43 active Not Available Not availab le 0 Not Available KAYLIA L'HEUREUX [facility] 05/29/2025 10:43:43 monte eusebio t 10 mg table t 5 10:43:53 Take 1 tabl et ever y day by oral rout e. active Not Available Not availab le 0 Not Available KAYLIA L'HEUREUX [facility] 05/29/2025 10:43:53 Novol og FlexP en U-100 Insul in 5 10:44:06 active Not Available Not availab le 0 Not Available KAYLIA L'HEUREUX [facility] 05/29/2025 10:44:06 nysta tin (bulk ) 1 moris on unit powde r 10:44:15 active Not Available Not availab le 0 Not Available KAYLIA L'HEUREUX [facility] 05/29/2025 10:44:15 ezeti mibe 10 mg [...] manny nolac tone 25 mg table t 12:09:50 TAKE 1 TABL ET IGNACIA Y active Not Available Not availab le 0 Not Available Not Available bessy - [employer] - prod 06/10/2025 12:09:50 Vitals Date Recorded Body height Body mass index (BMI) Body weight Provider Name and Address Organization Details Last Updated DateTime 05/28/2025 187.96 cm 29.5 kg/m2 327416.25 g KAYLIA L'HEUREUX [facility] 05/28/2025 14:02:14 Social History Question Answer Notes LastModified by Organizat ion Details LastModified Time Tobacco Smoking Status Never Smoker KAYLIA L'HEUREUX [facility] 05/28/2025 14:03:48 What Is Your Level Of Alcohol Consumption? Occasional PATRIZIA SOTOX [facility] 05/28/2025 14:03:48 Have you ever been counseled for unhealthy alcohol use? No PATRIZIA KHANEUX [facility] 05/28/2025 14:03:48 What is your relationship status? PATRIZIA SCHMITZ [facility] 05/28/2025 14:03:51 Social History Observation Description Date Observed Sex Unknown 07/20/2025 Legal Sex Male Status Not (finding) 08/22/20 25 No social history survey screeners recorded No social history SDOH screeners recorded Functional Status Question Answer Note LastModified by Organizat ion Details LastModified Time Do you or have you ever used any other forms of tobacco or nicotine? No PATRIZIA KHANEUX [facility] 05/28/2025 14:03:48 What is your level of alcohol consumption? Occasional PATRIZIA SOTOX [facility] 05/28/2025 14:03:48 How many times per week do you consume alcohol? Less than 1 time per week PATRIZIA SCHMITZ [facility] 05/28/2025 14:03:48 Do you use any illicit or recreational drugs? No PATRIZIA KHANEUX [facility] 05/28/2025 14:03:48 No Functional Screening assessment recorded No Functional SDOH screeners recorded Mental Status None recorded. No Mental Screening assessment recorded No Mental SDOH screeners recorded Family History Nothing Reported. Medical History Condition Response Allergies/Hayfever N Coronary Artery Disease N Anxiety/Depression N Breathing or lung disorders N Emphysema N Nerve Disorders N Thyroid Problems N COPD N Pacemaker N Anemia N Kidney/Bladder Problems Y Vascular Disease N Heart Trouble N Heart Attack ([place]) N Gastrointestinal Disease N Cholesterol Y Diabetes Y Autoimmune disease N Bleeding Disorder N Inflammatory Joint disease N Orthotics N Arthritis Y Seizures/Epilepsy N Blood Clot N AIDS/HIV N Congestive Heart Failure (CHF) N Acid Reflux (GERD) N Cancer N Stroke N Asthma N Circulation Problems N Peripheral Vascular Disease N Sleep Apnea Y Hepatitis N Heart Disease N Rheumatoid Arthritis N Arrhythmia N Pulmonary Embolism N Headaches N Fibromyalgia N Hypertension Y Osteoporosis N Past Encounters Encounter ID Performer Location Encounter Start Date Encounter Closed Date Diagnosis/Indication Diagnosis SNOMED-CT Code Diagnosis ICD10 Code Diagnosis IMO Codes Diagnosis Note [id number] SUZANNE Krer [place] [address] [place] [address] 05/28/2025 12:54:03 06/06/2025 09:22:54 Pain of right shoulder joint 2872460817 2234217 M25.511 992332 Right cerv ical root neuropathy 3940561607 1989781 M54.12 [id number] Health Concerns Section Related Observation LastModified by Organization Detai ls LastModified Time None Recorded Concern Status LastModified by Organization Details LastModified Time None Recorded SDOH Concern Status LastModified by Organization Detai ls LastModified Time None Recorded Advance Directives Directive None Recorded Payers Insurance Date Sequence Insurance Name Policy Number Policy Armendariz Covered Member ID Armendariz Member ID Guarantor Name 06/06/2025 2 [facility] - PLAN [facility] (MEDICARE SUPPLEMENT) [id number] Christiana Montgomery [id number] Christiana Montgomery 05/28/2025 1 [place]: [employer] Christiana Montgomery [id number] Christiana Montgomery Care Team Name Role Member ID Specialty Address Phone None Recorded.
[2025-08-22 10:50] LABS: Alanine Aminotransferase 36 U/L (0-40); Aspartate Amino Transferase 31 U/L (5-37); Cholesterol 163 mg/dL (<200); HDL Cholesterol 50 mg/dL (>40); Triglycerides 178 mg/dL (<150)
[2025-08-22 11:19] LABS: Vitamin B12 407 pg/mL (200-900)
== END 2025-08-22 09:21 | disposition home or self-care (01) ==
LOC: HO.HMGCLDS 09:20
PROVIDERS: PCP Internal Medicine; Visit Provider Student in an Organized Health Care Education/Training Program
DX: E11.42 Type 2 diabetes mellitus with diabetic polyneuropathy (principal); E78.00 Pure hypercholesterolemia, unspecified; Z79.4 Long term (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
CPT/HCPCS: 36415; 80061; 82607; 83036; 84450; 84460